=== PATIENT | male | born 1935 | race Caucasian/White ===

== ENCOUNTER 2016-06-01 11:52 | Inpatient (IN) | payer BC ==
--- NOTE | 2016-06-01 13:13 | PDOC ---
History of Present Illness - General Chief Complaint: Weakness Stated Complaint: RT LEG PAIN Time Seen by Provider: 06/01/16 12:10 History Source: Patient, Old Records Exam Limitations: No Limitations - History of Present Illness Initial Comments: 06/01/16 13:07 HPI: This 80-year-old male with c/o right lower leg weakness with increase neuropathy and was sent in to ER for admission per Dr. Dunham/Dr. Bhandari for work up Chief Compliant: right LE weakness. PMH: PVD, HTN, DM, BPH, FH: Pt has not recently traveled outside the country in the last 30 days. Pt has not been in contact with people who have traveled out of the country, in contact with people who have been ill with fever, n, v, d. SH: smoking use: NONE illicit drug use: NONE alcohol use: NONE employment/educational status: sexual history: PSH: Home med use noted on JUL Allergies:nka Immunizations: PCP: Dr. 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: G P : 06/01/16 15:02 Past History - Past Medical History Allergies/Adverse Reactions: Allergies Allergy/AdvReac Type Severity Reaction Status Date / Time No Known Allergies Allergy Verified 06/01/16 11:57 Home Medications: Ambulatory Orders Finasteride [Proscar -] 5 mg PO DAILY 09/14/15 Paroxetine HCl [Paxil -] 40 mg PO DAILY 09/14/15 Sulfasalazine 500 mg PO BID #60 tablet 09/29/15 Tamsulosin HCl [Flomax -] 0.8 mg PO DAILY #0 09/29/15 Acetaminophen [Tylenol .Extra-Strength -] 500 mg PO Q6H 04/23/16 Cholecalciferol (Vitamin D3) [Vitamin D3] 1,000 unit PO DAILY 04/23/16 Melatonin 5 mg PO HS 04/23/16 Metformin HCl 500 mg PO BID 04/23/16 Methimazole 5 mg PO BID 04/23/16 Metoprolol Succinate [Toprol XL -] 25 mg PO DAILY 04/23/16 Tamsulosin HCl [Flomax] 0.4 mg PO HS 04/23/16 Cefuroxime Axetil [Ceftin -] 500 mg PO Q12H #14 tablet 04/25/16 Meclizine HCl [Antivert -] 25 mg PO Q6H PRN #30 tablet 04/25/16 Anemia: No Asthma: No Cancer: No Cardiac Disorders: No CVA: No COPD: No CHF: No Dementia: No Diabetes: Yes GI Disorders: Yes (ACID REFLUX) Disorders: Yes (BPH) HTN: No Hypercholesterolemia: No Kidney Stones: Yes Liver Disease: No Seizures: No Thyroid Disease: No - Surgical History Abdominal Surgery: Yes (HERNIA) Appendectomy: No Cardiac Surgery: No Cholecystectomy: No Lung Surgery: No Neurologic Surgery: No Orthopedic Surgery: No (LEFT TOTAL HIP REPLACEMENT) - Immunization History Immunization Up to Date: Yes - Psycho/Social/Smoking Cessation Hx Anxiety: No Suicidal Ideation: No Smoking History: Former smoker Have you smoked in the past 12 months: No Number of Cigarettes Smoked Daily: 20 If you are a former smoker, when did you quit?: 25 YRS Information on smoking cessation initiated: No Hx Alcohol Use: No Drug/Substance Use Hx: No Substance Use Type: None Hx Substance Use Treatment: No Review of Systems - Review of Systems Able to Perform ROS?: Yes Comments:: 06/01/16 15:05 General statement: I have right leg weakness that is worsening Hematology: neg history of bleeding/blood thinners Skin: Neg for lesions, rash, bruising. HEENT: Neg symptoms Respiratory: Neg SOB or difficulty in breathing Cardiac: Neg chest pain GI: Neg pain, n/v : Neg problems on voiding MS: Neg for joint pain/stiffness, no edema Neuro: Neg for LOC, weakness, Endocrine: Neg for excess thirst/hunger, cold/heat intolerance, excess sweating Allergies: Neg for allergies *Physical Exam - Vital Signs Last Vital Signs Temp Pulse Resp BP Pulse Ox 99.1 F 87 20 122/67 93 L 06/01/16 11:53 06/01/16 11:53 06/01/16 11:53 06/01/16 11:53 06/01/16 11:53 - Physical Exam Comments: General Appearance: This elderly 80-year-old male V/S: hemodynamically stable, afebrile Skin: WNL of pt's skin color, no signs of pallor, mottling, cyanosis Head:symmetrical Eyes: EOM's intact, PERRLA Ears: denies pain Nose: patent Throat: lips, teeth, gums, tongue, buccal mucos pink and moist Lungs: Chest symmetry equal. Cap refill <3 seconds. Lung sounds clear Cardiac: PMI at R 4MCL space, pos S1 and S2, regular rate. Abdomen: Soft, round, nontender : Not observed Muscularskeletal: Positive right leg weakness unable to bear weight. No edema + PMS Neuro: AAOx3, cognitively intact, speech clear and appropriate. ED Treatment Course - LABORATORY CBC & Chemistry Diagram: 06/01/16 14:00 06/01/16 14:00 Medical Decision Making - Medical Decision Making 06/01/16 15:07 Patient initially seen and examined. Patient is found to have right leg weakness. He has some difficulty in ambulating and bearing weight. Patient is being brought in for admission. Chest x-ray negative Labs are noted to be normal for patient Pt is admitted to hospitalist for further workup. *DC/Admit/Observation/Transfer Diagnosis at time of Disposition: Weakness of both lower extremities - Discharge Dispostion Condition at time of disposition: Stable Admit: Yes
[2016-06-01 14:24] LABS: BASOPHIL 0.5 % (0-2.0); EOSINOPHIL 2.3 % (0-4.5); MCH 30.2 pg (25.7-33.7); MCHC 33.4 g/dl (32.0-35.9); MEAN CELL VOLUME 90.3 fl (80-96); MEAN PLT VOLUME 7.9 fl (7.5-11.1); NEUTROPHILS 75.7 % (42.8-82.8); PLATELET COUNT 161 K/MM3 (134-434); RDW 15.3 % (11.9-15.9); WHITE BLOOD COUNT 7.7 K/mm3 (4.0-10.0)
[2016-06-01 14:41] LABS: INR 1.13 (0.82-1.09); PROTHROMBIN TIME (PATIENT) 12.5 SEC (9.98-11.88)
[2016-06-01 14:53] LABS: ALBUMIN 3.3 g/dl (3.4-5.0); BILIRUBIN,TOTAL 0.2 mg/dL (0.2-1.0); CALCIUM 8.7 mg/dL (8.5-10.1); CREATININE 1.5 mg/dL (0.7-1.3); TOT PROT 6.7 g/dl (6.4-8.2)
--- NOTE | 2016-06-01 17:22 | HP ---
CHIEF COMPLAINT: Right leg progressive weakness PCP: Dr. Dunham HISTORY OF PRESENT ILLNESS: This is an 80 year old male with PMHx of HTN, rheumatoid arthritis 2007, COPD, CKD, interstitial lung disease, hyperthyroidism , NIDDM, chronic inflammatory demyelinating neuropathy, who presented to the ED with increased right leg weakness. The patient has been followed by Dr. Bhandari as an outpatient and was sent in today for further workup and IVIG (according to the patient). The patient reports his right leg weakness has progressed over the past "couple of weeks". He reports at home he uses a walker, but more recently has been using a wheelchair. He denies any bowel or bladder incontinence, headache, nausea, vomiting, diarrhea, abdominal pain, dysuria, dizziness, syncope, falls, trauma. ER course was notable for: (1) Cr 1.5 (2) UA/urine culture pending (3) Temp 99.1, pulse 87, BP 122/67, resp 20, O2 93% on RA Recent Travel: None Social History: Smoking: None Alcohol: None Drugs: None Family History: Allergies No Known Allergies Allergy (Verified 06/01/16 11:57) HOME MEDICATIONS: Medication Instructions Recorded Finasteride [Proscar -] 5 mg PO DAILY 09/14/15 Paroxetine HCl [Paxil -] 40 mg PO DAILY 09/14/15 Sulfasalazine 500 mg PO BID #60 tablet 09/29/15 Tamsulosin HCl [Flomax -] 0.8 mg PO DAILY #0 09/29/15 Acetaminophen [Tylenol 500 mg PO Q6H 04/23/16 .Extra-Strength -] Cholecalciferol (Vitamin D3) 1,000 unit PO DAILY 04/23/16 [Vitamin D3] Melatonin 5 mg PO HS 04/23/16 Metformin HCl 500 mg PO BID 04/23/16 Methimazole 5 mg PO BID 04/23/16 Metoprolol Succinate [Toprol XL -] 25 mg PO DAILY 04/23/16 Tamsulosin HCl [Flomax] 0.4 mg PO HS 04/23/16 Cefuroxime Axetil [Ceftin -] 500 mg PO Q12H #14 tablet 04/25/16 Meclizine HCl [Antivert -] 25 mg PO Q6H PRN #30 tablet 04/25/16 REVIEW OF SYSTEMS CONSTITUTIONAL: Absent: fever, chills, diaphoresis, malaise, loss of appetite, weight change HEENT: Absent: rhinorrhea, nasal congestion, visual changes CARDIOVASCULAR: Absent: chest pain, syncope, palpitations, irregular heart rate , lightheadedness, peripheral edema RESPIRATORY: Absent: cough, shortness of breath, dyspnea with exertion, wheezing , stridor, hemoptysis GASTROINTESTINAL:Absent: abdominal pain, abdominal distension, nausea, vomiting , diarrhea, constipation, melena, hematochezia GENITOURINARY: Absent: dysuria, frequency, urgency, hesitancy, hematuria, flank pain, genital pain MUSCULOSKELETAL: Absent: arthralgia, joint swelling, back pain, neck pain SKIN: Absent: rash, itching, pallor HEMATOLOGIC/IMMUNOLOGIC: Absent: easy bleeding, easy bruising, lymphadenopathy, frequent infections ENDOCRINE:Absent: unexplained weight gain, unexplained weight loss, heat intolerance, cold intolerance NEUROLOGIC: Increased right leg weakness requiring wheelchair. Absent: headache , dizziness, seizure, mental status changes, bladder or bowel incontinence PSYCHIATRIC: Absent: anxiety, depression, suicidal or homicidal ideation, hallucinations. PHYSICAL EXAMINATION GENERAL: Awake, alert, and fully oriented, in no acute distress. HEAD: Normal with no signs of trauma. EYES: Pupils equal, round and reactive to light, extraocular movements intact, sclera anicteric, conjunctiva clear. No lid lag. EARS, NOSE, THROAT: Ears normal, nares patent, oropharynx clear without exudates. Moist mucous membranes. NECK: Normal range of motion, supple without lymphadenopathy, JVD, or masses. LUNGS: Breath sounds equal, clear to auscultation bilaterally. No wheezes, and no crackles. No accessory muscle use. HEART: Regular rate and rhythm, normal S1 and S2 without murmur, rub or gallop. ABDOMEN: Soft, nontender, not distended, normoactive bowel sounds, no guarding, no rebound, no masses. No hepatomegaly or splenomegaly. MUSCULOSKELETAL: Normal range of motion at all joints. No bony deformities or tenderness. No CVA tenderness. UPPER EXTREMITIES: 2+ pulses, warm, well-perfused. No cyanosis. No clubbing. Cap refill <2 seconds. No peripheral edema. LOWER EXTREMITIES: 2+ pulses, warm, well-perfused. No calf tenderness. NEUROLOGICAL: Cranial nerves II-XII intact. Normal speech. Reflexes absent in lower extremities. Motor strength decreased in b/l upper and lower extremities PSYCHIATRIC: Cooperative. Good eye contact. Appropriate mood and affect. SKIN: Warm, dry, normal turgor, no rashes or lesions noted. CBCD WBC 7.7 K/mm3 (4.0-10.0) 06/01/16 14:00 RBC 4.31 M/mm3 (4.00-5.60) D 06/01/16 14:00 Hgb 13.0 GM/dL (11.7-16.9) D 06/01/16 14:00 Hct 38.9 % (35.4-49) D 06/01/16 14:00 MCV 90.3 fl (80-96) 06/01/16 14:00 MCHC 33.4 g/dl (32.0-35.9) 06/01/16 14:00 RDW 15.3 % (11.9-15.9) 06/01/16 14:00 Plt Count 161 K/MM3 (134-434) 06/01/16 14:00 MPV 7.9 fl (7.5-11.1) 06/01/16 14:00 CMP Sodium 141 mmol/L (136-145) 06/01/16 14:00 Potassium 4.1 mmol/L (3.5-5.1) 06/01/16 14:00 Chloride 104 mmol/L (98-107) 06/01/16 14:00 Carbon Dioxide 28 mmol/L (21-32) 06/01/16 14:00 Anion Gap 9 (8-16) 06/01/16 14:00 BUN 21 mg/dL (7-18) H D 06/01/16 14:00 Creatinine 1.5 mg/dL (0.7-1.3) H 06/01/16 14:00 Creat Clearance w eGFR 44.92 (>60) 06/01/16 14:00 Random Glucose 117 mg/dL (74-106) H D 06/01/16 14:00 Calcium 8.7 mg/dL (8.5-10.1) 06/01/16 14:00 Total Bilirubin 0.2 mg/dL (0.2-1.0) D 06/01/16 14:00 AST 13 U/L (15-37) L D 06/01/16 14:00 ALT 13 U/L (12-78) D 06/01/16 14:00 Alkaline Phosphatase 67 U/L (45-117) D 06/01/16 14:00 Total Protein 6.7 g/dl (6.4-8.2) 06/01/16 14:00 Albumin 3.3 g/dl (3.4-5.0) L D 06/01/16 14:00 Assessment: This is an 80 year old male with PMHx of HTN, rheumatoid arthritis 2007, COPD, CKD, interstitial lung disease, hyperthyroidism, NIDDM, chronic inflammatory demyelinating neuropathy, who presented to the ED with increased right leg weakness. Plan: 1) Neuro: Acute on chronic inflammatory demyelinating neuropathy - Worsening right leg weakness over the past few weeks - Sent in by neurologist for IVIG - Received IVIG (09/21-09/25) - Discussed with Dr. Bhandari, will order IVIG 2g/kg divided into 5 days total. Will pre-medicate with Benadryl and Acetaminophen - Will prehydrate with NS at 75ml/hr given pre-existing renal insufficiency, diabetes mellitus, age greater than 65 years (discussed with Dr. Tyson) - F/u neuro consult 2) : CKD stage 3 - Cr better than baseline - Continue to monitor 3) Rheumatology: Rheumatoid arthritis - PT - Continue Theraband 4) Cardiology: HTN - Continue Toprol XL 5) Endocrinology: DM - BGM ACHS Hyperthyroidism - Continue Methimazole 6) F/E/N: - Diabetic/sodium controlled diet - Monitor electrolytes 7) Prophylaxis: - Heparin 5,000u sq bid - PT 8) Dispo: - Requires continued inpatient care CODE STATUS: FULL CODE Visit type - Emergency Visit Emergency Visit: Yes ED Registration Date: 06/01/16 Care time: The patient presented to the Emergency Department on the above date and was hospitalized for further evaluation of their emergent condition. - New Patient This patient is new to me today: Yes Date on this admission: 06/01/16 - Critical Care Critical Care patient: No
[2016-06-01 17:53] LABS: URINE APPEARANCE CLEAR; URINE BILIRUBIN NEGATIVE (NEGATIVE); URINE COLOR YELLOW; URINE GLUCOSE (UA) NEGATIVE (NEGATIVE); URINE KETONE NEGATIVE (NEGATIVE); URINE LEUK ESTERASE NEGATIVE (NEGATIVE); URINE NITRITE NEGATIVE (NEGATIVE); URINE UROBILINOGEN NEGATIVE E.U./dl (0.2-1.0)
[2016-06-01 17:59] LABS: URINE BLOOD 2+ (NEGATIVE); URINE PROTEIN 2+ (NEGATIVE)
[2016-06-01 18:12] LABS: URINE RBC 32 /hpf (0-3); URINE WBC 1 /hpf (3-5)
[2016-06-01] MEDS ORDERED: SODIUM CHLORIDE 1,000 ML IV SCH (18:15)
[2016-06-01] MEDS: SODIUM CHLORIDE 1,000 ML IV SCH (18:40)
--- NOTE | 2016-06-01 19:50 | CONSULT ---
Consult Consult Specialty:: Nephrology Reason for Consultation:: CKD - History of Present Illness Chief Complaint: lower extremity weakness, sent in by neurology History of Present Illness: Pt is an 80 year old gentleman who is known to me from prior visits that presents with lower extremity weakness. He is followed by Dr Bhandari and was sent in for further treatment. He complains of weakness in his right leg. I was called to evaluate him for CKD and manage his volume status as he gets IVIG. He denies dysuria or hematuria. He has history of demyelinating disease for which he received IVIG on last admission. He does not feel that it helped much. He has history of HTN, rheumatoid arthritis, COPD, CKD, interstitial lung disease, hyperthyroidism, DM and demyelinating neuropathy. He is now off of prednisone. - History Source History Provided By: Patient, Medical Record - Past Medical History Cardio/Vascular: Yes: HTN, Hyperlipdemia Pulmonary: Yes: COPD Renal/: Yes: Renal Inusuff, BPH Rheumatology: Yes: Rheumatoid Arthritis Endocrine: Yes: Diabetes Mellitus - Alcohol/Substance Use Hx Alcohol Use: No History of Substance Use: reports: None - Smoking History Smoking history: Former smoker Have you smoked in the past 12 months: No Aproximately how many cigarettes per day: 20 If you are a former smoker, when did you quit?: 25 YRS - Social History ADL: Independent Occupation: Retired History of Recent Travel: No Home Medications - Allergies Allergies/Adverse Reactions: Allergies Allergy/AdvReac Type Severity Reaction Status Date / Time No Known Allergies Allergy Verified 06/01/16 11:57 - Home Medications Home Medications: Ambulatory Orders Finasteride [Proscar -] 5 mg PO DAILY 09/14/15 Paroxetine HCl [Paxil -] 40 mg PO DAILY 09/14/15 Cholecalciferol (Vitamin D3) [Vitamin D3] 1,000 unit PO DAILY 04/23/16 Metformin HCl 500 mg PO BID 04/23/16 Methimazole 5 mg PO BID 04/23/16 Metoprolol Succinate [Toprol XL -] 25 mg PO DAILY 04/23/16 Tamsulosin HCl [Flomax] 0.4 mg PO HS 04/23/16 Family Disease History - Family Disease History Family Disease History: CA: Father, Mother Review of Systems - Review of Systems Constitutional: reports: Weakness Eyes: reports: No Symptoms HENT: reports: No Symptoms Neck: reports: No Symptoms Cardiovascular: reports: No Symptoms Respiratory: reports: SOB on Exertion Gastrointestinal: reports: No Symptoms Genitourinary: reports: No Symptoms Musculoskeletal: reports: No Symptoms Integumentary: reports: No Symptoms Neurological: reports: Pre-Existing Deficit Endocrine: reports: No Symptoms Hematology/Lymphatic: reports: No Symptoms Psychiatric: reports: No Symptoms Physical Exam Vital Signs: Vital Signs Temperature 99.1 F 06/01/16 11:53 Pulse Rate 87 06/01/16 11:53 Respiratory Rate 20 06/01/16 11:53 Blood Pressure 122/67 06/01/16 11:53 O2 Sat by Pulse Oximetry (%) 93 L 06/01/16 11:53 Constitutional: Yes: Calm Eyes: Yes: Conjunctiva Clear HENT: Yes: Atraumatic Cardiovascular: Yes: S1, S2 Respiratory: Yes: CTA Bilaterally Gastrointestinal: Yes: Normal Bowel Sounds, Soft Renal/: Yes: WNL Musculoskeletal: Yes: Muscle Weakness Edema: Yes Edema: LLE: Trace, RLE: Trace Neurological: Yes: Oriented, Pre-Existing Deficit Psychiatric: Yes: Oriented Labs: Laboratory Tests 09/26/15 09/27/15 09/28/15 07:00 06:05 07:15 WBC Hgb Plt Count INR Sodium Potassium Chloride Carbon Dioxide Anion Gap BUN Creatinine 2.0 H 2.1 H 2.0 H Creat Clearance w eGFR Random Glucose AST ALT Albumin Urine Color Urine Appearance Urine pH Ur Specific [place] Urine Protein Urine Glucose (UA) Urine Ketones Urine Blood Urine Nitrite Urine Bilirubin Urine Urobilinogen Ur Leukocyte Esterase 09/29/15 04/23/16 04/24/16 06:30 18:20 06:00 WBC Hgb Plt Count INR Sodium Potassium Chloride Carbon Dioxide Anion Gap BUN Creatinine 1.8 H 1.4 H D 1.4 H Creat Clearance w eGFR Random Glucose AST ALT Albumin Urine Color Urine Appearance Urine pH Ur Specific [place] Urine Protein Urine Glucose (UA) Urine Ketones Urine Blood Urine Nitrite Urine Bilirubin Urine Urobilinogen Ur Leukocyte Esterase 04/25/16 06/01/16 06/01/16 07:45 14:00 14:00 WBC 7.7 Hgb 13.0 D Plt Count 161 INR Sodium 141 Potassium 4.1 Chloride 104 Carbon Dioxide 28 Anion Gap 9 BUN 21 H D Creatinine 1.4 H 1.5 H Creat Clearance w eGFR 44.92 Random Glucose 117 H D AST 13 L D ALT 13 D Albumin 3.3 L D Urine Color Urine Appearance Urine pH Ur Specific [place] Urine Protein Urine Glucose (UA) Urine Ketones Urine Blood Urine Nitrite Urine Bilirubin Urine Urobilinogen Ur Leukocyte Esterase 06/01/16 06/01/16 14:00 17:40 WBC Hgb Plt Count INR 1.13 Sodium Potassium Chloride Carbon Dioxide Anion Gap BUN Creatinine Creat Clearance w eGFR Random Glucose AST ALT Albumin Urine Color Yellow Urine Appearance Clear Urine pH 6.0 Ur Specific [place] 1.018 Urine Protein 2+ H Urine Glucose (UA) Negative Urine Ketones Negative Urine Blood 2+ H Urine Nitrite Negative Urine Bilirubin Negative Urine Urobilinogen Negative Ur Leukocyte Esterase Negative Imaging - Results Chest X-ray: Report Reviewed Problem List - Problems (1) UTI (urinary tract infection) Code(s): N39.0 - URINARY TRACT INFECTION, SITE NOT SPECIFIED (2) BPH (benign prostatic hypertrophy) Code(s): N40.0 - BENIGN PROSTATIC HYPERPLASIA WITHOUT LOWER URINRY TRACT SYMP (3) COPD (chronic obstructive pulmonary disease) Code(s): J44.9 - CHRONIC OBSTRUCTIVE PULMONARY DISEASE, UNSPECIFIED (4) Chronic kidney disease Code(s): N18.9 - CHRONIC KIDNEY DISEASE, UNSPECIFIED (5) Demyelinating disease Code(s): G37.9 - DEMYELINATING DISEASE OF CENTRAL NERVOUS SYSTEM, UNSPECIFIED (6) Diabetes Code(s): E11.9 - TYPE 2 DIABETES MELLITUS WITHOUT COMPLICATIONS (7) Diastolic CHF Code(s): I50.30 - UNSPECIFIED DIASTOLIC (CONGESTIVE) HEART FAILURE (8) HTN (hypertension) Code(s): I10 - ESSENTIAL (PRIMARY) HYPERTENSION (9) Rheumatoid arthritis Code(s): M06.9 - RHEUMATOID ARTHRITIS, UNSPECIFIED Assessment/Plan Current Medications Generic Name Dose Route Start Last Admin Trade Name Freq PRN Reason Stop Dose Admin Acetaminophen 650 mg 06/01/16 18:19 Tylenol - PO Q6H PRN FEVER OR PAIN Cholecalciferol 1,000 unit 06/02/16 10:00 Vitamin D3 - PO DAILY ON LICENSE OF [facility] Diphenhydramine HCl 25 mg 06/01/16 18:20 Benadryl - PO Q12H PRN FOR ITCHING Finasteride 5 mg 06/02/16 10:00 Proscar - PO DAILY RYAN Heparin Sodium (Porcine) 5,000 unit 06/01/16 22:00 Heparin - SQ BID RYAN Sodium Chloride 1,000 mls @ 75 mls/hr 06/01/16 18:22 06/01/16 18:40 Normal Saline - IV 75 mls/hr ASDIR RYAN Administration Immune Globulin 350 mls @ 60 mls/hr 06/02/16 10:00 Gamunex-C IVPB 06/06/16 15:49 DAILY RYAN Insulin Aspart 1 vial 06/01/16 22:00 Novolog Vial Sliding Scale - SQ ACHS ON LICENSE OF [facility] Protocol Methimazole 5 mg 06/01/16 22:00 Tapazole - PO BID RYAN Metoprolol Succinate 25 mg 06/02/16 10:00 Toprol Xl - PO DAILY RYAN Paroxetine HCl 40 mg 06/02/16 10:00 Paxil - PO DAILY RYAN Tamsulosin HCl 0.4 mg 06/01/16 22:00 Flomax - PO HS RYAN Impression 1. CKD 2. demyelinating disease 3. HTN 4. COPD 5. DM 6. interstitial lung disease 7. BPH Plan - cont current meds - discussed with hospitalist - IV hydration - monitor bp - will monitor volume status closely - repeat labs in am - will follow Dr Tyson
[2016-06-01] MEDS: HEPARIN NA (PORCINE) 5,000 UNITS/ML 1ML VIAL SQ SCH (22:49)
[2016-06-01] MEDS: METHIMAZOLE 5 MG TABLET (FP) PO SCH (22:49)
[2016-06-01] MEDS: TAMSULOSIN HCL 0.4 MG CAP.ER.24H (FP) PO SCH (22:49)
[2016-06-01] MEDS: INSULIN SLIDING SCALE (NOVOLOG) 1 VIAL SQ SCH (22:50)
[2016-06-01 23:01] VITALS: BMI 29.5
--- NOTE | 2016-06-01 23:24 | CONSULT ---
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 no numbness tingling, inc weakness R leg prox and distal; feel he did better after last course of IVIG in 11/27. Unable to tolerate steroids given DM/complications. comes in for IVIG retrial. lives alone. - History Source History Provided By: Patient Limitations to Obtaining History: No Limitations - Past Medical History Cardio/Vascular: Yes: HTN, Hyperlipdemia Pulmonary: Yes: COPD Renal/: Yes: Renal Inusuff, BPH Rheumatology: Yes: Rheumatoid Arthritis Endocrine: Yes: Diabetes Mellitus - Alcohol/Substance Use Hx Alcohol Use: No History of Substance Use: reports: None - Smoking History Smoking history: Former smoker Have you smoked in the past 12 months: No Aproximately how many cigarettes per day: 20 If you are a former smoker, when did you quit?: 25 YRS - Social History ADL: Independent Occupation: Retired History of Recent Travel: No Home Medications - Allergies Allergies/Adverse Reactions: Allergies Allergy/AdvReac Type Severity Reaction Status Date / Time No Known Allergies Allergy Verified 06/01/16 11:57 - Home Medications Home Medications: Ambulatory Orders Finasteride [Proscar -] 5 mg PO DAILY 09/14/15 Paroxetine HCl [Paxil -] 40 mg PO DAILY 09/14/15 Cholecalciferol (Vitamin D3) [Vitamin D3] 1,000 unit PO DAILY 04/23/16 Metformin HCl 500 mg PO BID 04/23/16 Methimazole 5 mg PO BID 04/23/16 Metoprolol Succinate [Toprol XL -] 25 mg PO DAILY 04/23/16 Tamsulosin HCl [Flomax] 0.4 mg PO HS 04/23/16 Family Disease History - Family Disease History Family Disease History: CA: Father, Mother Physical Exam-Neuro Vital Signs: Vital Signs Temperature 98.1 F 06/01/16 22:58 Pulse Rate 80 06/01/16 22:58 Respiratory Rate 16 06/01/16 22:58 Blood Pressure 116/69 06/01/16 22:58 O2 Sat by Pulse Oximetry (%) 99 06/01/16 23:01 Constitutional: Yes: Well Nourished Labs: INR, PTT INR 1.13 (0.82-1.09) 06/01/16 14:00 - Neuro Exam Level Of Consciousness: Yes: Alert, Oriented to Person, Oriented to Place Speech: WNL Cranial Nerves II-XII Intact: Yes DTR's: 0 Left Achilles, 0 Right Achilles, 2+ Left Tricep, 2+ Right Tricep Babinski: Absent Response to light touch: Normal Motor Strength: 1/5: Right Leg (weakness R IP 1/5, quads 4/5 and hams 4+/5, TA 4 /5 ( R >L foot drop) ), 4/5: Left Arm, Right Arm, Left Leg (weakness in shoulder area (prior RC) /distally 4/5 in hands ) Gait: Other (weakness prox and distal in UE and moreso in RLE (hip flexion) and BL foot drop R >L) Problem List - Problems (1) Weakness of both lower extremities Code(s): M62.81 - MUSCLE WEAKNESS (GENERALIZED) (2) COPD (chronic obstructive pulmonary disease) Code(s): J44.9 - CHRONIC OBSTRUCTIVE PULMONARY DISEASE, UNSPECIFIED (3) Chronic inflammatory demyelinating neuropathy Code(s): G61.81 - CHRONIC INFLAMMATORY DEMYELINATING POLYNEURITIS (4) Chronic kidney disease Code(s): N18.9 - CHRONIC KIDNEY DISEASE, UNSPECIFIED (5) Diabetes Code(s): E11.9 - TYPE 2 DIABETES MELLITUS WITHOUT COMPLICATIONS Assessment/Plan HX of DM, ? 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
[2016-06-02] MEDS: INSULIN SLIDING SCALE (NOVOLOG) 1 VIAL SQ SCH ×4 (06:16→21:04)
[2016-06-02 08:41] LABS: ALBUMIN 3.2 g/dl (3.4-5.0); BILIRUBIN,TOTAL 0.3 mg/dL (0.2-1.0); CALCIUM 8.4 mg/dL (8.5-10.1); CREATININE 1.4 mg/dL (0.7-1.3); MAGNESIUM 2.2 mg/dL (1.8-2.4); PHOSPHOROUS 3.1 mg/dL (2.5-4.9); TOT PROT 6.6 g/dl (6.4-8.2)
[2016-06-02 08:47] LABS: MCH 30.4 pg (25.7-33.7); MCHC 33.7 g/dl (32.0-35.9); MEAN CELL VOLUME 90.2 fl (80-96); MEAN PLT VOLUME 8.3 fl (7.5-11.1); PLATELET COUNT 168 K/MM3 (134-434); RDW 15.3 % (11.9-15.9)
[2016-06-02] MEDS: ACETAMINOPHEN 325 MG TABLET (FP) PO PRN (09:47)
[2016-06-02] MEDS: diphenhydrAMINE HCL 25 MG CAPSULE (FP) PO PRN (09:49)
[2016-06-02 09:55] LABS: THYROID STIMULATING HORMONE 9.16 uIU/ml (0.358-3.74)
[2016-06-02] MEDS ORDERED: IMMUNE GLOBULIN IVPB SCH (10:00)
[2016-06-02] MEDS ORDERED: IMMUNE GLOB,GAM CAPRYLATE(IGG) 20 GM IVPB ONE (10:00)
[2016-06-02] MEDS ORDERED: IMMUNE GLOBULIN (IgG) 10 GM VIAL IVPB SCH (10:00)
[2016-06-02] MEDS: CHOLECALCIFEROL (VITAMIN D3) 1,000 UNIT TABLET (FP) PO SCH (10:33)
[2016-06-02] MEDS: FINASTERIDE 5 MG TABLET (FP) PO SCH (10:33)
[2016-06-02] MEDS: METOPROLOL SUCCINATE 25 MG TAB.SR.24H (FP) PO SCH (10:33)
[2016-06-02] MEDS: HEPARIN NA (PORCINE) 5,000 UNITS/ML 1ML VIAL SQ SCH ×2 (10:33→21:10)
[2016-06-02] MEDS: PARoxetine HCL 20 MG TABLET (FP) PO SCH (10:33)
[2016-06-02] MEDS ORDERED: INSULIN (NOVOLOG) ASPART 100 UNITS/ML 10ML VIAL ONE ×2 (10:59→15:53)
--- NOTE | 2016-06-02 11:00 | PN ---
Progress Note (short form) - Note Progress Note: Subjective: The patient was seen and examined sitting in the chair, he reports still having weakness. To start IVIG today. TSH elevated, will decrease Methimazole Current Medications Generic Name Dose Route Start Last Admin Trade Name Freq PRN Reason Stop Dose Admin Acetaminophen 650 mg 06/01/16 18:19 06/02/16 09:47 Tylenol - PO 650 mg Q6H PRN Administration FEVER OR PAIN Cholecalciferol 1,000 unit 06/02/16 10:00 06/02/16 10:33 Vitamin D3 - PO 1,000 unit DAILY RYAN Administration Diphenhydramine HCl 25 mg 06/01/16 18:20 06/02/16 09:49 Benadryl - PO 25 mg Q12H PRN Administration FOR ITCHING Finasteride 5 mg 06/02/16 10:00 06/02/16 10:33 Proscar - PO 5 mg DAILY RYAN Administration Heparin Sodium (Porcine) 5,000 unit 06/01/16 22:00 06/02/16 10:33 Heparin - SQ 5,000 unit BID RYAN Administration Sodium Chloride 1,000 mls @ 75 mls/hr 06/01/16 18:22 06/01/16 18:40 Normal Saline - IV 75 mls/hr ASDIR RYAN Administration Immune Globulin 200 mls @ 56 mls/hr 06/02/16 10:00 06/02/16 10:33 Gamunex-C IVPB 06/02/16 13:34 56 mls/hr ONCE ONE Administration Protocol Immune Globulin 400 mls @ 100 mls/hr 06/03/16 10:00 Gamunex-C IVPB 06/05/16 13:59 DAILY RYAN Protocol Immune Globulin/ Immune 350 mls @ 100 mls/hr 06/06/16 10:00 Globulin/ Immune Globulin IVPB 06/06/16 13:29 ONCE ONE Protocol Insulin Aspart 1 vial 06/01/16 22:00 06/02/16 11:03 Novolog Vial Sliding Scale - SQ Not Given ACHS RYAN Protocol Methimazole 5 mg 06/03/16 10:00 Tapazole - PO DAILY RYAN Metoprolol Succinate 25 mg 06/02/16 10:00 06/02/16 10:33 Toprol Xl - PO 25 mg DAILY RYAN Administration Paroxetine HCl 40 mg 06/02/16 10:00 06/02/16 10:33 Paxil - PO 40 mg DAILY RYAN Administration Tamsulosin HCl 0.4 mg 06/01/16 22:00 06/01/16 22:49 Flomax - PO 0.4 mg HS RYAN Administration Objective: Vital Signs Period Temp Pulse Resp BP Sys/Mahajan Pulse Ox Last 24 Hr 97.9 F-98.4 F 71-88 16-20 116-158/64-74 93-99 Physical Exam: GENERAL: Awake, alert, and fully oriented, in no acute distress. HEAD: Normal with no signs of trauma. EYES: Pupils equal, round and reactive to light, extraocular movements intact, sclera anicteric, conjunctiva clear. No lid lag. EARS, NOSE, THROAT: Ears normal, nares patent, oropharynx clear without exudates. Moist mucous membranes. NECK: Normal range of motion, supple without lymphadenopathy, JVD, or masses. LUNGS: Breath sounds equal, clear to auscultation bilaterally. No wheezes, and no crackles. No accessory muscle use. HEART: Regular rate and rhythm, normal S1 and S2 without murmur, rub or gallop. ABDOMEN: Soft, nontender, not distended, normoactive bowel sounds, no guarding, no rebound, no masses. No hepatomegaly or splenomegaly. MUSCULOSKELETAL: Normal range of motion at all joints. No bony deformities or tenderness. No CVA tenderness. UPPER EXTREMITIES: 2+ pulses, warm, well-perfused. No cyanosis. No clubbing. Cap refill <2 seconds. No peripheral edema. LOWER EXTREMITIES: 2+ pulses, warm, well-perfused. No calf tenderness. NEUROLOGICAL: Cranial nerves II-XII intact. Normal speech. Reflexes absent in lower extremities. Motor strength decreased in b/l upper and lower extremities CBCD WBC 7.0 K/mm3 (4.0-10.0) 06/02/16 07:00 RBC 4.12 M/mm3 (4.00-5.60) 06/02/16 07:00 Hgb 12.5 GM/dL (11.7-16.9) 06/02/16 07:00 Hct 37.2 % (35.4-49) 06/02/16 07:00 MCV 90.2 fl (80-96) 06/02/16 07:00 MCHC 33.7 g/dl (32.0-35.9) 06/02/16 07:00 RDW 15.3 % (11.9-15.9) 06/02/16 07:00 Plt Count 168 K/MM3 (134-434) 06/02/16 07:00 MPV 8.3 fl (7.5-11.1) 06/02/16 07:00 CMP Sodium 143 mmol/L (136-145) 06/02/16 07:00 Potassium 4.1 mmol/L (3.5-5.1) 06/02/16 07:00 Chloride 107 mmol/L (98-107) 06/02/16 07:00 Carbon Dioxide 27 mmol/L (21-32) 06/02/16 07:00 Anion Gap 9 (8-16) 06/02/16 07:00 BUN 20 mg/dL (7-18) H 06/02/16 07:00 Creatinine 1.4 mg/dL (0.7-1.3) H 06/02/16 07:00 Creat Clearance w eGFR 48.64 (>60) 06/02/16 07:00 Random Glucose 115 mg/dL (74-106) H 06/02/16 07:00 Calcium 8.4 mg/dL (8.5-10.1) L 06/02/16 07:00 Total Bilirubin 0.3 mg/dL (0.2-1.0) D 06/02/16 07:00 AST 12 U/L (15-37) L 06/02/16 07:00 ALT 13 U/L (12-78) 06/02/16 07:00 Alkaline Phosphatase 64 U/L (45-117) 06/02/16 07:00 Total Protein 6.6 g/dl (6.4-8.2) 06/02/16 07:00 Albumin 3.2 g/dl (3.4-5.0) L 06/02/16 07:00 CARDIAC ENZYMES Creatine Kinase 80 IU/L (39-308) 06/02/16 07:00 Assessment: This is an 80 year old male with PMHx of HTN, rheumatoid arthritis 2007, COPD, CKD, interstitial lung disease, hyperthyroidism, NIDDM, chronic inflammatory demyelinating neuropathy, who presented to the ED with increased right leg weakness. Plan: 1) Neuro: Acute on chronic inflammatory demyelinating neuropathy - Worsening right leg weakness over the past few weeks - Sent in by neurologist for IVIG - Received IVIG (09/21-09/25) - Discussed with Dr. Bhandari, start IVIG today. Pre-medicate with Benadryl and Acetaminophen - Appreciate neuro consult 2) : CKD stage 3 - Cr better than baseline - Continue to monitor 3) Rheumatology: Rheumatoid arthritis - PT - Continue Theraband 4) Cardiology: HTN - Continue Toprol XL 5) Endocrinology: DM - BGM ACHS Hyperthyroidism - TSH elevated - Decrease Methimazole to 5mg daily 6) F/E/N: - Diabetic/sodium controlled diet - Monitor electrolytes 7) Prophylaxis: - Heparin 5,000u sq bid - PT 8) Dispo: - Requires continued inpatient care CODE STATUS: FULL CODE Visit type - Emergency Visit Emergency Visit: Yes ED Registration Date: 06/01/16 Care time: The patient presented to the Emergency Department on the above date and was hospitalized for further evaluation of their emergent condition. - New Patient This patient is new to me today: No - Critical Care Critical Care patient: No
--- NOTE | 2016-06-02 11:33 | PN ---
Progress Note, Physician History of Present Illness: Pt seen and examined at bedside. He is awake and alert. He denies shortness of breath. He is getting the IVIG. - Current Medication List Current Medications: Active Medications Acetaminophen (Tylenol -) 650 mg PO Q6H PRN PRN Reason: FEVER OR PAIN Last Admin: 06/02/16 09:47 Dose: 650 mg Cholecalciferol (Vitamin D3 -) 1,000 unit PO DAILY [facility] Last Admin: 06/02/16 10:33 Dose: 1,000 unit Diphenhydramine HCl (Benadryl -) 25 mg PO Q12H PRN PRN Reason: FOR ITCHING Last Admin: 06/02/16 09:49 Dose: 25 mg Finasteride (Proscar -) 5 mg PO DAILY [facility] Last Admin: 06/02/16 10:33 Dose: 5 mg Heparin Sodium (Porcine) (Heparin -) 5,000 unit SQ BID [facility] Last Admin: 06/02/16 10:33 Dose: 5,000 unit Sodium Chloride (Normal Saline -) 1,000 mls @ 75 mls/hr IV ASDIR [facility] Last Admin: 06/01/16 18:40 Dose: 75 mls/hr Immune Globulin (Gamunex-C) 200 mls @ 56 mls/hr IVPB ONCE ONE PRN Reason: Protocol Stop: 06/02/16 13:34 Last Admin: 06/02/16 10:33 Dose: 56 mls/hr Immune Globulin (Gamunex-C) 400 mls @ 100 mls/hr IVPB DAILY RYAN PRN Reason: Protocol Stop: 06/05/16 13:59 Immune Globulin/ Immune (Globulin/ Immune Globulin) 350 mls @ 100 mls/hr IVPB ONCE ONE PRN Reason: Protocol Stop: 06/06/16 13:29 Insulin Aspart (Novolog Vial Sliding Scale -) 1 vial SQ ACHS RYAN PRN Reason: Protocol Last Admin: 06/02/16 11:03 Dose: Not Given Methimazole (Tapazole -) 5 mg PO DAILY [facility] Metoprolol Succinate (Toprol Xl -) 25 mg PO DAILY [facility] Last Admin: 06/02/16 10:33 Dose: 25 mg Paroxetine HCl (Paxil -) 40 mg PO DAILY [facility] Last Admin: 06/02/16 10:33 Dose: 40 mg Tamsulosin HCl (Flomax -) 0.4 mg PO HS RYAN Last Admin: 06/01/16 22:49 Dose: 0.4 mg - Objective Vital Signs: Vital Signs Temperature 98.4 F 06/02/16 06:00 Pulse Rate 81 06/02/16 06:00 Respiratory Rate 18 06/02/16 06:00 Blood Pressure 131/64 06/02/16 06:00 O2 Sat by Pulse Oximetry (%) 99 06/01/16 23:01 Constitutional: Yes: Calm Eyes: Yes: Conjunctiva Clear HENT: Yes: Atraumatic Neck: Yes: Supple Cardiovascular: Yes: S1, S2 Respiratory: Yes: CTA Bilaterally Gastrointestinal: Yes: Normal Bowel Sounds, Soft Genitourinary: Yes: WNL Musculoskeletal: Yes: Muscle Weakness Edema: No Neurological: Yes: Oriented Psychiatric: Yes: Oriented Labs: CBC, BMP 06/02/16 07:00 06/02/16 07:00 INR, PTT INR 1.13 (0.82-1.09) 06/01/16 14:00 Problem List - Problems (1) UTI (urinary tract infection) Code(s): N39.0 - URINARY TRACT INFECTION, SITE NOT SPECIFIED (2) BPH (benign prostatic hypertrophy) Code(s): N40.0 - BENIGN PROSTATIC HYPERPLASIA WITHOUT LOWER URINRY TRACT SYMP (3) COPD (chronic obstructive pulmonary disease) Code(s): J44.9 - CHRONIC OBSTRUCTIVE PULMONARY DISEASE, UNSPECIFIED (4) Chronic kidney disease Code(s): N18.9 - CHRONIC KIDNEY DISEASE, UNSPECIFIED (5) Demyelinating disease Code(s): G37.9 - DEMYELINATING DISEASE OF CENTRAL NERVOUS SYSTEM, UNSPECIFIED (6) Diabetes Code(s): E11.9 - TYPE 2 DIABETES MELLITUS WITHOUT COMPLICATIONS (7) Diastolic CHF Code(s): I50.30 - UNSPECIFIED DIASTOLIC (CONGESTIVE) HEART FAILURE (8) HTN (hypertension) Code(s): I10 - ESSENTIAL (PRIMARY) HYPERTENSION (9) Rheumatoid arthritis Code(s): M06.9 - RHEUMATOID ARTHRITIS, UNSPECIFIED Assessment/Plan Current Medications Generic Name Dose Route Start Last Admin Trade Name Freq PRN Reason Stop Dose Admin Acetaminophen 650 mg 06/01/16 18:19 06/02/16 09:47 Tylenol - PO 650 mg Q6H PRN Administration FEVER OR PAIN Cholecalciferol 1,000 unit 06/02/16 10:00 06/02/16 10:33 Vitamin D3 - PO 1,000 unit DAILY RYAN Administration Diphenhydramine HCl 25 mg 06/01/16 18:20 06/02/16 09:49 Benadryl - PO 25 mg Q12H PRN Administration FOR ITCHING Finasteride 5 mg 06/02/16 10:00 06/02/16 10:33 Proscar - PO 5 mg DAILY RYAN Administration Heparin Sodium (Porcine) 5,000 unit 06/01/16 22:00 06/02/16 10:33 Heparin - SQ 5,000 unit BID RYAN Administration Sodium Chloride 1,000 mls @ 75 mls/hr 06/01/16 18:22 06/01/16 18:40 Normal Saline - IV 75 mls/hr ASDIR RYAN Administration Immune Globulin 200 mls @ 56 mls/hr 06/02/16 10:00 06/02/16 10:33 Gamunex-C IVPB 06/02/16 13:34 56 mls/hr ONCE ONE Administration Protocol Immune Globulin 400 mls @ 100 mls/hr 06/03/16 10:00 Gamunex-C IVPB 06/05/16 13:59 DAILY RYAN Protocol Immune Globulin/ Immune 350 mls @ 100 mls/hr 06/06/16 10:00 Globulin/ Immune Globulin IVPB 06/06/16 13:29 ONCE ONE Protocol Insulin Aspart 1 vial 06/01/16 22:00 06/02/16 11:03 Novolog Vial Sliding Scale - SQ Not Given ACHS RYAN Protocol Methimazole 5 mg 06/03/16 10:00 Tapazole - PO DAILY RYAN Metoprolol Succinate 25 mg 06/02/16 10:00 06/02/16 10:33 Toprol Xl - PO 25 mg DAILY RYAN Administration Paroxetine HCl 40 mg 06/02/16 10:00 06/02/16 10:33 Paxil - PO 40 mg DAILY RYAN Administration Tamsulosin HCl 0.4 mg 06/01/16 22:00 06/01/16 22:49 Flomax - PO 0.4 mg HS RYAN Administration Impression 1. CKD 2. demyelinating disease 3. HTN 4. COPD 5. DM 6. interstitial lung disease 7. BPH Plan - daily bmp - monitor volume status closely - pt tolerated fluids overnight - continue current meds - renal function is stable - will follow Dr Tyson
--- NOTE | 2016-06-02 14:59 | PN ---
Progress Note (short form) - Note Progress Note: NEUROSURGERY CONSULT DICTATED Chart reviewed History obtained Pt examined 80 yo RH male with HTN, COPD, RA, interstitial lung disease, hyperthyroidism, NIDDM, chronic inflammatory demyelinating neuropathy, who presented to the ED with increased right leg weakness. Pt had the problem for at least 1+ year but despite tx including IVIG, remains weak. Patient has been followed by Dr. Bhandari and had undergone EMG/NCS. The patient reports his right leg weakness has progressed over the past few weeks. There is no back pain or sciatica. He denies leg numbness or tingling. He denies any bowel or bladder incontinence. PE: General- mildly obese; trace ankle edema; no other sign of DVT CN- intact; Motor- 5/5 except L DF 2/5; R IP3, R Quad 3, and R DF 0; sensation- decreased distal vibration, LT and proprioception intact; DTR- hyporeflexia B Back- no tenderness; negative SLR B to 70 degrees C spine MRI - multilevel DDD, spondylosis worst at C4-5, C5-6, C6-7; mild C4-5 anterolisthesis; mild stenosis centrally but no cord compression LS spine MRI - Multilevel DDD, lateral recess stenosis, R L2-3 downwardly extruded disc fragment (chronic), facet hypertrophy head CT- mild atrophy and R cauda head calcification; periventricular small vessel dz History of B footdrop and R > L LE weakness without any LBP/sciatica or significant sensory deficit except to vibration make lumbar pathology much less likely the cause of the weakness Repeat LS spine MRI ordered by medical team already Obtain EMG/NCS report from Dr. Bhandari done previously Above d/w patient
--- NOTE | 2016-06-02 16:58 | EKG ---
Test Reason : Blood Pressure : / mmHG Vent. Rate : 076 BPM Atrial Rate : 076 BPM P-R Int : 180 ms QRS Dur : 096 ms QT Int : 404 ms P-R-T Axes : 053 -51 039 degrees QTc Int : 454 ms NORMAL SINUS RHYTHM LEFT ANTERIOR FASCICULAR BLOCK MINIMAL VOLTAGE CRITERIA FOR LVH, MAY BE NORMAL VARIANT ABNORMAL ECG WHEN COMPARED WITH ECG OF 16-SEP-2015 17:25, PREMATURE ATRIAL COMPLEXES ARE NO LONGER PRESENT Confirmed by MARLI CARIAS MD ([id number]) on 06/02/2016 4:57:47 PM Referred By: Confirmed By:MARLI CARIAS MD
[2016-06-02] MEDS: SODIUM CHLORIDE 1,000 ML IV SCH ×2 (18:00→21:11)
--- NOTE | 2016-06-02 18:01 | PN ---
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 no numbness tingling, inc weakness R leg prox and distal; feel he did better after last course of IVIG in 11/27. Unable to tolerate steroids given DM/complications. comes in for IVIG retrial. lives alone. FU : DAy #1 IVIG, no new c/o - Past Medical History Cardio/Vascular: Yes: HTN, Hyperlipdemia Pulmonary: Yes: COPD Renal/: Yes: Renal Inusuff, BPH Rheumatology: Yes: Rheumatoid Arthritis Endocrine: Yes: Diabetes Mellitus Home Medications - Allergies Allergies/Adverse Reactions: Allergies Allergy/AdvReac Type Severity Reaction Status Date / Time No Known Allergies Allergy Verified 06/01/16 11:57 - Home Medications Home Medications: Ambulatory Orders Finasteride [Proscar -] 5 mg PO DAILY 09/14/15 Paroxetine HCl [Paxil -] 40 mg PO DAILY 09/14/15 Cholecalciferol (Vitamin D3) [Vitamin D3] 1,000 unit PO DAILY 04/23/16 Metformin HCl 500 mg PO BID 04/23/16 Methimazole 5 mg PO BID 04/23/16 Metoprolol Succinate [Toprol XL -] 25 mg PO DAILY 04/23/16 Tamsulosin HCl [Flomax] 0.4 mg PO HS 04/23/16 Family Disease History - Family Disease History Family Disease History: CA: Father, Mother Physical Exam-Neuro Vital Signs: Vital Signs Temperature 98.1 F 06/01/16 22:58 Pulse Rate 80 06/01/16 22:58 Respiratory Rate 16 06/01/16 22:58 Blood Pressure 116/69 06/01/16 22:58 O2 Sat by Pulse Oximetry (%) 99 06/01/16 23:01 Constitutional: Yes: Well Nourished Labs: INR, PTT INR 1.13 (0.82-1.09) 06/01/16 14:00 - Neuro Exam Level Of Consciousness: Yes: Alert, Oriented to Person, Oriented to Place Speech: WNL Cranial Nerves II-XII Intact: Yes DTR's: 0 Left Achilles, 0 Right Achilles, 2+ Left Tricep, 2+ Right Tricep Babinski: Absent Response to light touch: Normal Motor Strength: 1/5: Right Leg (weakness R IP 1/5, quads 4/5 and hams 4+/5, TA 4 /5 ( R >L foot drop) ), 4/5: Left Arm, Right Arm, Left Leg (weakness in shoulder area (prior RC) /distally 4/5 in hands ) Gait: Other (weakness prox and distal in UE and moreso in RLE (hip flexion) and BL foot drop R >L) Problem List - Problems (1) Weakness of both lower extremities Code(s): M62.81 - MUSCLE WEAKNESS (GENERALIZED) (2) COPD (chronic obstructive pulmonary disease) Code(s): J44.9 - CHRONIC OBSTRUCTIVE PULMONARY DISEASE, UNSPECIFIED (3) Chronic inflammatory demyelinating neuropathy Code(s): G6.81 - CHRONIC INFLAMMATORY DEMYELINATING POLYNEURITIS (4) Chronic kidney disease Code(s): N18.9 - CHRONIC KIDNEY DISEASE, UNSPECIFIED (5) Diabetes Code(s): E11.9 - TYPE 2 DIABETES MELLITUS WITHOUT COMPLICATIONS Assessment/Plan HX of DM, ? RA ( if active) with presumptive CIDP, last IVIG 11/27, with progressive weakness/gait issues (+ assymetry worse in RLE, which appears out of proportion to rest of his distal weakness , ? disc issue vs assymetric neuropathy r/o superimposed LS radiculopathy-prior MRI LS SPINE scan in 09/27 did document stenosis at L3 R with extruded disc seen by ORTHO- R hip surgery stable , not likley causitive factor poorly tolerated steroids, admitted for 5 days IVIG , day 15 check MRI LS spine /D r Senthil note reveiwed REhab DVT prophalaxis check A1c, TSH , RF, + SPEP with immunofixation ( CIDP may be associated with paraproteinemia/HEM /ONC pathology, ie MM) Dr Bhandari [id number] Problem List - Problems (1) Weakness of both lower extremities Code(s): M62.81 - MUSCLE WEAKNESS (GENERALIZED) (2) COPD (chronic obstructive pulmonary disease) Code(s): J44.9 - CHRONIC OBSTRUCTIVE PULMONARY DISEASE, UNSPECIFIED (3) Chronic inflammatory demyelinating neuropathy Code(s): G61.81 - CHRONIC INFLAMMATORY DEMYELINATING POLYNEURITIS (4) Chronic kidney disease Code(s): N18.9 - CHRONIC KIDNEY DISEASE, UNSPECIFIED (5) Diabetes Code(s): E11.9 - TYPE 2 DIABETES MELLITUS WITHOUT COMPLICATIONS
--- NOTE | 2016-06-02 19:57 | CONS ---
DATE OF CONSULTATION: 06/02/2016 CHIEF COMPLAINT: Progressive bilateral lower extremity weakness, distal greater than proximal and right greater than left. REQUESTING PHYSICIAN: Monserrat Robison N.P. 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 The patient has had progressive weakness of his legs, and has developed a foot drop bilaterally, right greater than left. This has been going on for at least 1 year. He states that his weakness worsened in the last few weeks. There is no associated numbness, nor does he have any bowel or bladder dysfunction. He also denies any lower back pain or sciatica or neck pain. He has undergone extensive studies in the past including MRIs as well as EMG and nerve conduction study; report EMG is not available to me at this time. Presently he is sitting up in the chair and appears comfortable. He does not complain of any pain. PAST MEDICAL HISTORY: Significant for hypertension, COPD, hypercholesterolemia , BPH, rheumatoid arthritis, diabetes, renal insufficiency. CURRENT MEDICATIONS: Include Flomax, subcutaneous heparin, Paxil, Tapazole, Toprol XL, Novolog, immunoglobulin infusion, Proscar, vitamin D3. ALLERGIES: No known drug allergies. FAMILY HISTORY: Noncontributory. SOCIAL HISTORY: He quit smoking over 25 years ago. He only drinks alcohol socially. He lives at home. He is retired. REVIEW OF SYSTEMS: Otherwise negative for other cardiovascular, pulmonary, gastrointestinal, genitourinary, endocrinologic, neurologic, or psychological problems except for the above. PHYSICAL EXAMINATION: Vital signs: Temperature 99.3, blood pressure 143/74, pulse rate 84, O2 saturation 99% on room air. HEENT: Normocephalic, atraumatic, anicteric. Neck: Supple with no tenderness to palpation. Range of motion is somewhat diminished likely secondary to arthritis. Coronary: Regular rhythm. Lungs: Clear bilaterally. Abdomen: Soft. Extremities: No signs of DVT, even though there is trace edema at ankles bilaterally. Distal pulses are 1+ and diminished, but they are symmetric. Neurologic: He is awake, alert, oriented x4. Cranial nerves examination intact 2-12. Motor examination shows 5/5 strength except right iliopsoas and right quadriceps which are 3/5, and right foot dorsiflexion which is 0/5. This including the dorsiflexion weakness including extensor hallucis longus, tibialis anterior , foot inversion and foot eversion. Right foot plantar flexion is 4+/5. Left foot dorsiflexion is 2/5 and plantar flexion is 5/5. Sensory examination demonstrated diminished vibratory sensation to distal bilateral extremity, even though light touch sensation and proprioception were intact. Deep tendon reflexes show hypo- reflexion throughout, there is no pathological long tract sine. Gait is not tested for safety reasons. Back: Examination of the back shows no tenderness to palpation to the lumbosacral junction. He has negative straight leg raise to 70 degrees bilaterally. LABORATORY EXAMINATION: White blood cell count to be 7000, hemoglobin 12.5 and ESR is 72. INR is 1.13. Serum sodium is 143 and potassium is 4.1. BUN and creatinine are 20 and 1.4, respectively. Urinalysis shows 2+ protein and 2+ blood. There are 32 RBCs and 1 WBC. A lumbar puncture result from September of 2014 demonstrated xanthochromia, there were 10 RBCs and 647 WBCs. There is 73% neutrophil and 23% lymphocytes. Glucose 103 and protein was 85. Myelin basic protein is 2.3. Lyme titers were negative. MRI examination of lumbar spine from September 2015 demonstrated multilevel degenerative disk disease. There is chronic spondylosis and hypertrophy at multiple levels. There is broad based disk bulge at L2-3, L3-4, and L4-5 greater than L5-S1. There is a right sided L2-3 downward extruded disk fragment. There is mild impingement in the thecal sac. There is mild central stenosis at L2-3 as well as L3-4 and L4-5. All of these changes appear to be chronic in general. There is foraminal narrowing at multiple levels bilaterally. MRI examination of the cervical spine also from September of 2015 demonstrated multilevel degenerative disk disease worse at C4-5, C5-6, and C6-7. There is a minimal spondylolisthesis at C4-5. There is mild central stenosis, appeared bridging osteophytes at multiple levels. There is no severe stenosis or spinal cord change at any level. There is some motion artifact. IMPRESSION: 1. Multilevel cervical degenerative disk disease and spondylosis with mild stenosis, but no sign of spinal cord compression. 2. Multilevel lumbar degenerative disk disease with right L2-3 downwardly extruded disk fragment but with only mild stenosis and mild thecal sac impingement. 3. 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 4. Hypertension. 5. Chronic obstructive pulmonary disease. RECOMMENDATION: The patient presented with chronic bilateral lower extremity weakness right greater than left. He has bilateral foot drop for at least 6 months if not a year. He has more weakness on the right greater than left lower extremity. A repeat MRI of the lumbar spine has already been ordered to rule out increasing pathology to lumbar spine. Regardless, this is an elderly gentleman with multiple medical conditions. His weakness is out of proportion to what the prior MRI had revealed. It would also be curious for one to have only weakness but no significant associated dermatomal sensory or pain symptoms related to the lumbar disease. Perhaps a course of neurotropic agents such as Lyrica or Neurontin could be considered. I will leave the patient's medical management to the professional expertise of his treating neurologist, Dr. Bhandari. A copy of the EMG nerve conduction study report will be appreciated for completeness of the chart. The above was discussed with patient at bedside. NORTH FUNEZ M.D. 1 [id number] MTDD
[2016-06-02] MEDS: TAMSULOSIN HCL 0.4 MG CAP.ER.24H (FP) PO SCH (21:10)
[2016-06-03] MEDS: ACETAMINOPHEN 325 MG TABLET (FP) PO PRN ×3 (01:37→22:13)
[2016-06-03] MEDS: INSULIN SLIDING SCALE (NOVOLOG) 1 VIAL SQ SCH ×4 (06:23→22:10)
[2016-06-03 08:31] LABS: MCH 30.1 pg (25.7-33.7); MCHC 33.5 g/dl (32.0-35.9); MEAN CELL VOLUME 89.8 fl (80-96); MEAN PLT VOLUME 8.1 fl (7.5-11.1); PLATELET COUNT 131 K/MM3 (134-434); RDW 15.6 % (11.9-15.9)
--- NOTE | 2016-06-03 08:41 | PN ---
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 He denies leg numbness or tingling. He denies any bowel or bladder incontinence. Sitting up at bedside having breakfast PE: General- mildly obese; trace ankle edema; no other sign of DVT CN- intact; Motor- 5/5 except L DF 2/5; R IP3, R Quad 3, and R DF 0; sensation- decreased distal vibration, LT and proprioception intact; DTR- hyporeflexia B Back- no tenderness; negative SLR B to 70 degrees C spine MRI - multilevel DDD, spondylosis worst at C4-5, C5-6, C6-7; mild C4-5 anterolisthesis; mild stenosis centrally but no cord compression or edema; mild motion artifact LS spine MRI - Multilevel DDD, lateral recess stenosis, R L2-3 downwardly extruded disc fragment (chronic), facet hypertrophy Head CT- mild atrophy and R cauda head calcification; periventricular small vessel dz History of B footdrop and R > L LE weakness > 6-12 months without any LBP/ sciatica or significant sensory deficit except to vibration which make lumbar pathology alone much less likely the cause of the weakness Trial of neurotrophic agents per treating medical/neurology team
[2016-06-03 09:25] LABS: ALBUMIN 2.9 g/dl (3.4-5.0); BILIRUBIN,TOTAL 0.3 mg/dL (0.2-1.0); CALCIUM 8.1 mg/dL (8.5-10.1); CREATININE 1.4 mg/dL (0.7-1.3); TOT PROT 6.4 g/dl (6.4-8.2)
[2016-06-03] MEDS ORDERED: INSULIN (NOVOLOG) ASPART 100 UNITS/ML 10ML VIAL ONE ×2 (10:18→16:17)
[2016-06-03] MEDS: CHOLECALCIFEROL (VITAMIN D3) 1,000 UNIT TABLET (FP) PO SCH (10:29)
[2016-06-03] MEDS: PARoxetine HCL 20 MG TABLET (FP) PO SCH (10:30)
[2016-06-03] MEDS: HEPARIN NA (PORCINE) 5,000 UNITS/ML 1ML VIAL SQ SCH ×2 (10:30→22:10)
[2016-06-03] MEDS: METHIMAZOLE 5 MG TABLET (FP) PO SCH (10:30)
[2016-06-03] MEDS: FINASTERIDE 5 MG TABLET (FP) PO SCH (10:30)
[2016-06-03] MEDS: METOPROLOL SUCCINATE 25 MG TAB.SR.24H (FP) PO SCH (10:30)
[2016-06-03] MEDS: SODIUM CHLORIDE 1,000 ML IV SCH ×2 (10:37→17:57)
--- NOTE | 2016-06-03 11:04 | PN ---
Progress Note (short form) - Note Progress Note: Subjective: The patient was seen and examined sitting in the chair, he reports still having weakness. IVIG #2 today, total of 5 Current Medications Generic Name Dose Route Start Last Admin Trade Name Freamrk PRN Reason Stop Dose Admin Acetaminophen 650 mg 06/01/16 18:19 06/03/16 01:37 Tylenol - PO 650 mg Q6H PRN Administration FEVER OR PAIN Cholecalciferol 1,000 unit 06/02/16 10:00 06/03/16 10:29 Vitamin D3 - PO 1,000 unit DAILY RYAN Administration Diphenhydramine HCl 25 mg 06/01/16 18:20 06/02/16 09:49 Benadryl - PO 25 mg Q12H PRN Administration FOR ITCHING Finasteride 5 mg 06/02/16 10:00 06/03/16 10:30 Proscar - PO 5 mg DAILY RYAN Administration Heparin Sodium (Porcine) 5,000 unit 06/01/16 22:00 06/03/16 10:30 Heparin - SQ 5,000 unit BID RYAN Administration Sodium Chloride 1,000 mls @ 75 mls/hr 06/01/16 18:22 06/03/16 10:37 Normal Saline - IV 75 mls/hr ASDIR RYAN Administration Immune Globulin 400 mls @ 100 mls/hr 06/03/16 10:00 Gamunex-C IVPB 06/05/16 13:59 DAILY RYAN Protocol Immune Globulin/ Immune 350 mls @ 100 mls/hr 06/06/16 10:00 Globulin/ Immune Globulin IVPB 06/06/16 13:29 ONCE ONE Protocol Insulin Aspart 1 vial 06/01/16 22:00 06/03/16 10:34 Novolog Vial Sliding Scale - SQ Not Given ACHS RYAN Protocol Methimazole 5 mg 06/03/16 10:00 06/03/16 10:30 Tapazole - PO 5 mg DAILY RYAN Administration Metoprolol Succinate 25 mg 06/02/16 10:00 06/03/16 10:30 Toprol Xl - PO 25 mg DAILY RYAN Administration Paroxetine HCl 40 mg 06/02/16 10:00 06/03/16 10:30 Paxil - PO 40 mg DAILY RYAN Administration Tamsulosin HCl 0.4 mg 06/01/16 22:00 06/02/16 21:10 Flomax - PO 0.4 mg HS RYAN Administration Objective: Vital Signs Period Temp Pulse Resp BP Sys/Mahajan Pulse Ox Last 24 Hr 98 F-99.3 F 76-90 18-20 120-140/46-74 Physical Exam: GENERAL: Awake, alert, and fully oriented, in no acute distress. HEAD: Normal with no signs of trauma. EYES: Pupils equal, round and reactive to light, extraocular movements intact, sclera anicteric, conjunctiva clear. No lid lag. EARS, NOSE, THROAT: Ears normal, nares patent, oropharynx clear without exudates. Moist mucous membranes. NECK: Normal range of motion, supple without lymphadenopathy, JVD, or masses. LUNGS: Breath sounds equal, clear to auscultation bilaterally. No wheezes, and no crackles. No accessory muscle use. HEART: Regular rate and rhythm, normal S1 and S2 without murmur, rub or gallop. ABDOMEN: Soft, nontender, not distended, normoactive bowel sounds, no guarding, no rebound, no masses. No hepatomegaly or splenomegaly. MUSCULOSKELETAL: Normal range of motion at all joints. No bony deformities or tenderness. No CVA tenderness. UPPER EXTREMITIES: 2+ pulses, warm, well-perfused. No cyanosis. No clubbing. Cap refill <2 seconds. No peripheral edema. LOWER EXTREMITIES: 2+ pulses, warm, well-perfused. No calf tenderness. NEUROLOGICAL: Cranial nerves II-XII intact. Normal speech. Reflexes absent in lower extremities. Motor strength decreased in b/l upper and lower extremities CBCD WBC 5.0 K/mm3 (4.0-10.0) 06/03/16 07:15 RBC 3.94 M/mm3 (4.00-5.60) L 06/03/16 07:15 Hgb 11.9 GM/dL (11.7-16.9) 06/03/16 07:15 Hct 35.4 % (35.4-49) 06/03/16 07:15 MCV 89.8 fl (80-96) 06/03/16 07:15 MCHC 33.5 g/dl (32.0-35.9) 06/03/16 07:15 RDW 15.6 % (11.9-15.9) 06/03/16 07:15 Plt Count 131 K/MM3 (134-434) L D 06/03/16 07:15 MPV 8.1 fl (7.5-11.1) 06/03/16 07:15 CMP Sodium 139 mmol/L (136-145) 06/03/16 07:15 Potassium 3.7 mmol/L (3.5-5.1) 06/03/16 07:15 Chloride 107 mmol/L (98-107) 06/03/16 07:15 Carbon Dioxide 27 mmol/L (21-32) 06/03/16 07:15 Anion Gap 5 (8-16) L 06/03/16 07:15 BUN 21 mg/dL (7-18) H 06/03/16 07:15 Creatinine 1.4 mg/dL (0.7-1.3) H 06/03/16 07:15 Creat Clearance w eGFR 48.64 (>60) 06/03/16 07:15 Random Glucose 116 mg/dL (74-106) H 06/03/16 07:15 Calcium 8.1 mg/dL (8.5-10.1) L 06/03/16 07:15 Total Bilirubin 0.3 mg/dL (0.2-1.0) 06/03/16 07:15 AST 10 U/L (15-37) L 06/03/16 07:15 ALT 10 U/L (12-78) L D 06/03/16 07:15 Alkaline Phosphatase 55 U/L (45-117) 06/03/16 07:15 Total Protein 6.4 g/dl (6.4-8.2) 06/03/16 07:15 Albumin 2.9 g/dl (3.4-5.0) L 06/03/16 07:15 CARDIAC ENZYMES Creatine Kinase 80 IU/L (39-308) 06/02/16 07:00 Assessment: This is an 80 year old male with PMHx of HTN, rheumatoid arthritis 2007, COPD, CKD, interstitial lung disease, hyperthyroidism, NIDDM, chronic inflammatory demyelinating neuropathy, who presented to the ED with increased right leg weakness. Plan: 1) Neuro: Acute on chronic inflammatory demyelinating neuropathy - Worsening right leg weakness over the past few weeks - Received IVIG (09/21-09/25) - IVIG #2 today - Pre-medicate with Benadryl and Acetaminophen - Appreciate neuro consult 2) : CKD stage 3 - Cr better than baseline - Continue to monitor 3) Rheumatology: Rheumatoid arthritis - PT - Continue Theraband 4) Cardiology: HTN - Continue Toprol XL 5) Endocrinology: DM - BGM ACHS Hyperthyroidism - TSH elevated - Decrease Methimazole to 5mg daily 6) F/E/N: - Diabetic/sodium controlled diet - Monitor electrolytes 7) Prophylaxis: - Heparin 5,000u sq bid - PT 8) Dispo: - Requires continued inpatient care CODE STATUS: FULL CODE Visit type - Emergency Visit Emergency Visit: Yes ED Registration Date: 06/01/16 Care time: The patient presented to the Emergency Department on the above date and was hospitalized for further evaluation of their emergent condition. - New Patient This patient is new to me today: No - Critical Care Critical Care patient: No
[2016-06-03] MEDS: diphenhydrAMINE HCL 25 MG CAPSULE (FP) PO PRN (11:59)
[2016-06-03] MEDS: IMMUNE GLOB,GAM CAPRYLATE(IGG) 40 GM IVPB SCH (12:20)
--- NOTE | 2016-06-03 17:03 | PN ---
Progress Note, Physician History of Present Illness: Pt seen and examined at bedside. He is awake and alert. He is tolerating the IVIG. - Current Medication List Current Medications: Active Medications Acetaminophen (Tylenol -) 650 mg PO Q6H PRN PRN Reason: FEVER OR PAIN Last Admin: 06/03/16 11:59 Dose: 650 mg Cholecalciferol (Vitamin D3 -) 1,000 unit PO DAILY [facility] Last Admin: 06/03/16 10:29 Dose: 1,000 unit Diphenhydramine HCl (Benadryl -) 25 mg PO Q12H PRN PRN Reason: FOR ITCHING Last Admin: 06/03/16 11:59 Dose: 25 mg Finasteride (Proscar -) 5 mg PO DAILY [facility] Last Admin: 06/03/16 10:30 Dose: 5 mg Heparin Sodium (Porcine) (Heparin -) 5,000 unit SQ BID [facility] Last Admin: 06/03/16 10:30 Dose: 5,000 unit Sodium Chloride (Normal Saline -) 1,000 mls @ 75 mls/hr IV ASDIR [facility] Last Admin: 06/03/16 10:37 Dose: 75 mls/hr Immune Globulin (Gamunex-C) 400 mls @ 100 mls/hr IVPB DAILY RYAN PRN Reason: Protocol Stop: 06/05/16 13:59 Last Admin: 06/03/16 12:20 Dose: 100 mls/hr Immune Globulin/ Immune (Globulin/ Immune Globulin) 350 mls @ 100 mls/hr IVPB ONCE ONE PRN Reason: Protocol Stop: 06/06/16 13:29 Insulin Aspart (Novolog Vial Sliding Scale -) 1 vial SQ ACHS [facility] PRN Reason: Protocol Last Admin: 06/03/16 16:22 Dose: Not Given Methimazole (Tapazole -) 5 mg PO DAILY [facility] Last Admin: 06/03/16 10:30 Dose: 5 mg Metoprolol Succinate (Toprol Xl -) 25 mg PO DAILY [facility] Last Admin: 06/03/16 10:30 Dose: 25 mg Paroxetine HCl (Paxil -) 40 mg PO DAILY [facility] Last Admin: 06/03/16 10:30 Dose: 40 mg Tamsulosin HCl (Flomax -) 0.4 mg PO HS [facility] Last Admin: 06/02/16 21:10 Dose: 0.4 mg - Objective Vital Signs: Vital Signs Temperature 98.0 F 06/03/16 14:00 Pulse Rate 71 06/03/16 14:00 Respiratory Rate 17 06/03/16 14:00 Blood Pressure 145/73 06/03/16 08:00 O2 Sat by Pulse Oximetry (%) 96 06/03/16 08:00 Constitutional: Yes: Calm Eyes: Yes: Conjunctiva Clear HENT: Yes: Atraumatic Neck: Yes: Supple Cardiovascular: Yes: S1, S2 Respiratory: Yes: CTA Bilaterally, On Nasal O2 Gastrointestinal: Yes: Soft Genitourinary: Yes: WNL Musculoskeletal: Yes: Muscle Weakness Edema: LLE: Trace, RLE: Trace Neurological: Yes: Oriented, Pre-Existing Deficit Psychiatric: Yes: Oriented Labs: CBC, BMP 06/03/16 07:15 06/03/16 07:15 INR, PTT INR 1.13 (0.82-1.09) 06/01/16 14:00 Problem List - Problems (1) UTI (urinary tract infection) Code(s): N39.0 - URINARY TRACT INFECTION, SITE NOT SPECIFIED (2) BPH (benign prostatic hypertrophy) Code(s): N40.0 - BENIGN PROSTATIC HYPERPLASIA WITHOUT LOWER URINRY TRACT SYMP (3) COPD (chronic obstructive pulmonary disease) Code(s): J44.9 - CHRONIC OBSTRUCTIVE PULMONARY DISEASE, UNSPECIFIED (4) Chronic kidney disease Code(s): N18.9 - CHRONIC KIDNEY DISEASE, UNSPECIFIED (5) Demyelinating disease Code(s): G37.9 - DEMYELINATING DISEASE OF CENTRAL NERVOUS SYSTEM, UNSPECIFIED (6) Diabetes Code(s): E11.9 - TYPE 2 DIABETES MELLITUS WITHOUT COMPLICATIONS (7) Diastolic CHF Code(s): I50.30 - UNSPECIFIED DIASTOLIC (CONGESTIVE) HEART FAILURE (8) HTN (hypertension) Code(s): I10 - ESSENTIAL (PRIMARY) HYPERTENSION (9) Rheumatoid arthritis Code(s): M06.9 - RHEUMATOID ARTHRITIS, UNSPECIFIED Assessment/Plan Current Medications Generic Name Dose Route Start Last Admin Trade Name Freq PRN Reason Stop Dose Admin Acetaminophen 650 mg 06/01/16 18:19 06/03/16 11:59 Tylenol - PO 650 mg Q6H PRN Administration FEVER OR PAIN Cholecalciferol 1,000 unit 06/02/16 10:00 06/03/16 10:29 Vitamin D3 - PO 1,000 unit DAILY RYAN Administration Diphenhydramine HCl 25 mg 06/01/16 18:20 06/03/16 11:59 Benadryl - PO 25 mg Q12H PRN Administration FOR ITCHING Finasteride 5 mg 06/02/16 10:00 06/03/16 10:30 Proscar - PO 5 mg DAILY RYAN Administration Heparin Sodium (Porcine) 5,000 unit 06/01/16 22:00 06/03/16 10:30 Heparin - SQ 5,000 unit BID RYAN Administration Sodium Chloride 1,000 mls @ 75 mls/hr 06/01/16 18:22 06/03/16 10:37 Normal Saline - IV 75 mls/hr ASDIR RYAN Administration Immune Globulin 400 mls @ 100 mls/hr 06/03/16 10:00 06/03/16 12:20 Gamunex-C IVPB 06/05/16 13:59 100 mls/hr DAILY RYAN Administration Protocol Immune Globulin/ Immune 350 mls @ 100 mls/hr 06/06/16 10:00 Globulin/ Immune Globulin IVPB 06/06/16 13:29 ONCE ONE Protocol Insulin Aspart 1 vial 06/01/16 22:00 06/03/16 16:22 Novolog Vial Sliding Scale - SQ Not Given ACHS RYAN Protocol Methimazole 5 mg 06/03/16 10:00 06/03/16 10:30 Tapazole - PO 5 mg DAILY RYAN Administration Metoprolol Succinate 25 mg 06/02/16 10:00 06/03/16 10:30 Toprol Xl - PO 25 mg DAILY RYAN Administration Paroxetine HCl 40 mg 06/02/16 10:00 06/03/16 10:30 Paxil - PO 40 mg DAILY RYAN Administration Tamsulosin HCl 0.4 mg 06/01/16 22:00 06/02/16 21:10 Flomax - PO 0.4 mg HS RYAN Administration Impression 1. CKD 2. demyelinating disease 3. HTN 4. COPD 5. DM 6. interstitial lung disease 7. BPH Plan - renal function is stable - cont current management - monitor volume status closely - continue current meds - can hold fluids if he starts to develop overload - will follow Dr Tyson
--- NOTE | 2016-06-03 21:06 | PN ---
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 no numbness tingling, inc weakness R leg prox and distal; feel he did better after last course of IVIG in 11/27. Unable to tolerate steroids given DM/complications. comes in for IVIG retrial. lives alone. FU : DAy #2 IVIG, no new c/o MRI LS spine today -- will FU read elevated ESR, CRP WNL , ++RF, A!C 6 range (DM controlled) --afebrile - Past Medical History Cardio/Vascular: Yes: HTN, Hyperlipdemia Pulmonary: Yes: COPD Renal/: Yes: Renal Inusuff, BPH Rheumatology: Yes: Rheumatoid Arthritis Endocrine: Yes: Diabetes Mellitus Home Medications - Allergies Allergies/Adverse Reactions: Allergies Allergy/AdvReac Type Severity Reaction Status Date / Time No Known Allergies Allergy Verified 06/01/16 11:57 - Home Medications Home Medications: Ambulatory Orders Finasteride [Proscar -] 5 mg PO DAILY 09/14/15 Paroxetine HCl [Paxil -] 40 mg PO DAILY 09/14/15 Cholecalciferol (Vitamin D3) [Vitamin D3] 1,000 unit PO DAILY 04/23/16 Metformin HCl 500 mg PO BID 04/23/16 Methimazole 5 mg PO BID 04/23/16 Metoprolol Succinate [Toprol XL -] 25 mg PO DAILY 04/23/16 Tamsulosin HCl [Flomax] 0.4 mg PO HS 04/23/16 Constitutional: Yes: Well Nourished Labs: INR, PTT INR 1.13 (0.82-1.09) 06/01/16 14:00 - Neuro Exam Level Of Consciousness: Yes: Alert, Oriented to Person, Oriented to Place Speech: WNL Cranial Nerves II-XII Intact: Yes DTR's: 0 Left Achilles, 0 Right Achilles, 2+ Left Tricep, 2+ Right Tricep Babinski: Absent Response to light touch: Normal Motor Strength: 1/5: Right Leg (weakness R IP 1/5, quads 4/5 and hams 4+/5, TA 4 /5 ( R >L foot drop) ), 4/: Left Arm, Right Arm, Left Leg (weakness in shoulder area (prior RC) /distally 4/5 in hands ) Gait: Other (weakness prox and distal in UE and moreso in RLE (hip flexion) and BL foot drop R >L) Problem List - Problems (1) Weakness of both lower extremities Code(s): M62.81 - MUSCLE WEAKNESS (GENERALIZED) (2) COPD (chronic obstructive pulmonary disease) Code(s): J44.9 - CHRONIC OBSTRUCTIVE PULMONARY DISEASE, UNSPECIFIED (3) Chronic inflammatory demyelinating neuropathy Code(s): G6.81 - CHRONIC INFLAMMATORY DEMYELINATING POLYNEURITIS (4) Chronic kidney disease Code(s): N18.9 - CHRONIC KIDNEY DISEASE, UNSPECIFIED (5) Diabetes Code(s): E11.9 - TYPE 2 DIABETES MELLITUS WITHOUT COMPLICATIONS Assessment/Plan HX of DM, ? RA ( if active) with presumptive CIDP, last IVIG 11/27, with progressive weakness/gait issues (+ assymetry worse in RLE, which appears out of proportion to rest of his distal weakness , ? disc issue vs assymetric neuropathy, seen by ORTHO- R hip surgery stable , not likely causative factor poorly tolerated oral steroids (DM), r/o superimposed LS radiculopathy vs diskitis -prior MRI LS SPINE scan in 09/27 did document stenosis at L3 R with extruded disc FU MRI LS spine (ESR elevated- no fever though HX of RA) / CRP WNL admitted for 5 days IVIG , day 2/5 REhab TSH --elevated Prmiary team to address SPEP with immunofixation ( CIDP may be associated with paraproteinemia/HEM /ONC pathology, ie MM) Dr Bhandari [phone] Problem List - Problems (1) Weakness of both lower extremities Code(s): M62.81 - MUSCLE WEAKNESS (GENERALIZED) (2) COPD (chronic obstructive pulmonary disease) Code(s): J44.9 - CHRONIC OBSTRUCTIVE PULMONARY DISEASE, UNSPECIFIED (3) Chronic inflammatory demyelinating neuropathy Code(s): G61.81 - CHRONIC INFLAMMATORY DEMYELINATING POLYNEURITIS (4) Chronic kidney disease Code(s): N18.9 - CHRONIC KIDNEY DISEASE, UNSPECIFIED (5) Diabetes Code(s): E11.9 - TYPE 2 DIABETES MELLITUS WITHOUT COMPLICATIONS
[2016-06-03] MEDS: TAMSULOSIN HCL 0.4 MG CAP.ER.24H (FP) PO SCH (22:10)
[2016-06-04 00:06] LABS: A/G RATIO 0.8 (0.7-1.7); ALBUMIN 2.8 g/dL (2.9-4.4); GLOBULIN, TOTAL 3.4 g/dL (2.2-3.9); M-SPIKE Not Observed g/dL (Not Observed); TOTAL PROTEIN 6.2 g/dL (6.0-8.5)
[2016-06-04] MEDS: INSULIN SLIDING SCALE (NOVOLOG) 1 VIAL SQ SCH ×4 (06:05→21:34)
[2016-06-04] MEDS: METHIMAZOLE 5 MG TABLET (FP) PO SCH ×2 (08:39→09:36)
[2016-06-04] MEDS: HEPARIN NA (PORCINE) 5,000 UNITS/ML 1ML VIAL SQ SCH ×2 (09:35→21:37)
[2016-06-04] MEDS: FINASTERIDE 5 MG TABLET (FP) PO SCH (09:35)
[2016-06-04] MEDS: METOPROLOL SUCCINATE 25 MG TAB.SR.24H (FP) PO SCH (09:35)
[2016-06-04] MEDS: CHOLECALCIFEROL (VITAMIN D3) 1,000 UNIT TABLET (FP) PO SCH (09:36)
[2016-06-04] MEDS: PARoxetine HCL 20 MG TABLET (FP) PO SCH (09:36)
--- NOTE | 2016-06-04 09:47 | PN ---
Progress Note (short form) - Note Progress Note: Subjective: The patient was seen and examined sitting in the chair IVIG #3 today, total of 5. Patient reports increasing strength in his right leg Current Medications Generic Name Dose Route Start Last Admin Trade Name Freq PRN Reason Stop Dose Admin Acetaminophen 650 mg 06/01/16 18:19 06/03/16 22:13 Tylenol - PO 650 mg Q6H PRN Administration FEVER OR PAIN Cholecalciferol 1,000 unit 06/02/16 10:00 06/04/16 09:36 Vitamin D3 - PO 1,000 unit DAILY RYAN Administration Diphenhydramine HCl 25 mg 06/01/16 18:20 06/03/16 11:59 Benadryl - PO 25 mg Q12H PRN Administration FOR ITCHING Finasteride 5 mg 06/02/16 10:00 06/04/16 09:35 Proscar - PO 5 mg DAILY RYAN Administration Heparin Sodium (Porcine) 5,000 unit 06/01/16 22:00 06/04/16 09:35 Heparin - SQ 5,000 unit BID RYAN Administration Sodium Chloride 1,000 mls @ 75 mls/hr 06/01/16 18:22 06/03/16 17:57 Normal Saline - IV Not Given ASDIR RYAN Immune Globulin 400 mls @ 100 mls/hr 06/03/16 10:00 06/03/16 12:20 Gamunex-C IVPB 06/05/16 13:59 100 mls/hr DAILY RYAN Administration Protocol Immune Globulin/ Immune 350 mls @ 100 mls/hr 06/06/16 10:00 Globulin/ Immune Globulin IVPB 06/06/16 13:29 ONCE ONE Protocol Insulin Aspart 1 vial 06/01/16 22:00 06/04/16 06:05 Novolog Vial Sliding Scale - SQ Not Given ACHS RYAN Protocol Methimazole 5 mg 06/03/16 10:00 06/04/16 09:36 Tapazole - PO 5 mg DAILY RYAN Administration Metoprolol Succinate 25 mg 06/02/16 10:00 06/04/16 09:35 Toprol Xl - PO 25 mg DAILY RYAN Administration Paroxetine HCl 40 mg 06/02/16 10:00 06/04/16 09:36 Paxil - PO 40 mg DAILY RYAN Administration Tamsulosin HCl 0.4 mg 06/01/16 22:00 06/03/16 22:10 Flomax - PO 0.4 mg HS RYAN Administration Objective: Vital Signs Period Temp Pulse Resp BP Sys/Mahajan Pulse Ox Last 24 Hr 97.8 F-99.6 F 70-84 16-20 115-135/62-74 Physical Exam: GENERAL: Awake, alert, and fully oriented, in no acute distress. HEAD: Normal with no signs of trauma. EYES: Pupils equal, round and reactive to light, extraocular movements intact, sclera anicteric, conjunctiva clear. No lid lag. EARS, NOSE, THROAT: Ears normal, nares patent, oropharynx clear without exudates. Moist mucous membranes. NECK: Normal range of motion, supple without lymphadenopathy, JVD, or masses. LUNGS: Breath sounds equal, clear to auscultation bilaterally. No wheezes, and no crackles. No accessory muscle use. HEART: Regular rate and rhythm, normal S1 and S2 without murmur, rub or gallop. ABDOMEN: Soft, nontender, not distended, normoactive bowel sounds, no guarding, no rebound, no masses. No hepatomegaly or splenomegaly. MUSCULOSKELETAL: Normal range of motion at all joints. No bony deformities or tenderness. No CVA tenderness. UPPER EXTREMITIES: 2+ pulses, warm, well-perfused. No cyanosis. No clubbing. Cap refill <2 seconds. No peripheral edema. LOWER EXTREMITIES: 2+ pulses, warm, well-perfused. No calf tenderness. NEUROLOGICAL: Cranial nerves II-XII intact. Normal speech. Reflexes absent in lower extremities. Motor strength decreased in b/l upper and lower extremities CBCD WBC 5.0 K/mm3 (4.0-10.0) 06/03/16 07:15 RBC 3.94 M/mm3 (4.00-5.60) L 06/03/16 07:15 Hgb 11.9 GM/dL (11.7-16.9) 06/03/16 07:15 Hct 35.4 % (35.4-49) 06/03/16 07:15 MCV 89.8 fl (80-96) 06/03/16 07:15 MCHC 33.5 g/dl (32.0-35.9) 06/03/16 07:15 RDW 15.6 % (11.9-15.9) 06/03/16 07:15 Plt Count 131 K/MM3 (134-434) L D 06/03/16 07:15 MPV 8.1 fl (7.5-11.1) 06/03/16 07:15 CMP Sodium 139 mmol/L (136-145) 06/04/16 07:45 Potassium 4.0 mmol/L (3.5-5.1) 06/04/16 07:45 Chloride 107 mmol/L (98-107) 06/04/16 07:45 Carbon Dioxide 25 mmol/L (21-32) 06/04/16 07:45 Anion Gap 7 (8-16) L 06/04/16 07:45 BUN 17 mg/dL (7-18) 06/04/16 07:45 Creatinine 1.3 mg/dL (0.7-1.3) 06/04/16 07:45 Creat Clearance w eGFR 48.64 (>60) 06/03/16 07:15 Random Glucose 140 mg/dL (74-106) H D 06/04/16 07:45 Calcium 7.9 mg/dL (8.5-10.1) L 06/04/16 07:45 Total Bilirubin 0.3 mg/dL (0.2-1.0) 06/03/16 07:15 AST 10 U/L (15-37) L 06/03/16 07:15 ALT 10 U/L (12-78) L D 06/03/16 07:15 Alkaline Phosphatase 55 U/L (45-117) 06/03/16 07:15 Total Protein 6.4 g/dl (6.4-8.2) 06/03/16 07:15 Albumin 2.9 g/dl (3.4-5.0) L 06/03/16 07:15 CARDIAC ENZYMES Creatine Kinase 80 IU/L (39-308) 06/02/16 07:00 Assessment: This is an 80 year old male with PMHx of HTN, rheumatoid arthritis 2007, COPD, CKD, interstitial lung disease, hyperthyroidism, NIDDM, chronic inflammatory demyelinating neuropathy, who presented to the ED with increased right leg weakness. Plan: 1) Neuro: Acute on chronic inflammatory demyelinating neuropathy - Worsening right leg weakness over the past few weeks - Received IVIG (09/21-09/25) - IVIG #3 today - Pre-medicate with Benadryl and Acetaminophen - Appreciate neuro consult 2) : CKD stage 3 - Cr better than baseline - Continue to monitor 3) Rheumatology: Rheumatoid arthritis - PT - Continue Theraband 4) Cardiology: HTN - Continue Toprol XL 5) Endocrinology: DM - BGM ACHS Hyperthyroidism - TSH elevated - Decrease Methimazole to 5mg daily 6) F/E/N: - Diabetic/sodium controlled diet - Monitor electrolytes 7) Prophylaxis: - Heparin 5,000u sq bid - PT: standing only 8) Dispo: - Requires continued inpatient care CODE STATUS: FULL CODE Visit type - Emergency Visit Emergency Visit: Yes ED Registration Date: 06/01/16 Care time: The patient presented to the Emergency Department on the above date and was hospitalized for further evaluation of their emergent condition. - New Patient This patient is new to me today: No - Critical Care Critical Care patient: No
[2016-06-04 09:58] LABS: CALCIUM 7.9 mg/dL (8.5-10.1); CREATININE 1.3 mg/dL (0.7-1.3)
[2016-06-04] MEDS: ACETAMINOPHEN 325 MG TABLET (FP) PO PRN ×2 (10:28→21:37)
[2016-06-04] MEDS: diphenhydrAMINE HCL 25 MG CAPSULE (FP) PO PRN (10:28)
--- NOTE | 2016-06-04 10:28 | PN ---
Progress Note (short form) - Note Progress Note: NEUROSURGERY Family/friends at bedside Still with chronic B LE footdrop R > L; Denies back pain or sciatica. He denies leg numbness or tingling. He denies any bowel or bladder incontinence. Sitting up at bedside PE: General- mildly obese; trace ankle edema; no other sign of DVT CN- intact; Motor- 5/5 except L DF 2/5; R IP3, R Quad 3, and R DF 0; sensation- decreased distal vibration, LT and proprioception intact; DTR- hyporeflexia B Back- no tenderness; negative SLR B to 70 degrees C spine MRI - multilevel DDD, spondylosis worst at C4-5, C5-6, C6-7; mild C4-5 anterolisthesis; mild stenosis centrally but no cord compression or edema; mild motion artifact LS spine MRI - Multilevel DDD, lateral recess stenosis, R L2-3 downwardly extruded disc fragment (chronic), facet hypertrophy Head CT- mild atrophy and R cauda head calcification; periventricular small vessel dz MRI LS spine- L1 mild compression fracture, T10-11 and T11-12 degenerative disc bulges with mild-moderate canal stenosis; multilevel lumbar DDD with small- moderate R L3-4 > L2-3 chronic extruded discs, moderate to marked L4-5 stenosis secondary to facet hypertrophym ligamentum hypertrophy and disc bulge History of B footdrop and R > L LE weakness > 6-12 months without any LBP/ sciatica or significant sensory deficit except to vibration which make lumbar pathology alone much less likely the cause of the weakness Surgical intervention possible though elevated medical risks given underlying medical disease and suboptimal surgical outcome given chronicity and degree of his footdrop (buddy R side) as well confounding neuropathy Risks of surgery- bleeding, infection, nerve injury, CSF leak, DVT, pneumonia, [place]/stroke Pros and cons discussed with patient Trial of neurotrophic agents per treating medical/neurology team If patient opts for possible L4-5 decompression, should obtain baseline cardiology evaluation to stratify cardiovascular and cerebrovascular risks
[2016-06-04] MEDS: IMMUNE GLOB,GAM CAPRYLATE(IGG) 40 GM IVPB SCH (11:09)
--- NOTE | 2016-06-04 11:41 | PN ---
Progress Note (short form) - Note Progress Note: RENAL Pt is awake and alert sitting up in chair comfortably still with weakness in both legs cant raise his right leg dorsiflexion is decreased on both but worse on right has edema and some discolorationof distal part of lower extremities but has good pulses also has crackles at right base Last Vital Signs Temp Pulse Resp BP Pulse Ox 98.1 F 83 20 143/83 96 06/04/16 11:00 06/04/16 11:00 06/04/16 11:00 06/04/16 11:00 06/03/16 08:00 CBC, BMP 06/03/16 07:15 06/04/16 07:45 Current Medications Generic Name Dose Route Start Last Admin Trade Name Freq PRN Reason Stop Dose Admin Acetaminophen 650 mg 06/01/16 18:19 06/04/16 10:28 Tylenol - PO 650 mg Q6H PRN Administration FEVER OR PAIN Cholecalciferol 1,000 unit 06/02/16 10:00 06/04/16 09:36 Vitamin D3 - PO 1,000 unit DAILY RYAN Administration Diphenhydramine HCl 25 mg 06/01/16 18:20 06/04/16 10:28 Benadryl - PO 25 mg Q12H PRN Administration FOR ITCHING Finasteride 5 mg 06/02/16 10:00 06/04/16 09:35 Proscar - PO 5 mg DAILY RYAN Administration Heparin Sodium (Porcine) 5,000 unit 06/01/16 22:00 06/04/16 09:35 Heparin - SQ 5,000 unit BID RYAN Administration Sodium Chloride 1,000 mls @ 75 mls/hr 06/01/16 18:22 06/03/16 17:57 Normal Saline - IV Not Given ASDIR RYAN Immune Globulin 400 mls @ 100 mls/hr 06/03/16 10:00 06/04/16 11:09 Gamunex-C IVPB 06/05/16 13:59 100 mls/hr DAILY RYAN Administration Protocol Immune Globulin/ Immune 350 mls @ 100 mls/hr 06/06/16 10:00 Globulin/ Immune Globulin IVPB 06/06/16 13:29 ONCE ONE Protocol Insulin Aspart 1 vial 06/01/16 22:00 06/04/16 11:20 Novolog Vial Sliding Scale - SQ Not Given ACHS RYAN Protocol Methimazole 5 mg 06/03/16 10:00 06/04/16 09:36 Tapazole - PO 5 mg DAILY RYAN Administration Metoprolol Succinate 25 mg 06/02/16 10:00 06/04/16 09:35 Toprol Xl - PO 25 mg DAILY RYAN Administration Paroxetine HCl 40 mg 06/02/16 10:00 06/04/16 09:36 Paxil - PO 40 mg DAILY RYAN Administration Tamsulosin HCl 0.4 mg 06/01/16 22:00 06/03/16 22:10 Flomax - PO 0.4 mg HS RYAN Administration Impression 1. CKD 2. demyelinating disease 3. HTN 4. COPD 5. DM 6. interstitial lung disease 7. BPH Plan - renal function is stable - cont current management - monitor volume status closely - continue current meds -dc ivf -T4 MV
[2016-06-04] MEDS: SODIUM CHLORIDE 1,000 ML IV SCH (15:34)
--- NOTE | 2016-06-04 18:08 | PN ---
Progress Note (short form) - Note Progress Note: Patient seen and examined. History reviewed as was MRI LS spine. Dr. Ndiaye's note appreciated. patient has little change so far in his right leg on the IVIG. He feels well otherwise. MRI reveals chronic problems with new progression of compression fracture, which appears assymptomatic. 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 The overall picture is one that doesn't suggest that the MRI explains the entirety of findings and as per Dr. Ndiaye the patient has less chance of surgical good outcome due to his longstanding deficit and the other contributing factors to his deficit. The patient seems to understand this, but will have to further consider this. In the mean time, we'll continue IVIG.
[2016-06-04] MEDS: TAMSULOSIN HCL 0.4 MG CAP.ER.24H (FP) PO SCH (21:37)
[2016-06-05] MEDS: SODIUM CHLORIDE 1,000 ML IV SCH (01:41)
[2016-06-05] MEDS: INSULIN SLIDING SCALE (NOVOLOG) 1 VIAL SQ SCH ×4 (06:24→21:17)
[2016-06-05 08:47] LABS: MCHC 33.5 g/dl (32.0-35.9); MEAN CELL VOLUME 89.6 fl (80-96); MEAN PLT VOLUME 7.9 fl (7.5-11.1); PLATELET COUNT 128 K/MM3 (134-434); RDW 15.6 % (11.9-15.9); WHITE BLOOD COUNT 4.9 K/mm3 (4.0-10.0)
[2016-06-05 09:26] LABS: ALBUMIN 2.8 g/dl (3.4-5.0); CALCIUM 7.9 mg/dL (8.5-10.1); CREATININE 1.4 mg/dL (0.7-1.3)
[2016-06-05 09:28] LABS: BILIRUBIN,TOTAL 0.3 mg/dL (0.2-1.0); TOT PROT 7.3 g/dl (6.4-8.2)
[2016-06-05] MEDS: METOPROLOL SUCCINATE 25 MG TAB.SR.24H (FP) PO SCH (09:31)
[2016-06-05] MEDS: METHIMAZOLE 5 MG TABLET (FP) PO SCH (09:31)
[2016-06-05] MEDS: CHOLECALCIFEROL (VITAMIN D3) 1,000 UNIT TABLET (FP) PO SCH (09:32)
[2016-06-05] MEDS: HEPARIN NA (PORCINE) 5,000 UNITS/ML 1ML VIAL SQ SCH ×2 (09:32→21:16)
[2016-06-05] MEDS: PARoxetine HCL 20 MG TABLET (FP) PO SCH (09:32)
[2016-06-05] MEDS: FINASTERIDE 5 MG TABLET (FP) PO SCH (09:32)
[2016-06-05] MEDS: diphenhydrAMINE HCL 25 MG CAPSULE (FP) PO PRN (10:06)
[2016-06-05] MEDS: ACETAMINOPHEN 325 MG TABLET (FP) PO PRN (10:06)
[2016-06-05] MEDS: IMMUNE GLOB,GAM CAPRYLATE(IGG) 40 GM IVPB SCH (10:37)
--- NOTE | 2016-06-05 10:50 | PN ---
Progress Note (short form) - Note Progress Note: RENAL Pt is awake and alert sitting up in chair comfortably still with weakness in both legs cant raise his right leg dorsiflexion is decreased on both but worse on right has edema and some discolorationof distal part of lower extremities but has good pulses also has crackles at both bases Last Vital Signs Temp Pulse Resp BP Pulse Ox 98 F 70 20 140/68 96 06/05/16 05:17 06/05/16 05:17 06/05/16 05:17 06/05/16 05:17 06/04/16 21:00 CBC, BMP 06/05/16 07:45 06/05/16 07:45 Current Medications Generic Name Dose Route Start Last Admin Trade Name Freq PRN Reason Stop Dose Admin Acetaminophen 650 mg 06/01/16 18:19 06/05/16 10:06 Tylenol - PO 650 mg Q6H PRN Administration FEVER OR PAIN Cholecalciferol 1,000 unit 06/02/16 10:00 06/05/16 09:32 Vitamin D3 - PO 1,000 unit DAILY RYAN Administration Diphenhydramine HCl 25 mg 06/01/16 18:20 06/05/16 10:06 Benadryl - PO 25 mg Q12H PRN Administration FOR ITCHING Finasteride 5 mg 06/02/16 10:00 06/05/16 09:32 Proscar - PO 5 mg DAILY RYAN Administration Heparin Sodium (Porcine) 5,000 unit 06/01/16 22:00 06/05/16 09:32 Heparin - SQ 5,000 unit BID RYAN Administration Immune Globulin 400 mls @ 100 mls/hr 06/03/16 10:00 06/05/16 10:37 Gamunex-C IVPB 06/05/16 13:59 100 mls/hr DAILY RYAN Administration Protocol Immune Globulin/ Immune 350 mls @ 100 mls/hr 06/06/16 10:00 Globulin/ Immune Globulin IVPB 06/06/16 13:29 ONCE ONE Protocol Sodium Chloride 1,000 mls @ 75 mls/hr 06/04/16 13:15 06/05/16 01:41 Normal Saline - IV 75 mls/hr ASDIR RYAN Administration Insulin Aspart 1 vial 06/01/16 22:00 06/05/16 06:24 Novolog Vial Sliding Scale - SQ Not Given ACHS RYAN Protocol Methimazole 5 mg 06/03/16 10:00 06/05/16 09:31 Tapazole - PO 5 mg DAILY RYAN Administration Metoprolol Succinate 25 mg 06/02/16 10:00 06/05/16 09:31 Toprol Xl - PO 25 mg DAILY RYAN Administration Paroxetine HCl 40 mg 06/02/16 10:00 06/05/16 09:32 Paxil - PO 40 mg DAILY RYAN Administration Tamsulosin HCl 0.4 mg 06/01/16 22:00 06/04/16 21:37 Flomax - PO 0.4 mg HS RYAN Administration Impression 1. CKD 2. demyelinating disease 3. HTN 4. COPD 5. DM 6. interstitial lung disease 7. BPH Plan - renal function is stable - cont current management - monitor volume status closely - continue current meds -dc ivf -T4 MV
--- NOTE | 2016-06-05 11:17 | PN ---
Progress Note (short form) - Note Progress Note: NEUROSURGERY Neurology f/u noted Daughter and son-in-law at bedside Still with chronic B LE footdrop R > L; Denies back pain or sciatica. He denies leg numbness or tingling. He denies any bowel or bladder incontinence. PE: General- mildly obese; trace ankle edema; no other sign of DVT CN- intact; Motor- 5/5 except L DF 2/5; R IP3, R Quad 3, and R DF 0; sensation- decreased distal vibration, LT and proprioception intact; DTR- hyporeflexia B Back- no tenderness; negative SLR B to 70 degrees B footdrop and R > L LE weakness > 6-12 months without any LBP/sciatica or significant sensory deficit which make lumbar pathology alone less likely the sole cause of the weakness Surgical intervention possible though elevated medical risks given underlying medical disease and suboptimal surgical outcome given chronicity and degree of his footdrop (buddy R side) as well confounding neuropathy Risks of surgery- bleeding, infection, nerve injury, CSF leak, DVT, pneumonia, SD/stroke, coma, Pros and cons discussed with patient If patient opts for L4-5 decompression for stenosis, recommend baseline cardiology evaluation (given age, DM, HTN) to stratify cardiovascular and cerebrovascular risks All questions answered Daughter wishes to confer with Dr Bhandari
--- NOTE | 2016-06-05 12:38 | PN ---
Progress Note (short form) - Note Progress Note: Patient reports no changes today. Exam stable. He feels well. Situation reviewed again with patient and with son. Dr. Bhandari back tomorrow.
--- NOTE | 2016-06-05 13:12 | PN ---
Progress Note (short form) - Note Progress Note: Subjective: The patient was seen and examined sitting in the chair IVIG #4 today, total of 5. Patient reports increasing strength in his right leg Current Medications Generic Name Dose Route Start Last Admin Trade Name Freq PRN Reason Stop Dose Admin Acetaminophen 650 mg 06/01/16 18:19 06/03/16 22:13 Tylenol - PO 650 mg Q6H PRN Administration FEVER OR PAIN Cholecalciferol 1,000 unit 06/02/16 10:00 06/04/16 09:36 Vitamin D3 - PO 1,000 unit DAILY RYAN Administration Diphenhydramine HCl 25 mg 06/01/16 18:20 06/03/16 11:59 Benadryl - PO 25 mg Q12H PRN Administration FOR ITCHING Finasteride 5 mg 06/02/16 10:00 06/04/16 09:35 Proscar - PO 5 mg DAILY RYAN Administration Heparin Sodium (Porcine) 5,000 unit 06/01/16 22:00 06/04/16 09:35 Heparin - SQ 5,000 unit BID RYAN Administration Sodium Chloride 1,000 mls @ 75 mls/hr 06/01/16 18:22 06/03/16 17:57 Normal Saline - IV Not Given ASDIR RYAN Immune Globulin 400 mls @ 100 mls/hr 06/03/16 10:00 06/03/16 12:20 Gamunex-C IVPB 06/05/16 13:59 100 mls/hr DAILY RYAN Administration Protocol Immune Globulin/ Immune 350 mls @ 100 mls/hr 06/06/16 10:00 Globulin/ Immune Globulin IVPB 06/06/16 13:29 ONCE ONE Protocol Insulin Aspart 1 vial 06/01/16 22:00 06/04/16 06:05 Novolog Vial Sliding Scale - SQ Not Given ACHS RYAN Protocol Methimazole 5 mg 06/03/16 10:00 06/04/16 09:36 Tapazole - PO 5 mg DAILY RYAN Administration Metoprolol Succinate 25 mg 06/02/16 10:00 06/04/16 09:35 Toprol Xl - PO 25 mg DAILY RYAN Administration Paroxetine HCl 40 mg 06/02/16 10:00 06/04/16 09:36 Paxil - PO 40 mg DAILY RYAN Administration Tamsulosin HCl 0.4 mg 06/01/16 22:00 06/03/16 22:10 Flomax - PO 0.4 mg HS RYAN Administration Objective: Vital Signs Period Temp Pulse Resp BP Sys/Mahajan Pulse Ox Last 24 Hr 97.8 F-99.6 F 70-84 16-20 115-135/62-74 Physical Exam: GENERAL: Awake, alert, and fully oriented, in no acute distress. HEAD: Normal with no signs of trauma. NECK: Normal range of motion, supple without lymphadenopathy, JVD, or masses. LUNGS: B/l crackles at the bases HEART: Regular rate and rhythm, normal S1 and S2 without murmur, rub or gallop. ABDOMEN: Soft, nontender, not distended, normoactive bowel sounds, no guarding, no rebound, no masses. No hepatomegaly or splenomegaly. MUSCULOSKELETAL: Normal range of motion at all joints. No bony deformities or tenderness. No CVA tenderness. UPPER EXTREMITIES: 2+ pulses, warm, well-perfused. No cyanosis. No clubbing. Cap refill <2 seconds. No peripheral edema. LOWER EXTREMITIES: 2+ pulses, warm, well-perfused. No calf tenderness. NEUROLOGICAL: Cranial nerves II-XII intact. Normal speech. Reflexes absent in lower extremities. Motor strength decreased in b/l upper and lower extremities CBCD WBC 4.9 K/mm3 (4.0-10.0) 06/05/16 07:45 RBC 4.08 M/mm3 (4.00-5.60) 06/05/16 07:45 Hgb 12.2 GM/dL (11.7-16.9) 06/05/16 07:45 Hct 36.5 % (35.4-49) 06/05/16 07:45 MCV 89.6 fl (80-96) 06/05/16 07:45 MCHC 33.5 g/dl (32.0-35.9) 06/05/16 07:45 RDW 15.6 % (11.9-15.9) 06/05/16 07:45 Plt Count 128 K/MM3 (134-434) L 06/05/16 07:45 MPV 7.9 fl (7.5-11.1) 06/05/16 07:45 CMP Sodium 140 mmol/L (136-145) 06/05/16 07:45 Potassium 3.6 mmol/L (3.5-5.1) 06/05/16 07:45 Chloride 107 mmol/L (98-107) 06/05/16 07:45 Carbon Dioxide 24 mmol/L (21-32) 06/05/16 07:45 Anion Gap 9 (8-16) 06/05/16 07:45 BUN 19 mg/dL (7-18) H 06/05/16 07:45 Creatinine 1.4 mg/dL (0.7-1.3) H 06/05/16 07:45 Creat Clearance w eGFR 48.64 (>60) 06/05/16 07:45 Random Glucose 183 mg/dL (74-106) H D 06/05/16 07:45 Calcium 7.9 mg/dL (8.5-10.1) L 06/05/16 07:45 Total Bilirubin 0.3 mg/dL (0.2-1.0) 06/05/16 07:45 AST 19 U/L (15-37) D 06/05/16 07:45 ALT 15 U/L (12-78) D 06/05/16 07:45 Alkaline Phosphatase 65 U/L (45-117) 06/05/16 07:45 Total Protein 7.3 g/dl (6.4-8.2) 06/05/16 07:45 Albumin 2.8 g/dl (3.4-5.0) L 06/05/16 07:45 CARDIAC ENZYMES Creatine Kinase 80 IU/L (39-308) 06/02/16 07:00 Assessment: This is an 80 year old male with PMHx of HTN, rheumatoid arthritis 2007, COPD, CKD, interstitial lung disease, hyperthyroidism, NIDDM, chronic inflammatory demyelinating neuropathy, who presented to the ED with increased right leg weakness. Plan: 1) Neuro: chronic inflammatory demyelinating neuropathy - Worsening right leg weakness over the past few weeks, improving with IVIG - Received IVIG (09/21-09/25) - IVIG #4 today - Pre-medicate with Benadryl and Acetaminophen - D/c IV fluids, mild crackles at bases - Appreciate neuro consult 2) : CKD stage 3 - Cr better than baseline - Continue to monitor 3) Rheumatology: Rheumatoid arthritis - PT - Continue Theraband 4) Cardiology: HTN - Continue Toprol XL 5) Endocrinology: DM - BGM ACHS Hyperthyroidism - TSH elevated - Decrease Methimazole to 5mg daily 6) F/E/N: - Diabetic/sodium controlled diet - Monitor electrolytes 7) Prophylaxis: - Heparin 5,000u sq bid - PT: walked from the bathroom to the bed today with the walker 8) Dispo: - Requires continued inpatient care CODE STATUS: FULL CODE Visit type - Emergency Visit Emergency Visit: Yes ED Registration Date: 06/01/16 Care time: The patient presented to the Emergency Department on the above date and was hospitalized for further evaluation of their emergent condition. - New Patient This patient is new to me today: No - Critical Care Critical Care patient: No
[2016-06-05] MEDS: TAMSULOSIN HCL 0.4 MG CAP.ER.24H (FP) PO SCH (21:17)
[2016-06-06] MEDS: INSULIN SLIDING SCALE (NOVOLOG) 1 VIAL SQ SCH ×3 (06:03→16:57)
[2016-06-06 07:57] LABS: MCH 30.3 pg (25.7-33.7); MCHC 34.1 g/dl (32.0-35.9); MEAN CELL VOLUME 88.8 fl (80-96); MEAN PLT VOLUME 7.8 fl (7.5-11.1); PLATELET COUNT 130 K/MM3 (134-434); RDW 15.4 % (11.9-15.9); WHITE BLOOD COUNT 5.1 K/mm3 (4.0-10.0)
[2016-06-06 09:12] LABS: ALBUMIN 2.9 g/dl (3.4-5.0); BILIRUBIN,TOTAL 0.5 mg/dL (0.2-1.0); CALCIUM 8.6 mg/dL (8.5-10.1); CREATININE 1.2 mg/dL (0.7-1.3); TOT PROT 7.4 g/dl (6.4-8.2)
[2016-06-06] MEDS: CHOLECALCIFEROL (VITAMIN D3) 1,000 UNIT TABLET (FP) PO SCH (09:25)
[2016-06-06] MEDS: HEPARIN NA (PORCINE) 5,000 UNITS/ML 1ML VIAL SQ SCH (09:25)
[2016-06-06] MEDS: FINASTERIDE 5 MG TABLET (FP) PO SCH (09:25)
[2016-06-06] MEDS: METHIMAZOLE 5 MG TABLET (FP) PO SCH (09:25)
[2016-06-06] MEDS: PARoxetine HCL 20 MG TABLET (FP) PO SCH (09:25)
[2016-06-06] MEDS: METOPROLOL SUCCINATE 25 MG TAB.SR.24H (FP) PO SCH (09:25)
[2016-06-06] MEDS ORDERED: IMMUNE GLOBULIN IVPB ONE (10:00)
[2016-06-06] MEDS ORDERED: [UNRECOGNIZED DRUG - OTHER] IVPB ONE (10:00)
[2016-06-06] MEDS ORDERED: IMMUNE GLOB GAM CAPRYLATE IVPB ONE (10:00)
[2016-06-06] MEDS: diphenhydrAMINE HCL 25 MG CAPSULE (FP) PO PRN (11:02)
[2016-06-06] MEDS: ACETAMINOPHEN 325 MG TABLET (FP) PO PRN (11:02)
--- NOTE | 2016-06-06 14:01 | PN ---
Progress Note, Physician History of Present Illness: Pt seen and examined at bedside. He is awake and alert. He does not feel that his legs are improved. - Current Medication List Current Medications: Active Medications Acetaminophen (Tylenol -) 650 mg PO Q6H PRN PRN Reason: FEVER OR PAIN Last Admin: 06/06/16 11:02 Dose: 650 mg Cholecalciferol (Vitamin D3 -) 1,000 unit PO DAILY COUNT INCLUDES THE [facility] Last Admin: 06/06/16 09:25 Dose: 1,000 unit Diphenhydramine HCl (Benadryl -) 25 mg PO Q12H PRN PRN Reason: FOR ITCHING Last Admin: 06/06/16 11:02 Dose: 25 mg Finasteride (Proscar -) 5 mg PO DAILY COUNT INCLUDES THE [facility] Last Admin: 06/06/16 09:25 Dose: 5 mg Heparin Sodium (Porcine) (Heparin -) 5,000 unit SQ BID COUNT INCLUDES THE [facility] Last Admin: 06/06/16 09:25 Dose: 5,000 unit Insulin Aspart (Novolog Vial Sliding Scale -) 1 vial SQ ACHS COUNT INCLUDES THE [facility] PRN Reason: Protocol Last Admin: 06/06/16 11:34 Dose: Not Given Methimazole (Tapazole -) 5 mg PO DAILY COUNT INCLUDES THE [facility] Last Admin: 06/06/16 09:25 Dose: 5 mg Metoprolol Succinate (Toprol Xl -) 25 mg PO DAILY COUNT INCLUDES THE [facility] Last Admin: 06/06/16 09:25 Dose: 25 mg Paroxetine HCl (Paxil -) 40 mg PO DAILY COUNT INCLUDES THE [facility] Last Admin: 06/06/16 09:25 Dose: 40 mg Tamsulosin HCl (Flomax -) 0.4 mg PO HS COUNT INCLUDES THE [facility] Last Admin: 06/05/16 21:17 Dose: 0.4 mg - Objective Vital Signs: Vital Signs Temperature 99.0 F 06/06/16 13:24 Pulse Rate 77 06/06/16 13:24 Respiratory Rate 18 06/06/16 12:46 Blood Pressure 111/54 06/06/16 12:46 O2 Sat by Pulse Oximetry (%) 96 06/06/16 09:00 Constitutional: Yes: Calm Eyes: Yes: Conjunctiva Clear HENT: Yes: Atraumatic Neck: Yes: Supple Cardiovascular: Yes: S1, S2 Respiratory: Yes: CTA Bilaterally Gastrointestinal: Yes: Soft Genitourinary: Yes: WNL Musculoskeletal: Yes: Muscle Weakness Edema: Yes Edema: LLE: 1+, RLE: 1+ Neurological: Yes: Oriented Psychiatric: Yes: Oriented Labs: CBC, BMP 06/06/16 07:00 06/06/16 07:00 INR, PTT INR 1.13 (0.82-1.09) 06/01/16 14:00 Problem List - Problems (1) UTI (urinary tract infection) Code(s): N39.0 - URINARY TRACT INFECTION, SITE NOT SPECIFIED (2) BPH (benign prostatic hypertrophy) Code(s): N40.0 - BENIGN PROSTATIC HYPERPLASIA WITHOUT LOWER URINRY TRACT SYMP (3) COPD (chronic obstructive pulmonary disease) Code(s): J44.9 - CHRONIC OBSTRUCTIVE PULMONARY DISEASE, UNSPECIFIED (4) Chronic kidney disease Code(s): N18.9 - CHRONIC KIDNEY DISEASE, UNSPECIFIED (5) Demyelinating disease Code(s): G37.9 - DEMYELINATING DISEASE OF CENTRAL NERVOUS SYSTEM, UNSPECIFIED (6) Diabetes Code(s): E11.9 - TYPE 2 DIABETES MELLITUS WITHOUT COMPLICATIONS (7) Diastolic CHF Code(s): I50.30 - UNSPECIFIED DIASTOLIC (CONGESTIVE) HEART FAILURE (8) HTN (hypertension) Code(s): I10 - ESSENTIAL (PRIMARY) HYPERTENSION (9) Rheumatoid arthritis Code(s): M06.9 - RHEUMATOID ARTHRITIS, UNSPECIFIED Assessment/Plan Current Medications Generic Name Dose Route Start Last Admin Trade Name Freq PRN Reason Stop Dose Admin Acetaminophen 650 mg 06/01/16 18:19 06/06/16 11:02 Tylenol - PO 650 mg Q6H PRN Administration FEVER OR PAIN Cholecalciferol 1,000 unit 06/02/16 10:00 06/06/16 09:25 Vitamin D3 - PO 1,000 unit DAILY RYAN Administration Diphenhydramine HCl 25 mg 06/01/16 18:20 06/06/16 11:02 Benadryl - PO 25 mg Q12H PRN Administration FOR ITCHING Finasteride 5 mg 06/02/16 10:00 06/06/16 09:25 Proscar - PO 5 mg DAILY RYAN Administration Heparin Sodium (Porcine) 5,000 unit 06/01/16 22:00 06/06/16 09:25 Heparin - SQ 5,000 unit BID RYAN Administration Insulin Aspart 1 vial 06/01/16 22:00 01/23/17 11:34 Novolog Vial Sliding Scale - SQ Not Given ACHS RYAN Protocol Methimazole 5 mg 06/03/16 10:00 06/06/16 09:25 Tapazole - PO 5 mg DAILY RYAN Administration Metoprolol Succinate 25 mg 06/02/16 10:00 06/06/16 09:25 Toprol Xl - PO 25 mg DAILY RYAN Administration Paroxetine HCl 40 mg 06/02/16 10:00 06/06/16 09:25 Paxil - PO 40 mg DAILY RYAN Administration Tamsulosin HCl 0.4 mg 06/01/16 22:00 06/05/16 21:17 Flomax - PO 0.4 mg HS RYAN Administration Impression 1. CKD 2. demyelinating disease 3. HTN 4. COPD 5. DM 6. interstitial lung disease 7. BPH Plan - renal function is stable - will continue to monitor volume status - last day of IVIG today - cont current management - keep fluids on hold today - will follow Dr Tyson
--- NOTE | 2016-06-06 17:20 | DS ---
Physical Exam: SUBJECTIVE: Patient seen and examined oob to chair. OBJECTIVE: Vital Signs Period Temp Pulse Resp BP Sys/Mahajan Pulse Ox Last 24 Hr 97.9 F-99.0 F 73-82 18-20 111-156/54-79 96 PHYSICAL EXAM Physical Exam: GENERAL: Awake, alert, and fully oriented, in no acute distress. HEAD: Normal with no signs of trauma. NECK: Normal range of motion, supple without lymphadenopathy, JVD, or masses. LUNGS: B/l crackles at the bases HEART: Regular rate and rhythm, normal S1 and S2 without murmur, rub or gallop. ABDOMEN: Soft, nontender, not distended, normoactive bowel sounds, no guarding, no rebound, no masses. No hepatomegaly or splenomegaly. MUSCULOSKELETAL: Normal range of motion at all joints. No bony deformities or tenderness. No CVA tenderness. UPPER EXTREMITIES: 2+ pulses, warm, well-perfused. No cyanosis. No clubbing. Cap refill <2 seconds. No peripheral edema. LOWER EXTREMITIES: 2+ pulses, warm, well-perfused. No calf tenderness. NEUROLOGICAL: Cranial nerves II-XII intact. Normal speech. Reflexes absent in lower extremities. Motor strength decreased in b/l upper and lower extremities Laboratory Results - last 24 hr 06/05/16 06/06/16 06/06/16 21:09 05:43 07:00 WBC 5.1 RBC 3.81 L Hgb 11.6 L Hct 33.9 L MCV 88.8 MCHC 34.1 RDW 15.4 Plt Count 130 L MPV 7.8 Sodium Potassium Chloride Carbon Dioxide Anion Gap BUN Creatinine Creat Clearance w eGFR POC Glucometer 118 122 Random Glucose Calcium Total Bilirubin AST ALT Alkaline Phosphatase Total Protein Albumin 06/06/16 06/06/16 06/06/16 07:00 11:33 16:56 WBC RBC Hgb Hct MCV MCHC RDW Plt Count MPV Sodium 141 Potassium 3.6 Chloride 107 Carbon Dioxide 23 Anion Gap 11 BUN 19 H Creatinine 1.2 Creat Clearance w eGFR 58.11 POC Glucometer 138 101 Random Glucose 132 H D Calcium 8.6 Total Bilirubin 0.5 D AST 22 ALT 16 Alkaline Phosphatase 63 Total Protein 7.4 Albumin 2.9 L HOSPITAL COURSE: Date of Admission:06/01/16 Date of Discharge: 06/06/16 80 year old male with PMH of HTN, rheumatoid arthritis, COPD, CKD, interstitial lung disease, hyperthyroidism, NIDDM, and chronic inflammatory demyelinating neuropathy, who presented to the ED with increased right leg weakness. Plan: 1) Neuro: chronic inflammatory demyelinating neuropathy - Worsening right leg weakness over the past few weeks, improving with IVIG - Received IVIG (09/21-09/25) - IVIG #5 today, course complete 2) : CKD stage 3 - Cr better than baseline - Continued to monitor 3) Rheumatology: Rheumatoid arthritis - PT - Continued Theraband 4) Cardiology: HTN - Continued Toprol XL 5) Endocrinology: DM - BGM ACHS Hyperthyroidism - TSH elevated - Decrease Methimazole to 5mg daily Minutes to complete discharge: 35 Discharge Summary Reason For Visit: WEAKNESS OF BLE Current Active Problems UTI (urinary tract infection) (Acute) Vertigo (Acute) Weakness of both lower extremities (Acute) Condition: Stable - Instructions Diet, Activity, Other Instructions: Return to the emergency department for any new or worsening symptoms. Referrals: Jayesh Rider MD [Staff Physician] - Disposition: HOME - Home Medications Comprehensive Discharge Medication List: Ambulatory Orders Finasteride [Proscar -] 5 mg PO DAILY 09/14/15 Paroxetine HCl [Paxil -] 40 mg PO DAILY 09/14/15 Cholecalciferol (Vitamin D3) [Vitamin D3] 1,000 unit PO DAILY 04/23/16 Metformin HCl 500 mg PO BID 04/23/16 Methimazole 5 mg PO BID 04/23/16 Metoprolol Succinate [Toprol XL -] 25 mg PO DAILY 04/23/16 Tamsulosin HCl [Flomax] 0.4 mg PO HS 04/23/16 This patient is new to me today: Yes Date on this admission: 06/06/16 Emergency Visit: Yes ED Registration Date: 06/01/16 Care time: The patient presented to the Emergency Department on the above date and was hospitalized for further evaluation of their emergent condition. Critical Care patient: No - Discharge Referral Referred to [facility] Med [facility] Yes Physician Referral: Jayesh Rider MD (Int Med)
[2016-06-06 18:24] VITALS: TEMP 98.7
[2016-06-06 18:26] VITALS: BP 157/82; PULSE 83
--- NOTE | 2016-06-06 18:46 | PN ---
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 no numbness tingling, inc weakness R leg prox and distal; feel he did better after last course of IVIG in 11/27. Unable to tolerate steroids given DM/complications. comes in for IVIG retrial. lives alone. FU : DAy #5/5 IVIG, feels no sig change on IVIG as of yet , MRI LS spine reviewed- multiple sites of pathology, including compression fractures, spinal stenosis, and subchondral edema seen BY Dr Ndiaye- notes reviewed - Current Medication List Current Medications: Active Medications Acetaminophen (Tylenol -) 650 mg PO Q6H PRN PRN Reason: FEVER OR PAIN Last Admin: 06/06/16 11:02 Dose: 650 mg Cholecalciferol (Vitamin D3 -) 1,000 unit PO DAILY ON LICENSE OF [facility] Last Admin: 06/06/16 09:25 Dose: 1,000 unit Diphenhydramine HCl (Benadryl -) 25 mg PO Q12H PRN PRN Reason: FOR ITCHING Last Admin: 06/06/16 11:02 Dose: 25 mg Finasteride (Proscar -) 5 mg PO DAILY ON LICENSE OF [facility] Last Admin: 06/06/16 09:25 Dose: 5 mg Heparin Sodium (Porcine) (Heparin -) 5,000 unit SQ BID ON LICENSE OF [facility] Last Admin: 06/06/16 09:25 Dose: 5,000 unit Insulin Aspart (Novolog Vial Sliding Scale -) 1 vial SQ ACHS RYAN PRN Reason: Protocol Last Admin: 06/06/16 16:57 Dose: Not Given Methimazole (Tapazole -) 5 mg PO DAILY ON LICENSE OF [facility] Last Admin: 06/06/16 09:25 Dose: 5 mg Metoprolol Succinate (Toprol Xl -) 25 mg PO DAILY ON LICENSE OF [facility] Last Admin: 06/06/16 09:25 Dose: 25 mg Paroxetine HCl (Paxil -) 40 mg PO DAILY ON LICENSE OF [facility] Last Admin: 06/06/16 09:25 Dose: 40 mg Tamsulosin HCl (Flomax -) 0.4 mg PO HS ON LICENSE OF [facility] Last Admin: 06/05/16 21:17 Dose: 0.4 mg - Objective Vital Signs: Vital Signs Temperature 98.7 F 06/06/16 18:25 Pulse Rate 83 06/06/16 18:25 Respiratory Rate 18 06/06/16 18:25 Blood Pressure 157/82 06/06/16 18:25 O2 Sat by Pulse Oximetry (%) 96 06/06/16 09:00 Neurological: Yes: Other (weakness distally UE 4+/5 B/L, RLE remains weak proximally 2/5 (IP), hams better 4+/5 Bl, BL) Labs: CBC, BMP 06/06/16 07:00 06/06/16 07:00 INR, PTT INR 1.13 (0.82-1.09) 06/01/16 14:00 Problem List - Problems (1) Weakness of both lower extremities Code(s): M62.81 - MUSCLE WEAKNESS (GENERALIZED) (2) COPD (chronic obstructive pulmonary disease) Code(s): J44.9 - CHRONIC OBSTRUCTIVE PULMONARY DISEASE, UNSPECIFIED (3) Chronic inflammatory demyelinating neuropathy Code(s): G61.81 - CHRONIC INFLAMMATORY DEMYELINATING POLYNEURITIS (4) Chronic kidney disease Code(s): N18.9 - CHRONIC KIDNEY DISEASE, UNSPECIFIED (5) Diabetes Code(s): E11.9 - TYPE 2 DIABETES MELLITUS WITHOUT COMPLICATIONS Assessment/Plan HX of DM, ? RA ( if active) with presumptive CIDP, last IVIG 11/27, with progressive weakness/gait issues (+ assymetry worse in RLE, which appears out of proportion to rest of his distal weakness , ? disc issue vs assymetric neuropathy, seen by ORTHO- R hip surgery stable , not likely causative factor poorly tolerated oral steroids (DM), admitted for 5 days IVIG -completed sig spinal pathology but still not clear if this would be cause of his progressive R >L LE weakness distal foot drops have persistent, more concerned with prox RLE weakness-- atrophy on MRI LS spine of ilipsoas suggests a chronic process, so doubtfully there is a surgical intervention, no back pain, so role in kyphoplasty for vertebral FX ( these may be due to chronic steroids/RA) if no change with IVIG will re-adress cleared for Dc today and will FU outpt Dr Bhandari [phone]
== END 2016-06-06 18:46 | disposition home health service (06) | DRG 74 ==
LOC: JER 11:52 → JERBED 15:13 → J6S 22:34
PROVIDERS: ADMIT Internal Medicine; ATTEND Nurse Practitioner Acute Care
PROC: 30233S1 Transfusion of Nonautologous Globulin into Peripheral Vein, Percutaneous Approach (ICD-10-PCS; principal; 2016-06-02)
DX: G61.81 Chronic inflammatory demyelinating polyneuritis (principal); I13.0 Hypertensive heart and chronic kidney disease with heart failure and stage 1 through stage 4 chronic kidney disease, or unspecified chronic kidney disease; I50.30 Unspecified diastolic (congestive) heart failure; M48.54XA Collapsed vertebra, not elsewhere classified, thoracic region, initial encounter for fracture; M06.80 Other specified rheumatoid arthritis, unspecified site; E11.42 Type 2 diabetes mellitus with diabetic polyneuropathy; E05.80 Other thyrotoxicosis without thyrotoxic crisis or storm; J44.9 Chronic obstructive pulmonary disease, unspecified; J84.89 Other specified interstitial pulmonary diseases; E78.5 Hyperlipidemia, unspecified; N40.0 Benign prostatic hyperplasia without lower urinary tract symptoms; N18.3 Chronic kidney disease, stage 3 (moderate); M21.379 Foot drop, unspecified foot; E66.8 Other obesity; Z68.29 Body mass index [BMI] 29.0-29.9, adult; Z71.3 Dietary counseling and surveillance
CPT/HCPCS: 36415; 71010-TC; 72148-TC; 80048; 80053; 81003; 81015; 82550; 83036; 83735; 84100; 84155; 84165; 84436; 84443; 85025; 85027; 85610; 85651; 86140; 86431; 93005; 93010; 97116-GP; 97162-PG; 99284-25; J1459; J1561; J1568; J1644

== ENCOUNTER 2016-06-21 21:15 | Inpatient (IN) | payer BC ==
[2016-06-21 21:44] VITALS: BMI 28.1
--- NOTE | 2016-06-21 21:51 | PDOC ---
History of Present Illness <Digna Blas - Last Filed: 06/21/16 23:12> - General History Source: Patient Exam Limitations: No Limitations - History of Present Illness Initial Comments: 06/21/16 22:12 The patient is a 80 year old male living at home alone, with a significant past medical history of diabetes, rheumatoid arthritis, acid reflux, BPH, kidney stones, and progressive ongoing neuropathy with mixed demyelinating features , who presents to the emergency department complaining of weakness to the lower extremities for several weeks. The patient states he woke up this morning and performed his daily rehab on his bicycle for 15 minutes, and was able to tolerate the exercise. After his workout, he reports he wanted to go outside to help out his grandson, but was unable to stand from his bike. He reports he is unable to move his legs, but denies any pain to his extremities or paresthesias. The patient reports he returns today because of his inability to bare weight on his legs. The patient denies bladder or bowel incontinence, nausea, vomiting, diarrhea, constipation, or any other changes in urination patterns. The patient denies any chest pain, diaphoresis, palpitations, or shortness of breath. The patient denies fever, chills, cough, headache, or dizziness. Allergies: None reported. Past Surgical History: None reported. Social History: Non-smoker. Denies alcohol or drug use. PCP: Dr. Rider Neurologist: Dr. Bhandari <Kenna Allred - Last Filed: 06/22/16 01:21> - General Chief Complaint: Weakness Stated Complaint: PAIN Time Seen by Provider: 06/21/16 21:34 Past History - Past Medical History Anemia: No Asthma: No Cancer: No Cardiac Disorders: No CVA: No COPD: No CHF: No Dementia: No Diabetes: Yes GI Disorders: Yes (ACID REFLUX) Disorders: Yes (BPH) HTN: No Hypercholesterolemia: No Kidney Stones: Yes Liver Disease: No Seizures: No Thyroid Disease: No - Surgical History Abdominal Surgery: Yes (HERNIA) Appendectomy: No Cardiac Surgery: No Cholecystectomy: No Lung Surgery: No Neurologic Surgery: No Orthopedic Surgery: No (LEFT TOTAL HIP REPLACEMENT) - Immunization History Immunization Up to Date: Yes - Psycho/Social/Smoking Cessation Hx Anxiety: No Suicidal Ideation: No Smoking History: Former smoker Have you smoked in the past 12 months: No Number of Cigarettes Smoked Daily: 20 If you are a former smoker, when did you quit?: 25 YRS Information on smoking cessation initiated: No Hx Alcohol Use: No Drug/Substance Use Hx: No Substance Use Type: None Hx Substance Use Treatment: No <Digna Blas - Last Filed: 06/21/16 23:12> <Kenna Allred - Last Filed: 06/22/16 01:21> - Past Medical History Allergies/Adverse Reactions: Allergies Allergy/AdvReac Type Severity Reaction Status Date / Time No Known Allergies Allergy Verified 06/01/16 11:57 Home Medications: Ambulatory Orders Finasteride [Proscar -] 5 mg PO DAILY 09/14/15 Paroxetine HCl [Paxil -] 40 mg PO DAILY 09/14/15 Cholecalciferol (Vitamin D3) [Vitamin D3] 1,000 unit PO DAILY 04/23/16 Metformin HCl 500 mg PO BID 04/23/16 Methimazole 5 mg PO BID 04/23/16 Metoprolol Succinate [Toprol XL -] 25 mg PO DAILY 04/23/16 Tamsulosin HCl [Flomax] 0.4 mg PO HS 04/23/16 Review of Systems - Review of Systems Able to Perform ROS?: Yes Comments:: 06/21/16 22:13 CONSTITUTIONAL: Absent: fever, no chills, no fatigue EYES: Absent: visual changes ENT: Absent: ear pain, no sore throat CARDIOVASCULAR: Absent: chest pain, no palpitations RESPIRATORY: Absent: cough, no SOB GI: Absent: abdominal pain, no nausea, no vomiting, no constipation, no diarrhea GENITOURINARY: Absent: dysuria, no frequency, no hematuria MUSKULOSKELETAL: Present: +lower extremity weakness, +unable to bare weight on legs Absent: back pain, no arthralgia, no myalgia SKIN: Absent: rash NEURO: Absent: headache <Kenna Allred - Last Filed: 06/22/16 01:21> *Physical Exam - Vital Signs Last Vital Signs Temp Pulse Resp BP Pulse Ox 98.4 F 78 20 141/89 93 L 06/21/16 21:20 06/21/16 21:20 06/21/16 21:20 06/21/16 21:20 06/21/16 21:20 <Digna Blas - Last Filed: 06/21/16 23:12> - Vital Signs Last Vital Signs Temp Pulse Resp BP Pulse Ox 98.4 F 78 20 141/89 93 L 06/21/16 21:20 06/21/16 21:20 06/21/16 21:20 06/21/16 21:20 06/21/16 21:20 - Physical Exam Comments: 06/21/16 22:16 GENERAL: Well-appearing, well-nourished. No apparent distress. HEENT: Normocephalic, atraumatic. PERRL, EOM intact. CARDIOVASCULAR: Normal S1, S2. Regular rate and rhythm. PULMONARY: Clear to auscultation bilaterally. ABDOMEN: Soft, non-distended, non-tender. EXTREMITIES: Severe extremity weakness. No gross deformities. SKIN: Warm, dry. No rash NEUROLOGICAL: Unable to ambulate or lift legs. Alert, awake, appropriate. Cranial nerves 2-12 intact. No deficits to light touch and temperature in face, upper extremities and lower extremities. Normal speech. Toes are down-going bilaterally. PSYCHIATRIC: Cooperative. Good eye contact. Appropriate mood and affect. <Kenna Allred - Last Filed: 06/22/16 01:21> Heart Score/ECG Review - ECG Impressions Comment:: 06/22/16 01:20 Vent. Rate: 74 bpm IMPRESSION: Normal sinus rhythm. Left axis deviation. <Kenna Allred - Last Filed: 06/22/16 01:21> ED Treatment Course - LABORATORY CBC & Chemistry Diagram: 06/21/16 00:12 06/21/16 00:21 <Kenna Allred - Last Filed: 06/22/16 01:21> Medical Decision Making - Medical Decision Making 06/21/16 22:32 80 yo male p/w with increasing lower extremity weakness. He did his leg exercises earlier today and had been sitting down for a while . Later when he went to get up off the chair he could not bear weight -he denies any recent trauma -he denies any saddle anesthesia or fecal incontinence -he was just discharged in May after receiving IVIG infusion for his chronic inflammatory demylinating neuropathy -he diid not have any sudden confusion,slurred speech,facial droop or arm weakness.The pt states this is a worsening of previous symptoms spoke w neurologist Dr Bhandari and he suggested admission so NS Dr Ndiaye could be consulted again to see if there would be any neurosurgical avenues to help this pt -pt has good hand grasp, but no reflexes on his legs and he cannot lift his legs off the bed. He was able stand up by propping himself up against the gurney so he could urinate <Digna Blas - Last Filed: 06/21/16 23:12> - Medical Decision Making 06/21/16 21:55 First call placed to Dr. Bhandari at 21:55. Awaiting call back. Case discussed with Dr. Bhandari at 21:57. <Kenna Allred - Last Filed: 06/22/16 01:21> *DC/Admit/Observation/Transfer - Discharge Dispostion Admit: Yes <Digna Blas - Last Filed: 06/21/16 23:12> - Attestations Scribe Attestion: 06/21/16 22:14 Documentation prepared by Kenna Allred, acting as senior medical writer for Digna Blas MD. <Kenna Allred - Last Filed: 06/22/16 01:21> Diagnosis at time of Disposition: Demyelinating disease, Chronic inflammatory demyelinating neuropathy Diabetes Qualifiers: Diabetes mellitus type: type 2 Diabetes mellitus complication status: with neurologic complications Diabetes mellitus complication detail: with unspecified neuropathy Diabetes mellitus group home insulin use: without group home use Qualified Code(s): E11.40 - Type 2 diabetes mellitus with diabetic neuropathy, unspecified - Referrals
--- NOTE | 2016-06-21 22:28 | PN ---
<Vidya Landaverde - Last Filed: 06/21/16 22:28> Teaching Attending Note Name of Resident: [place] <Harris Lema - Last Filed: 06/22/16 04:18> Teaching Attending Note ATTENDING PHYSICIAN STATEMENT I saw and evaluated the patient. I reviewed the resident's note and discussed the case with the resident. I agree with the resident's findings and plan as documented. SUBJECTIVE: The patient is a 80 year old male who presented to the emergency department complaining of weakness to the lower extremities for several weeks. The patient stated that after his 15 minute stationary bicycle workout this morning his legs went numb and he was unable to get up. He denied any pain or paresthesias to his lower extremities. The patient noted that he presented to the ED two weeks ago for similar symptoms and was given a round of IVIG. Patient is followed by Dr. Bhandari. The patient denied any trauma or recent fall, bladder or bowel incontinence, nausea, vomiting, diarrhea, constipation, or any other changes in urination patterns. The patient denies any chest pain, diaphoresis, palpitations, or shortness of breath. The patient denies fever, chills, cough, headache, or dizziness PMH: diabetes, rheumatoid arthritis, acid reflux, BPH, kidney stones, and progressive ongoing neuropathy with mixed demyelinating features, SOCIAL: Living at home alone, home health aid comes 3x per week. OBJECTIVE: Vital Signs: Last Vital Signs Temp Pulse Resp BP Pulse Ox 98.4 F 78 20 141/89 93 L 06/21/16 21:20 06/21/16 21:20 06/21/16 21:20 06/21/16 21:20 06/21/16 21:20 GENERAL: Awake, alert, and fully oriented, in no acute distress HEENT: Atraumatic. PERRLA, EOMI. Moist mucosa. No JVD LUNGS: No distress, speaks full sentences, clear to auscultation bilaterally HEART: Regular rate and rhythm, normal S1 and S2, no murmurs, rubs or gallops, peripheral pulses normal and equal bilaterally. Soft systolic murmur. ABDOMEN: Soft, nontender, normoactive bowel sounds. No guarding, no rebound. No masses EXTREMITIES: Sensation intact, strength 2+ b/l limited ROM secondary to weakness NEUROLOGICAL: Cranial nerves II through XII grossly intact. Normal speech, normal gait, no focal sensorimotor deficits SKIN: Warm, Dry, normal turgor, no rashes or lesions noted. Labs: CBCD WBC 7.1 K/mm3 (4.0-10.0) D 06/21/16 00:12 RBC 3.87 M/mm3 (4.00-5.60) L 06/21/16 00:12 Hgb 11.8 GM/dL (11.7-16.9) 06/21/16 00:12 Hct 34.8 % (35.4-49) L 06/21/16 00:12 MCV 89.9 fl (80-96) 06/21/16 00:12 MCHC 33.9 g/dl (32.0-35.9) 06/21/16 00:12 RDW 16.9 % (11.9-15.9) H 06/21/16 00:12 Plt Count 171 K/MM3 (134-434) D 06/21/16 00:12 MPV 8.0 fl (7.5-11.1) 06/21/16 00:12 CMP Sodium 144 mmol/L (136-145) 06/21/16 00:21 Potassium 3.7 mmol/L (3.5-5.1) 06/21/16 00:21 Chloride 104 mmol/L (98-107) 06/21/16 00:21 Carbon Dioxide 28 mmol/L (21-32) D 06/21/16 00:21 Anion Gap 12 (8-16) 06/21/16 00:21 BUN 14 mg/dL (7-18) D 06/21/16 00:21 Creatinine 1.4 mg/dL (0.7-1.3) H 06/21/16 00:21 Creat Clearance w eGFR 48.64 (>60) 06/21/16 00:21 Calcium 8.7 mg/dL (8.5-10.1) 06/21/16 00:21 Total Bilirubin 0.3 mg/dL (0.2-1.0) D 06/21/16 00:21 AST 15 U/L (15-37) D 06/21/16 00:21 ALT 11 U/L (12-78) L D 06/21/16 00:21 Alkaline Phosphatase 81 U/L (45-117) D 06/21/16 00:21 Total Protein 6.7 g/dl (6.4-8.2) 06/21/16 00:21 Albumin 3.1 g/dl (3.4-5.0) L 06/21/16 00:21 ASSESSMENT AND PLAN: Progressive demyelinating neuropathy -Labs -Electrolytes -Consult social group worker -IVF -Prednisone 40mg stat dose given -Consult Dr. Bhandari in the AM for starting IVIG -Will premedicated with Benadryl and Acetaminophen -Fall risk precautions -Pt consult BPH -Continue home medications Documentation prepared by Harris Lema, acting as medical data entry clerk for Vidya Landaverde MD.
[2016-06-22 00:31] LABS: BASOPHIL 0.6 % (0-2.0); EOSINOPHIL 2.9 % (0-4.5); MCH 30.5 pg (25.7-33.7); MCHC 33.9 g/dl (32.0-35.9); MEAN CELL VOLUME 89.9 fl (80-96); NEUTROPHILS 67.2 % (42.8-82.8); PLATELET COUNT 171 K/MM3 (134-434); RDW 16.9 % (11.9-15.9); WHITE BLOOD COUNT 7.1 K/mm3 (4.0-10.0)
[2016-06-22] MEDS ORDERED: ACETAMINOPHEN 325 MG TABLET (FP) PO ONE (00:55)
[2016-06-22] MEDS ORDERED: ACETAMINOPHEN 325 MG TABLET (FP) ONE (00:55)
[2016-06-22 01:05] LABS: ALBUMIN 3.1 g/dl (3.4-5.0); BILIRUBIN,TOTAL 0.3 mg/dL (0.2-1.0); CALCIUM 8.7 mg/dL (8.5-10.1); CREATININE 1.4 mg/dL (0.7-1.3); TOT PROT 6.7 g/dl (6.4-8.2)
[2016-06-22] MEDS ORDERED: IMMUNE GLOBULIN (IgG) 10 GM VIAL IVPB ONE (02:17)
[2016-06-22] MEDS ORDERED: predniSONE 20 MG TABLET (UD) PO ONE (02:23)
--- NOTE | 2016-06-22 02:27 | HP ---
CHIEF COMPLAINT: Unable to bear weight since this morning PCP: Dr. Rider HISTORY OF PRESENT ILLNESS: 80 year old male presented to the ED via EMS with the complaints of unable to bear weight since morning. A/c to the patient, he was feeling fine until this morning. He was able to do his regular morning routine, his breathing exercise, weight lifting and stationary biking for 15mintues. After a while, he sat on a chair and while reaching out to his grandson, he couldn't stand or walk. Denies numbness, tingling, pricking sensation or pain over his lower extremities. Patient reports to have had similar episodes in the past since a year, on/off. Patient had his 1st infusion of IVIG in and second infusion 2 weeks ago. Patient says he felt better after the first but the second infusion didn't help him much. Has nocturnia, 4episdoes last night which is usual for him due to BPH. No burning urination or incontinence. Bowel habit normal. Sleep/Appetite normal. Denies headache, fever, chills, rigor, sweating, abdominal pain, nausea or vomiting. Checks sugar everyday at home, ranges between 97-150. Doesn't know his HbA1c. Had his eyes checked last year and there were no signs of diabetic retinopathy. Lives at home alone and is able to do his daily activities. Gets help 3times/ week from group home supervisor. Doesn't want to live in the assisted facility or longterm. ER course was notable for: (1) No leukocytosis, afebrile, hemodynamically stable (2) Creatinine 1.4, GFR 48.64 (3) Tylenol 650mg Recent Travel: None. PAST MEDICAL HISTORY: HTN, rheumatoid arthritis 2007, COPD, CKD, interstitial lung disease, hyperthyroidism, NIDDM, chronic inflammatory demyelinating neuropathy PAST SURGICAL HISTORY: Both hip replacement, Right knee replacement, Right inguinal hernia repair with a mesh. Social History: Smoking: Smoked for almost 35years 1/2 pack/day, stopped smoking 25 yrs ago. Alcohol: Stopped alcohol intake 25 yrs ago Drugs: No use of illicit drugs. Family History: Unknown Allergies No Known Allergies Allergy (Verified 06/01/16 11:57) HOME MEDICATIONS: Home Medications Medication Instructions Recorded Finasteride [Proscar -] 5 mg PO DAILY 09/14/15 Paroxetine HCl [Paxil -] 40 mg PO DAILY 09/14/15 Cholecalciferol (Vitamin D3) 1,000 unit PO DAILY 04/23/16 [Vitamin D3] Metformin HCl 500 mg PO BID 04/23/16 Methimazole 5 mg PO BID 04/23/16 Metoprolol Succinate [Toprol XL -] 25 mg PO DAILY 04/23/16 Tamsulosin HCl [Flomax] 0.4 mg PO HS 04/23/16 REVIEW OF SYSTEMS CONSTITUTIONAL: Absent: fever, chills, diaphoresis, generalized weakness, malaise, loss of appetite, weight change HEENT: Absent: rhinorrhea, nasal congestion, throat pain, throat swelling, difficulty swallowing, mouth swelling, ear pain, eye pain, visual changes CARDIOVASCULAR: Absent: chest pain, syncope, palpitations, irregular heart rate, lightheadedness , peripheral edema RESPIRATORY: Absent: cough, shortness of breath, dyspnea with exertion, orthopnea, wheezing, stridor, hemoptysis GASTROINTESTINAL: Absent: abdominal pain, abdominal distension, nausea, vomiting, diarrhea, constipation, melena, hematochezia GENITOURINARY: Absent: dysuria, frequency, urgency, hesitancy, hematuria, flank pain, genital pain MUSCULOSKELETAL: Absent: myalgia, arthralgia, joint swelling, back pain, neck pain SKIN: Absent: rash, itching, pallor HEMATOLOGIC/IMMUNOLOGIC: Absent: easy bleeding, easy bruising, lymphadenopathy, frequent infections ENDOCRINE: Absent: unexplained weight gain, unexplained weight loss, heat intolerance, cold intolerance NEUROLOGIC: Present: Unable to bear weight Absent: headache, focal weakness or paresthesias, dizziness, unsteady gait, seizure, mental status changes, bladder or bowel incontinence PSYCHIATRIC: Absent: anxiety, depression, suicidal or homicidal ideation, hallucinations. PHYSICAL EXAMINATION GENERAL: Elderly male lying comfortably in bed in left lateral position, Awake, alert, and fully oriented, in no acute distress. HEAD: Normal with no signs of trauma. EYES:EOM intact, no pallor or icterus. EARS, NOSE, THROAT: Ears normal. Moist mucous membranes. NECK: Supple. LUNGS: Breath sounds equal, clear to auscultation bilaterally. No wheezes, and no crackles. No accessory muscle use. HEART: Regular rate and rhythm, normal S1 and S2 soft systolic murmur. ABDOMEN: Soft, nontender, not distended, normoactive bowel sounds, no guarding, no rebound, no masses. No hepatomegaly or splenomegaly. MUSCULOSKELETAL: Normal range of motion at all joints. No bony deformities or tenderness. No CVA tenderness. NEUROLOGICAL: B/L lower limbs B/L sensation intact, Bulk Normal; tone Normal; Power left 4/5 right 2/5; B/L knee and ankle reflex absent. CN 2-12 grossly intact. Gait not observed.2+ pulses, warm, well-perfused. No calf tenderness. No peripheral edema. Upper extremities: Bulk, tone, power, reflex normal, 2+ pulses, warm, well- perfused. No cyanosis. No clubbing. Cap refill . No peripheral edema PSYCHIATRIC: Cooperative. Good eye contact. Appropriate mood and affect. SKIN: Warm, dry, normal turgor, no rashes or lesions noted. MRI LS spine - multiple sites of pathology, including compression fractures, spinal stenosis, and subchondral edema ASSESSMENT/PLAN: 80 year old male with significant PMHx of HTN, rheumatoid arthritis 2007, COPD , CKD, interstitial lung disease, hyperthyroidism, NIDDM, chronic inflammatory demyelinating neuropathy presented to the ED via EMS with the complaints of unable to bear weight since morning. 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 Bhandari consult placed Neuro checks every 4 hrly to monitor development of new symptoms and progression Last admission, MRI spine was done, report mentioned above. # Acute on CKD stage 3 Cr 1.4, baseline 1.2 IV hydration Avoid nephrotoxic drugs # Rheumatoid arthritis No acute symptoms this admission Physical Therapy request placed # Hypertension-controlled Continue Metoprolol 25mg once confirmed # Diabetes Mellitus Hold Metformin, continue Insulin sliding scale BGM ACHS Monitor hypoglycemic symptoms # Hyperthyroidism TSH ordered for tomorrow, adjust the medication accordingly. For now will continue Methimazole 5mg PO BID once confirmed # BPH Increased frequency of urination, no other urinary symptoms Continue Tamsulocin 0.4mg; Finasteride 5mg Daily # FEN IV NS @ 100mls/hr Electrolytes to be repeated this am Diabetic/sodium controlled diet # Prophylaxis For GI-Not indicated For DVT- On Heparin 5000IU BID # Code Status-Full Code # Dispo: Admitted in Med-surg. Duration of stay unknown. Illness, Investigation and Plan of care explained to the patient. He verbalized understanding. Case discussed with Dr. Landaverde. Visit type - Emergency Visit Emergency Visit: Yes ED Registration Date: 06/21/16 Care time: The patient presented to the Emergency Department on the above date and was hospitalized for further evaluation of their emergent condition. - New Patient This patient is new to me today: Yes Date on this admission: 06/22/16 - Critical Care Critical Care patient: No
[2016-06-22] MEDS ORDERED: SODIUM CHLORIDE 1,000 ML IV SCH (02:30)
[2016-06-22] MEDS ORDERED: predniSONE 20 MG TABLET (UD) ONE (03:02)
[2016-06-22 07:32] LABS: WHITE BLOOD COUNT 11.5 K/mm3 (4.0-10.0)
[2016-06-22 07:33] LABS: BASOPHIL 0.4 % (0-2.0); EOSINOPHIL 0.9 % (0-4.5); MCH 30.4 pg (25.7-33.7); MCHC 32.9 g/dl (32.0-35.9); MEAN CELL VOLUME 92.3 fl (80-96); NEUTROPHILS 85.5 % (42.8-82.8); PLATELET COUNT 177 K/MM3 (134-434); RDW 16.8 % (11.9-15.9)
[2016-06-22] MEDS: INSULIN SLIDING SCALE (NOVOLOG) 1 VIAL SQ SCH ×4 (07:33→22:05)
[2016-06-22 08:10] LABS: ALBUMIN 3.1 g/dl (3.4-5.0); BILIRUBIN,TOTAL 0.4 mg/dL (0.2-1.0); CALCIUM 8.3 mg/dL (8.5-10.1); CREATININE 1.3 mg/dL (0.7-1.3); MAGNESIUM 1.8 mg/dL (1.8-2.4); PHOSPHOROUS 2.7 mg/dL (2.5-4.9); TOT PROT 7.2 g/dl (6.4-8.2)
[2016-06-22 08:19] LABS: THYROID STIMULATING HORMONE 4.77 uIU/ml (0.358-3.74)
[2016-06-22] MEDS: HEPARIN NA (PORCINE) 5,000 UNITS/ML 1ML VIAL SQ SCH ×2 (10:43→22:08)
--- NOTE | 2016-06-22 13:24 | MSN ---
Admitting History and Physical - Primary Care Physician PCP: Jayesh Rider - Admission Chief Complaint: unable to bear weight since this morning History of Present Illness: 80 y/o male with pmhx HTN, rheumatoid arthritis, COPD, CKD, interstitial lung disease, hyperthyroidism, NIDDM, chronic inflammatory demyelinating neuropathy who presents with unable to bear weight since this morning. He states he has had this before and it first happened in September2015. He received IVIG for 5 days and was sent home because he was feeling better. Two weeks passed and he said he felt that throughout that time he began to deteriorate and got IVIG again. This time his symptoms did not improve. He see as neurologist. He denies chest pain, SOB, sweating, fever, chills, back pain, burning with urination, numbness or tingling. 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 Cardiovascular: Yes: HTN, Hyperlipdemia Pulmonary: Yes: COPD, Other (interstitial lung disease) Renal/: Yes: Renal Inusuff, BPH Rheumatology: Yes: Rheumatoid Arthritis Endocrine: Yes: Diabetes Mellitus, Hyperthyroidism - Past Surgical History Additional Past Surgical History: b/l hip replacement, right knee replacement, right inguinal hernia repair with mesh - Smoking History Smoking history: Former smoker Have you smoked in the past 12 months: No Aproximately how many cigarettes per day: 20 (smoked for 35 years) If you are a former smoker, when did you quit?: 25 YRS - Alcohol/Substance Use Hx Alcohol Use: No Number of Drinks Daily: 0 History of Substance Use: reports: None - Social History Usual Living Arrangement: Yes: Alone ADL: Independent Occupation: Retired History of Recent Travel: No Home Medications - Allergies Allergies/Adverse Reactions: Allergies Allergy/AdvReac Type Severity Reaction Status Date / Time No Known Allergies Allergy Verified 06/01/16 11:57 - Home Medications Home Medications: Ambulatory Orders Finasteride [Proscar -] 5 mg PO DAILY 09/14/15 Paroxetine HCl [Paxil -] 40 mg PO DAILY 09/14/15 Cholecalciferol (Vitamin D3) [Vitamin D3] 1,000 unit PO DAILY 04/23/16 Metformin HCl 500 mg PO BID 04/23/16 Methimazole 5 mg PO BID 04/23/16 Metoprolol Succinate [Toprol XL -] 25 mg PO DAILY 04/23/16 Tamsulosin HCl [Flomax] 0.4 mg PO HS 04/23/16 Family Disease History - Family Disease History Family Disease History: CA: Father, Mother Review of Systems - Review of Systems Constitutional: reports: No Symptoms, Weakness Eyes: reports: No Symptoms HENT: reports: No Symptoms Cardiovascular: reports: No Symptoms Respiratory: reports: No Symptoms Gastrointestinal: reports: No Symptoms Musculoskeletal: reports: Decreased ROM, Muscle Weakness Neurological: reports: Unsteady Gait, Weakness Physical Examination Vital Signs: Vital Signs Temperature 98.3 F 06/22/16 05:53 Pulse Rate 78 06/22/16 07:50 Respiratory Rate 18 06/22/16 07:50 Blood Pressure 136/78 06/22/16 07:50 O2 Sat by Pulse Oximetry (%) 93 L 06/22/16 07:50 Constitutional: Yes: Well Nourished, No Distress, Calm Eyes: Yes: WNL, Conjunctiva Clear, EOM Intact, PERRL HENT: Yes: WNL, Atraumatic, Normocephalic Cardiovascular: Yes: WNL, Regular Rate and Rhythm, S1, S2 Respiratory: Yes: WNL, Regular, CTA Bilaterally Musculoskeletal: Yes: Muscle Weakness Neurological: Yes: WNL, Alert, Oriented, Cran Nerves II-XII Intact, Pre- Existing Deficit ...Motor Strength: LUE (5/5), LLE (1/5), RUE (5/5), RLE (3/5) Psychiatric: Yes: WNL, Alert, Oriented Labs: CBC, BMP 06/22/16 07:16 06/22/16 07:16 Imaging - Results Chest X-ray: Report Reviewed, Image Reviewed (intersititial diseas with possible infiltrate) Assessment/Plan 80 year old male with significant PMHx of HTN, rheumatoid arthritis 2007, COPD , CKD, interstitial lung disease, hyperthyroidism, NIDDM, chronic inflammatory demyelinating neuropathy presented to the ED via EMS with the complaints of unable to bear weight since morning. 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 Bhandari consult placed Neuro checks every 4 hours to monitor development of new symptoms and progression # Acute on CKD stage 3 Cr 1.4, baseline 1.2 IV hydration Monitor Cr # Rheumatoid arthritis Well controlled with no symptoms Physical Therapy request placed # Hypertension-controlled Continue Metoprolol # Diabetes Mellitus Hold Metformin due to Cr increase continue Insulin sliding scale BGM ACHS # Hyperthyroidism TSH 4.77-continue Methimazole EKG- normal sinus with left axis deviation but no changes from previous EKG # BPH Nocturia but no new symptoms Continue Tamsulocin and Finasteride # FEN IV NS @ 100mls/hr Diabetic/sodium controlled diet # Prophylaxis For GI-Not indicated For DVT- On Heparin
--- NOTE | 2016-06-22 13:37 | EKG ---
Test Reason : Blood Pressure : / mmHG Vent. Rate : 074 BPM Atrial Rate : 074 BPM P-R Int : 192 ms QRS Dur : 086 ms QT Int : 416 ms P-R-T Axes : 081 -44 031 degrees QTc Int : 461 ms POOR DATA QUALITY, INTERPRETATION MAY BE ADVERSELY AFFECTED NORMAL SINUS RHYTHM LEFT AXIS DEVIATION MODERATE VOLTAGE CRITERIA FOR LVH, MAY BE NORMAL VARIANT ABNORMAL ECG WHEN COMPARED WITH ECG OF 01-JUN-2016 14:28, NO SIGNIFICANT CHANGE WAS FOUND Confirmed by HUDSON HAIRSTON MD ([id number]) on 06/22/2016 1:36:50 PM Referred By: Confirmed By:HUDSON HAIRSTON MD
--- NOTE | 2016-06-22 14:22 | PN ---
Physical Exam: SUBJECTIVE: Patient seen and examined. He is complaining of weakness in his legs. OBJECTIVE: Vital Signs Period Temp Pulse Resp BP Sys/Mahajan Pulse Ox Last 24 Hr 98.3 F 71-78 18-20 129-136/78-92 92-93 GENERAL: The patient is awake, alert, and fully oriented, in no acute distress. HEAD: Normal with no signs of trauma. EYES: extraocular movements intact, sclera anicteric, conjunctiva clear. No ptosis. ENT: moist mucous membranes. NECK: full range of motion, supple. LUNGS: Breath sounds equal, clear to auscultation bilaterally, no wheezes, no crackles, no accessory muscle use. HEART: Regular rate and rhythm, S1, S2 without murmur, rub or gallop. ABDOMEN: Soft, nontender, nondistended, normoactive bowel sounds, no guarding, no rebound, no hepatosplenomegaly, no masses. EXTREMITIES: 2+ pulses, warm, no edema. NEUROLOGICAL: Cranial nerves II through XII grossly intact. no facial asymmetry , uvula deviation, EOMI, no sensation changes. Normal speech, gait not observed. LEs; right proximal flexion 2/5, left 4/5, distally right 2/5, left 4/ 5. UEs: motor 5/5. DTRs in lower extremities absent, nl brachial. No sensation changes. PSYCH: Normal mood, normal affect. SKIN: Warm, dry, normal turgor, no rashes. Laboratory Results - last 24 hr 06/22/16 06/22/16 06/22/16 07:16 07:16 07:31 WBC 11.5 H D RBC 4.11 Hgb 12.5 Hct 37.9 MCV 92.3 MCHC 32.9 RDW 16.8 H Plt Count 177 MPV 8.0 Neutrophils % 85.5 H D Lymphocytes % 10.2 D Monocytes % 3.0 L Eosinophils % 0.9 Basophils % 0.4 Sodium 142 Potassium 3.8 Chloride 107 Carbon Dioxide 24 Anion Gap 11 BUN 13 Creatinine 1.3 Creat Clearance w eGFR 52.98 POC Glucometer [phone] Random Glucose 142 H D Calcium 8.3 L Phosphorus 2.7 Magnesium 1.8 Total Bilirubin 0.4 D AST 18 ALT 13 Alkaline Phosphatase 90 Total Protein 7.2 Albumin 3.1 L TSH 4.77 H D 06/22/16 12:20 WBC RBC Hgb Hct MCV MCHC RDW Plt Count MPV Neutrophils % Lymphocytes % Monocytes % Eosinophils % Basophils % Sodium Potassium Chloride Carbon Dioxide Anion Gap BUN Creatinine Creat Clearance w eGFR POC Glucometer 155 Random Glucose Calcium Phosphorus Magnesium Total Bilirubin AST ALT Alkaline Phosphatase Total Protein Albumin TSH Active Medications Generic Name Dose Route Start Last Admin Trade Name Freq PRN Reason Stop Dose Admin Acetaminophen 650 mg 06/22/16 02:18 Tylenol - PO Q6H PRN FEVER OR PAIN Heparin Sodium (Porcine) 5,000 unit 06/22/16 10:00 06/22/16 10:43 Heparin - SQ 5,000 unit BID RYAN Administration Sodium Chloride 1,000 mls @ 100 mls/hr 06/22/16 02:30 06/22/16 02:45 Normal Saline - IV 100 mls/hr ASDIR RYAN Administration Insulin Aspart 1 vial 06/22/16 07:00 06/22/16 12:57 Novolog Vial Sliding Scale - SQ 2 units ACHS RYAN Administration Protocol MRI LS spine - multiple sites of pathology, including compression fractures, spinal stenosis, and subchondral edema ASSESSMENT/PLAN: 80 year old male with significant PMHx of HTN, rheumatoid arthritis 2007, COPD , CKD, interstitial lung disease, hyperthyroidism, NIDDM, chronic inflammatory demyelinating neuropathy presented to the ED via EMS with the complaints of unable to bear weight. Lower extremity weakness: -possibly due Chronic inflammatory demyelinating neuropathy/Diabetic neuropathy/ Guillian [place]/Spinal stenosis -Completed IVIGx2, last one 5 on 06/06/2016 with improvement -Dr. Bhandari consult, will f/u -Neuro checks -Dr. Ndiaye consulted, no surgery recommended Acute on CKD stage 3 -Cr 1.4, baseline 1.2 -IV hydration -Avoid nephrotoxic drugs Rheumatoid arthritis -No acute symptoms this admission Hypertension -Continue Metoprolol 25mg once confirmed Diabetes Mellitus -Hold Metformin, continue Insulin sliding scale -BGM ACHS Hyperthyroidism -TSH ordered -For now will continue Methimazole 5mg PO BID once confirmed BPH -Increased frequency of urination, no other urinary symptoms -Continue Tamsulocin 0.4mg; -Finasteride 5mg Daily FEN -IV NS @ 100mls/hr -No changes -Diabetic/sodium controlled diet DVT Prophylaxis -Heparin 5000 u SQ Disposition: med surg Problem List - Problems (1) Chronic inflammatory demyelinating neuropathy Code(s): G61.81 - CHRONIC INFLAMMATORY DEMYELINATING POLYNEURITIS (2) Diabetes with neurologic complications Code(s): E11.49 - TYPE 2 DIABETES W OTH DIABETIC NEUROLOGICAL COMPLICATION (3) BPH (benign prostatic hypertrophy) Code(s): N40.0 - BENIGN PROSTATIC HYPERPLASIA WITHOUT LOWER URINRY TRACT SYMP (4) Chronic kidney disease Code(s): N18.9 - CHRONIC KIDNEY DISEASE, UNSPECIFIED (5) COPD (chronic obstructive pulmonary disease) Code(s): J44.9 - CHRONIC OBSTRUCTIVE PULMONARY DISEASE, UNSPECIFIED Visit type - Emergency Visit Emergency Visit: Yes ED Registration Date: 06/21/16 Care time: The patient presented to the Emergency Department on the above date and was hospitalized for further evaluation of their emergent condition. - New Patient This patient is new to me today: Yes Date on this admission: 06/22/16 - Critical Care Critical Care patient: No - Discharge Referral Referred to [facility] Med P.C.: No
--- NOTE | 2016-06-22 16:15 | PN ---
Teaching Attending Note Name of Resident: Daysi Moeller ATTENDING PHYSICIAN STATEMENT I saw and evaluated the patient. I reviewed the resident's note and discussed the case with the resident. I agree with the resident's findings and plan as documented. SUBJECTIVE: no fever or chills, complains of progressive weakness in LE , no urinary or fecal incontinence of retention . BM this am. has numbness in LE below knees . OBJECTIVE: NAD , AAOx3 CV : RRR, no MRG Lungs : CTAB Ext : no edema NEuro : no facial droop, EOMI, round equal pupils , reactive to light . tongue at mid line , uvula at mid line. nl facial sensation . Strength: LUE, RUE : 5/5 proximally and distally RLE: R hip flexion 2/5, 4/5 knee extension , 5/5 Knee flexion , 2/5 dorsiflexion at level of ankle , 5/5 plantar flexion LLE : L hip flexion 4/5, 5/5 knee extension , 5/5 Knee flexion , 1/5 dorsiflexion at level of ankle , 5/5 plantar flexion DTR: 0 knee jerk b/l. 2+ biceps Sensation to light touch: decreased below both knees Refused rectal exam to test rectal sphincter ASSESSMENT AND PLAN: 80 y/o man with h/o COPD, RA , HTN, recent Dx of CIDP and other medical problems who presented with worsening weakness in Lower extremities . 1- Lower extremities weakness. recent diagnosis of CIDP , as per previous neurology notes. per pt he had EMG and other tests as out pt . S/p IVIG x2 with no improvement. MRI on 06/03 with spinal stenosis , compression fractures. Seen by Dr. Ndiaye and no surgical intervention was needed . I am not sure is spinal stenosis might be also contributing to his sx. ALso , Guillan [place] is in picture although, usually sensory deficits are not prominent. It does not appear that sphincters are affected , although he declined rectal exam I don't believe repeat MRI is needed now will be evaluated by Neuro , appreciate Recs. received prednisone x1 in ER . will follow further recs 2- JAIMIE on CKD: Cr is at base line cont to monitor . dc IVF 3- HTN: resume toprol 4- depression : resume paxil dispo : HLOC
--- NOTE | 2016-06-22 19:28 | CON.NEURO ---
Consult Consult Specialty:: Neurology - History of Present Illness History of Present Illness: 80 year hx of DM neuropathy, CIDP, RA, ILD , s/p recent admission for worsening weakness ( ?CIDP exacerbation ) given 5 days of IVIG, with no sig change in weakness pattern (R >L LE weakness ) who presents yesterday with inability to move. denies sig low back pain , or worsening sensory Sx. unable to bear weight since morning. he couldn't stand or walk. Denies numbness, tingling, pricking sensation or pain over his lower extremities. seen BY Dr FUNEZ neurosurgery last admission , sig LS pine disease as well. rheumatoid factor + Denies headache, fever, chills, rigor, sweating, abdominal pain, nausea or vomiting. admitted for eval for acute exacerbation of weakness. 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: Peripheral Neuropathy Cardio/Vascular: Yes: HTN, Hyperlipdemia Pulmonary: Yes: COPD, Other (interstitial lung disease) Renal/: Yes: Renal Inusuff, BPH Rheumatology: Yes: Rheumatoid Arthritis Endocrine: Yes: Diabetes Mellitus, Hyperthyroidism - Alcohol/Substance Use Hx Alcohol Use: No Number of Drinks Daily: 0 History of Substance Use: reports: None - Smoking History Smoking history: Former smoker Have you smoked in the past 12 months: No Aproximately how many cigarettes per day: 20 If you are a former smoker, when did you quit?: 25 YRS - Social History ADL: Independent Occupation: Retired History of Recent Travel: No Home Medications - Allergies Allergies/Adverse Reactions: Allergies Allergy/AdvReac Type Severity Reaction Status Date / Time No Known Allergies Allergy Verified 06/01/16 11:57 - Home Medications Home Medications: Ambulatory Orders Finasteride [Proscar -] 5 mg PO DAILY 09/14/15 Paroxetine HCl [Paxil -] 40 mg PO DAILY 09/14/15 Cholecalciferol (Vitamin D3) [Vitamin D3] 1,000 unit PO DAILY 04/23/16 Metformin HCl 500 mg PO BID 04/23/16 Methimazole 5 mg PO BID 04/23/16 Metoprolol Succinate [Toprol XL -] 25 mg PO DAILY 04/23/16 Tamsulosin HCl [Flomax] 0.4 mg PO HS 04/23/16 Family Disease History - Family Disease History Family Disease History: CA: Father, Mother Physical Exam-Neuro Vital Signs: Vital Signs Temperature 97.6 F 06/22/16 17:50 Pulse Rate 90 06/22/16 17:50 Respiratory Rate 18 06/22/16 18:12 Blood Pressure 169/94 06/22/16 17:50 O2 Sat by Pulse Oximetry (%) 93 L 06/22/16 18:12 Labs: CBC, BMP 06/22/16 07:16 06/22/16 07:16 - Neuro Exam Level Of Consciousness: Yes: Alert, Oriented to Person Eyes: Yes: PERRLA Speech: WNL Cranial Nerves II-XII Intact: Yes (motor exam --similar to last admission today ; weakness Deltoids 4+/5, diatlly UE 4/5, RLE weakness IP 2/5, left IP 3/5, R quads weak 2/5, left quads 4/5, distally 3/5 (foot drops)-residual ; reflexes absnet in LE) Problem List - Problems (1) Rheumatoid arthritis involving multiple sites with positive rheumatoid factor Code(s): M05.79 - RHEU ARTHRITIS W RHEU FACTOR MULT SITE W/O ORG/SYS INVOLV (2) Weakness of both lower extremities Code(s): M62.81 - MUSCLE WEAKNESS (GENERALIZED) (3) Diabetes with neurologic complications Code(s): E11.49 - TYPE 2 DIABETES W [facility] DIABETIC NEUROLOGICAL COMPLICATION Assessment/Plan 80 year old male hx of DM neuropathy, CIDP (questionable, limited response to IVIG x2) , RA, ILD who presents for acute weakness, though on todays exam appaers to be at baseline ; ? if steroid effect, which may help rheumatism and /or Diabetic amyotrophy no evidence that this is worsening CIDP this is not likely related to LS spine disease, though that remains superimposed issue can continue short course of prednisone 20mg poBID x 5 days, then 20mg poqd x one week then off no sig joint pain , though joint deformities and swelling, ? rheumatoid arthritis exacerbation , last RF ++ >100. used methotrexate in past and developed ILD, perhaps speak to rheum (futran ) and use steroid sparing agent ie plaquenil or other FU TSH UA (-) check CPK social issues, given that he lives him alone and has trouble with upkeep according to family; refusing NH though willing to got to subacute rehab , which is reasonable option needs wheelchair as even walker may predispose risk for falls. will follow Dr Bhandari [phone]
[2016-06-22] MEDS: ACETAMINOPHEN 325 MG TABLET (FP) PO PRN (22:10)
[2016-06-23] MEDS: INSULIN SLIDING SCALE (NOVOLOG) 1 VIAL SQ SCH ×4 (06:05→21:17)
[2016-06-23] MEDS: ACETAMINOPHEN 325 MG TABLET (FP) PO PRN ×2 (06:26→21:18)
[2016-06-23 08:44] LABS: MCH 30.5 pg (25.7-33.7); MCHC 33.8 g/dl (32.0-35.9); MEAN CELL VOLUME 90.1 fl (80-96); MEAN PLT VOLUME 8.3 fl (7.5-11.1); PLATELET COUNT 172 K/MM3 (134-434); RDW 16.7 % (11.9-15.9); WHITE BLOOD COUNT 7.5 K/mm3 (4.0-10.0)
[2016-06-23] MEDS: predniSONE 20 MG TABLET (UD) PO SCH ×2 (09:59→21:17)
[2016-06-23] MEDS: PARoxetine HCL 20 MG TABLET (FP) PO SCH (09:59)
[2016-06-23] MEDS: HEPARIN NA (PORCINE) 5,000 UNITS/ML 1ML VIAL SQ SCH ×2 (09:59→21:17)
[2016-06-23] MEDS: METOPROLOL SUCCINATE 25 MG TAB.SR.24H (FP) PO SCH (09:59)
--- NOTE | 2016-06-23 14:37 | PN ---
Teaching Attending Note Name of Resident: Daysi Moeller ATTENDING PHYSICIAN STATEMENT I saw and evaluated the patient. I reviewed the resident's note and discussed the case with the resident. I agree with the resident's findings and plan as documented. SUBJECTIVE: no fever or chills, no abd pain , no new weakness, no new numbness or tingling OBJECTIVE: NAD , AAOx3 CV : RRR, no MRG Lungs : CTAB Ext : no edema NEuro: no facial droop, EOMI, round equal pupils , reactive to light . tongue at mid line , uvula at mid line. nl facial sensation . Strength: LUE, RUE : 5/5 proximally and distally RLE: R hip flexion 2/5, 4/5 knee extension , 5/5 Knee flexion , 2/5 dorsiflexion at level of ankle , 5/5 plantar flexion LLE : L hip flexion 4/5, 5/5 knee extension , 5/5 Knee flexion , 1/5 dorsiflexion at level of ankle , 5/5 plantar flexion DTR: 0 knee jerk b/l. 2+ biceps Sensation to light touch: decreased below both knees ASSESSMENT AND PLAN: 80 y/o man with h/o COPD, RA , HTN, recent Dx of CIDP and other medical problems who presented with worsening weakness in Lower extremities . 1- Lower extremities weakness. recent possible diagnosis of CIDP S/p IVIG x2 with no improvement. Stable neuro exam now . appreciate Dr. Bhandari help. - Check CPK , and aldolase . - Will invite Rheum, to assess - start steroids for a short course - no indication for IVIG this time - check ESR, CRP 2- JAIMIE on CKD: Cr is at base line 3- HTN: cont toprol 4- Depression : cont paxil Dispo : HLOC Need rehab , pt agreeable . ? tomorrow
--- NOTE | 2016-06-23 15:54 | PN ---
Physical Exam: SUBJECTIVE: Patient seen and examined. She is still complaining of LE weakness. hasn't noticed improvement. OBJECTIVE: Vital Signs Period Temp Pulse Resp BP Sys/Mahajan Pulse Ox Last 24 Hr 97.5 F-98.2 F 73-90 18-20 126-169/68-94 93-98 GENERAL: The patient is awake, alert, and fully oriented, in no acute distress. HEAD: Normal with no signs of trauma. EYES: PERRL, extraocular movements intact, sclera anicteric, conjunctiva clear. ENT: Ears normal, nares patent, oropharynx clear without exudates, moist mucous membranes. NECK: Trachea midline, full range of motion, supple. LUNGS: Breath sounds equal, clear to auscultation bilaterally, no wheezes, no crackles, no accessory muscle use. HEART: Regular rate and rhythm, S1, S2 without murmur, rub or gallop. ABDOMEN: Soft, nontender, nondistended, normoactive bowel sounds, no guarding, no rebound. EXTREMITIES: 2+ pulses, warm, well-perfused, no edema. NEUROLOGICAL: Cranial nerves II through XII grossly intact. Normal speech, gait not observed. LEs; Motor; right hip flexion 2/5, left 4/5, knee right 3/5, left 4/5, right foot drop. UEs: Motor: abduction 4/5 B/L, adduction 5/5, flexion and extension 5/5, hands 5/5. DTRs in lower extremities absent, UEs;nl. No sensation changes. PSYCH: Normal mood, normal affect. SKIN: Warm, dry, normal turgor, no rashes or lesions noted Laboratory Results - last 24 hr 06/22/16 06/22/16 06/23/16 17:22 21:03 06:04 WBC RBC Hgb Hct MCV MCHC RDW Plt Count MPV POC Glucometer 125 150 118 Creatine Kinase 06/23/16 06/23/16 08:00 08:00 WBC 7.5 D RBC 3.91 L Hgb 11.9 Hct 35.3 L MCV 90.1 MCHC 33.8 RDW 16.7 H Plt Count 172 MPV 8.3 POC Glucometer Creatine Kinase 101 Active Medications Generic Name Dose Route Start Last Admin Trade Name Freq PRN Reason Stop Dose Admin Acetaminophen 650 mg 06/22/16 02:18 06/23/16 06:26 Tylenol - PO 650 mg Q6H PRN Administration FEVER OR PAIN Finasteride 5 mg 06/24/16 10:00 Proscar - PO DAILY RYAN Heparin Sodium (Porcine) 5,000 unit 06/22/16 10:00 06/23/16 09:59 Heparin - SQ 5,000 unit BID RYAN Administration Insulin Aspart 1 vial 06/22/16 07:00 06/23/16 11:55 Novolog Vial Sliding Scale - SQ Not Given ACHS [facility] Protocol Methimazole 5 mg 06/23/16 22:00 Tapazole - PO BID RYAN Metoprolol Succinate 25 mg 06/23/16 10:00 06/23/16 09:59 Toprol Xl - PO 25 mg DAILY RYAN Administration Paroxetine HCl 40 mg 06/23/16 10:00 06/23/16 09:59 Paxil - PO 40 mg DAILY RYAN Administration Prednisone 20 mg 06/23/16 10:00 06/23/16 09:59 Deltasone - PO 20 mg BID RYAN Administration Tamsulosin HCl 0.4 mg 06/23/16 22:00 Flomax - PO HS RYAN MRI LS spine - multiple sites of pathology, including compression fractures, spinal stenosis, and subchondral edema ASSESSMENT/PLAN: 80 year old male with significant PMHx of HTN, rheumatoid arthritis 2007, COPD , CKD, interstitial lung disease, hyperthyroidism, NIDDM, chronic inflammatory demyelinating neuropathy presented to the ED via EMS with the complaints of unable to bear weight. Lower extremity weakness: -possibly due Chronic inflammatory demyelinating neuropathy/Diabetic neuropathy/ Guillian [place]/Spinal stenosis -Completed IVIGx2, last one 5 on 06/06/2016 with no improvement -Dr. Bhandari consult, will f/u, will start Prednoisone 20 mg BID for 2 weeks -Neuro checks -Dr. Ndiaye consulted, no surgery recommended -ordered consult for Dr. Christianson, called office, awaiting response Acute on CKD stage 3 -Cr 1.4, baseline 1.2 -IV hydration stopped -Avoid nephrotoxic drugs Rheumatoid arthritis -No acute symptoms this admission Hypertension -Continue Metoprolol 25mg once confirmed Diabetes Mellitus -Hold Metformin, continue Insulin sliding scale -BGM ACHS Hyperthyroidism -TSH 4.77 -For now will continue Methimazole 5mg PO BID BPH -Increased frequency of urination, no other urinary symptoms -Continue Tamsulosin 0.4mg; -Finasteride 5mg Daily FEN -No -No changes -Diabetic/sodium controlled diet DVT Prophylaxis -Heparin 5000 u SQ Disposition: med surg Problem List - Problems (1) Chronic inflammatory demyelinating neuropathy Code(s): G61.81 - CHRONIC INFLAMMATORY DEMYELINATING POLYNEURITIS (2) Diabetes with neurologic complications Code(s): E11.49 - TYPE 2 DIABETES W OTH DIABETIC NEUROLOGICAL COMPLICATION (3) BPH (benign prostatic hypertrophy) Code(s): N40.0 - BENIGN PROSTATIC HYPERPLASIA WITHOUT LOWER URINRY TRACT SYMP (4) Chronic kidney disease Code(s): N18.9 - CHRONIC KIDNEY DISEASE, UNSPECIFIED (5) COPD (chronic obstructive pulmonary disease) Code(s): J44.9 - CHRONIC OBSTRUCTIVE PULMONARY DISEASE, UNSPECIFIED Visit type - Emergency Visit Emergency Visit: Yes ED Registration Date: 06/21/16 Care time: The patient presented to the Emergency Department on the above date and was hospitalized for further evaluation of their emergent condition. - New Patient This patient is new to me today: No - Critical Care Critical Care patient: No - Discharge Referral Referred to [facility] Med [facility] No
[2016-06-23] MEDS ORDERED: INSULIN (NOVOLOG) ASPART 100 UNITS/ML 10ML VIAL ONE (16:55)
[2016-06-23 17:49] LABS: C-REACTIVE PROTEIN 0.7 MG/DL (0.00-0.3)
[2016-06-23] MEDS: TAMSULOSIN HCL 0.4 MG CAP.ER.24H (FP) PO SCH (21:17)
[2016-06-23] MEDS: METHIMAZOLE 5 MG TABLET (FP) PO SCH (21:17)
[2016-06-24] MEDS: ACETAMINOPHEN 325 MG TABLET (FP) PO PRN ×2 (06:08→22:08)
[2016-06-24] MEDS: INSULIN SLIDING SCALE (NOVOLOG) 1 VIAL SQ SCH ×4 (06:15→22:10)
--- NOTE | 2016-06-24 08:33 | CONSULT ---
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 I saw the patient in the previous admission on 07/24/15 and September 2015. HPI. The patient was diagnosed with sero-positive rheumatoid arthritis many years ago. Treated in the past with Methotrexate and discontinued due to probable interstitial lung disease. He has radiological evidence of damage of both wrists. Since I saw the patient on July 2015 he has not have active disease even though he is not on DMARDs. The patient has had recurrence episodes of weakness probably related to CIDP, in spite he was treated with IVIg. In the present visit he beach d sudden onset of weakness with difficulty in standing up. He was started on Steroids with good response. Recent laboratory work-up revealed a positive Rheumatoid factor (123.5) and I was informed by his previous shiftman that the CCP was>250. On 09/18/15 ANDERSON and anti-DNA ds were negative and CH50 low (27). ZURDO on 2 occasions was negative for M spike. ESR has increase progressively (09/18/15: 50, 06/02/16: 72 , and 06/23/16: 72). CRP was 0.7 and CK 89. 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: Peripheral Neuropathy Cardio/Vascular: Yes: HTN, Hyperlipdemia Pulmonary: Yes: COPD, Other (interstitial lung disease) Renal/: Yes: Renal Inusuff, BPH Rheumatology: Yes: Rheumatoid Arthritis Endocrine: Yes: Diabetes Mellitus, Hyperthyroidism - Alcohol/Substance Use Hx Alcohol Use: No Number of Drinks Daily: 0 History of Substance Use: reports: None - Smoking History Smoking history: Former smoker Have you smoked in the past 12 months: No Aproximately how many cigarettes per day: 20 If you are a former smoker, when did you quit?: 25 YRS - Social History ADL: Independent Occupation: Retired History of Recent Travel: No Home Medications - Allergies Allergies/Adverse Reactions: Allergies Allergy/AdvReac Type Severity Reaction Status Date / Time No Known Allergies Allergy Verified 06/01/16 11:57 - Home Medications Home Medications: Ambulatory Orders Finasteride [Proscar -] 5 mg PO DAILY 09/14/15 Paroxetine HCl [Paxil -] 40 mg PO DAILY 09/14/15 Cholecalciferol (Vitamin D3) [Vitamin D3] 1,000 unit PO DAILY 04/23/16 Metformin HCl 500 mg PO BID 04/23/16 Methimazole 5 mg PO BID 04/23/16 Metoprolol Succinate [Toprol XL -] 25 mg PO DAILY 04/23/16 Tamsulosin HCl [Flomax] 0.4 mg PO HS 04/23/16 Prednisone [Deltasone -] 20 mg PO BID #6 tablet 06/24/16 Prednisone [Deltasone -] 20 mg PO DAILY #7 tablet 06/24/16 Family Disease History - Family Disease History Family Disease History: CA: Father, Mother Review of Systems - Review of Systems Constitutional: reports: Malaise Eyes: reports: No Symptoms HENT: reports: No Symptoms Neck: reports: No Symptoms Cardiovascular: reports: No Symptoms Respiratory: reports: SOB Gastrointestinal: reports: No Symptoms Genitourinary: reports: No Symptoms Musculoskeletal: reports: No Symptoms Neurological: reports: Other (See HPI) Physical Exam Vital Signs: Vital Signs Temperature 98.3 F 06/24/16 06:45 Pulse Rate 79 06/24/16 06:45 Respiratory Rate 20 06/24/16 06:45 Blood Pressure 170/92 06/24/16 06:45 O2 Sat by Pulse Oximetry (%) 98 06/23/16 12:59 Constitutional: Yes: No Distress Eyes: Yes: WNL HENT: Yes: WNL Neck: Yes: WNL Cardiovascular: Yes: WNL Respiratory: Yes: WNL Gastrointestinal: Yes: WNL Musculoskeletal: Yes: Other (Proximal muscle weakness. The left wrist had a small effusion adn extensor tenosynovitis. No other active joints.) Labs: CBC, BMP 06/23/16 08:00 06/22/16 07:16 Laboratory Tests 06/21/16 06/22/16 06/23/16 00:21 07:16 16:45 ESR AST 15 D ALT 11 L D Alkaline Phosphatase 81 D Creatine Kinase 89 Albumin 3.1 L TSH 4.77 H D 06/23/16 16:45 ESR 115 H AST ALT Alkaline Phosphatase Creatine Kinase Albumin TSH Problem List - Problems (1) Rheumatoid arthritis Assessment/Plan: The patient has sero-positive rheumatoid arthritis with residual damage in both wrists, however at the present time he has minimal disease activity even though he is not on a Disease Modifying Medication. He has very high rheumatoid factor and CCP, very high ESR and on September 2015 he had low CH50. Finally he has urinary sediment with protein and blood, which is not expected to be seen with diabetes. The creatinine was normal and ZURDO was negative for M spike. In summary the patient might have a connective tissue disease independent of rheumatoid arthritis, such as vasculitis secondary to immune complex disease. As per discussion with Dr. Bhandari, the presentation of CIDP is not typical, he has had recurrences in spite of IVIg and he is improving with steroids. Rule out neurological problem secondary to immune complex disease. Plan: I requested cryoglobulins (sample handled by resident), continue with steroids and I will follow-him as outpatient. Renal consultation as outpatient. Thanks, Everton Chua MD Code(s): M06.9 - RHEUMATOID ARTHRITIS, UNSPECIFIED
[2016-06-24] MEDS: predniSONE 20 MG TABLET (UD) PO SCH ×2 (10:35→22:06)
[2016-06-24] MEDS: METHIMAZOLE 5 MG TABLET (FP) PO SCH ×2 (10:35→22:07)
[2016-06-24] MEDS: METOPROLOL SUCCINATE 25 MG TAB.SR.24H (FP) PO SCH (10:35)
[2016-06-24] MEDS: FINASTERIDE 5 MG TABLET (FP) PO SCH (10:35)
[2016-06-24] MEDS: PARoxetine HCL 20 MG TABLET (FP) PO SCH (10:35)
[2016-06-24] MEDS: HEPARIN NA (PORCINE) 5,000 UNITS/ML 1ML VIAL SQ SCH ×2 (10:35→22:10)
--- NOTE | 2016-06-24 12:59 | PN ---
Progress Note, Physician History of Present Illness: 06/22/16 :80 year hx of DM neuropathy, CIDP, RA, ILD , s/p recent admission for worsening weakness ( ?CIDP exacerbation ) given 5 days of IVIG, with no sig change in weakness pattern (R >L LE weakness ) who presents yesterday with inability to move. denies sig low back pain , or worsening sensory Sx. unable to bear weight since morning. he couldn't stand or walk. Denies numbness, tingling, pricking sensation or pain over his lower extremities. seen BY Dr FUNEZ neurosurgery last admission , sig LS pine disease as well. rheumatoid factor + Denies headache, fever, chills, rigor, sweating, abdominal pain, nausea or vomiting. admitted for eval for acute exacerbation of weakness. FU : leg weakness somewhat better , ( R quads, extension at knee imporved ) residual weakness of distal exe ( interossei and TA) he feels better and did ambulate with walker ESR >100, seen by [facility] (as per pt no evidence of active rheumatic disease ) - Current Medication List Current Medications: Active Medications Acetaminophen (Tylenol -) 650 mg PO Q6H PRN PRN Reason: FEVER OR PAIN Last Admin: 06/24/16 06:08 Dose: 650 mg Finasteride (Proscar -) 5 mg PO DAILY [facility] Last Admin: 06/24/16 10:35 Dose: 5 mg Heparin Sodium (Porcine) (Heparin -) 5,000 unit SQ BID [facility] Last Admin: 06/24/16 10:35 Dose: 5,000 unit Insulin Aspart (Novolog Vial Sliding Scale -) 1 vial SQ ACHS [facility] PRN Reason: Protocol Last Admin: 06/24/16 11:58 Dose: Not Given Methimazole (Tapazole -) 5 mg PO BID [facility] Last Admin: 06/24/16 10:35 Dose: 5 mg Metoprolol Succinate (Toprol Xl -) 25 mg PO DAILY [facility] Last Admin: 06/24/16 10:35 Dose: 25 mg Paroxetine HCl (Paxil -) 40 mg PO DAILY [facility] Last Admin: 06/24/16 10:35 Dose: 40 mg Prednisone (Deltasone -) 20 mg PO BID [facility] Last Admin: 06/24/16 10:35 Dose: 20 mg Tamsulosin HCl (Flomax -) 0.4 mg PO HS [facility] Last Admin: 06/23/16 21:17 Dose: 0.4 mg - Objective Vital Signs: Vital Signs Temperature 98.5 F 06/24/16 09:02 Pulse Rate 84 06/24/16 09:02 Respiratory Rate 20 06/24/16 09:02 Blood Pressure 144/69 06/24/16 09:02 O2 Sat by Pulse Oximetry (%) 98 06/23/16 12:59 Labs: CBC, BMP 06/23/16 08:00 06/22/16 07:16 Problem List - Problems (1) Rheumatoid arthritis involving multiple sites with positive rheumatoid factor Code(s): M05.79 - RHEU ARTHRITIS W RHEU FACTOR MULT SITE W/O ORG/SYS INVOLV (2) Weakness of both lower extremities Code(s): M62.81 - MUSCLE WEAKNESS (GENERALIZED) (3) Diabetes with neurologic complications Code(s): E11.49 - TYPE 2 DIABETES W OTH DIABETIC NEUROLOGICAL COMPLICATION Assessment/Plan 80 year old male hx of DM neuropathy, CIDP (questionable, limited response to IVIG x2) , RA, ILD who presents for acute weakness, though on todays exam appaers to be at baseline ; doing better with steroids ? if steroid effect, which may help rheumatic neuropathy and /or Diabetic amyotrophy and /or CIDP no evidence that this is worsening CIDP this is not likely related to LS spine disease, though that remains superimposed issue can continue short course of prednisone 20mg poBID x 5 days, then 20mg poqd x one week then off spoke to rheum will start him on plaquenil 100BID, unclear if active RA though elevated ESR he should follow with [facility] (Dr LIVINGSTON ) as outpt and NEURO stable for DC to rehab Dr Bhandari [phone]
[2016-06-24] MEDS: HYDROXYCHLOROQUINE SO4 200 MG TABLET (FP) PO SCH (14:56)
--- NOTE | 2016-06-24 15:08 | PN ---
Teaching Attending Note Name of Resident: Daysi Moeller ATTENDING PHYSICIAN STATEMENT I saw and evaluated the patient. I reviewed the resident's note and discussed the case with the resident. I agree with the resident's findings and plan as documented. SUBJECTIVE: no fever or chills, no abd pain , feels a little stronger today and could walk OBJECTIVE: NAD , AAOx3 CV : RRR, no MRG Lungs : CTAB Ext : no edema NEuro: no facial droop, EOMI, round equal pupils , reactive to light . tongue at mid line , uvula at mid line. nl facial sensation . Strength: LUE, RUE : 4/5 proximally and 5/5 distally RLE: R hip flexion 3/5, 4/5 knee extension , 5/5 Knee flexion , 2/5 dorsiflexion at level of ankle , 5/5 plantar flexion LLE : L hip flexion 4/5, 5/5 knee extension , 5/5 Knee flexion , 1/5 dorsiflexion at level of ankle , 5/5 plantar flexion DTR: 0 knee jerk b/l. 2+ biceps Sensation to light touch: decreased below both knees ASSESSMENT AND PLAN: 80 y/o man with h/o COPD, RA , HTN, recent Dx of CIDP and other medical problems who presented with worsening weakness in Lower extremities . 1- Lower extremities weakness. recent possible diagnosis of CIDP S/p IVIG x2 with no improvement. Slight improvement in LE exam on steroids . seen by Rheum today . appreciate Recs ( no indication for RA flare ) - started on plaqunel - cont steroids x 2 weeks - CPK NL ,ALdolase pending - w/u to cont as out pt , might need muscle or nerve bx 2- JAIMEI on CKD: Cr is at base line 3- HTN: cont toprol dispo : medically ready for dc , if a rehab bed available f/u with neuro and rheum. renal f/.u wto be obtained too
--- NOTE | 2016-06-24 16:07 | PN ---
Physical Exam: SUBJECTIVE: Patient seen and examined. He is feeling the same as yesterday. He denies numbness, vision problems, dizziness. OBJECTIVE: Vital Signs Period Temp Pulse Resp BP Sys/Mahajan Pulse Ox Last 24 Hr 98.1 F-98.6 F 76-111 20-20 141-170/69-99 93 GENERAL: The patient is awake, alert, and fully oriented, in no acute distress. HEAD: Normal with no signs of trauma. EYES: PERRL, extraocular movements intact, sclera anicteric, conjunctiva clear. ENT: Ears normal, nares patent, oropharynx clear without exudates, moist mucous membranes. NECK: Trachea midline, full range of motion, supple. LUNGS: Breath sounds equal, clear to auscultation bilaterally, no wheezes, no crackles, no accessory muscle use. HEART: Regular rate and rhythm, S1, S2 without murmur, rub or gallop. ABDOMEN: Soft, nontender, nondistended, normoactive bowel sounds, no guarding, no rebound. EXTREMITIES: 2+ pulses, no edema. NEUROLOGICAL: Cranial nerves II through XII grossly intact. Normal speech, gait not observed. LEs; Motor; right hip flexion 3/5, left 4/5, knee right 4/5, left 5/5, right foot drop. UEs: Motor: abduction 5/5 B/L, adduction 5/5, flexion and extension 5/5, hands 5/5. DTRs in lower extremities absent:knee reflex and Achilles. UEs;nl in biceps. No sensation changes. PSYCH: Normal mood, normal affect. SKIN: Warm, dry, normal turgor, no rashes or lesions noted Laboratory Results - last 24 hr 06/23/16 06/23/16 06/23/16 16:43 16:45 16:45 ESR 115 H POC Glucometer 134 Creatine Kinase 89 C-Reactive Protein 0.7 H D 06/23/16 06/23/16 06/24/16 16:49 21:10 06:07 ESR POC Glucometer 166 154 160 Creatine Kinase C-Reactive Protein 06/24/16 11:57 ESR POC Glucometer 148 Creatine Kinase C-Reactive Protein Active Medications Generic Name Dose Route Start Last Admin Trade Name Freq PRN Reason Stop Dose Admin Acetaminophen 650 mg 06/22/16 02:18 06/24/16 06:08 Tylenol - PO 650 mg Q6H PRN Administration FEVER OR PAIN Finasteride 5 mg 06/24/16 10:00 06/24/16 10:35 Proscar - PO 5 mg DAILY [facility] Administration Heparin Sodium (Porcine) 5,000 unit 06/22/16 10:00 06/24/16 10:35 Heparin - SQ 5,000 unit BID [facility] Administration Hydroxychloroquine Sulfate 200 mg 06/24/16 14:30 06/24/16 14:56 Plaquenil - PO 200 mg DAILY [facility] Administration Insulin Aspart 1 vial 06/22/16 07:00 06/24/16 11:58 Novolog Vial Sliding Scale - SQ Not Given ACHS [facility] Protocol Methimazole 5 mg 06/23/16 22:00 06/24/16 10:35 Tapazole - PO 5 mg BID [facility] Administration Metoprolol Succinate 25 mg 06/23/16 10:00 06/24/16 10:35 Toprol Xl - PO 25 mg DAILY [facility] Administration Paroxetine HCl 40 mg 06/23/16 10:00 06/24/16 10:35 Paxil - PO 40 mg DAILY [facility] Administration Prednisone 20 mg 06/23/16 10:00 06/24/16 10:35 Deltasone - PO 20 mg BID [facility] Administration Tamsulosin HCl 0.4 mg 06/23/16 22:00 06/23/16 21:17 Flomax - PO 0.4 mg HS [facility] Administration MRI LS spine - multiple sites of pathology, including compression fractures, spinal stenosis, and subchondral edema ASSESSMENT/PLAN: 80 year old male with significant PMHx of HTN, rheumatoid arthritis 2007, COPD , CKD, interstitial lung disease, hyperthyroidism, NIDDM, chronic inflammatory demyelinating neuropathy presented to the ED via EMS with the complaints of unable to bear weight. Lower extremity weakness: -possibly due Chronic inflammatory demyelinating neuropathy -Completed IVIGx2, last one 5 on 06/06/2016 with no improvement -Dr. Bhandari consult, will f/u, will start Prednoisone 20 mg BID for 2 weeks and Plaquenil -Neuro checks -Dr. 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 Christianson consulted.It is not RA flare up, Cryoglobulin ordered and specimen delivered to lab. Acute on CKD stage 3 -Cr 1.4, baseline 1.2 -IV hydration stopped -Avoid nephrotoxic drugs Rheumatoid arthritis -No acute symptoms this admission Hypertension -Continue Metoprolol 25mg once confirmed Diabetes Mellitus -Hold Metformin, continue Insulin sliding scale -BGM ACHS Hyperthyroidism -TSH 4.77 -For now will continue Methimazole 5mg PO BID BPH -Increased frequency of urination, no other urinary symptoms -Continue Tamsulosin 0.4mg; -Finasteride 5mg Daily FEN -No -No changes -Diabetic/sodium controlled diet DVT Prophylaxis -Heparin 5000 u SQ Disposition: med surg, discharge to [facility] [place] tomorrow Problem List - Problems (1) Chronic inflammatory demyelinating neuropathy Code(s): G61.81 - CHRONIC INFLAMMATORY DEMYELINATING POLYNEURITIS (2) Diabetes with neurologic complications Code(s): E11.49 - TYPE 2 DIABETES W OTH DIABETIC NEUROLOGICAL COMPLICATION (3) BPH (benign prostatic hypertrophy) Code(s): N40.0 - BENIGN PROSTATIC HYPERPLASIA WITHOUT LOWER URINRY TRACT SYMP (4) Chronic kidney disease Code(s): N18.9 - CHRONIC KIDNEY DISEASE, UNSPECIFIED (5) COPD (chronic obstructive pulmonary disease) Code(s): J44.9 - CHRONIC OBSTRUCTIVE PULMONARY DISEASE, UNSPECIFIED Visit type - Emergency Visit Emergency Visit: Yes ED Registration Date: 06/21/16 Care time: The patient presented to the Emergency Department on the above date and was hospitalized for further evaluation of their emergent condition. - New Patient This patient is new to me today: No - Critical Care Critical Care patient: No - Discharge Referral Referred to [facility] Med P.C.: No
[2016-06-24] MEDS ORDERED: INSULIN (NOVOLOG) ASPART 100 UNITS/ML 10ML VIAL ONE (16:36)
[2016-06-24] MEDS: TAMSULOSIN HCL 0.4 MG CAP.ER.24H (FP) PO SCH (22:06)
[2016-06-25] MEDS: ACETAMINOPHEN 325 MG TABLET (FP) PO PRN (04:54)
[2016-06-25] MEDS: INSULIN SLIDING SCALE (NOVOLOG) 1 VIAL SQ SCH ×4 (06:27→21:39)
[2016-06-25] MEDS: HEPARIN NA (PORCINE) 5,000 UNITS/ML 1ML VIAL SQ SCH ×2 (09:52→21:38)
[2016-06-25] MEDS: PARoxetine HCL 20 MG TABLET (FP) PO SCH (09:52)
[2016-06-25] MEDS: predniSONE 20 MG TABLET (UD) PO SCH ×2 (09:52→21:38)
[2016-06-25] MEDS: FINASTERIDE 5 MG TABLET (FP) PO SCH (09:53)
[2016-06-25] MEDS: HYDROXYCHLOROQUINE SO4 200 MG TABLET (FP) PO SCH (09:53)
[2016-06-25] MEDS: METOPROLOL SUCCINATE 25 MG TAB.SR.24H (FP) PO SCH (09:53)
[2016-06-25] MEDS: METHIMAZOLE 5 MG TABLET (FP) PO SCH ×2 (09:53→21:39)
--- NOTE | 2016-06-25 14:11 | PN ---
Physical Exam: SUBJECTIVE: Patient seen and examined. He is feeling good today. He went to the bathroom by himself but slipped and had to call the nurse for assistance. Denies numbness, headache, leg pain. OBJECTIVE: Vital Signs Period Temp Pulse Resp BP Sys/Mahajan Pulse Ox Last 24 Hr 97.8 F-98.3 F 68-82 18-20 133-146/67-77 93-95 GENERAL: The patient is awake, alert, and fully oriented, in no acute distress. HEAD: Normal with no signs of trauma. EYES: PERRL, extraocular movements intact, sclera anicteric, conjunctiva clear. ENT: Ears normal, nares patent, oropharynx clear without exudates, moist mucous membranes. NECK: Trachea midline, full range of motion, supple. LUNGS: Breath sounds equal, clear to auscultation bilaterally, no wheezes, no crackles, no accessory muscle use. HEART: Regular rate and rhythm, S1, S2 without murmur, rub or gallop. ABDOMEN: Soft, nontender, nondistended, normoactive bowel sounds, no guarding, no rebound. EXTREMITIES: 2+ pulses, no edema. NEUROLOGICAL: Cranial nerves II through XII grossly intact. Normal speech, gait not observed. LEs; Motor; right hip flexion 3/5, left 4/5, knee right 4/5, left 5/5, right foot drop. UEs: Motor: abduction 5/5 B/L, adduction 5/5, flexion and extension 5/5, hands 5/5. DTRs in lower extremities absent:knee reflex and Achilles. UEs;nl in biceps. No sensation changes. PSYCH: Normal mood, normal affect. SKIN: Warm, dry, normal turgor, no rashes or lesions noted Laboratory Results - last 24 hr 06/24/16 06/25/16 06/25/16 21:45 06:25 11:54 POC Glucometer 150 151 145 Active Medications Generic Name Dose Route Start Last Admin Trade Name Freq PRN Reason Stop Dose Admin Acetaminophen 650 mg 06/22/16 02:18 06/25/16 04:54 Tylenol - PO 650 mg Q6H PRN Administration FEVER OR PAIN Finasteride 5 mg 06/24/16 10:00 06/25/16 09:53 Proscar - PO 5 mg DAILY [facility] Administration Heparin Sodium (Porcine) 5,000 unit 06/22/16 10:00 06/25/16 09:52 Heparin - SQ 5,000 unit BID [facility] Administration Hydroxychloroquine Sulfate 200 mg 06/24/16 14:30 06/25/16 09:53 Plaquenil - PO 200 mg DAILY [facility] Administration Insulin Aspart 1 vial 06/22/16 07:00 06/25/16 11:56 Novolog Vial Sliding Scale - SQ Not Given ACHS [facility] Protocol Methimazole 5 mg 06/23/16 22:00 06/25/16 09:53 Tapazole - PO 5 mg BID [facility] Administration Metoprolol Succinate 25 mg 06/23/16 10:00 06/25/16 09:53 Toprol Xl - PO 25 mg DAILY [facility] Administration Paroxetine HCl 40 mg 06/23/16 10:00 06/25/16 09:52 Paxil - PO 40 mg DAILY [facility] Administration Prednisone 20 mg 06/23/16 10:00 06/25/16 09:52 Deltasone - PO 20 mg BID [facility] Administration Tamsulosin HCl 0.4 mg 06/23/16 22:00 06/24/16 22:06 Flomax - PO 0.4 mg HS [facility] Administration MRI LS spine - multiple sites of pathology, including compression fractures, spinal stenosis, and subchondral edema ASSESSMENT/PLAN: 80 year old male with significant PMHx of HTN, rheumatoid arthritis 2007, COPD , CKD, interstitial lung disease, hyperthyroidism, NIDDM, chronic inflammatory demyelinating neuropathy presented to the ED via EMS with the complaints of unable to bear weight. Lower extremity weakness: -possibly due Chronic inflammatory demyelinating neuropathy -Completed IVIGx2, last one 5 on 06/06/2016 with no improvement -Dr. Bhandari consult, will f/u, will start Prednisone 20 mg BID for 2 weeks and Plaquenil 200 mg Daily -Neuro checks -Dr. Ndiaye consulted, no surgery recommended -engine repair supervisor; Dr. Christianson consulted. It is not RA flare up, Cryoglobulin ordered and specimen delivered to lab. Acute on CKD stage 3 -Cr 1.4, baseline 1.2 -IV hydration stopped -Avoid nephrotoxic drugs Rheumatoid arthritis -No acute symptoms this admission Hypertension -Continue Metoprolol 25mg once confirmed Diabetes Mellitus -Hold Metformin, continue Insulin sliding scale -BGM ACHS Hyperthyroidism -TSH 4.77 -continue Methimazole 5mg PO BID BPH -Continue Tamsulosin 0.4mg; -Finasteride 5mg Daily FEN -No -No changes -Diabetic/sodium controlled diet DVT Prophylaxis -Heparin 5000 u SQ Disposition: med surg, discharge to [facility] [place] when bed is available Problem List - Problems (1) Chronic inflammatory demyelinating neuropathy Code(s): G61.81 - CHRONIC INFLAMMATORY DEMYELINATING POLYNEURITIS (2) Diabetes with neurologic complications Code(s): E11.49 - TYPE 2 DIABETES W OTH DIABETIC NEUROLOGICAL COMPLICATION (3) BPH (benign prostatic hypertrophy) Code(s): N40.0 - BENIGN PROSTATIC HYPERPLASIA WITHOUT LOWER URINRY TRACT SYMP (4) Chronic kidney disease Code(s): N18.9 - CHRONIC KIDNEY DISEASE, UNSPECIFIED (5) COPD (chronic obstructive pulmonary disease) Code(s): J44.9 - CHRONIC OBSTRUCTIVE PULMONARY DISEASE, UNSPECIFIED Visit type - Emergency Visit Emergency Visit: Yes ED Registration Date: 06/21/16 Care time: The patient presented to the Emergency Department on the above date and was hospitalized for further evaluation of their emergent condition. - New Patient This patient is new to me today: No - Critical Care Critical Care patient: No - Discharge Referral Referred to [facility] Med [facility] Yes Physician Referral: Jayesh Rider MD (Int Med)
--- NOTE | 2016-06-25 14:50 | PN ---
Teaching Attending Note Name of Resident: Daysi Moeller ATTENDING PHYSICIAN STATEMENT I saw and evaluated the patient. I reviewed the resident's note and discussed the case with the resident. I agree with the resident's findings and plan as documented. SUBJECTIVE: no fever or chills, no abd pain, no CP. feels better in terms of his strength in LE OBJECTIVE: NAD , AAOx3 CV : RRR, no MRG Lungs : CTAB Ext : no edema NEuro: no facial droop, EOMI, round equal pupils , reactive to light . tongue at mid line , uvula at mid line. nl facial sensation . Strength: LUE, RUE : 4/5 proximally and 5/5 distally RLE: R hip flexion 3/5, 4/5 knee extension , 5/5 Knee flexion , 2/5 dorsiflexion at level of ankle , 5/5 plantar flexion LLE : L hip flexion 4/5, 5/5 knee extension , 5/5 Knee flexion , 1/5 dorsiflexion at level of ankle , 5/5 plantar flexion DTR: 0 knee jerk b/l. 2+ biceps Sensation to light touch: decreased below both knees ASSESSMENT AND PLAN: 80 y/o man with h/o COPD, RA , HTN, recent Dx of CIDP and other medical problems who presented with worsening weakness in Lower extremities . 1- Lower extremities weakness. recent possible diagnosis of CIDP - cont steroids x 2 weeks total - CPK NL ,ALdolase pending - w/u to cont as out pt , might need muscle or nerve bx 2- RA: cont paqunel . f/u with rheum as out pt 3- JAIMIE on CKD: Cr is at base line repeat BMP in am 4- HTN: cont toprol dispo : medically ready for dc , if a rehab bed available f/u with neuro and rheum. renal f/.u will be obtained too
[2016-06-25] MEDS: TAMSULOSIN HCL 0.4 MG CAP.ER.24H (FP) PO SCH (21:38)
[2016-06-26] MEDS: ACETAMINOPHEN 325 MG TABLET (FP) PO PRN ×2 (03:53→21:56)
[2016-06-26] MEDS: INSULIN SLIDING SCALE (NOVOLOG) 1 VIAL SQ SCH ×4 (06:09→21:57)
[2016-06-26 08:30] LABS: CALCIUM 8.5 mg/dL (8.5-10.1); CREATININE 1.2 mg/dL (0.7-1.3)
[2016-06-26] MEDS: FINASTERIDE 5 MG TABLET (FP) PO SCH (10:48)
[2016-06-26] MEDS: HEPARIN NA (PORCINE) 5,000 UNITS/ML 1ML VIAL SQ SCH ×2 (10:48→21:57)
[2016-06-26] MEDS: METOPROLOL SUCCINATE 25 MG TAB.SR.24H (FP) PO SCH (10:48)
[2016-06-26] MEDS: predniSONE 20 MG TABLET (UD) PO SCH ×2 (10:48→21:55)
[2016-06-26] MEDS: METHIMAZOLE 5 MG TABLET (FP) PO SCH ×2 (10:48→21:55)
[2016-06-26] MEDS: PARoxetine HCL 20 MG TABLET (FP) PO SCH (10:48)
[2016-06-26] MEDS: HYDROXYCHLOROQUINE SO4 200 MG TABLET (FP) PO SCH (10:49)
[2016-06-26] MEDS ORDERED: METOPROLOL SUCCINATE 25 MG TAB.SR.24H (FP) PO SCH (15:13)
--- NOTE | 2016-06-26 15:18 | PN ---
Progress Note (short form) - Note Progress Note: Subjective: No change in condition , feels optimistic . no fever or chills . Objective: Vital Signs: Last Vital Signs Temp Pulse Resp BP Pulse Ox 97.8 F 76 18 165/77 93 L 06/26/16 10:00 06/26/16 10:00 06/26/16 10:00 06/26/16 10:06/26/16 09:00 Physical Exam: NAD , AAOx3 CV : RRR, no MRG Lungs : CTAB Ext : no edema NEuro: no facial droop, EOMI, round equal pupils , reactive to light. Strength: LUE, RUE : 4/5 proximally and 5/5 distally RLE: R hip flexion 3/5, 4/5 knee extension , 5/5 Knee flexion , 2/5 dorsiflexion at level of ankle , 5/5 plantar flexion LLE : L hip flexion 4/5, 5/5 knee extension , 5/5 Knee flexion , 1/5 dorsiflexion at level of ankle , 5/5 plantar flexion DTR: 0 knee jerk b/l. 2+ biceps Sensation to light touch: decreased below both knees Laboratory Results - last 24 hr 06/25/16 06/25/16 06/26/16 17:37 21:29 06:09 Sodium Potassium Chloride Carbon Dioxide Anion Gap BUN Creatinine POC Glucometer 186 193 136 Random Glucose Calcium 06/26/16 06/26/16 06:15 12:23 Sodium 141 Potassium 4.0 Chloride 105 Carbon Dioxide 28 Anion Gap 8 BUN 26 H D Creatinine 1.2 POC Glucometer 107 Random Glucose 147 H Calcium 8.5 ASSESSMENT AND PLAN: 80 y/o man with h/o COPD, RA , HTN, recent Dx of CIDP and other medical problems who presented with worsening weakness in Lower extremities . 1- Lower extremities weakness. possibly due to CIDP - cont steroids x 2 weeks total - CPK NL ,ALdolase pending - w/u to cont as out pt , might need muscle or nerve bx 2- RA: cont paqunel . f/u with rheum as out pt 3- JAIMIE on CKD: Cr is at base line 4- HTN: increase toprol. likely elevated due to steroids dispo : medically ready for dc , if a rehab bed available f/u with neuro and rheum. renal f/.u will be obtained too Visit type - Emergency Visit Emergency Visit: Yes ED Registration Date: 06/21/16 Care time: The patient presented to the Emergency Department on the above date and was hospitalized for further evaluation of their emergent condition. - New Patient This patient is new to me today: No - Critical Care Critical Care patient: No
[2016-06-26] MEDS: TAMSULOSIN HCL 0.4 MG CAP.ER.24H (FP) PO SCH (21:55)
[2016-06-27] MEDS: ACETAMINOPHEN 325 MG TABLET (FP) PO PRN (03:47)
[2016-06-27] MEDS: INSULIN SLIDING SCALE (NOVOLOG) 1 VIAL SQ SCH ×3 (06:49→12:32)
[2016-06-27] MEDS: HEPARIN NA (PORCINE) 5,000 UNITS/ML 1ML VIAL SQ SCH (10:01)
[2016-06-27] MEDS: FINASTERIDE 5 MG TABLET (FP) PO SCH (10:01)
[2016-06-27] MEDS: predniSONE 20 MG TABLET (UD) PO SCH (10:01)
[2016-06-27] MEDS: PARoxetine HCL 20 MG TABLET (FP) PO SCH (10:01)
[2016-06-27] MEDS: METHIMAZOLE 5 MG TABLET (FP) PO SCH (10:01)
[2016-06-27] MEDS: HYDROXYCHLOROQUINE SO4 200 MG TABLET (FP) PO SCH (10:01)
--- NOTE | 2016-06-27 14:01 | PN ---
Teaching Attending Note Name of Resident: Daysi Moeller ATTENDING PHYSICIAN STATEMENT I saw and evaluated the patient. I reviewed the resident's note and discussed the case with the resident. I agree with the resident's findings and plan as documented. SUBJECTIVE: no fever or chills, feels a little stronger today OBJECTIVE: NAD , AAOx3 CV : RRR, no MRG Lungs : CTAB Ext : no edema NEuro: no facial droop, EOMI, round equal pupils , reactive to light. Strength: LUE, RUE : 4/5 proximally and 5/5 distally RLE: R hip flexion 3/5, 4/5 knee extension , 5/5 Knee flexion , 2/5 dorsiflexion at level of ankle , 5/5 plantar flexion LLE : L hip flexion 4/5, 5/5 knee extension , 5/5 Knee flexion , 1/5 dorsiflexion at level of ankle , 5/5 plantar flexion DTR: 0 knee jerk b/l. 2+ biceps Sensation to light touch: decreased below both knees ASSESSMENT AND PLAN: 80 y/o man with h/o COPD, RA , HTN, recent Dx of CIDP and other medical problems who presented with worsening weakness in Lower extremities . 1- Lower extremities weakness. possibly due to CIDP - cont steroids x 2 weeks total ( 7 days remaining ) - CPK NL ,ALdolase pending - w/u to cont as out pt , might need muscle or nerve bx 2- RA: cont paqunel . f/u with rheum as out pt 3- JAIMIE on CKD: Cr is at base line . renal f/u as out pt 4- HTN: cont toprol dc to rehab today
[2016-06-27 14:51] VITALS: BP 148/79; PULSE 82; TEMP 98.8
--- NOTE | 2016-06-27 16:14 | DS ---
Physical Exam: SUBJECTIVE: Patient seen and examined. He is feeling good today. He denies numbness, dizziness, vision changes. He walks with PT everyday. OBJECTIVE: Vital Signs Period Temp Pulse Resp BP Sys/Mahajan Pulse Ox Last 24 Hr 97.4 F-98.8 F 60-82 16-20 117-154/62-99 92-94 PHYSICAL EXAM GENERAL: The patient is awake, alert, and fully oriented, in no acute distress. HEAD: Normal with no signs of trauma. EYES: extraocular movements intact, sclera anicteric, conjunctiva clear. ENT: oropharynx clear without exudates, moist mucous membranes. NECK: Trachea midline, full range of motion, supple. LUNGS: Breath sounds equal, clear to auscultation bilaterally, no wheezes, no crackles, no accessory muscle use. HEART: Regular rate and rhythm, S1, S2 without murmur, rub or gallop. ABDOMEN: obese, soft, nontender, nondistended, normoactive bowel sounds, no guarding, no rebound. EXTREMITIES: 2+ pulses, no edema. NEUROLOGICAL: Cranial nerves II through XII grossly intact. Normal speech, gait not observed. LEs; Motor; right hip flexion 3/5, left 4/5, knee right 4/5, left 5/5, right foot drop, left foot flexion 2/5. UEs: Motor: abduction 5/5 B/L, adduction 5/5, flexion and extension 5/5, hands 5 /5. DTRs in lower extremities absent:knee reflex and Achilles. UEs;nl in biceps. No sensation changes. PSYCH: Normal mood, normal affect. SKIN: Warm, dry, normal turgor, no rashes. LABS Laboratory Results - last 24 hr 06/26/16 06/26/16 06/27/16 17:29 21:46 06:14 POC Glucometer 154 151 209 06/27/16 12:02 POC Glucometer 112 HOSPITAL COURSE: Date of Admission:06/21/16 Date of Discharge: 06/27/16 Minutes to complete discharge: 50 Discharge Summary Reason For Visit: CHRONIC INFLAMMATORY DEMYELINATING POLY NEUROPAT Current Active Problems BPH (benign prostatic hypertrophy) (Chronic) Chronic inflammatory demyelinating neuropathy (Chronic) Chronic kidney disease (Chronic) Diabetes with neurologic complications (Chronic) HTN (hypertension) (Chronic) Hyperlipidemia (Chronic) Rheumatoid arthritis (Chronic) Hospital Course: 80 year old male presented to the ED via EMS with the complaints of unable to bear weight x 1 day. He was able to do his regular morning routine, breathing exercise, weight lifting and stationary biking for 15mintues. After a while, he sat on a chair and while reaching out to his grandson, he couldn't stand or walk. Denies numbness, tingling, pricking sensation or pain over his lower extremities. Patient reports to have had similar episodes in the past since a year, on/off. Patient had his 1st infusion of IVIG in and second infusion 2 weeks ago. Patient says he felt better after the first but the second infusion didn't help him much. He has nocturia, 4 episdoes last night which is usual for him due to BPH. No burning urination or incontinence. Bowel habit normal. Sleep/Appetite normal.Denies headache, fever, chills, rigor , sweating, abdominal pain, nausea or vomiting. Checks sugar everyday at home, ranges between 97-150. Doesn't know his HbA1c. Had his eyes checked last year and there were no signs of diabetic retinopathy. Lives at home alone and is able to do his daily activities. Gets help 3times/ week from supervisor home restoration service. Hospital course: We diagnosed him with Chronic inflammatory demyelinating neuropathy. His CPK was normal, CRP elevated Aldolase was still pending, no signs of infection, CXR no acute patholohgy. We consulted Neurology, started Prednisone for 2 weeks and Plaquenil daily. We also consulted Rheumatology who recommended cryoglobulin test and excluded RA as contributing factor to his complaints. CKD: we cont. IVF, avoided nephrotoxic substances, for his HTN continued home meds, DM ISS, BGMs, hyperthyroidism: continued Methimazole. We recommended outpatient f/u with PCP, Neurologist, possible nerve biopsy, f/u with Load Haul Dump Operator and [employer]. Condition: Improved - Instructions Diet, Activity, Other Instructions: Please see your primary care physician in a week. See Dr. Bhandari in [address] Mclaughlin in 1 week. Take Prednisone 20 mg daily for 7 days. If you have more weakness, numbness, or dizziness, vision problems, fever, chills, bleeding come to Emergency Room as soon as possible. you need work up for your kidney disease as out patient Referrals: Everton Christianson MD [Staff Physician] - 1 Week Abraham Bhandari DO [Staff Physician] - 1 Week Jayesh Rider MD [Staff Physician] - 1 Week Suzanna Tyson MD [Staff Physician] - Disposition: INTERMEDIATE FACILITY - Home Medications Comprehensive Discharge Medication List: Ambulatory Orders Finasteride [Proscar -] 5 mg PO DAILY 09/14/15 Paroxetine HCl [Paxil -] 40 mg PO DAILY 09/14/15 Cholecalciferol (Vitamin D3) [Vitamin D3] 1,000 unit PO DAILY 04/23/16 Metformin HCl 500 mg PO BID 04/23/16 Methimazole 5 mg PO BID 04/23/16 Tamsulosin HCl [Flomax] 0.4 mg PO HS 04/23/16 Hydroxychloroquine So4 [Plaquenil -] 200 mg PO DAILY #30 tablet 06/27/16 Metoprolol Succinate [Toprol XL -] 50 mg PO DAILY #30 06/27/16 Prednisone [Deltasone -] 20 mg PO DAILY #7 tablet 06/27/16 Problem List - Problems (1) Chronic inflammatory demyelinating neuropathy Code(s): G61.81 - CHRONIC INFLAMMATORY DEMYELINATING POLYNEURITIS (2) Diabetes with neurologic complications Code(s): E11.49 - 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 Critical Care patient: No - Discharge Referral Referred to [facility] Med [facility] No Physician Referral: Jayesh Rider MD (Int Med)
== END 2016-06-27 16:30 | DRG 74 ==
LOC: JER 21:15 → JERBED 23:13 → UNDOADMIN 23:29 → J8W 06-22 09:00
PROVIDERS: ADMIT Internal Medicine; ATTEND Internal Medicine
DX: G61.81 Chronic inflammatory demyelinating polyneuritis (principal); N17.8 Other acute kidney failure; E11.40 Type 2 diabetes mellitus with diabetic neuropathy, unspecified; K21.9 Gastro-esophageal reflux disease without esophagitis; N40.0 Benign prostatic hyperplasia without lower urinary tract symptoms; J44.9 Chronic obstructive pulmonary disease, unspecified; E78.5 Hyperlipidemia, unspecified; M05.79 Rheumatoid arthritis with rheumatoid factor of multiple sites without organ or systems involvement; E05.80 Other thyrotoxicosis without thyrotoxic crisis or storm; J84.89 Other specified interstitial pulmonary diseases; M62.81 Muscle weakness (generalized); G62.9 Polyneuropathy, unspecified; F32.9 Major depressive disorder, single episode, unspecified; I12.9 Hypertensive chronic kidney disease with stage 1 through stage 4 chronic kidney disease, or unspecified chronic kidney disease; N18.3 Chronic kidney disease, stage 3 (moderate); Z87.442 Personal history of urinary calculi; Z87.891 Personal history of nicotine dependence; Z96.643 Presence of artificial hip joint, bilateral; Z96.651 Presence of right artificial knee joint
CPT/HCPCS: 36415; 71010-TC; 80048; 80053; 82085; 82550; 82595; 83735; 84100; 84443; 85025; 85027; 85651; 86140; 93005; 93010; 97116-GP; 97161-GP; 99285-25; J1644

== ENCOUNTER 2017-12-04 11:49 | Inpatient (IN) | payer BC ==
--- NOTE | 2017-12-04 12:05 | PDOC ---
Attending Attestation - Medical Decision Making 12/04/17 16:14 Dr. Morgan discussed the patient's care with Dr. Youssef at 4:00 pm. Documentation prepared by Nikki Steel, acting as medical record retrieval specialist for Jose Morgan MD. <Nikki Steel - Last Filed: 12/04/17 16:14> - Resident Resident Name: Charley Armenta - ED Attending Attestation I have performed the following: I have examined & evaluated the patient, The case was reviewed & discussed with the resident, I agree w/resident's findings & plan, Exceptions are as noted - HPI HPI: 79 yo M with Pmhx of GERD, COPD, HTN, RA,Intersistial lung dz, DM, Sent to the emergency department by his fuel quality tech for hypoxia and bilateral lower extremity edema Here in the emergency department patient states he is in no acute distress except for mild shortness of breath - Physicial Exam PE: 12/04/17 16:58 Vitals: Triage Vital signs reviewed General Appearance: no acute distress, well nourished well developed, Head: Atraumatic, Neck: Supple;No Nucal rigidity Chest Wall: Nontender Cardiac: Regular rate and rhythym, no murmurs, no rubs, no gallops, Lungs: Bilateral end expiratory wheezing. Abdomen: Soft, non distended, normal bowel sounds, non tender to palpation Extremities: Full range of motion to all extremities, no cyanosis, clubbing, or edema Skin: Warm and dry, no rashes or lesions, no rash, no petechiae Neuro: AOX3; Cranial Nerves 2-12 grossly intact, right lower extremity weakness chronic, Sensation intact to all extremities,Psych: normal mood, normal affect - Medical Decision Making Patient sent to emergency Department for mild lower extremity edema and hypoxia noted at his fuel quality tech office Upon arrival to the emergency department patient's oxygenation in the mid 90s and patient with no significant complaints On examination patient with bilateral end expiratory wheezing A workup was completed in the emergency department which included bilateral lower extremity Dopplers, chest x-ray, labs troponin, BNP and a d-dimer. Patient's Dopplers are negative for DVT, his BNP is elevated, his kidney function is baseline his troponin is negative his EKG is unchanged and nonischemic. Reevaluation: the patient continues to wheeze At this point our suspicion is high or for CHF versus COPD exacerbation as opposed to PE. Pt. does have a slightly elevated D dimer after being age adjusted Given the patient's renal insufficiency I discussed with the patient possibility of the need for a CTA should his symptoms not improve. Patient is hesitant to have a CTA performed given his kidney function but understands that should his clinical presentation deteriorate, or not improve with nebs and lasix this may become necessary We'll observe overnight on telemetry for further management, will treat with DuoNeb's Lasix and telemetry observation. Should any clinical change occur or the suspicion for PE become greater than the likelyhood of COPD/CHF, a CTA can be preformed. <Jose Morgan - Last Filed: 12/04/17 17:43> Heart Score/ECG Review - ECG Impressions Comment:: 12/04/17 16:19 EKG performed at 1311. Demonstrates normal sinus rhythm left anterior fascicular block. No ST elevations. No T-wave inversions. Unchanged compared to previous EKGs. <Jose Morgan - Last Filed: 12/04/17 17:43>
--- NOTE | 2017-12-04 12:16 | PDOC ---
History of Present Illness - General Chief Complaint: Shortness of Breath Stated Complaint: SOB,SWOLLEN LEGS Time Seen by Provider: 12/04/17 12:04 History Source: Patient - History of Present Illness Initial Comments: 12/04/17 12:14 82 year old male wheelchair bound with PMH of HTN, diabetes, neuropathy presents to ED from PCP Dr. Ang Marie's office complaining of SOB and lower leg swelling x1 week. He denies chest pain, palpitations, fever, chills, cough, nausea, vomiting, diarrhea, abdominal pain. Pt states he does not take Lasix at home. Pt was seen by his PCP/asphalt spreader Dr. Youssef today, was hypoxic 83% in the office, sent to ED for eval. Past History - Past Medical History Allergies/Adverse Reactions: Allergies Allergy/AdvReac Type Severity Reaction Status Date / Time No Known Allergies Allergy Verified 12/04/17 15:31 Home Medications: Ambulatory Orders Tamsulosin HCl [Flomax] 0.4 mg PO HS 04/23/16 metFORMIN HCL [Metformin HCl] 500 mg PO BID 04/23/16 Hydroxychloroquine So4 [Plaquenil -] 200 mg PO DAILY #30 tablet 06/27/16 Metoprolol Succinate [Toprol XL -] 25 mg PO DAILY 12/04/17 Anemia: No Asthma: No Cancer: No Cardiac Disorders: No CVA: No COPD: No CHF: No Dementia: No Diabetes: Yes GI Disorders: Yes (ACID REFLUX) Disorders: Yes (BPH) HTN: No Hypercholesterolemia: No Kidney Stones: Yes Liver Disease: No Seizures: No Thyroid Disease: Yes (hyper) - Surgical History Abdominal Surgery: Yes (HERNIA) Appendectomy: No Cardiac Surgery: No Cholecystectomy: No Lung Surgery: No Neurologic Surgery: No Orthopedic Surgery: No (L THR, R TKR) - Immunization History Immunization Up to Date: Yes - Suicide/Smoking/Psychosocial Hx Smoking History: Former smoker Have you smoked in the past 12 months: No Number of Cigarettes Smoked Daily: 20 If you are a former smoker, when did you quit?: 25 YRS Information on smoking cessation initiated: No Hx Alcohol Use: No Drug/Substance Use Hx: No Substance Use Type: None Hx Substance Use Treatment: No Review of Systems - Review of Systems Able to Perform ROS?: Yes Comments:: 12/04/17 12:15 General: denies fever, chills, night sweats, generalized weakness. HEENT: denies sore throat, rhinorrhea, ear pain. Heart: admits to lower extremity swelling. denies chest pain, palpitations, syncope. Respiratory: admits to shortness of breath. denies cough, sputum production, hematemesis. Abdomen: denies abdominal pain, nausea, vomiting, diarrhea, constipation, blood in stool. : denies dysuria, urinary frequency, hematuria. Musculoskeletal: denies joint pain, muscle pain, joint swelling. Neurological: denies headache, dizziness, numbness, tingling. Skin: denies rash, laceration, abrasion. *Physical Exam - Vital Signs Last Vital Signs Temp Pulse Resp BP Pulse Ox 98.2 F 100 H 22 174/94 92 L 12/04/17 11:50 12/04/17 11:50 12/04/17 11:50 12/04/17 11:50 12/04/17 11:50 - Physical Exam Comments: 12/04/17 12:25 Appearance: comfortable. wheelchair bound. HEENT: head is normocephalic, atraumatic. EOMI. PERRLA. Neck: supple without lymphadenopathy Heart: tachycardic. regular rhythm. no murmurs, rubs or gallops. lower extremity pitting edema up to bilateral tibial tuberosities. Lungs: hypoxic 88-90% on room air. bibasilar crackles noted bilateral lower lung mott. no stridor. Abdomen: soft, nontender. normal bowel sounds. no rebound, guarding, masses. Extremities: Peripheral pulses intact. Neurological: Alert. Oriented x3. CN 2-12 grossly intact. Moves all four extremities. 12/04/17 15:34 Wheezing noted bilaterally. ED Treatment Course - LABORATORY CBC & Chemistry Diagram: 12/04/17 13:30 12/04/17 13:30 Medical Decision Making - Medical Decision Making 12/04/17 12:27 82 year old male wheel chair bound with PMH of HTN and diabetes presenting to ED for SOB and lower extremity swelling for a week. Patient is tachycardic and hypoxic on room air. Patient placed on 2L nasal cannula. Pending rectal temperature. EKG and Chest XR ordered. Initial Vital Signs Temp Pulse Resp BP Pulse Ox 98.2 F 99 H 22 174/94 92 L 12/04/17 11:50 12/04/17 11:50 12/04/17 11:50 12/04/17 11:50 12/04/17 11:50 I am concerned for CHF, PE, pneumonia, ACS. Pending rectal temperature. PE cannot be excluded based on PERC or WELL's criteria. 12/04/17 12:32 Patient reassessed, O2 saturation 95% on 2L nasal cannula. Patient states his shortness of breath has improved. 12/04/17 12:57 Rectal temp 99.5. Blood work ordered. 12/04/17 15:34 Pt reassessed, wheezing noted bilaterally. Duonebs and solumedrol ordered. Patient will be admitted for COPD exacerbation. Cannot rule out PE, d-dimer positive, bilateral lower extremity US negative, unable to perform CTA due to elevated Creatinine 1.6, at baseline. Lasix 20 IV ordered. Pt's asphalt spreader, Dr. Ang Jimenes, consulted, he states he would like the patient to be admitted under observation and if any clinical changes occur the patient can be given IV fluids and CTA will be performed. 12/04/17 16:54 Case was discussed by Dr. Morgan with admitting team, who will accept the patient. *DC/Admit/Observation/Transfer Diagnosis at time of Disposition: COPD exacerbation, Renal insufficiency - Discharge Dispostion Condition at time of disposition: Stable Decision to Admit order: Yes - Referrals - Patient Instructions - Post Discharge Activity
[2017-12-04 14:05] LABS: BASO % 0.3 % (0-2.0); HEMATOCRIT 41.2 % (35.4-49); HEMOGLOBIN 13.5 GM/dl (11.7-16.9); MCH 29.2 pg (25.7-33.7); MCHC 32.7 g/dl (32.0-35.9); MEAN CELL VOLUME 89.3 fl (80-96); MEAN PLT VOLUME 7.9 fl (7.5-11.1); MONO % 4.1 % (3.8-10.2); NEUT % 83.6 % (42.8-82.8); PLATELET COUNT 178 K/MM3 (134-434); RBC 4.61 M/mm3 (4.00-5.60); RDW 14.4 % (11.9-15.9); WHITE BLOOD COUNT 8.7 K/mm3 (4.0-10.8)
[2017-12-04 14:25] LABS: ALBUMIN 3.5 g/dl (3.5-5.0); ALK PHOS 55 U/L (32-92); ANION GAP 5 (8-16); BILIRUBIN,TOTAL 0.4 mg/dl (0.2-1.0); BLOOD UREA NITROGEN 25 mg/dl (7-18); CALCIUM 8.4 mg/dl (8.4-10.2); CHLORIDE 102 mmol/L (98-107); CO2 30 mmol/L (22-28); CREATININE 1.6 mg/dl (0.6-1.3); GLUCOSE,RANDOM 117 mg/dl (74-106); POTASSIUM 4.2 mmol/L (3.5-5.1); SGOT/AST 16 U/L (10-42); SGPT/ALT 8 U/L (10-40); SODIUM 137 mmol/L (136-145); TOT PROT 6.7 g/dl (6.4-8.3)
[2017-12-04 14:37] LABS: ACTIVATED PTT 30.1 SECONDS (25.2-36.5)
[2017-12-04 14:37] LABS: PH,URINE 5.5 (4.5-8); URINE APPEARANCE Clear; URINE BILIRUBIN Negative (NEGATIVE); URINE COLOR Yellow; URINE GLUCOSE (UA) Negative (NEGATIVE); URINE KETONE Negative (NEGATIVE); URINE LEUK ESTERASE Negative (NEGATIVE); URINE NITRITE Negative (NEGATIVE); URINE UROBILINOGEN 0.2 (0.2-1.0)
[2017-12-04 14:38] LABS: URINE PROTEIN 3+ (NEGATIVE)
[2017-12-04 14:41] LABS: INR 1.07 (0.82-1.09)
[2017-12-04 15:05] LABS: EPI CELLS 0-3 /HPF; RED BLOOD CELL CAST 0-1; URINE WBC 0-3 (0-2)
[2017-12-04] MEDS ORDERED: methylPREDNISolone NA SUCC 125 MG/2 ML VIAL IVPUSH ONE (15:36)
[2017-12-04] MEDS ORDERED: ALBUTEROL SO4 2.5/IPRATROPIUM 0.5 INH SOL 3 ML VIAL.NEB. NEB ONE ×2 (15:36→15:41)
[2017-12-04] MEDS ORDERED: methylPREDNISolone NA SUCC 125 MG/2 ML VIAL ONE (15:41)
[2017-12-04] MEDS ORDERED: FUROSEMIDE 40 MG/4 ML INJECTABLE VIAL IVPUSH ONE (16:01)
[2017-12-04] MEDS ORDERED: FUROSEMIDE 40 MG/4 ML INJECTABLE VIAL ONE (17:00)
[2017-12-04] MEDS ORDERED: ALBUTEROL SO4 2.5/IPRATROPIUM 0.5 INH SOL 3 ML VIAL.NEB. NEB PRN (18:14)
--- NOTE | 2017-12-04 20:05 | HP ---
CHIEF COMPLAINT: SOB PCP: Dr. Youssef HISTORY OF PRESENT ILLNESS: 82 y/o man with a PMHx of: HTN, RA (08), COPD, CKD, ILD, Hyperthyroidism, NIDDM , Chronic Inflammatory Demyelinating Neuropathy. Who presents to the ED from his PCP's office for SOB and lower extremity swelling. Patient reports noting increased swelling to his lower extremities with tightness x several days worse today. Patient reports TRAVIS as well. Patient denies CP, palpitations at present. Patient reports not eating as well balanced as he should with he attributes to his swollen legs and feet. ER course was notable for: (1) CKD- BUN 25, Cr 1.6 (2) (3) Recent Travel: None PAST MEDICAL HISTORY: See HPI PAST SURGICAL HISTORY: Bilateral Total Hip Replacement Right Ingunial Hernia with Mesh Social History: Smoking: Former 35 year 1/2 PPD, Quit 25 yrs ago Alcohol: Former 25 yrs ago Drugs: None Family History: Non-Contributory Allergies No Known Allergies Allergy (Verified 12/04/17 15:31) HOME MEDICATIONS: Home Medications Medication Instructions Recorded Tamsulosin HCl [Flomax] 0.4 mg PO HS 04/23/16 metFORMIN HCL [Metformin HCl] 500 mg PO BID 04/23/16 Hydroxychloroquine So4 [Plaquenil 200 mg PO DAILY #30 tablet 06/27/16 -] Metoprolol Succinate [Toprol XL -] 25 mg PO DAILY 12/04/17 REVIEW OF SYSTEMS CONSTITUTIONAL: Absent: fever, chills, diaphoresis, generalized weakness, malaise, loss of appetite, weight change HEENT: Absent: rhinorrhea, nasal congestion, throat pain, throat swelling, difficulty swallowing, mouth swelling, ear pain, eye pain, visual changes CARDIOVASCULAR: Absent: chest pain, syncope, palpitations, irregular heart rate, lightheadedness , peripheral edema RESPIRATORY: shortness of breath, Absent: cough, dyspnea with exertion, orthopnea, wheezing, stridor, hemoptysis GASTROINTESTINAL: Absent: abdominal pain, abdominal distension, nausea, vomiting, diarrhea, constipation, melena, hematochezia GENITOURINARY: Absent: dysuria, frequency, urgency, hesitancy, hematuria, flank pain, genital pain MUSCULOSKELETAL: Absent: myalgia, arthralgia, joint swelling, back pain, neck pain SKIN: Absent: rash, itching, pallor HEMATOLOGIC/IMMUNOLOGIC: Absent: easy bleeding, easy bruising, lymphadenopathy, frequent infections ENDOCRINE: Absent: unexplained weight gain, unexplained weight loss, heat intolerance, cold intolerance NEUROLOGIC: Absent: headache, focal weakness or paresthesias, dizziness, unsteady gait, seizure, mental status changes, bladder or bowel incontinence PSYCHIATRIC: Absent: anxiety, depression, suicidal or homicidal ideation, hallucinations. PHYSICAL EXAMINATION Vital Signs - 24 hr 12/04/17 12/04/17 12/04/17 11:50 12:42 13:42 Temperature 98.2 F 99.5 F Pulse Rate 100 H Pulse Rate [ 90 Left] Respiratory 22 20 Rate Blood Pressure 174/94 Blood Pressure 176/91 [Right Arm] O2 Sat by Pulse 92 L 97 Oximetry (%) 12/04/17 12/04/17 12/04/17 15:52 16:25 18:14 Temperature 99.5 F 97.8 F Pulse Rate 107 H Pulse Rate [ 78 Left] Respiratory 20 18 18 Rate Blood Pressure 141/63 Blood Pressure 179/89 [Right Arm] O2 Sat by Pulse 99 99 99 Oximetry (%) GENERAL: Awake, alert, and fully oriented, in no acute distress. HEAD: Normal with no signs of trauma. EYES: Pupils equal, round and reactive to light, extraocular movements intact, sclera anicteric, conjunctiva clear. No lid lag. EARS, NOSE, THROAT: Ears normal, nares patent, oropharynx clear without exudates. Moist mucous membranes. NECK: Normal range of motion, supple without lymphadenopathy, JVD, or masses. LUNGS: Coarse rhonchi to bases. No accessory muscle use. HEART: Regular rate and rhythm, normal S1 and S2 without murmur, rub or gallop. ABDOMEN: Obese, soft, nontender, not distended, normoactive bowel sounds, no guarding, no rebound, no masses. No hepatomegaly or splenomegaly. MUSCULOSKELETAL: Normal range of motion at all joints. No bony deformities or tenderness. No CVA tenderness. UPPER EXTREMITIES: 2+ pulses, warm, well-perfused. No cyanosis. No clubbing. No peripheral edema. LOWER EXTREMITIES: 2+ pulses, warm, well-perfused. No calf tenderness. +2 pitting peripheral edema from below knee to feet NEUROLOGICAL: Cranial nerves II-XII intact. Normal speech. Gait not observed. PSYCHIATRIC: Cooperative. Good eye contact. Appropriate mood and affect. SKIN: Warm, dry, normal turgor, no rashes or lesions noted, normal capillary refill. Laboratory Results - last 24 hr 12/04/17 12/04/17 12/04/17 13:30 13:30 13:30 WBC 8.7 RBC 4.61 Hgb 13.5 Hct 41.2 MCV 89.3 MCH 29.2 MCHC 32.7 RDW 14.4 Plt Count 178 MPV 7.9 D Absolute Neuts (auto) 7.2 Neutrophils % 83.6 H Lymphocytes % 10.0 D Monocytes % 4.1 Eosinophils % 2.0 Basophils % 0.3 PT with INR 12.0 INR 1.07 PTT (Actin FS) 30.1 D D-Dimer Sodium 137 Potassium 4.2 Chloride 102 Carbon Dioxide 30 H Anion Gap 5 L BUN 25 H Creatinine 1.6 H Creat Clearance w eGFR 41.49 Random Glucose 117 H Lactic Acid Calcium 8.4 Total Bilirubin 0.4 AST 16 ALT 8 L Alkaline Phosphatase 55 Troponin I B-Natriuretic Peptide Total Protein 6.7 Albumin 3.5 Urine Color Urine Appearance Urine pH Ur Specific Isabella Urine Protein Urine Glucose (UA) Urine Ketones Urine Blood Urine Nitrite Urine Bilirubin Urine Urobilinogen Ur Leukocyte Esterase Urine RBC Urine WBC Ur Epithelial Cells RBC Casts 12/04/17 12/04/17 12/04/17 13:30 13:30 13:30 WBC RBC Hgb Hct MCV MCH MCHC RDW Plt Count MPV Absolute Neuts (auto) Neutrophils % Lymphocytes % Monocytes % Eosinophils % Basophils % PT with INR INR PTT (Actin FS) D-Dimer 944 H Sodium Potassium Chloride Carbon Dioxide Anion Gap BUN Creatinine Creat Clearance w eGFR Random Glucose Lactic Acid 1.1 Calcium Total Bilirubin AST ALT Alkaline Phosphatase Troponin I B-Natriuretic Peptide 754.06 H Total Protein Albumin Urine Color Urine Appearance Urine pH Ur Specific Isabella Urine Protein Urine Glucose (UA) Urine Ketones Urine Blood Urine Nitrite Urine Bilirubin Urine Urobilinogen Ur Leukocyte Esterase Urine RBC Urine WBC Ur Epithelial Cells RBC Casts 12/04/17 12/04/17 13:30 14:30 WBC RBC Hgb Hct MCV MCH MCHC RDW Plt Count MPV Absolute Neuts (auto) Neutrophils % Lymphocytes % Monocytes % Eosinophils % Basophils % PT with INR INR PTT (Actin FS) D-Dimer Sodium Potassium Chloride Carbon Dioxide Anion Gap BUN Creatinine Creat Clearance w eGFR Random Glucose Lactic Acid Calcium Total Bilirubin AST ALT Alkaline Phosphatase Troponin I 0.03 B-Natriuretic Peptide Total Protein Albumin Urine Color Yellow Urine Appearance Clear Urine pH 5.5 D Ur Specific Isabella 1.025 Urine Protein 3+ H Urine Glucose (UA) Negative Urine Ketones Negative Urine Blood 3+ H Urine Nitrite Negative Urine Bilirubin Negative Urine Urobilinogen 0.2 Ur Leukocyte Esterase Negative Urine RBC 10-15 Urine WBC 0-3 Ur Epithelial Cells 0-3 RBC Casts 0-1 ASSESSMENT/PLAN: 82 y/o man with PMHx of: HTN, RA (08), COPD, CKD, ILD, Hyperthroidism, NIDDM, Chronic Inflammatory Demyelinating Neuropathy. Placed in Tele Observation CHF Exacerbation, COPD Exacerbation for further evaluation of their emergent condition. Plan: Acute COPD Exacerbation - Chest Xray- reviewed - Solumederol given in ED, will continue with taper - Appreciate Pulm consult - Duonebs - O2 - Peakflow - Continue home meds Acute CHF Exacerbation - Lasix given in ED, will continue renal dosing - Appreciate Cardiology consult - Continue tele monitoring - Chest Xray reviewed- no vascular congestion read, however patient has +2 pitting edema bilaterally to LE on exam, with an increase in SOB requiring O2 - Consider Echo, will defer to Cardiology Hypertension - Sub optimal - Continue Metoprolol with parameters - Monitor renal function Hyperthyroidism - Continue home med NIDDM - Stable - Continue home med CKD - Cr 1.4, slightly above baseline - Monitor renal function RA - Continue home med FEN - PO fluids as tolerated - Replete lytes prn - Low Na Diet DVT ppx - OOB - SCDs - Consider ACs if LOS Code Status: Full Code Dispo: Tele Observation Problem List - Problem (1) CHF exacerbation Code(s): I50.9 - HEART FAILURE, UNSPECIFIED (2) Diastolic CHF Code(s): I50.30 - UNSPECIFIED DIASTOLIC (CONGESTIVE) HEART FAILURE (3) COPD exacerbation Code(s): J44.1 - CHRONIC OBSTRUCTIVE PULMONARY DISEASE W (ACUTE) EXACERBATION (4) BPH (benign prostatic hypertrophy) Code(s): N40.0 - BENIGN PROSTATIC HYPERPLASIA WITHOUT LOWER URINRY TRACT SYMP (5) Chronic inflammatory demyelinating neuropathy Code(s): G61.81 - CHRONIC INFLAMMATORY DEMYELINATING POLYNEURITIS (6) Chronic kidney disease Code(s): N18.9 - CHRONIC KIDNEY DISEASE, UNSPECIFIED (7) HTN (hypertension) Code(s): I10 - ESSENTIAL (PRIMARY) HYPERTENSION (8) Hyperlipidemia Code(s): E78.5 - HYPERLIPIDEMIA, UNSPECIFIED (9) Interstitial lung disease Code(s): J84.9 - INTERSTITIAL PULMONARY DISEASE, UNSPECIFIED (10) Rheumatoid arthritis Code(s): M06.9 - RHEUMATOID ARTHRITIS, UNSPECIFIED Visit type - Emergency Visit Emergency Visit: Yes ED Registration Date: 12/04/17 Care time: The patient presented to the Emergency Department on the above date and was hospitalized for further evaluation of their emergent condition. - New Patient This patient is new to me today: Yes Date on this admission: 12/04/17 - Critical Care Critical Care patient: No Hospitalist Screening - Colonoscopy Questionnaire Colonoscopy Questionnaire: Colonoscopy Questionnaire - Patient: 50 - 75 years old and never had a screening colonoscopy: Unknown History of colon or rectal polyps, or CA: Unknown History of IBD, Crohn's disease or UC: Unknown History of abdominal radiation therapy as a child: Unknown - Relative: 1 with colon or rectal CA, or polyps at age 60 or younger: Unknown Colon or rectal CA diagnosed at age 45 or younger: Unknown Multiple relatives with colon or rectal CA: Unknown - Outcome: Screening Result: Negative Screen
[2017-12-04] MEDS: methylPREDNISolone NA SUCC 40 MG/1 ML VIAL IVPUSH SCH ×2 (20:12→21:10)
[2017-12-04] MEDS: TAMSULOSIN HCL 0.4 MG CAP.ER.24H (FP) PO SCH (21:10)
[2017-12-04] MEDS: FINASTERIDE 5 MG TABLET (FP) PO SCH (21:10)
[2017-12-05] MEDS: methylPREDNISolone NA SUCC 40 MG/1 ML VIAL IVPUSH SCH ×4 (03:08→21:40)
[2017-12-05] MEDS: FUROSEMIDE 40 MG/4 ML INJECTABLE VIAL IVPUSH SCH ×2 (06:33→14:00)
--- NOTE | 2017-12-05 08:03 | PN ---
Physical Exam: SUBJECTIVE: Patient seen and examined, sitting in bedside chair, reports less swelling to lower extremities, reports less dyspnea on exertion denies any chest pain OBJECTIVE: patient is a 82 y/o man with a PMHx of: HTN, RA (08), COPD, CKD, ILD , Hyperthyroidism, NIDDM, and Chronic Inflammatory Demyelinating Neuropathy. she was admitted from the emergency department for COPD exacerbation and congestive heart failure Vital Signs Period Temp Pulse Resp BP Sys/Mahajan Pulse Ox Last 24 Hr 97.8 F-99.5 F 72-108 18-22 141-179/61-94 92-99 GENERAL: The patient is awake, alert, and fully oriented, in no acute distress. HEAD: Normal with no signs of trauma. EYES: PERRL, extraocular movements intact, sclera anicteric, conjunctiva clear. No ptosis. ENT: Ears normal, nares patent, oropharynx clear without exudates, moist mucous membranes. NECK: Trachea midline, full range of motion, supple. LUNGS: Breath sounds equal, clear to auscultation bilaterally to apexes, diminished to bases, no wheezes, no accessory muscle use. HEART: Regular rate and rhythm, S1, S2 without murmur, rub or gallop. ABDOMEN: Soft, nontender, nondistended, normoactive bowel sounds, no guarding, no rebound, no hepatosplenomegaly, no masses. EXTREMITIES: 2+ pulses, warm, well-perfused, pretibial + 1 pitting edema (much improved) NEUROLOGICAL: Cranial nerves II through XII grossly intact. Normal speech, gait not observed. PSYCH: Normal mood, normal affect. SKIN: Warm, dry, normal turgor, no rashes or lesions noted Laboratory Results - last 24 hr CBC WBC 8.2 K/mm3 (4.0-10.8) 12/05/17 08:00 RBC 4.92 M/mm3 (4.00-5.60) 12/05/17 08:00 Hgb 14.9 GM/dl (11.7-16.9) 12/05/17 08:00 Hct 43.8 % (35.4-49) 12/05/17 08:00 MCV 89.1 fl (80-96) 12/05/17 08:00 MCH 30.2 pg (25.7-33.7) 12/05/17 08:00 MCHC 33.9 g/dl (32.0-35.9) 12/05/17 08:00 RDW 14.2 % (11.9-15.9) 12/05/17 08:00 Plt Count 194 K/MM3 (134-434) 12/05/17 08:00 MPV 8.3 fl (7.5-11.1) 12/05/17 08:00 Absolute Neuts (auto) 7.2 # 12/04/17 13:30 Neutrophils % 83.6 % (42.8-82.8) H 12/04/17 13:30 Lymphocytes % 10.0 % (8-40) D 12/04/17 13:30 Monocytes % 4.1 % (3.8-10.2) 12/04/17 13:30 Eosinophils % 2.0 % (0-4.5) 12/04/17 13:30 Basophils % 0.3 % (0-2.0) 12/04/17 13:30 CMP Sodium 138 mmol/L (136-145) 12/05/17 08:00 Potassium 4.2 mmol/L (3.5-5.1) 12/05/17 08:00 Chloride 103 mmol/L (98-107) 12/05/17 08:00 Carbon Dioxide 28 mmol/L (22-28) 12/05/17 08:00 Anion Gap 7 (8-16) L 12/05/17 08:00 BUN 29 mg/dl (7-18) H 12/05/17 08:00 Creatinine 1.7 mg/dl (0.6-1.3) H 12/05/17 08:00 Creat Clearance w eGFR 38.68 (>60) 12/05/17 08:00 Random Glucose 171 mg/dl (74-106) H D 12/05/17 08:00 Lactic Acid 1.1 mmol/L (0.0-2.0) 12/04/17 13:30 Calcium 8.6 mg/dl (8.4-10.2) 12/05/17 08:00 Total Bilirubin 0.8 mg/dl (0.2-1.0) 12/05/17 08:00 AST 23 U/L (10-42) D 12/05/17 08:00 ALT 10 U/L (10-40) D 12/05/17 08:00 Alkaline Phosphatase 60 U/L (32-92) 12/05/17 08:00 Troponin I 0.03 ng/ml (0.00-0.06) 12/04/17 13:30 B-Natriuretic Peptide 754.06 pg/ml (5-450) H 12/04/17 13:30 Total Protein 7.4 g/dl (6.4-8.3) 12/05/17 08:00 Albumin 3.7 g/dl (3.5-5.0) 12/05/17 08:00 Active Medications Generic Name Dose Route Start Last Admin Trade Name Freq PRN Reason Stop Dose Admin Albuterol/Ipratropium 1 amp 12/04/17 18:14 Duoneb - NEB Q4H PRN SHORTNESS OF BREATH Finasteride 5 mg 12/04/17 22:00 12/04/17 21:10 Proscar - PO 5 mg HS RYAN Administration Furosemide 20 mg 12/05/17 06:06 12/05/17 06:33 Lasix Injection - IVPUSH 20 mg BID@0600,1400 RYAN Administration Hydroxychloroquine Sulfate 200 mg 12/05/17 10:00 Plaquenil - PO DAILY RYAN Methimazole 5 mg 12/05/17 10:00 Tapazole - PO DAILY RYAN Methylprednisolone Sodium Succinate 40 mg 12/04/17 22:40 12/05/17 03:08 Solu-Medrol - IVPUSH 40 mg Q6H-IV RYAN Administration Metoprolol Succinate 25 mg 12/05/17 10:00 Toprol Xl - PO DAILY RYAN Paroxetine HCl 40 mg 12/05/17 10:00 Paxil - PO DAILY RYAN Tamsulosin HCl 0.4 mg 12/04/17 22:00 12/04/17 21:10 Flomax - PO 0.4 mg HS RYAN Administration IMAGING chest x-ray; no acute pathology Dopplers of lower extremity: No evidence of DVT bilaterally ASSESSMENT/PLAN: 1) pulm Acute COPD Exacerbation - continue Solu-Medrol 60 mg qid with taper as appropriate. - continue standing Combivent nebulizers and Symbicort - Peak flow continuous SpO2 monitoring keep SpO2 above 92% with supplemental O2 as needed - Appreciate pulmonary input 2) cardiovascular acute diastolic congestive heart failure - continue lasix 20 mg IV twice a day strict intake and output and daily weight - pending echo - Lower extremity edema improved as per patient - cardiology consulted and following Hypertension - blood pressure at goal continue toprol 3) endo Hyperthyroidism - Continue home med NIDDM - fingerstick before meals and at bedtime with regular insulin sliding scale coverage - hemoglobin A1c ordered 4) nephrology CKD - Cr 1.4, slightly above baseline - Monitor renal function 5) MS RA - Continue home med FEN - PO fluids as tolerated - Replete lytes prn - Low Na Diet DVT ppx - OOB - SCDs - heparin sq Code Status: Full Code Dispo: Tele Observation
[2017-12-05 08:30] LABS: ALBUMIN 3.7 g/dl (3.5-5.0); ALK PHOS 60 U/L (32-92); ANION GAP 7 (8-16); BILIRUBIN,TOTAL 0.8 mg/dl (0.2-1.0); BLOOD UREA NITROGEN 29 mg/dl (7-18); CALCIUM 8.6 mg/dl (8.4-10.2); CHLORIDE 103 mmol/L (98-107); CO2 28 mmol/L (22-28); CREATININE 1.7 mg/dl (0.6-1.3); GLUCOSE,RANDOM 171 mg/dl (74-106); HEMATOCRIT 43.8 % (35.4-49); HEMOGLOBIN 14.9 GM/dl (11.7-16.9); MCH 30.2 pg (25.7-33.7); MCHC 33.9 g/dl (32.0-35.9); MEAN CELL VOLUME 89.1 fl (80-96); MEAN PLT VOLUME 8.3 fl (7.5-11.1); PLATELET COUNT 194 K/MM3 (134-434); POTASSIUM 4.2 mmol/L (3.5-5.1); RBC 4.92 M/mm3 (4.00-5.60); RDW 14.2 % (11.9-15.9); SGOT/AST 23 U/L (10-42); SGPT/ALT 10 U/L (10-40); SODIUM 138 mmol/L (136-145); TOT PROT 7.4 g/dl (6.4-8.3); WHITE BLOOD COUNT 8.2 K/mm3 (4.0-10.8)
[2017-12-05] MEDS ORDERED: TAMSULOSIN HCL 0.4 MG CAP.ER.24H (FP) PO SCH (08:30)
--- NOTE | 2017-12-05 09:16 | CON.CARD ---
Consult Consult Specialty:: Cardiology Referred by:: Suzan Reason for Consultation:: shortness of breath, edema - History of Present Illness Chief Complaint: edema, short of breath History of Present Illness: 82M h/o HTN, RA, COPD, CKD, ILD, Hyperthyroidism, NIDDM, Chronic Inflammatory Demyelinating Neuropathy p/w dyspnea and edema. Has had edema for several years which is worse when sitting all day (does not walk) and gets better when lying down but last Monday had an increase in edema. Went to PCP, noted to also have dyspnea at the time and was referred to ER. Denies chest pain, palpitations, orthopnea, PND. 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 Cardio/Vascular: Yes: HTN, Hyperlipdemia Pulmonary: Yes: COPD, Other (interstitial lung disease) Renal/: Yes: Renal Inusuff, BPH Rheumatology: Yes: Rheumatoid Arthritis Endocrine: Yes: Diabetes Mellitus, Hyperthyroidism - Alcohol/Substance Use Hx Alcohol Use: No Number of Drinks Daily: 0 History of Substance Use: reports: None - Smoking History Smoking history: Former smoker Have you smoked in the past 12 months: No Aproximately how many cigarettes per day: 20 If you are a former smoker, when did you quit?: 25 YRS - Social History ADL: Independent Occupation: Retired History of Recent Travel: No Home Medications - Allergies Allergies/Adverse Reactions: Allergies Allergy/AdvReac Type Severity Reaction Status Date / Time No Known Allergies Allergy Verified 12/04/17 15:31 - Home Medications Home Medications: Ambulatory Orders Tamsulosin HCl [Flomax] 0.4 mg PO HS 04/23/16 metFORMIN HCL [Metformin HCl] 500 mg PO BID 04/23/16 Hydroxychloroquine So4 [Plaquenil -] 200 mg PO DAILY #30 tablet 06/27/16 Metoprolol Succinate [Toprol XL -] 25 mg PO DAILY 12/04/17 Family Disease History - Family Disease History Family Disease History: CA: Father, Mother Review of Systems - Review of Systems Constitutional: reports: No Symptoms Eyes: reports: No Symptoms HENT: reports: No Symptoms Neck: reports: No Symptoms Cardiovascular: reports: Edema Respiratory: reports: No Symptoms Gastrointestinal: reports: No Symptoms Musculoskeletal: reports: No Symptoms Neurological: reports: No Symptoms Endocrine: reports: No Symptoms Psychiatric: reports: No Symptoms Vital Signs: Vital Signs Temperature 97.9 F 12/05/17 06:00 Pulse Rate 108 H 12/05/17 06:00 Respiratory Rate 183 H 12/05/17 08:23 Blood Pressure 148/61 12/05/17 06:00 O2 Sat by Pulse Oximetry (%) 96 12/05/17 08:23 Constitutional: Yes: Well Nourished, No Distress Eyes: Yes: Conjunctiva Clear, EOM Intact HENT: Yes: Atraumatic, Normocephalic Neck: Yes: Supple Respiratory: Yes: CTA Bilaterally Gastrointestinal: Yes: Normal Bowel Sounds, Soft Cardiovascular: Yes: Regular Rate and Rhythm JVD: No Carotid Bruit: No Edema: Yes Edema: LUE: 1+, RUE: 1+ - Other Data Labs, Other Data: CBC, BMP 12/05/17 08:00 12/05/17 08:00 INR, PTT INR 1.07 (0.82-1.09) 12/04/17 13:30 Troponin, BNP 12/04/17 12/04/17 13:30 13:30 Troponin I 0.03 B-Natriuretic Peptide 754.06 H Troponin, BNP 12/04/17 12/04/17 13:30 13:30 Troponin I 0.03 B-Natriuretic Peptide 754.06 H Echo: Image Reviewed (sinus, 92 bpm, no ischemic changes) Assessment/Plan 82M h/o HTN, RA, COPD, CKD, NIDDM, Chronic Inflammatory Demyelinating Neuropathy p/w dyspnea and edema Edema, dyspnea - likely has baseline venous insufficiency with chronic edema, however with acute increase for 1 week as well as dyspnea concerning for CHF - echocardiogram ordered - continue lasix 20 mg IV BID HTN - continue home metoprolol CKD - Cr 1.6, monitor COPD - continue tx for possible COPD exac per primary team
[2017-12-05] MEDS: HYDROXYCHLOROQUINE SO4 200 MG TABLET (FP) PO SCH (10:23)
[2017-12-05] MEDS: PARoxetine HCL 20 MG TABLET (FP) PO SCH (10:23)
[2017-12-05] MEDS: METHIMAZOLE 5 MG TABLET (FP) PO SCH (10:23)
[2017-12-05] MEDS: metoPROLOL SUCCINATE 25 MG TAB.SR.24H (FP) PO SCH (10:23)
[2017-12-05] MEDS ORDERED: ALBUTEROL SO4 0.083% IH SOL 2.5 MG/3 ML VIAL.NEB. NEB PRN (12:26)
[2017-12-05] MEDS: HEPARIN NA (PORCINE) 5,000 UNITS/ML 1ML VIAL SQ SCH ×2 (13:00→21:40)
[2017-12-05] MEDS: BUDESONIDE/FORMETEROL FUMARATE 80/4.5 mcg INHALER IH SCH ×2 (13:00→21:40)
[2017-12-05] MEDS: ALBUTEROL SO4 2.5/IPRATROPIUM 0.5 INH SOL 3 ML VIAL.NEB. NEB SCH ×2 (13:00→19:58)
--- NOTE | 2017-12-05 13:21 | CON.PULM ---
Consult Consult Specialty:: PULMONARY Referred by:: GRANT Reason for Consultation:: SOB/HYPOXEMIA - History of Present Illness Chief Complaint: SOB History of Present Illness: 79 yo M with Pmhx of GERD, COPD, HTN, RA,Intersistial lung dz, DM, confined to wheelchair due to a chronic inflammatory demyelinating neuropathy. The patient was sent to ER due to dyspnea and found to be hypoxemic with worsening bilateral lower extremity edema. 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 History of Recent Travel: No Home Medications - Allergies Allergies/Adverse Reactions: Allergies Allergy/AdvReac Type Severity Reaction Status Date / Time No Known Allergies Allergy Verified 12/04/17 15:31 - Home Medications Home Medications: Ambulatory Orders Tamsulosin HCl [Flomax] 0.4 mg PO HS 04/23/16 metFORMIN HCL [Metformin HCl] 500 mg PO BID 04/23/16 Hydroxychloroquine So4 [Plaquenil -] 200 mg PO DAILY #30 tablet 06/27/16 Metoprolol Succinate [Toprol XL -] 25 mg PO DAILY 12/04/17 Family Disease History - Family Disease History Family Disease History: CA: Father, Mother Review of Systems - Review of Systems Constitutional: denies: Fever Eyes: denies: Blurred Vision HENT: denies: Difficult Swallowing Neck: denies: Decreased ROM Cardiovascular: reports: Shortness of Breath. denies: Chest Pain Respiratory: reports: Cough, Exercise Intolerance, SOB, SOB on Exertion, Wheezing. denies: Hemoptysis Gastrointestinal: reports: Abdominal Pain Genitourinary: reports: No Symptoms Breasts: reports: No Symptoms Reported Musculoskeletal: reports: No Symptoms Integumentary: reports: No Symptoms Neurological: reports: No Symptoms Endocrine: reports: No Symptoms Hematology/Lymphatic: reports: No Symptoms Psychiatric: reports: No Symptoms Physical Exam Vital Sings: Vital Signs Temperature 99.1 F 12/05/17 10:00 Pulse Rate 113 H 12/05/17 10:00 Respiratory Rate 19 12/05/17 10:00 Blood Pressure 122/72 12/05/17 10:00 O2 Sat by Pulse Oximetry (%) 91 L 12/05/17 10:00 Constitutional: Yes: Calm Eyes: Yes: EOM Intact HENT: Yes: Normocephalic Neck: Yes: Trachea Midline Cardiovascular: Yes: Regular Rate and Rhythm, S1, S2 Respiratory: Yes: Diminished Gastrointestinal: Yes: Soft, Abdomen, Obese Edema: LLE: 2+, RLE: 2+ Neurological: Yes: Alert Psychiatric: Yes: Alert Labs: CBC, BMP 12/05/17 08:00 12/05/17 08:00 rest reviewed Imaging - Results Chest X-ray: Report Reviewed, Image Reviewed Problem List - Problems (1) CHF exacerbation Code(s): I50.9 - HEART FAILURE, UNSPECIFIED (2) COPD exacerbation Code(s): J44.1 - CHRONIC OBSTRUCTIVE PULMONARY DISEASE W (ACUTE) EXACERBATION (3) Renal insufficiency Code(s): N28.9 - DISORDER OF KIDNEY AND URETER, UNSPECIFIED (4) BPH (benign prostatic hypertrophy) Code(s): N40.0 - BENIGN PROSTATIC HYPERPLASIA WITHOUT LOWER URINRY TRACT SYMP (5) Chronic kidney disease Code(s): N18.9 - CHRONIC KIDNEY DISEASE, UNSPECIFIED (6) Diabetes Code(s): E11.9 - TYPE 2 DIABETES MELLITUS WITHOUT COMPLICATIONS Qualifiers: Diabetes mellitus type: type 2 Diabetes mellitus fruit tester insulin use: without fruit tester use Diabetes mellitus complication status: with neurologic complications Diabetes mellitus complication detail: with unspecified neuropathy Qualified Code(s): E11.40 - Type 2 diabetes mellitus with diabetic neuropathy, unspecified (7) Diastolic CHF Code(s): I50.30 - UNSPECIFIED DIASTOLIC (CONGESTIVE) HEART FAILURE (8) HTN (hypertension) Code(s): I10 - ESSENTIAL (PRIMARY) HYPERTENSION (9) Hyperlipidemia Code(s): E78.5 - HYPERLIPIDEMIA, UNSPECIFIED (10) Interstitial lung disease Code(s): J84.9 - INTERSTITIAL PULMONARY DISEASE, UNSPECIFIED (11) Obesity Code(s): E66.9 - OBESITY, UNSPECIFIED Assessment/Plan O2 SUPPLEMENTATION DIURETIC TRIAL DAILY WEIGHTS BRONCHODILATORS BRIEF TRIAL OF STEROIDS GLYCEMIC CONTROL LIKELY DIASTOLIC DYSFUNCTION ON ECHO WILL ROBBIN DEL TORO MD
--- NOTE | 2017-12-05 13:57 | EKG ---
Test Reason : Blood Pressure : / mmHG Vent. Rate : 092 BPM Atrial Rate : 092 BPM P-R Int : 188 ms QRS Dur : 098 ms QT Int : 388 ms P-R-T Axes : 039 -46 048 degrees QTc Int : 479 ms NORMAL SINUS RHYTHM LEFT ANTERIOR FASCICULAR BLOCK MODERATE VOLTAGE CRITERIA FOR LVH, MAY BE NORMAL VARIANT ABNORMAL ECG WHEN COMPARED WITH ECG OF 21-JUN-2016 23:35, NO SIGNIFICANT CHANGE WAS FOUND Confirmed by Alexis Montenegro MD ([id number]) on 12/05/2017 1:56:38 PM Referred By: MARLI MULLER Confirmed By:Alexis Montenegro MD
--- NOTE | 2017-12-05 15:15 | ECHO ---
Name: NADIA ALVARADO Study Date: 12/05/2017 01:07 PM Age: 82 yrs Reason For Study: SOB/EDEMA Height: 70 in Weight: 229 lb BSA IVSd 2.0cm Ao root diam2.8cm LVIDd 4.5cm LA dimension 4.0cm LVIDs 3.8cm LVPWd 1.8cm EDV(Arnie) 92.2ml ESV(Arnie) 63.1ml MV E max sofía 111.6cm/sec MR max sofía 335.0 cm/sec MR max PG 44.9 mmHg
[2017-12-05] MEDS ORDERED: INSULIN (NOVOLOG) ASPART 100 UNITS/ML 10ML VIAL ONE (17:18)
[2017-12-05] MEDS: INSULIN SLIDING SCALE (NOVOLOG) 1 VIAL SQ SCH ×2 (19:57→22:31)
[2017-12-05] MEDS: TAMSULOSIN HCL 0.4 MG CAP.ER.24H (FP) PO SCH (21:40)
[2017-12-05] MEDS: FINASTERIDE 5 MG TABLET (FP) PO SCH (21:40)
[2017-12-05] MEDS ORDERED: PT OWN MED DRAWER 7, Y5N ONE (22:42)
[2017-12-06] MEDS: methylPREDNISolone NA SUCC 40 MG/1 ML VIAL IVPUSH SCH ×2 (02:28→21:25)
[2017-12-06] MEDS: FUROSEMIDE 40 MG/4 ML INJECTABLE VIAL IVPUSH SCH (06:06)
[2017-12-06] MEDS: ALBUTEROL SO4 2.5/IPRATROPIUM 0.5 INH SOL 3 ML VIAL.NEB. NEB SCH ×5 (06:06→23:56)
[2017-12-06] MEDS ORDERED: INSULIN (NOVOLOG) ASPART 100 UNITS/ML 10ML VIAL ONE ×2 (06:27→17:19)
[2017-12-06] MEDS: INSULIN SLIDING SCALE (NOVOLOG) 1 VIAL SQ SCH ×4 (06:43→21:32)
--- NOTE | 2017-12-06 08:15 | PN ---
Physical Exam: SUBJECTIVE: Patient seen and examined, patient sitting a wheelchair reports feeling much improved denies any chest pain reports an improvement of lower extremity edema fourth feeling less dyspneic and speaking in full sentences. Patient's Son (Maximus Walters, [facility]) at bedside OBJECTIVE:patient is a 82 y/o man with a PMHx of: HTN, RA (08), COPD, CKD, ILD, Hyperthyroidism, NIDDM, and Chronic Inflammatory Demyelinating Neuropathy. she was admitted from the emergency department for COPD exacerbation and congestive heart failure Vital Signs Period Temp Pulse Resp BP Sys/Mahajan Pulse Ox Last 24 Hr 97.9 F-99.1 F 72-113 18-183 122-177/69-88 91-96 GENERAL: The patient is awake, alert, and fully oriented, in no acute distress. HEAD: Normal with no signs of trauma. EYES: PERRL, extraocular movements intact, sclera anicteric, conjunctiva clear. No ptosis. ENT: Ears normal, nares patent, oropharynx clear without exudates, moist mucous membranes. NECK: Trachea midline, full range of motion, supple. LUNGS: Breath sounds equal, clear to auscultation bilaterally to apexes, diminished to bases, no wheezes, no accessory muscle use. HEART: Regular rate and rhythm, S1, S2 without murmur, rub or gallop. ABDOMEN: Soft, nontender, nondistended, normoactive bowel sounds, no guarding, no rebound, no hepatosplenomegaly, no masses. EXTREMITIES: 2+ pulses, warm, well-perfused, pretibial + 1 pitting edema (much improved) NEUROLOGICAL: Cranial nerves II through XII grossly intact. Normal speech, gait not observed. PSYCH: Normal mood, normal affect. SKIN: Warm, dry, normal turgor, no rashes or lesions noted Laboratory Results - last 24 hr 12/05/17 12/05/17 12/05/17 08:00 08:00 17:14 WBC 8.2 RBC 4.92 Hgb 14.9 Hct 43.8 MCV 89.1 MCH 30.2 MCHC 33.9 RDW 14.2 Plt Count 194 MPV 8.3 Sodium 138 Potassium 4.2 Chloride 103 Carbon Dioxide 28 Anion Gap 7 L BUN 29 H Creatinine 1.7 H Creat Clearance w eGFR 38.68 POC Glucometer 205 Random Glucose 171 H D Calcium 8.6 Total Bilirubin 0.8 AST 23 D ALT 10 D Alkaline Phosphatase 60 Total Protein 7.4 Albumin 3.7 12/05/17 12/06/17 22:28 06:18 WBC RBC Hgb Hct MCV MCH MCHC RDW Plt Count MPV Sodium Potassium Chloride Carbon Dioxide Anion Gap BUN Creatinine Creat Clearance w eGFR POC Glucometer 169 206 Random Glucose Calcium Total Bilirubin AST ALT Alkaline Phosphatase Total Protein Albumin Active Medications Generic Name Dose Route Start Last Admin Trade Name Freq PRN Reason Stop Dose Admin Albuterol Sulfate 1 amp 12/05/17 12:26 Ventolin 0.083% Nebulizer Soln - NEB Q4H PRN SHORT OF BREATH/WHEEZING Albuterol/Ipratropium 1 amp 12/05/17 12:30 12/06/17 06:06 Duoneb - NEB 1 amp QIDR RYAN Administration Budesonide/Formoterol Fumarate 2 puff 12/05/17 13:00 12/05/17 21:40 Symbicort 80/4.5mcg - IH 2 puff BID RYAN Administration Finasteride 5 mg 12/04/17 22:00 12/05/17 21:40 Proscar - PO 5 mg HS RYAN Administration Furosemide 20 mg 12/05/17 06:06 12/06/17 06:06 Lasix Injection - IVPUSH 20 mg BID@0600,1400 RYAN Administration Heparin Sodium (Porcine) 5,000 unit 12/05/17 12:45 12/05/17 21:40 Heparin - SQ 5,000 unit BID RYAN Administration Hydroxychloroquine Sulfate 200 mg 12/05/17 10:00 12/05/17 10:23 Plaquenil - PO 200 mg DAILY RYAN Administration Insulin Aspart 1 vial 12/05/17 16:30 12/06/17 06:43 Novolog Vial Sliding Scale - SQ 4 units ACHS RYNA Administration Protocol Methimazole 5 mg 12/05/17 10:00 12/05/17 10:23 Tapazole - PO 5 mg DAILY RYAN Administration Methylprednisolone Sodium Succinate 40 mg 12/04/17 22:40 12/06/17 02:28 Solu-Medrol - IVPUSH 40 mg Q6H-IV RYAN Administration Metoprolol Succinate 25 mg 12/05/17 10:00 12/05/17 10:23 Toprol Xl - PO 25 mg DAILY RYAN Administration Paroxetine HCl 40 mg 12/05/17 10:00 12/05/17 10:23 Paxil - PO 40 mg DAILY RYAN Administration Tamsulosin HCl 0.4 mg 12/04/17 22:00 12/05/17 21:40 Flomax - PO 0.4 mg HS RYAN Administration Microbiology 12/04/17 14:30 Urine - Urine Clean Catch Urine Culture - Final NO GROWTH OBTAINED 12/04/17 13:51 Blood - Peripheral Venous Blood Culture - Preliminary NO GROWTH OBTAINED AFTER 24 HOURS, INCUBATION TO CONTINUE FOR 4 DAYS. 12/04/17 13:30 Blood - Peripheral Venous Blood Culture - Preliminary NO GROWTH OBTAINED AFTER 24 HOURS, INCUBATION TO CONTINUE FOR 4 DAYS. IMAGING chest x-ray; no acute pathology Dopplers of lower extremity: No evidence of DVT bilaterally ASSESSMENT/PLAN: 1) pulm Acute COPD Exacerbation - improved, decrease Solu-Medrol 60 mg tid with taper as appropriate. - continue standing Combivent nebulizers and Symbicort - Peak flow continuous SpO2 monitoring keep SpO2 above 92% with supplemental O2 as needed - Appreciate pulmonary input 2) cardiovascular acute diastolic congestive heart failure - transition to lasix 40mg bid po, strict intake and output and daily weight - echo moderate LVH, EF 55% - cardiology consulted and following Hypertension - blood pressure at goal continue toprol 3) endo Hyperthyroidism - Continue home med NIDDM - fingerstick before meals and at bedtime with regular insulin sliding scale coverage - hemoglobin A1c ordered 4) nephrology CKD - Cr 1.6, slightly above baseline, secondary to steroid and diuretic - Monitor renal function 5) MS RA - Continue home med FEN - PO fluids as tolerated - Replete lytes prn - Low Na Diet DVT ppx - OOB - SCDs - heparin sq discussed plan with son, Maximus, healthcare proxy, copy of healthcare proxy in the chart, all questions answered son verbalized understanding Code Status: Full Code Dispo: Tele admission
[2017-12-06 09:07] LABS: ANION GAP 12 (8-16); BLOOD UREA NITROGEN 44 mg/dl (7-18); CALCIUM 8.4 mg/dl (8.4-10.2); CHLORIDE 101 mmol/L (98-107); CO2 25 mmol/L (22-28); CREATININE 1.8 mg/dl (0.6-1.3); GLUCOSE,RANDOM 222 mg/dl (74-106); PHOSPHOROUS 3.8 mg/dl (2.5-4.6); POTASSIUM 4.5 mmol/L (3.5-5.1); SODIUM 138 mmol/L (136-145)
--- NOTE | 2017-12-06 09:07 | PN ---
Progress Note (short form) - Note Progress Note: s: feels well today. no cp, dyspnea. edema is at baseline Vital Signs: Vital Signs Period Temp Pulse Resp BP Sys/Mahajan Pulse Ox Last 24 Hr 97.9 F-99.1 F 72-113 18-20 122-177/69-88 91-97 Constitutional: Yes: Well Nourished, No Distress Eyes: Yes: Conjunctiva Clear, EOM Intact HENT: Yes: Atraumatic, Normocephalic Neck: Yes: Supple Respiratory: Yes: CTA Bilaterally Gastrointestinal: Yes: Normal Bowel Sounds, Soft Cardiovascular: Yes: Regular Rate and Rhythm JVD: No Carotid Bruit: No Edema: Yes Edema: LUE: 1+, RUE: 1+ EKG Image Reviewed (sinus, 92 bpm, no ischemic changes) echocardiogram 11/2017 EF 55%, nl RV, mod conc LVH, trace MR, impaired relaxation Assessment/Plan 82M h/o HTN, RA, COPD, CKD, NIDDM, Chronic Inflammatory Demyelinating Neuropathy p/w dyspnea and edema Edema, dyspnea - likely has baseline venous insufficiency with chronic edema, however with acute increase for 1 week as well as dyspnea concerning for CHF - echo shows mod LVH, nl LV function, impaired relaxation suggesting mild diastolic dysfunction - now edema is at baseline, no dyspnea - discussed low salt diet - would transition to PO lasix 40 mg BID HTN - continue home metoprolol CKD - Cr 1.6, monitor, pending Cr today COPD - continue tx for possible COPD exac per primary team, on steroid taper
[2017-12-06 09:49] LABS: HEMATOCRIT 42.2 % (35.4-49); HEMOGLOBIN 13.8 GM/dl (11.7-16.9); MCH 28.9 pg (25.7-33.7); MCHC 32.8 g/dl (32.0-35.9); MEAN CELL VOLUME 88.2 fl (80-96); MEAN PLT VOLUME 8.8 fl (7.5-11.1); PLATELET COUNT 199 K/MM3 (134-434); RBC 4.79 M/mm3 (4.00-5.60); RDW 14.3 % (11.9-15.9); WHITE BLOOD COUNT 12.3 K/mm3 (4.0-10.8)
[2017-12-06 09:51] LABS: ADD RBC MORPHOLOGY NO
[2017-12-06] MEDS ORDERED: PT OWN MED DRAWER 7, Y5N ONE (09:53)
[2017-12-06] MEDS: PARoxetine HCL 20 MG TABLET (FP) PO SCH (10:05)
[2017-12-06] MEDS: HEPARIN NA (PORCINE) 5,000 UNITS/ML 1ML VIAL SQ SCH ×2 (10:05→21:25)
[2017-12-06] MEDS: HYDROXYCHLOROQUINE SO4 200 MG TABLET (FP) PO SCH (10:05)
[2017-12-06] MEDS: metoPROLOL SUCCINATE 25 MG TAB.SR.24H (FP) PO SCH (10:06)
[2017-12-06] MEDS: BUDESONIDE/FORMETEROL FUMARATE 80/4.5 mcg INHALER IH SCH ×2 (10:06→21:33)
[2017-12-06] MEDS: METHIMAZOLE 5 MG TABLET (FP) PO SCH (10:06)
[2017-12-06 11:15] LABS: PLATELET ESTIMATE ADEQUATE
[2017-12-06] MEDS ORDERED: methylPREDNISolone NA SUCC 40 MG/1 ML VIAL IVPUSH SCH (14:00)
[2017-12-06] MEDS: FUROSEMIDE 40 MG TABLET (FP) PO SCH (14:00)
--- NOTE | 2017-12-06 17:59 | PN ---
Progress Note (short form) - Note Progress Note: PULMONARY VSS/AFEBRILE ANICTERIC RIGHT BASE CRACKLES S1S2 BS+ SOFT OBESE NO EDEMA LABS/MEDS/NOTES/IMAGING/CONSULTS REVIEWED - Problems (1) CHF exacerbation Code(s): I50.9 - HEART FAILURE, UNSPECIFIED (2) COPD exacerbation Code(s): J44.1 - CHRONIC OBSTRUCTIVE PULMONARY DISEASE W (ACUTE) EXACERBATION (3) Renal insufficiency Code(s): N28.9 - DISORDER OF KIDNEY AND URETER, UNSPECIFIED (4) BPH (benign prostatic hypertrophy) Code(s): N40.0 - BENIGN PROSTATIC HYPERPLASIA WITHOUT LOWER URINRY TRACT SYMP (5) Chronic kidney disease Code(s): N18.9 - CHRONIC KIDNEY DISEASE, UNSPECIFIED (6) Diabetes Code(s): E11.9 - TYPE 2 DIABETES MELLITUS WITHOUT COMPLICATIONS Qualifiers: Diabetes mellitus type: type 2 Diabetes mellitus terminal operator insulin use: without terminal operator use Diabetes mellitus complication status: with neurologic complications Diabetes mellitus complication detail: with unspecified neuropathy Qualified Code(s): E11.40 - Type 2 diabetes mellitus with diabetic neuropathy, unspecified (7) Diastolic CHF Code(s): I50.30 - UNSPECIFIED DIASTOLIC (CONGESTIVE) HEART FAILURE (8) HTN (hypertension) Code(s): I10 - ESSENTIAL (PRIMARY) HYPERTENSION (9) Hyperlipidemia Code(s): E78.5 - HYPERLIPIDEMIA, UNSPECIFIED (10) Interstitial lung disease Code(s): J84.9 - INTERSTITIAL PULMONARY DISEASE, UNSPECIFIED (11) Obesity Code(s): E66.9 - OBESITY, UNSPECIFIED Assessment/Plan O2 SUPPLEMENTATION/CHECK SPO2 PRE/POST AMB TO DETERMINE NEED FOR HOME O2 DIURETICS DAILY WEIGHTS BRONCHODILATORS TAPER STEROIDS GLYCEMIC CONTROL LIKELY DIASTOLIC DYSFUNCTION ON ECHO DVT PROPH R ALVERTO LEAHY Problem List - Problems (1) CHF exacerbation Code(s): I50.9 - HEART FAILURE, UNSPECIFIED (2) COPD exacerbation Code(s): J44.1 - CHRONIC OBSTRUCTIVE PULMONARY DISEASE W (ACUTE) EXACERBATION (3) Renal insufficiency Code(s): N28.9 - DISORDER OF KIDNEY AND URETER, UNSPECIFIED (4) BPH (benign prostatic hypertrophy) Code(s): N40.0 - BENIGN PROSTATIC HYPERPLASIA WITHOUT LOWER URINRY TRACT SYMP (5) Chronic kidney disease Code(s): N18.9 - CHRONIC KIDNEY DISEASE, UNSPECIFIED (6) Diabetes Code(s): E11.9 - TYPE 2 DIABETES MELLITUS WITHOUT COMPLICATIONS Qualifiers: Diabetes mellitus type: type 2 Diabetes mellitus terminal operator insulin use: without terminal operator use Diabetes mellitus complication status: with neurologic complications Diabetes mellitus complication detail: with unspecified neuropathy Qualified Code(s): E11.40 - Type 2 diabetes mellitus with diabetic neuropathy, unspecified (7) Diastolic CHF Code(s): I50.30 - UNSPECIFIED DIASTOLIC (CONGESTIVE) HEART FAILURE (8) HTN (hypertension) Code(s): I10 - ESSENTIAL (PRIMARY) HYPERTENSION (9) Hyperlipidemia Code(s): E78.5 - HYPERLIPIDEMIA, UNSPECIFIED (10) Interstitial lung disease Code(s): J84.9 - INTERSTITIAL PULMONARY DISEASE, UNSPECIFIED (11) Obesity Code(s): E66.9 - OBESITY, UNSPECIFIED
[2017-12-06] MEDS: FINASTERIDE 5 MG TABLET (FP) PO SCH (21:24)
[2017-12-06] MEDS: TAMSULOSIN HCL 0.4 MG CAP.ER.24H (FP) PO SCH (21:24)
[2017-12-07] MEDS: ALBUTEROL SO4 2.5/IPRATROPIUM 0.5 INH SOL 3 ML VIAL.NEB. NEB SCH ×4 (05:27→23:42)
[2017-12-07] MEDS: methylPREDNISolone NA SUCC 40 MG/1 ML VIAL IVPUSH SCH ×3 (05:27→21:44)
[2017-12-07] MEDS: FUROSEMIDE 40 MG TABLET (FP) PO SCH ×2 (05:28→13:12)
[2017-12-07] MEDS: INSULIN SLIDING SCALE (NOVOLOG) 1 VIAL SQ SCH ×4 (06:21→21:43)
[2017-12-07 08:15] LABS: HEMATOCRIT 41.8 % (35.4-49); HEMOGLOBIN 13.8 GM/dl (11.7-16.9); LYMPH % 3.6 % (8-40); MCH 29.4 pg (25.7-33.7); MCHC 33.1 g/dl (32.0-35.9); MEAN PLT VOLUME 8.5 fl (7.5-11.1); MONO % 3.3 % (3.8-10.2); NEUT % 92.1 % (42.8-82.8); PLATELET COUNT 157 K/MM3 (134-434); RDW 14.1 % (11.9-15.9); WHITE BLOOD COUNT 11.4 K/mm3 (4.0-10.8)
[2017-12-07 08:28] LABS: ANION GAP 9 (8-16); BLOOD UREA NITROGEN 48 mg/dl (7-18); CALCIUM 8.1 mg/dl (8.4-10.2); CHLORIDE 102 mmol/L (98-107); CO2 27 mmol/L (22-28); CREATININE 1.8 mg/dl (0.6-1.3); GLUCOSE,RANDOM 220 mg/dl (74-106); MAGNESIUM 2.1 mg/dL (1.8-2.4); PHOSPHOROUS 3.8 mg/dl (2.5-4.6); POTASSIUM 4.1 mmol/L (3.5-5.1); SODIUM 138 mmol/L (136-145)
[2017-12-07] MEDS: HEPARIN NA (PORCINE) 5,000 UNITS/ML 1ML VIAL SQ SCH ×2 (10:34→21:44)
[2017-12-07] MEDS: PARoxetine HCL 20 MG TABLET (FP) PO SCH (10:34)
[2017-12-07] MEDS: metoPROLOL SUCCINATE 25 MG TAB.SR.24H (FP) PO SCH (10:34)
[2017-12-07] MEDS: HYDROXYCHLOROQUINE SO4 200 MG TABLET (FP) PO SCH (10:34)
[2017-12-07] MEDS: METHIMAZOLE 5 MG TABLET (FP) PO SCH (10:34)
[2017-12-07] MEDS: BUDESONIDE/FORMETEROL FUMARATE 80/4.5 mcg INHALER IH SCH ×2 (10:35→22:00)
[2017-12-07] MEDS ORDERED: PT OWN MED DRAWER 7, Y5N ONE (10:38)
[2017-12-07 12:20] VITALS: BMI 31.8
--- NOTE | 2017-12-07 13:33 | DS ---
Physical Exam: SUBJECTIVE: Patient seen and examined, patient and wheelchair at bedside reports less cough denies any chest pain ready for discharge home OBJECTIVE:82 y/o man with a PMHx of: HTN, RA (08), COPD, CKD, ILD, Hyperthyroidism, NIDDM, Chronic Inflammatory Demyelinating Neuropathy. Who presents to the ED from his PCP's office for SOB and lower extremity swelling. Patient reports noting increased swelling to his lower extremities with tightness x several days worse today. Patient reports TRAVIS as well. Patient denies CP, palpitations at present. Patient reports not eating as well balanced as he should with he attributes to his swollen legs and feet. ER course was notable for: (1) CKD- BUN 25, Cr 1.6 Vital Signs Period Temp Pulse Resp BP Sys/Mahajan Pulse Ox Last 24 Hr 97.6 F-97.9 F 78-80 18-20 125-128/50-68 94-95 PHYSICAL EXAM GENERAL: The patient is awake, alert, and fully oriented, in no acute distress. HEAD: Normal with no signs of trauma. EYES: PERRL, extraocular movements intact, sclera anicteric, conjunctiva clear. No ptosis. ENT: Ears normal, nares patent, oropharynx clear without exudates, moist mucous membranes. NECK: Trachea midline, full range of motion, supple. LUNGS: Breath sounds equal, clear to auscultation bilaterally to apexes, diminished to bases, no wheezes, no accessory muscle use. HEART: Regular rate and rhythm, S1, S2 without murmur, rub or gallop. ABDOMEN: Soft, nontender, nondistended, normoactive bowel sounds, no guarding, no rebound, no hepatosplenomegaly, no masses. EXTREMITIES: 2+ pulses, warm, well-perfused, pretibial trace edema (much improved) NEUROLOGICAL: Cranial nerves II through XII grossly intact. Normal speech, gait not observed. PSYCH: Normal mood, normal affect. SKIN: Warm, dry, normal turgor, no rashes or lesions noted LABS Laboratory Results - last 24 hr 12/06/17 12/06/17 12/07/17 17:16 21:31 06:07 WBC RBC Hgb Hct MCV MCH MCHC RDW Plt Count MPV Absolute Neuts (auto) Neutrophils % Lymphocytes % Monocytes % Eosinophils % Basophils % Sodium Potassium Chloride Carbon Dioxide Anion Gap BUN Creatinine Creat Clearance w eGFR POC Glucometer 224 143 203 Random Glucose Calcium Phosphorus Magnesium 12/07/17 12/07/17 07:30 07:30 WBC 11.4 H RBC 4.70 Hgb 13.8 Hct 41.8 MCV 89.0 MCH 29.4 MCHC 33.1 RDW 14.1 Plt Count 157 D MPV 8.5 Absolute Neuts (auto) 10.5 Neutrophils % 92.1 H Lymphocytes % 3.6 L D Monocytes % 3.3 L Eosinophils % 0.0 D Basophils % 1.0 D Sodium 138 Potassium 4.1 Chloride 102 Carbon Dioxide 27 Anion Gap 9 BUN 48 H Creatinine 1.8 H Creat Clearance w eGFR 36.21 POC Glucometer Random Glucose 220 H Calcium 8.1 L Phosphorus 3.8 Magnesium 2.1 Microbiology 12/04/17 13:51 Blood - Peripheral Venous Blood Culture - Preliminary NO GROWTH OBTAINED AFTER 72 HOURS, INCUBATION TO CONTINUE FOR 2 DAYS. 12/04/17 13:30 Blood - Peripheral Venous Blood Culture - Preliminary NO GROWTH OBTAINED AFTER 72 HOURS, INCUBATION TO CONTINUE FOR 2 DAYS. 12/04/17 14:30 Urine - Urine Clean Catch Urine Culture - Final NO GROWTH OBTAINED HOSPITAL COURSE: 1) Acute COPD Exacerbation - improved, started on solu-Medrol and transitioned to prednisone - started standing Combivent nebulizers and Symbicort - continuous SpO2 monitoring keep SpO2 above 92% with supplemental O2 as needed - pulmonary consulted and followed - routine post oxygen notable for 74% after flat surface walking improves to 90 % after 2 L nasal cannula 2) cardiovascular acute diastolic congestive heart failure - patient diuresed with IV lasix thent transitioned to lasix 40mg bid po - echo moderate LVH, EF 55% - cardiology consulted and following Hypertension - blood pressure at goal continued toprol 3) endo Hyperthyroidism - Continue home med NIDDM - fingerstick before meals and at bedtime with regular insulin sliding scale coverage - hemoglobin A1c ordered 4) nephrology CKD - Cr 1.6, slightly above baseline, secondary to steroid and diuretic 5) MS RA - Continue home med PLAN: - Discharge home with [facility]NS and home O2 te of Admission:12/05/17 Date of Discharge: 12/07/17 Minutes to complete discharge: 45 Discharge Summary Reason For Visit: COPD Current Active Problems CHF exacerbation (Acute) COPD exacerbation (Acute) Renal insufficiency (Chronic) Condition: Stable - Instructions Diet, Activity, Other Instructions: resume low sodium, diabetic diet continue prednisone as prescribed Please take prednisone with food Continue Symbicort daily with albuterol nebulizers as needed continue to take Pepcid while taking prednisone Continue Lasix daily Please weigh yourself daily and keep a record of all of your weights please follow up with the baseball umpire for little league within 2 weeks Please follow-up with the primary care physician/switch engineer within 2 weeks if any new or persistent symptoms develop please return to emergency department Referrals: Ang Youssef MD [Staff Physician] - 2 Weeks Glendy Neal MD [Staff Physician] - 2 Weeks Disposition: VNS/HOME HEALTH CARE - Home Medications Comprehensive Discharge Medication List: Ambulatory Orders Tamsulosin HCl [Flomax] 0.4 mg PO HS 04/23/16 metFORMIN HCL [Metformin HCl] 500 mg PO BID 04/23/16 Hydroxychloroquine So4 [Plaquenil -] 200 mg PO DAILY #30 tablet 06/27/16 Metoprolol Succinate [Toprol XL -] 25 mg PO DAILY 12/04/17
--- NOTE | 2017-12-07 16:32 | PN ---
Progress Note, Physician History of Present Illness: pulmonary alert,oob-chair,-resp distress,+ashley. pt requires home o2 significant desaturation with ambulation - Current Medication List Current Medications: Active Medications Albuterol Sulfate (Ventolin 0.083% Nebulizer Soln -) 1 amp NEB Q4H PRN PRN Reason: SHORT OF BREATH/WHEEZING Albuterol/Ipratropium (Duoneb -) 1 amp NEB QIDR [facility] Last Admin: 12/07/17 13:11 Dose: 1 amp Budesonide/Formoterol Fumarate (Symbicort 80/4.5mcg -) 2 puff IH BID [facility] Last Admin: 12/07/17 10:35 Dose: 2 puff Famotidine (Pepcid -) 20 mg PO BID RYAN Finasteride (Proscar -) 5 mg PO HS [facility] Last Admin: 12/06/17 21:24 Dose: 5 mg Furosemide (Lasix -) 40 mg PO BID@0600,1400 [facility] Last Admin: 12/07/17 13:12 Dose: 40 mg Heparin Sodium (Porcine) (Heparin -) 5,000 unit SQ BID [facility] Last Admin: 12/07/17 10:34 Dose: 5,000 unit Hydroxychloroquine Sulfate (Plaquenil -) 200 mg PO DAILY [facility] Last Admin: 12/07/17 10:34 Dose: 200 mg Insulin Aspart (Novolog Vial Sliding Scale -) 1 vial SQ ACHS [facility]; Protocol Last Admin: 12/07/17 06:21 Dose: 4 units Methimazole (Tapazole -) 5 mg PO DAILY [facility] Last Admin: 12/07/17 10:34 Dose: 5 mg Methylprednisolone Sodium Succinate (Solu-Medrol -) 20 mg IVPUSH TID [facility] Last Admin: 12/07/17 13:11 Dose: 20 mg Metoprolol Succinate (Toprol Xl -) 25 mg PO DAILY [facility] Last Admin: 12/07/17 10:34 Dose: 25 mg Paroxetine HCl (Paxil -) 40 mg PO DAILY [facility] Last Admin: 12/07/17 10:34 Dose: 40 mg Tamsulosin HCl (Flomax -) 0.4 mg PO HS [facility] Last Admin: 12/06/17 21:24 Dose: 0.4 mg - Objective Vital Signs: Vital Signs Temperature 97.8 F 12/07/17 14:00 Pulse Rate 95 H 12/07/17 15:26 Respiratory Rate 18 12/07/17 14:00 Blood Pressure 120/52 12/07/17 14:00 O2 Sat by Pulse Oximetry (%) 90 L 12/07/17 15:26 Constitutional: Yes: Well Nourished, Calm Eyes: Yes: WNL HENT: Yes: WNL Neck: Yes: WNL Cardiovascular: Yes: Regular Rate and Rhythm, S1, S2 Respiratory: Yes: Rales (few bibasilar rales) Gastrointestinal: Yes: Normal Bowel Sounds, Soft Extremities: Yes: WNL Edema: No Labs: CBC, BMP 12/07/17 07:30 12/07/17 07:30 INR, PTT INR 1.07 (0.82-1.09) 12/04/17 13:30 Assessment/Plan - Problems (1) CHF exacerbation Code(s): I50.9 - HEART FAILURE, UNSPECIFIED (2) COPD exacerbation Code(s): J44.1 - CHRONIC OBSTRUCTIVE PULMONARY DISEASE W (ACUTE) EXACERBATION (3) Renal insufficiency Code(s): N28.9 - DISORDER OF KIDNEY AND URETER, UNSPECIFIED (4) BPH (benign prostatic hypertrophy) Code(s): N40.0 - BENIGN PROSTATIC HYPERPLASIA WITHOUT LOWER URINRY TRACT SYMP (5) Chronic kidney disease Code(s): N18.9 - CHRONIC KIDNEY DISEASE, UNSPECIFIED (6) Diabetes Code(s): E11.9 - TYPE 2 DIABETES MELLITUS WITHOUT COMPLICATIONS Qualifiers: Diabetes mellitus type: type 2 Diabetes mellitus fdc insulin use: without fdc use Diabetes mellitus complication status: with neurologic complications Diabetes mellitus complication detail: with unspecified neuropathy Qualified Code(s): E11.40 - Type 2 diabetes mellitus with diabetic neuropathy, unspecified (7) Diastolic CHF Code(s): I50.30 - UNSPECIFIED DIASTOLIC (CONGESTIVE) HEART FAILURE (8) HTN (hypertension) Code(s): I10 - ESSENTIAL (PRIMARY) HYPERTENSION (9) Hyperlipidemia Code(s): E78.5 - HYPERLIPIDEMIA, UNSPECIFIED (10) Interstitial lung disease Code(s): J84.9 - INTERSTITIAL PULMONARY DISEASE, UNSPECIFIED (11) Obesity Code(s): E66.9 - OBESITY, UNSPECIFIED Assessment/Plan HOME O2 DIURETICS DAILY WEIGHTS BRONCHODILATORS PREDNISONE GLYCEMIC CONTROL DVT PROPH DR ROSA Problem List - Problems (1) CHF exacerbation Code(s): I50.9 - HEART FAILURE, UNSPECIFIED (2) COPD exacerbation Code(s): J44.1 - CHRONIC OBSTRUCTIVE PULMONARY DISEASE W (ACUTE) EXACERBATION (3) Renal insufficiency Code(s): N28.9 - DISORDER OF KIDNEY AND URETER, UNSPECIFIED (4) BPH (benign prostatic hypertrophy) Code(s): N40.0 - BENIGN PROSTATIC HYPERPLASIA WITHOUT LOWER URINRY TRACT SYMP (5) Chronic kidney disease Code(s): N18.9 - CHRONIC KIDNEY DISEASE, UNSPECIFIED (6) Diabetes Code(s): E11.9 - TYPE 2 DIABETES MELLITUS WITHOUT COMPLICATIONS Qualifiers: Diabetes mellitus type: type 2 Diabetes mellitus fdc insulin use: without fdc use Diabetes mellitus complication status: with neurologic complications Diabetes mellitus complication detail: with unspecified neuropathy Qualified Code(s): E11.40 - Type 2 diabetes mellitus with diabetic neuropathy, unspecified (7) Diastolic CHF Code(s): I50.30 - UNSPECIFIED DIASTOLIC (CONGESTIVE) HEART FAILURE (8) HTN (hypertension) Code(s): I10 - ESSENTIAL (PRIMARY) HYPERTENSION (9) Hyperlipidemia Code(s): E78.5 - HYPERLIPIDEMIA, UNSPECIFIED (10) Interstitial lung disease Code(s): J84.9 - INTERSTITIAL PULMONARY DISEASE, UNSPECIFIED (11) Obesity Code(s): E66.9 - OBESITY, UNSPECIFIED
[2017-12-07] MEDS: FAMOTIDINE 20 MG TABLET PO SCH (21:44)
[2017-12-07] MEDS: TAMSULOSIN HCL 0.4 MG CAP.ER.24H (FP) PO SCH (21:44)
[2017-12-07] MEDS: FINASTERIDE 5 MG TABLET (FP) PO SCH (21:44)
[2017-12-07 22:57] VITALS: PULSE 79
[2017-12-08] MEDS: FUROSEMIDE 40 MG TABLET (FP) PO SCH (06:10)
[2017-12-08] MEDS: ALBUTEROL SO4 2.5/IPRATROPIUM 0.5 INH SOL 3 ML VIAL.NEB. NEB SCH (06:11)
[2017-12-08] MEDS: methylPREDNISolone NA SUCC 40 MG/1 ML VIAL IVPUSH SCH (06:11)
[2017-12-08 06:44] VITALS: BP 113/46; TEMP 97.6
[2017-12-08] MEDS: INSULIN SLIDING SCALE (NOVOLOG) 1 VIAL SQ SCH (06:45)
[2017-12-08] MEDS ORDERED: INSULIN (NOVOLOG) ASPART 100 UNITS/ML 10ML VIAL ONE (06:47)
[2017-12-08] MEDS: HYDROXYCHLOROQUINE SO4 200 MG TABLET (FP) PO SCH (10:01)
[2017-12-08] MEDS: metoPROLOL SUCCINATE 25 MG TAB.SR.24H (FP) PO SCH (10:01)
[2017-12-08] MEDS: METHIMAZOLE 5 MG TABLET (FP) PO SCH (10:01)
[2017-12-08] MEDS: PARoxetine HCL 20 MG TABLET (FP) PO SCH (10:01)
[2017-12-08] MEDS: BUDESONIDE/FORMETEROL FUMARATE 80/4.5 mcg INHALER IH SCH (10:02)
[2017-12-08] MEDS: FAMOTIDINE 20 MG TABLET PO SCH (10:02)
[2017-12-08] MEDS: HEPARIN NA (PORCINE) 5,000 UNITS/ML 1ML VIAL SQ SCH (10:02)
== END 2017-12-08 16:13 | disposition home health service (06) | DRG 291 ==
LOC: FER 11:49 → FM/S 16:25 → OBSVTOIN 12-05 11:18
PROVIDERS: ADMIT Internal Medicine; ATTEND Nurse Practitioner Family
DX: I13.0 Hypertensive heart and chronic kidney disease with heart failure and stage 1 through stage 4 chronic kidney disease, or unspecified chronic kidney disease (principal); I50.31 Acute diastolic (congestive) heart failure; J44.1 Chronic obstructive pulmonary disease with (acute) exacerbation; J84.9 Interstitial pulmonary disease, unspecified; E11.40 Type 2 diabetes mellitus with diabetic neuropathy, unspecified; K21.9 Gastro-esophageal reflux disease without esophagitis; M06.9 Rheumatoid arthritis, unspecified; E05.90 Thyrotoxicosis, unspecified without thyrotoxic crisis or storm; N40.0 Benign prostatic hyperplasia without lower urinary tract symptoms; E66.8 Other obesity; Z68.32 Body mass index [BMI] 32.0-32.9, adult; E78.5 Hyperlipidemia, unspecified; E11.22 Type 2 diabetes mellitus with diabetic chronic kidney disease; N18.9 Chronic kidney disease, unspecified; Z99.3 Dependence on wheelchair; Z87.891 Personal history of nicotine dependence; Z96.651 Presence of right artificial knee joint; Z96.641 Presence of right artificial hip joint; Z96.642 Presence of left artificial hip joint
CPT/HCPCS: 36415; 71045-TC-FY; 71046-TC-FY; 80048; 80053; 81003; 81015; 82962; 83605; 83735; 83880; 84100; 84484; 85025; 85027; 85379; 85610; 85730; 87040; 87086; 93005; 93306-TC; 93970-TC; 94640; 94761; 97116-GP; 97162-GP; 99284-25; G0378; J1644; J7620

== ENCOUNTER 2018-09-03 10:09 | Emergency (ER) | payer BC, OTHER ==
--- NOTE | 2018-09-03 10:14 | PDOC ---
History of Present Illness - General Chief Complaint: Edema Stated Complaint: RT HAND SWELLING Time Seen by Provider: 09/03/18 10:11 History Source: Patient Exam Limitations: No Limitations - History of Present Illness Initial Comments: 82 y/o man who is wheelchair bound with a PMHx of HTN, RA (08), COPD, CKD, ILD, Hyperthyroidism, NIDDM, Chronic Inflammatory Demyelinating Neuropathy, acid reflux, BPH and kidney stones presents to the [facility] with 3 days of right sided hand pain, swelling, and erythema. He endorses joint pains all over his body which he states are chronic but his right hand pain has worsened over the past 3 days. He reports the pain is worst in the dorsal aspect of his hand primarily in the 2nd, 3rd, and 4th digits. There is no pain on extension of his hand but he is unable to completely flex his hand. He says this inability to flex is chronic in nature. The patient has taken tylenol for his pain which he reports has significantly helped control his pain. He denies any systemic symptoms like fevers, weight loss, chills. or night sweats. PCP: Dr. Ang Marie [facility]rick Boat Leverman: Dr. Christianson Neurologist: Dr. Bhandari PSH: B/L total hip replacement. Right inguinal hernia with mesh. Social Hx: Former smoker - 35 years ago 1/2 PPD. 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 Denies illicit substance abuse. Allergies: NKA, NKDA Past History - Past Medical History Allergies/Adverse Reactions: Allergies Allergy/AdvReac Type Severity Reaction Status Date / Time No Known Allergies Allergy Verified 12/04/17 15:31 Home Medications: Ambulatory Orders Tamsulosin HCl [Flomax] 0.4 mg PO HS 04/23/16 metFORMIN HCL [Metformin HCl] 500 mg PO BID 04/23/16 Hydroxychloroquine So4 [Plaquenil -] 200 mg PO DAILY #30 tablet 06/27/16 Metoprolol Succinate [Toprol XL -] 25 mg PO DAILY 12/04/17 Albuterol 0.083% Nebulizer Keyonna [Ventolin 0.083% Nebulizer Soln -] 1 amp NEB Q4H PRN #120 amp 12/07/17 Budesonide/Formeterol Fumarate [SYMBICORT 80/4.5mcg -] 2 puff IH BID #1 inhaler 12/07/17 Compressor, For Nebulizer [Devilbiss Compact] 1 each MC DAILY #1 each 12/07/17 Furosemide [Lasix -] 40 mg PO BID@0600,1400 #60 tablet 12/07/17 Nebulizer Accessories [A.i.r.s. Nebulizer] 1 each MC DAILY #1 kit 12/07/17 Cephalexin Monohydrate [Keflex -] 500 mg PO Q6H 5 Days #20 capsule 09/03/18 Anemia: No Asthma: No Cancer: No Cardiac Disorders: No CVA: No COPD: No CHF: No Dementia: No Diabetes: Yes GI Disorders: Yes (ACID REFLUX) Disorders: Yes (BPH) HTN: No Hypercholesterolemia: No Kidney Stones: Yes Liver Disease: No Seizures: No Thyroid Disease: Yes (hyper) - Surgical History Abdominal Surgery: Yes (HERNIA) Appendectomy: No Cardiac Surgery: No Cholecystectomy: No Lung Surgery: No Neurologic Surgery: No Orthopedic Surgery: No (L THR, R TKR) - Immunization History Immunization Up to Date: Yes - Suicide/Smoking/Psychosocial Hx Smoking History: Former smoker Have you smoked in the past 12 months: No Number of Cigarettes Smoked Daily: 20 If you are a former smoker, when did you quit?: 25 YRS Hx Alcohol Use: No Drug/Substance Use Hx: No Substance Use Type: None Hx Substance Use Treatment: No Review of Systems - Review of Systems Able to Perform ROS?: Yes Comments:: CONSTITUTIONAL: Absent: fever, no chills, no fatigue EYES: Absent: visual changes ENT: Absent: ear pain, no sore throat CARDIOVASCULAR: Absent: chest pain, no palpitations RESPIRATORY: Absent: cough, no SOB GI: Absent: abdominal pain, no nausea, no vomiting, no constipation, no diarrhea GENITOURINARY: Absent: dysuria, no frequency, no hematuria MUSKULOSKELETAL: Present: Arthralgia Absent: back pain, no myalgia SKIN: Present: rash NEURO: Absent: headache *Physical Exam - Physical Exam Comments: RIGHT HAND: The dorsal aspect of the hand appears erythematous and warm compared to the left. 2+ radial and tibial pulses. Multiple bony abnormalities. Ulner deviation of the hand. Multiple verrucous cauliflower like lesions over all fingers. The digits are not sausage like in appearance. There in no pain on active flexion or extension of any of the fingers. GENERAL: Elderly frail gentleman. Well-appearing, well-nourished. No apparent distress. HEENT: Normocephalic, atraumatic. PERRL, EOM intact. CARDIOVASCULAR: Normal S1, S2. Regular rate and rhythm. PULMONARY: No evidence of respiratory distress. ABDOMEN: Soft, non-distended, non-tender. EXTREMITIES: Limited ROM in all four extremities. Multiple bony deformities. SKIN: Warm, dry. NEUROLOGICAL: No focal neurological deficits. Medical Decision Making - Medical Decision Making 82 y/o man who is wheelchair bound with a PMHx of HTN, RA (08), COPD, CKD, ILD, Hyperthyroidism, NIDDM, Chronic Inflammatory Demyelinating Neuropathy, acid reflux, BPH and kidney stones presents to the [facility] with 3 days of right sided hand pain, swelling, and erythema. He endorses joint pains all over his body which he states are chronic but his right hand pain has worsened over the past 3 days. He reports the pain is worst in the dorsal aspect of his hand primarily in the 2nd, 3rd, and 4th digits. There is no pain on extension of his hand but he is unable to completely flex his hand. He says this inability to flex is chronic in nature. The patient has taken tylenol for his pain which he reports has significantly helped control his pain. He denies any systemic symptoms like fevers, weight loss, chills. or night sweats. VS: Hypoxic to 93, otherwise wnl. PE: The dorsal aspect of the hand appears erythematous and warm compared to the left. 2+ radial and tibial pulses. Multiple bony abnormalities. Ulner deviation of the hand. Multiple verrucous cauliflower like lesions over all fingers. The digits are not sausage like in appearance. There in no pain on active flexion or extension of any of the fingers. DDx IBNLT: cellulitis, erysipelass, septic joint, synovitis, bursisits, RA flare up, gout, neuropathy. Plan: Abx, analegsia, rheumatology FU. Patient given strict return precautions to return to ED if symptoms do not improve or worsen in any way. *DC/Admit/Observation/Transfer Diagnosis at time of Disposition: Cellulitis - Discharge Dispostion Disposition: HOME Condition at time of disposition: Stable Decision to Admit order: No - Prescriptions Prescriptions: Cephalexin Monohydrate [Keflex -] 500 mg PO Q6H 5 Days #20 capsule - Referrals Referrals: Everton Christianson MD [Staff Physician] - Ang Youssef MD [Staff Physician] - - Patient Instructions Printed Discharge Instructions: DI for Cellulitis -- Adult Additional Instructions: You came into the ER with right hand pain. We are sending keflex antibiotics to your pharmacy for you to take 4 times a day for the next 5 days. Please make sure to go and pick them up. Take tylenol as needed for pain control. Come back to the ER immediately if your pain worsens, your hand becomes more red , you get a fever, start vomiting, or have any other new or worstening concerns. Please make sure to schedule two follow up appointments - one with your PCP Dr. Youssef and another with your [employer] Leverman Dr. Christianson in the next 24 to 48 hours to make sure you are getting better and being taken care of. Thank you for coming to the [facility]. We hope you feel better soon! Print Language: WELSH - Post Discharge Activity
[2018-09-03 10:22] VITALS: BP 137/95; PULSE 98; TEMP 97.8; BMI 29.7
[2018-09-03] MEDS ORDERED: ACETAMINOPHEN 325 MG TABLET (FP) PO ONE (10:55)
[2018-09-03] MEDS ORDERED: CEPHALEXIN MONOHYDRATE 500 MG CAPSULE (UD) PO ONE (10:59)
--- NOTE | 2018-09-03 11:02 | PDOC ---
Attending Attestation - Resident Resident Name: Alcides Peres - ED Attending Attestation I have performed the following: I have examined & evaluated the patient, The case was reviewed & discussed with the resident, I agree w/resident's findings & plan, Exceptions are as noted - HPI HPI: 09/03/18 10:57 82 M with h/o HTN, RA (08), COPD, CKD, ILD, Hyperthyroidism, NIDDM, Chronic Inflammatory Demyelinating Neuropathy, acid reflux, BPH. kidney stones, presenting to ED with R hand pain and swelling. Pt states that he first noticed it 4 days ago. Denies any F/C. States that the pain is on the dorsum of his R hand. Pt's aide states that she noticed it was a little red on the dorsum of his hand today. Pt denies any joint swelling or pain with ROM of his wrist. States that there is some pain with flexion of his fingers. He reports that he has had arthritis in his lower extremities and been treated with steroids in the past for this, but he has never had this type of swelling in either hand or wrist. - Physicial Exam PE: 09/03/18 11:02 GENERAL: Awake, alert, and fully oriented, in no acute distress. HEAD: No signs of trauma EYES: PERRLA, EOMI, sclera anicteric, conjunctiva clear ENT: Auricles normal inspection, hearing grossly normal, nares patent, oropharynx clear without exudates. Moist mucosa NECK: Nontender, no stepoffs, Normal ROM, supple, no lymphadenopathy, JVD, or masses LUNGS: Breath sounds equal, clear to auscultation bilaterally. No wheezes, and no crackles HEART: Regular rate and rhythm, normal S1 and S2, no murmurs, rubs or gallops ABDOMEN: Soft, nontender, normoactive bowel sounds. No guarding, no rebound. No masses EXTREMITIES: Normal range of motion, no edema. No clubbing or cyanosis. No cords, erythema, or tenderness NEUROLOGICAL: Cranial nerves II through XII intact. 5/5 strength and sensation in all extremities, Normal speech, normal gait, normal cerebellar function SKIN: + mild erythema to dorsum of R hand with no fluctuance or induration, normal ROM of R wrist, normal ROM of all fingers, no evidence of flexor tenosynovitis, no sausage digits - Medical Decision Making 09/03/18 11:05 82 M with likely mild cellulitis of dorsum R hand. No evidence of tendon or joint infection. - Keflex Pt counseled to return to ED in 48 hours if symptoms not improved Pt is well appearing, with normal vitals. Clinically stable for DC at this time. I discussed the physical exam findings, ancillary test results and final diagnoses with the patient. I answered all of the patient's questions. The patient was satisfied with the care received and felt comfortable with the discharge plan and treatment plan. The patient agrees to follow up with the primary care physician within 24-72 hours.
[2018-09-03] MEDS ORDERED: CEPHALEXIN MONOHYDRATE 500 MG CAPSULE (UD) ONE (11:08)
[2018-09-03] MEDS ORDERED: ACETAMINOPHEN 325 MG TABLET (FP) ONE (11:08)
== END 2018-09-03 11:23 | disposition home or self-care (01) ==
LOC: FER 10:09
DX: L03.90 Cellulitis, unspecified (principal); J44.9 Chronic obstructive pulmonary disease, unspecified; I10 Essential (primary) hypertension; M06.9 Rheumatoid arthritis, unspecified; E11.9 Type 2 diabetes mellitus without complications; E05.90 Thyrotoxicosis, unspecified without thyrotoxic crisis or storm; N40.0 Benign prostatic hyperplasia without lower urinary tract symptoms; K21.9 Gastro-esophageal reflux disease without esophagitis
CPT/HCPCS: 99281-25

== ENCOUNTER 2018-09-06 10:43 | Emergency (ER) | payer BC, OTHER ==
[2018-09-06 10:50] VITALS: BP 145/87; PULSE 86; TEMP 98; BMI 29.7
--- NOTE | 2018-09-06 10:55 | PDOC ---
History of Present Illness - General Chief Complaint: Pain, Acute Stated Complaint: right hand pain Time Seen by Provider: 09/06/18 10:47 History Source: Patient Exam Limitations: No Limitations - History of Present Illness Initial Comments: 09/06/18 11:24 82y M hx of htn, ra, copd, ckd, ild, hyperthyroidism, niddm, CIDN, acid reflex, bph presents with R wrist swelling and pain. Pt states about 1 week ago, he developed swelling and mild discomfort over the top of his r wrist. he came to be seen on monday and was given some abx. he endorses persistent pain in his hand and dnow mild swelling of his left wrist. he denie any fever/chills, increased redness, recent trauma, falls. Pt take tylenol without significant relief. Pt notse ghas a mild chronic deformity on his L wrist but hasnt had swelling or pain in the past. pt denies any fever/chills, recent uri, no other associated joint pain. denies cp, sob, cough, abd pain, n/v. Constitutional - no reported Fever, Chills, HEENT: no reported vision changes, sore throat Respiratory: no reported cough, sob, hemoptysis Cardiac: no reported chest pain, palpitations, light headedness, leg swelling Abd/GI: no reported abd pain, nausea, vomiting, blood per rectum, melena, diarrhea : no reported dysuria, frequency, discharge Musculskelatal - +b./l wrist pain and swelling no reported back pain, skin - no reported bruising, erythema, rash neurological: no reported headache, numbness, focal weakness, tingling, ataxia, hematologic: no reported easy bruising, easy bleeding GENERAL: The patient is awake, alert, and fully oriented, NECK: Normal range of motion, supple LUNGS: clear to ascultation HEART: regular rate, normal S1 and S2 without murmur, rub or gallop. ABDOMEN: Soft, nontender, EXTREMITIES: mild edema in the dorsal aspect of domonique r wrist, mild diffuse ttp, no focal bony tenderness, mild hyperpigmentation, no signficaint erythema, warmth/induration. L wrist +deformity without focal bony tenderness, mild edema /effusion palpable. no warmth. Past History - Past Medical History Allergies/Adverse Reactions: Allergies Allergy/AdvReac Type Severity Reaction Status Date / Time No Known Allergies Allergy Verified 09/06/18 10:48 Home Medications: Ambulatory Orders Tamsulosin HCl [Flomax] 0.4 mg PO HS 04/23/16 metFORMIN HCL [Metformin HCl] 500 mg PO BID 04/23/16 Hydroxychloroquine So4 [Plaquenil -] 200 mg PO DAILY #30 tablet 06/27/16 Metoprolol Succinate [Toprol XL -] 25 mg PO DAILY 12/04/17 Albuterol 0.083% Nebulizer Keyonna [Ventolin 0.083% Nebulizer Soln -] 1 amp NEB Q4H PRN #120 amp 12/07/17 Budesonide/Formeterol Fumarate [SYMBICORT 80/4.5mcg -] 2 puff IH BID #1 inhaler 12/07/17 Compressor, For Nebulizer [Devilbiss Compact] 1 each MC DAILY #1 each 12/07/17 Furosemide [Lasix -] 40 mg PO BID@0600,1400 #60 tablet 12/07/17 Nebulizer Accessories [A.i.r.s. Nebulizer] 1 each MC DAILY #1 kit 12/07/17 Cephalexin Monohydrate [Keflex -] 500 mg PO Q6H 5 Days #20 capsule 09/03/18 Anemia: No Asthma: No Cancer: No Cardiac Disorders: No CVA: No COPD: No CHF: No Dementia: No Diabetes: Yes GI Disorders: Yes (ACID REFLUX) Disorders: Yes (BPH) HTN: No Hypercholesterolemia: No Kidney Stones: Yes Liver Disease: No Seizures: No Thyroid Disease: Yes (hyper) - Surgical History Abdominal Surgery: Yes (HERNIA) Appendectomy: No Cardiac Surgery: No Cholecystectomy: No Lung Surgery: No Neurologic Surgery: No Orthopedic Surgery: No (L THR, R TKR) - Immunization History Immunization Up to Date: Yes - Suicide/Smoking/Psychosocial Hx Smoking History: Former smoker Have you smoked in the past 12 months: No Number of Cigarettes Smoked Daily: 20 If you are a former smoker, when did you quit?: 25 YRS Information on smoking cessation initiated: No Hx Alcohol Use: No Drug/Substance Use Hx: No Substance Use Type: None Hx Substance Use Treatment: No *Physical Exam - Vital Signs Last Vital Signs Temp Pulse Resp BP Pulse Ox 98.0 F 86 18 145/87 95 09/06/18 10:44 09/06/18 10:44 09/06/18 10:44 09/06/18 10:44 09/06/18 10:44 Medical Decision Making - Medical Decision Making 09/06/18 11:33 does not appear to be infectious in nature possible inflammatory vs arhthrits will obtani xrays to r/o trauma tyelnol for pain 09/06/18 12:47 xray cw oa will dc with supportive care at home with pmd fu return precautions were dsicussed I discussed the physical exam findings, ancillary test results and final diagnoses with the patient. I answered all of the patient's questions. The patient was satisfied with the care received and felt comfortable with the discharge plan and treatment plan. The patient will call their primary care physician within 24 hours to arrange follow-up and will return to the Emergency Department with any new, persistent or worsening symptoms. *DC/Admit/Observation/Transfer Diagnosis at time of Disposition: Osteoarthritis Qualifiers: Osteoarthritis location: wrist Osteoarthritis type: primary Laterality: bilateral Qualified Code(s): M19.031 - Primary osteoarthritis, right wrist - Discharge Dispostion Disposition: HOME Condition at time of disposition: Stable Decision to Admit order: No - Referrals Referrals: Ang Youssef MD [Primary Care Provider] - - Patient Instructions Printed Discharge Instructions: DI for Osteoarthritis Additional Instructions: Return to the emergency department immediately with ANY new, persistent or worsening symptoms. Keep your arm elevated to minimize any swelling. Take Tylenol as needed for pain You MUST call and follow up with your doctor in 3-4 days for further evaluation of your symptoms. Results were discussed with you. Please make sure your doctor reviews the results of your emergency evaluation. Print Language: CITIZEN OF [place] - Post Discharge Activity
[2018-09-06] MEDS ORDERED: IBUPROFEN 400 MG TABLET (FP) PO ONE (11:17)
== END 2018-09-06 13:09 | disposition home or self-care (01) ==
LOC: FER 10:43
DX: M19.031 Primary osteoarthritis, right wrist (principal); E07.9 Disorder of thyroid, unspecified; Z87.891 Personal history of nicotine dependence; N20.0 Calculus of kidney; N40.0 Benign prostatic hyperplasia without lower urinary tract symptoms; K21.9 Gastro-esophageal reflux disease without esophagitis
CPT/HCPCS: 73110-TC-LT-FY; 73110-TC-RT-FY; 99282-25

== ENCOUNTER 2018-11-20 10:05 | Day surgery (SDC) | payer BC, OTHER ==
[2018-11-19 09:19] VITALS: BMI 29.7
[~2018-11-20 10:05] MED LIST: CIPROFLOXACIN HCL 0.3% OPHTH 2.5ML BOTTLE OP SCH; CYCLOPENTOLATE HCL 1% OPHTH SOLN 2 ML BOTTLE OP SCH; EPINEPHrine/PF 1 MG/1 ML (1:1,000) AMPULE SQ ONE; FLURBIPROFEN 0.03% OPHTH SOLN 2.5 ML BOTTLE OP SCH; PHENYLEPHRINE 2.5% OPHTH SOLN 15 ML BOTTLE OP SCH; TROPICAMIDE 1% OPHTH SOLN 15 ML BOTTLE OP SCH
[2018-11-20] MEDS ORDERED: TROPICAMIDE 1% OPHTH SOLN 15 ML BOTTLE ONE (10:45)
[2018-11-20] MEDS ORDERED: CIPROFLOXACIN HCL 0.3% OPHTH 2.5ML BOTTLE ONE (10:45)
[2018-11-20] MEDS ORDERED: CYCLOPENTOLATE HCL 1% OPHTH SOLN 2 ML BOTTLE ONE (10:45)
[2018-11-20] MEDS ORDERED: PHENYLEPHRINE 2.5% OPHTH SOLN 15 ML BOTTLE ONE (10:45)
[2018-11-20] MEDS ORDERED: FLURBIPROFEN 0.03% OPHTH SOLN 2.5 ML BOTTLE ONE (10:45)
[2018-11-20] MEDS ORDERED: CIPROFLOXACIN HCL 0.3% OPHTH 2.5ML BOTTLE OD ONE ×3 (11:00→11:20)
[2018-11-20] MEDS ORDERED: FLURBIPROFEN 0.03% OPHTH SOLN 2.5 ML BOTTLE OD ONE ×3 (11:00→11:20)
[2018-11-20] MEDS ORDERED: PHENYLEPHRINE 2.5% OPHTH SOLN 15 ML BOTTLE OD ONE ×3 (11:00→11:20)
[2018-11-20] MEDS ORDERED: TROPICAMIDE 1% OPHTH SOLN 15 ML BOTTLE OD ONE ×3 (11:00→11:20)
[2018-11-20] MEDS ORDERED: CYCLOPENTOLATE HCL 1% OPHTH SOLN 2 ML BOTTLE OD ONE ×3 (11:00→11:20)
[2018-11-20] MEDS ORDERED: LIDOCAINE HCL 4% TOPICAL SOLN (50 ML/BOTTLE) TP ONE (12:02)
[2018-11-20] MEDS ORDERED: POVIDONE-IODINE 5% OPHTHALMIC PREP 30 ML SOLUTION OD ONE (12:03)
[2018-11-20] MEDS ORDERED: LIDOCAINE HCL 1% PRESERVATIVE FREE - 30ML VIAL IO ONE (12:10)
[2018-11-20] MEDS ORDERED: BSS (NA/CA/MG/K) BALANCED SALT SOLUTION OPHTH SOLN 15 ML BOTTLE OD ONE (12:10)
[2018-11-20] MEDS ORDERED: CHONDROITIN SU A/HYALUR SOD 1 KIT IO ONE (12:10)
[2018-11-20] MEDS ORDERED: ONDANSETRON 4 MG/2 ML VIAL IVPUSH PRN (12:18)
[2018-11-20] MEDS ORDERED: ACETAMINOPHEN 325 MG TABLET (FP) PO PRN (12:18)
[2018-11-20] MEDS ORDERED: EPINEPHrine/PF 1 MG/1 ML (1:1,000) AMPULE SQ ONE (12:28)
[2018-11-20] MEDS ORDERED: LACTATED RINGERS SOLUTION 1,000 ML IV SCH (12:30)
[2018-11-20 13:46] VITALS: TEMP 98
[2018-11-20 14:00] VITALS: BP 142/84; PULSE 69
[2018-11-20] MEDS ORDERED: CHONDROITIN SU A/HYALUR SOD 1 KIT ONE (15:14)
--- NOTE | 2018-11-26 21:47 | SPEC ---
DATE OF OPERATION: 11/20/2018 PREOPERATIVE DIAGNOSIS: Cataract, right eye. POSTOPERATIVE DIAGNOSIS: Cataract, right eye. OPERATION: Planned phacoemulsification with posterior chamber lens implantation, right eye; pupillary hooks, right eye; miosis, right eye. SURGEON: Gustavo Boyd M.D. BODY RECALL INSTRUCTOR: None. ANESTHESIA: Topical. COMPLICATIONS: None. PROCEDURE: The patient was taken to the operating room and anesthesia began with intravenous fluids and sedation. The patient then received topical anesthesia on the right eye. The patient was prepped and draped in the usual manner for sterile ophthalmic surgery. A speculum was inserted into the right eye. A self-sealing stab incision was made at the 3:00 and 10:00 positions. Viscoat was inserted into the anterior chamber. Using a 2.65 mm keratome, a self-sealing incision was made in temporal location into the anterior chamber. A 360-degree continuous capsulorrhexis was then performed. The nucleus was dislocated with hydrodissection. The nucleus was then removed from the eye with phacoemulsification with posterior capsule remaining intact. Irrigation and aspiration removed the remaining cortex from the eye. The capsule was polished. A posterior chamber lens was inserted in the bag and well centered. The remaining Viscoat was removed from the eye. The wound was self-sealing. Stromal hydration was performed for increased insurance of wound closure. The patient tolerated the procedure well and went to the ambulatory unit in stable condition. ADDENDUM: Pupillary hooks were necessary due to significant miosis. These were placed in 4 locations and used during the surgery to dilate the pupil, and then, the hooks were removed. GUSTAVO BOYD M.D. JUSTUS/[id number]
== END 2018-11-20 14:00 | disposition home or self-care (01) ==
LOC: JASU-SURG 10:05
PROVIDERS: ATTEND Ophthalmology
PROC: 08RJ3JZ Replacement of Right Lens with Synthetic Substitute, Percutaneous Approach (ICD-10-PCS; principal; 2018-11-20 12:00)
DX: H26.9 Unspecified cataract (principal); H57.03 Miosis
CPT/HCPCS: 82962

== ENCOUNTER 2018-12-25 06:12 | Day surgery (SDC) | payer BC, OTHER | END 2018-12-25 10:09 | disposition home or self-care (01) | LOC: JASU-SURG 06:12 ==

== ENCOUNTER 2021-05-31 11:09 | Observation (INO) | payer BC, OTHER ==
[2021-05-31 12:48] LABS: ALBUMIN 3.1 g/dl (3.4-5.0); BILIRUBIN,TOTAL 0.6 mg/dl (0.2-1); CREATININE 1.8 mg/dl (0.55-1.3); TOT PROT 6.2 g/dl (6.4-8.2)
[2021-05-31 13:53] LABS: EPITHELIAL CELLS FEW /hpf
[2021-05-31 15:33] LABS: HEMATOCRIT 34.6 % (35.4-49); HEMOGLOBIN 11.4 GM/dL (11.7-16.9); MCH 29.9 pg (25.7-33.7); MCHC 32.9 g/dl (32.0-35.9); MEAN CELL VOLUME 90.8 fl (80-96); RBC 3.81 M/mm3 (4.00-5.60); RDW 14.6 % (11.9-15.9); WHITE BLOOD COUNT 8.7 K/mm3 (4.0-10.0)
[2021-05-31 15:34] LABS: BASO % 0.2 % (0-2.0); EOS % 1.2 % (0-4.5); LYMPH % 11.2 % (8-40); MEAN PLT VOLUME 7.8 fl (7.5-11.1); MONO % 5.1 % (3.8-10.2); NEUT % 82.3 % (42.8-82.8); PLATELET COUNT 222 10^3/uL (134-434)
[2021-05-31] MEDS ORDERED: cefTRIAXone SODIUM 1 GM VIAL ONE (17:30)
[2021-05-31] MEDS ORDERED: CEFTRIAXONE 1 GM in DEXTROSE 5%-WATER - 50 ML IVPB ONE (17:30)
[2021-05-31 18:49] VITALS: BMI 30.2
[2021-05-31] MEDS ORDERED: ALBUTEROL SO4 0.083% IH SOL 2.5 MG/3 ML VIAL.NEB. NEB PRN (22:02)
[2021-05-31] MEDS ORDERED: ACETAMINOPHEN 325 MG TABLET (FP) PO PRN (22:09)
[2021-05-31] MEDS: BUDESONIDE/FORMETEROL FUMARATE 80/4.5 mcg INHALER IH SCH (22:42)
[2021-06-01] MEDS: INSULIN SLIDING SCALE (NOVOLOG) 1 VIAL SQ SCH ×4 (07:21→21:24)
[2021-06-01 08:33] LABS: CREATININE 2.1 mg/dl (0.55-1.3); MAGNESIUM 1.9 mg/dL (1.8-2.4)
[2021-06-01] MEDS ORDERED: cefTRIAXone SODIUM 1 GM VIAL ONE (09:12)
[2021-06-01] MEDS ORDERED: DEXTROSE 5%-WATER - 50 ML IVPB ONE (09:12)
[2021-06-01] MEDS: CEFTRIAXONE 1 GM in DEXTROSE 5%-WATER - 50 ML IVPB SCH (09:35)
[2021-06-01] MEDS: PARoxetine HCL 20 MG TABLET PO SCH (09:36)
[2021-06-01] MEDS: metoPROLOL SUCCINATE 25 MG TAB.SR.24H (FP) PO SCH (09:36)
[2021-06-01] MEDS: BUDESONIDE/FORMETEROL FUMARATE 80/4.5 mcg INHALER IH SCH ×2 (09:46→22:00)
[2021-06-01 10:10] LABS: HEMOGLOBIN 10.9 GM/dL (11.7-16.9); MCH 29.5 pg (25.7-33.7); MCHC 32.1 g/dl (32.0-35.9); MEAN CELL VOLUME 91.7 fl (80-96); MEAN PLT VOLUME 8.8 fl (7.5-11.1); PLATELET COUNT 212 10^3/uL (134-434); RBC 3.71 M/mm3 (4.00-5.60); RDW 14.4 % (11.9-15.9); WHITE BLOOD COUNT 9.3 K/mm3 (4.0-10.0)
[2021-06-01 12:20] LABS: ANISOCYTOSIS 1+; MACROCYTOSIS 0; PLATELET ESTIMATE NORMAL
[2021-06-01] MEDS ORDERED: FUROSEMIDE 40 MG TABLET (FP) PO SCH (13:30)
[2021-06-01] MEDS: METHIMAZOLE 5 MG TABLET PO SCH (13:42)
[2021-06-01] MEDS: ENOXAPARIN NA (PORCINE) 40 MG/0.4 ML DISP.SYRIN SQ SCH (13:42)
[2021-06-01 15:06] LABS: ALBUMIN 3.1 g/dl (3.4-5.0); CREATININE 2.4 mg/dl (0.55-1.3); MAGNESIUM 1.9 mg/dL (1.8-2.4); TOT PROT 6.5 g/dl (6.4-8.2)
[2021-06-01 15:07] LABS: BILIRUBIN,TOTAL 0.6 mg/dl (0.2-1)
[2021-06-01 18:06] LABS: BASO % 0.3 % (0-2.0); EOS % 2.2 % (0-4.5); HEMATOCRIT 34.6 % (35.4-49); LYMPH % 16.3 % (8-40); MCH 29.3 pg (25.7-33.7); MCHC 31.8 g/dl (32.0-35.9); MEAN CELL VOLUME 92.1 fl (80-96); MEAN PLT VOLUME 8.1 fl (7.5-11.1); MONO % 7.7 % (3.8-10.2); NEUT % 73.5 % (42.8-82.8); PLATELET COUNT 234 10^3/uL (134-434); RBC 3.76 M/mm3 (4.00-5.60); RDW 14.4 % (11.9-15.9); WHITE BLOOD COUNT 7.9 K/mm3 (4.0-10.0)
[2021-06-01] MEDS ORDERED: FINASTERIDE 5 MG TABLET (FP) PO SCH (22:00)
[2021-06-01] MEDS ORDERED: TAMSULOSIN HCL 0.4 MG CAP PO SCH (22:00)
[2021-06-02 06:23] VITALS: TEMP 97.8
[2021-06-02] MEDS: INSULIN SLIDING SCALE (NOVOLOG) 1 VIAL SQ SCH ×2 (06:43→11:09)
[2021-06-02 08:27] LABS: ALBUMIN 2.9 g/dl (3.4-5.0); BILIRUBIN,TOTAL 0.5 mg/dl (0.2-1); CREATININE 2.2 mg/dl (0.55-1.3); MAGNESIUM 1.8 mg/dL (1.8-2.4); TOT PROT 6.1 g/dl (6.4-8.2)
[2021-06-02] MEDS ORDERED: cefTRIAXone SODIUM 1 GM VIAL ONE (09:13)
[2021-06-02] MEDS ORDERED: DEXTROSE 5%-WATER - 50 ML IVPB ONE (09:14)
[2021-06-02 09:24] LABS: BASO % 0.2 % (0-2.0); EOS % 2.2 % (0-4.5); HEMOGLOBIN 11.1 GM/dL (11.7-16.9); LYMPH % 15.1 % (8-40); MCH 29.9 pg (25.7-33.7); MCHC 32.8 g/dl (32.0-35.9); MEAN CELL VOLUME 91.4 fl (80-96); MEAN PLT VOLUME 7.9 fl (7.5-11.1); NEUT % 74.5 % (42.8-82.8); PLATELET COUNT 156 10^3/uL (134-434); RBC 3.72 M/mm3 (4.00-5.60); RDW 14.5 % (11.9-15.9); WHITE BLOOD COUNT 5.6 K/mm3 (4.0-10.0)
[2021-06-02] MEDS: CEFTRIAXONE 1 GM in DEXTROSE 5%-WATER - 50 ML IVPB SCH (09:44)
[2021-06-02] MEDS: METHIMAZOLE 5 MG TABLET PO SCH (09:45)
[2021-06-02] MEDS: metoPROLOL SUCCINATE 25 MG TAB.SR.24H (FP) PO SCH (09:45)
[2021-06-02] MEDS: BUDESONIDE/FORMETEROL FUMARATE 80/4.5 mcg INHALER IH SCH (09:45)
[2021-06-02] MEDS: PARoxetine HCL 20 MG TABLET PO SCH (09:45)
[2021-06-02] MEDS: ENOXAPARIN NA (PORCINE) 40 MG/0.4 ML DISP.SYRIN SQ SCH (09:46)
[2021-06-02 10:07] VITALS: BP 121/66; PULSE 77
== END 2021-06-02 13:28 ==
LOC: FER 11:09 → UNDOADMOB 15:33 → FM/S 15:33 → INTOOBSV 15:33 → FM/S 16:59
PROVIDERS: ADMIT Internal Medicine; ATTEND Nurse Practitioner Acute Care
PROC: 3E0F7GC Introduction of Other Therapeutic Substance into Respiratory Tract, Via Natural or Artificial Opening (ICD-10-PCS; principal; 2021-05-31)
PROC: 3E03329 Introduction of Other Anti-infective into Peripheral Vein, Percutaneous Approach (ICD-10-PCS; 2021-05-31)
PROC: 3E023GC Introduction of Other Therapeutic Substance into Muscle, Percutaneous Approach (ICD-10-PCS; 2021-05-31)
DX: I13.10 Hypertensive heart and chronic kidney disease without heart failure, with stage 1 through stage 4 chronic kidney disease, or unspecified chronic kidney disease (principal); E11.22 Type 2 diabetes mellitus with diabetic chronic kidney disease; E11.40 Type 2 diabetes mellitus with diabetic neuropathy, unspecified; R53.1 Weakness; E05.90 Thyrotoxicosis, unspecified without thyrotoxic crisis or storm; N40.0 Benign prostatic hyperplasia without lower urinary tract symptoms; K21.9 Gastro-esophageal reflux disease without esophagitis; J84.9 Interstitial pulmonary disease, unspecified; J44.9 Chronic obstructive pulmonary disease, unspecified; E78.5 Hyperlipidemia, unspecified; R29.6 Repeated falls; W18.39XA Other fall on same level, initial encounter; Y93.89 Activity, other specified; Y92.89 Other specified places as the place of occurrence of the external cause; E66.9 Obesity, unspecified; Z68.30 Body mass index [BMI] 30.0-30.9, adult; N17.9 Acute kidney failure, unspecified; N18.9 Chronic kidney disease, unspecified; Z29.9 Encounter for prophylactic measures, unspecified
CPT/HCPCS: 36415; 70450-TC; 71045-TC-FY; 80048; 80053; 81003; 81015; 82962; 83735; 84484; 85025; 87086; 87186; 93005; 94640; 96365; 96372; 96375; 97116-GP; 97163-GP; 99285-25; C9803; G0378; U0003; U0005

== ENCOUNTER 2021-09-25 08:04 | Inpatient (IN) | payer BC, OTHER ==
[2021-09-25 09:52] LABS: HEMATOCRIT 34.1 % (35.4-49); HEMOGLOBIN 11.5 G/dL (11.7-16.9); MCH 30.4 pg (25.7-33.7); MCHC 33.8 g/dl (32.0-35.9); MEAN CELL VOLUME 90.2 fl (80-96); PLATELET COUNT 182.1 10^3/uL (134-434); RBC 3.78 10^6/uL (4.00-5.60); RDW 15.6 % (11.9-15.9); WHITE BLOOD COUNT 7.9 10^3/uL (4.0-10.8)
[2021-09-25 10:00] LABS: BILIRUBIN,TOTAL 0.6 mg/dl (0.2-1); CALCIUM 8.4 mg/dl (8.5-10); CREATININE 1.7 mg/dl (0.55-1.3); TOT PROT 6.1 g/dl (6.4-8.2)
[2021-09-25] MEDS ORDERED: VANCOMYCIN 1,000 MG in DEXTROSE 5%-WATER - 250 ML IVPB ONE (11:00)
[2021-09-25] MEDS ORDERED: VANCOMYCIN 1,000 MG VIAL (RESTRICTED TO ID ONLY) ONE (11:09)
[2021-09-25 11:49] LABS: VENOUS BASE EXCESS -0.7 mmol/L (-2-2); VENOUS PCO2 51.6 mmHg (38-52); VENOUS PH 7.323 (7.310-7.410)
[2021-09-25 12:06] LABS: N-TERMINAL BNP 4052.4 pg/ml (5-450)
[2021-09-25 12:08] LABS: EPITHELIAL CELLS FEW /hpf
[2021-09-25 14:22] VITALS: BMI 30.6
[2021-09-25] MEDS ORDERED: FUROSEMIDE 40 MG/4 ML INJECTABLE VIAL IVPUSH ONE (16:00)
[2021-09-25] MEDS ORDERED: ENOXAPARIN NA (PORCINE) 40 MG/0.4 ML DISP.SYRIN SQ SCH (16:15)
[2021-09-25] MEDS: INSULIN SLIDING SCALE (NOVOLOG) 1 VIAL SQ SCH ×2 (18:31→21:45)
[2021-09-25] MEDS: BACITRACIN 15 GM TUBE TOPICAL OINTMENT TP SCH (18:32)
[2021-09-25] MEDS: metoPROLOL SUCCINATE 25 MG TAB.SR.24H (FP) PO SCH (21:34)
[2021-09-25] MEDS: FINASTERIDE 5 MG TABLET (FP) PO SCH (21:34)
[2021-09-25] MEDS: TAMSULOSIN HCL 0.4 MG CAP PO SCH (21:35)
[2021-09-25] MEDS: HEPARIN NA (PORCINE) 5,000 UNITS/ML 1ML VIAL SQ SCH (21:36)
[2021-09-25] MEDS: BUDESONIDE/FORMETEROL FUMARATE 80/4.5 mcg INHALER IH SCH (21:37)
[2021-09-25] MEDS ORDERED: metFORMIN HCL 500 MG TABLET (FP) PO SCH (22:00)
[2021-09-26] MEDS: BACITRACIN 15 GM TUBE TOPICAL OINTMENT TP SCH ×5 (06:59→23:19)
[2021-09-26] MEDS: HEPARIN NA (PORCINE) 5,000 UNITS/ML 1ML VIAL SQ SCH ×3 (06:59→21:14)
[2021-09-26] MEDS: INSULIN SLIDING SCALE (NOVOLOG) 1 VIAL SQ SCH ×4 (09:03→21:14)
[2021-09-26 09:13] LABS: HEMATOCRIT 33.8 % (35.4-49); HEMOGLOBIN 11.5 G/dL (11.7-16.9); MCH 30.5 pg (25.7-33.7); MCHC 33.9 g/dl (32.0-35.9); MEAN CELL VOLUME 90.2 fl (80-96); MEAN PLT VOLUME 8.1 fl (7.5-11.1); PLATELET COUNT 201.5 10^3/uL (134-434); RBC 3.75 10^6/uL (4.00-5.60); RDW 14.9 % (11.9-15.9); WHITE BLOOD COUNT 6.9 10^3/uL (4.0-10.8)
[2021-09-26 09:34] LABS: BILIRUBIN,TOTAL 0.6 mg/dl (0.2-1); CALCIUM 8.3 mg/dl (8.5-10); CREATININE 1.8 mg/dl (0.55-1.3); PHOSPHOROUS 3.2 mg/dl (2.5-4.9); TOT PROT 6.3 g/dl (6.4-8.2)
[2021-09-26] MEDS: METHIMAZOLE 5 MG TABLET PO SCH (09:46)
[2021-09-26] MEDS: FUROSEMIDE 40 MG/4 ML INJECTABLE VIAL IVPUSH SCH (09:46)
[2021-09-26] MEDS: metoPROLOL SUCCINATE 25 MG TAB.SR.24H (FP) PO SCH ×2 (09:47→21:14)
[2021-09-26] MEDS ORDERED: PAROXETINE HCL 40 MG PO SCH (10:00)
[2021-09-26] MEDS ORDERED: ALBUTEROL SO4 0.083% IH SOL 2.5 MG/3 ML VIAL.NEB. NEB PRN (10:45)
[2021-09-26] MEDS: TAMSULOSIN HCL 0.4 MG CAP PO SCH (21:14)
[2021-09-26] MEDS: FINASTERIDE 5 MG TABLET (FP) PO SCH (21:14)
[2021-09-26] MEDS: BUDESONIDE/FORMETEROL FUMARATE 80/4.5 mcg INHALER IH SCH (21:15)
[2021-09-27] MEDS: BACITRACIN 15 GM TUBE TOPICAL OINTMENT TP SCH ×3 (06:21→17:56)
[2021-09-27] MEDS: HEPARIN NA (PORCINE) 5,000 UNITS/ML 1ML VIAL SQ SCH ×3 (06:22→22:08)
[2021-09-27] MEDS: INSULIN SLIDING SCALE (NOVOLOG) 1 VIAL SQ SCH ×4 (06:22→22:12)
[2021-09-27 09:08] LABS: HEMATOCRIT 32.4 % (35.4-49); HEMOGLOBIN 11.2 G/dL (11.7-16.9); MCH 30.9 pg (25.7-33.7); MCHC 34.4 g/dl (32.0-35.9); MEAN CELL VOLUME 89.8 fl (80-96); MEAN PLT VOLUME 8.1 fl (7.5-11.1); PLATELET COUNT 156.2 10^3/uL (134-434); RBC 3.61 10^6/uL (4.00-5.60); RDW 14.6 % (11.9-15.9); WHITE BLOOD COUNT 5.9 10^3/uL (4.0-10.8)
[2021-09-27] MEDS: PARoxetine HCL 20 MG TABLET PO SCH (09:45)
[2021-09-27] MEDS: metoPROLOL SUCCINATE 25 MG TAB.SR.24H (FP) PO SCH ×2 (09:46→22:07)
[2021-09-27] MEDS: METHIMAZOLE 5 MG TABLET PO SCH (09:46)
[2021-09-27] MEDS: FUROSEMIDE 40 MG/4 ML INJECTABLE VIAL IVPUSH SCH (09:46)
[2021-09-27] MEDS: FINASTERIDE 5 MG TABLET (FP) PO SCH (22:07)
[2021-09-27] MEDS: BUDESONIDE/FORMETEROL FUMARATE 80/4.5 mcg INHALER IH SCH (22:14)
[2021-09-27] MEDS: TAMSULOSIN HCL 0.4 MG CAP PO SCH (22:29)
[2021-09-28] MEDS: BACITRACIN 15 GM TUBE TOPICAL OINTMENT TP SCH ×4 (00:12→18:16)
[2021-09-28] MEDS: HEPARIN NA (PORCINE) 5,000 UNITS/ML 1ML VIAL SQ SCH ×3 (06:28→21:29)
[2021-09-28] MEDS: INSULIN SLIDING SCALE (NOVOLOG) 1 VIAL SQ SCH ×4 (06:28→21:40)
[2021-09-28 08:20] LABS: ALBUMIN 3.1 g/dl (3.4-5.0); BILIRUBIN,TOTAL 0.6 mg/dl (0.2-1); CALCIUM 8.2 mg/dl (8.5-10); CREATININE 2.1 mg/dl (0.55-1.3); MAGNESIUM 1.7 mg/dL (1.8-2.4); TOT PROT 6.3 g/dl (6.4-8.2)
[2021-09-28 08:36] LABS: HEMATOCRIT 32.7 % (35.4-49); HEMOGLOBIN 11.3 G/dL (11.7-16.9); MCH 31.1 pg (25.7-33.7); MCHC 34.6 g/dl (32.0-35.9); MEAN CELL VOLUME 90.1 fl (80-96); MEAN PLT VOLUME 8.3 fl (7.5-11.1); PLATELET COUNT 170.6 10^3/uL (134-434); RBC 3.63 10^6/uL (4.00-5.60); RDW 15.2 % (11.9-15.9); WHITE BLOOD COUNT 6.2 10^3/uL (4.0-10.8)
[2021-09-28] MEDS ORDERED: MAGNESIUM OXIDE 400 MG TABLET (FP) PO ONE (08:45)
[2021-09-28] MEDS: PARoxetine HCL 20 MG TABLET PO SCH (09:14)
[2021-09-28] MEDS: FUROSEMIDE 40 MG TABLET (FP) PO SCH (09:15)
[2021-09-28] MEDS: METHIMAZOLE 5 MG TABLET PO SCH (09:15)
[2021-09-28] MEDS: metoPROLOL SUCCINATE 25 MG TAB.SR.24H (FP) PO SCH ×2 (09:16→21:31)
[2021-09-28] MEDS: TAMSULOSIN HCL 0.4 MG CAP PO SCH (21:29)
[2021-09-28] MEDS: FINASTERIDE 5 MG TABLET (FP) PO SCH (21:30)
[2021-09-28] MEDS: BUDESONIDE/FORMETEROL FUMARATE 80/4.5 mcg INHALER IH SCH (21:32)
[2021-09-29] MEDS: BACITRACIN 15 GM TUBE TOPICAL OINTMENT TP SCH ×4 (00:12→19:01)
[2021-09-29] MEDS: HEPARIN NA (PORCINE) 5,000 UNITS/ML 1ML VIAL SQ SCH ×2 (06:13→14:59)
[2021-09-29] MEDS: INSULIN SLIDING SCALE (NOVOLOG) 1 VIAL SQ SCH ×3 (06:17→16:48)
[2021-09-29] MEDS: PARoxetine HCL 20 MG TABLET PO SCH (09:31)
[2021-09-29] MEDS: FUROSEMIDE 40 MG TABLET (FP) PO SCH (09:32)
[2021-09-29] MEDS: METHIMAZOLE 5 MG TABLET PO SCH (09:33)
[2021-09-29] MEDS: metoPROLOL SUCCINATE 25 MG TAB.SR.24H (FP) PO SCH (09:34)
[2021-09-29 19:49] VITALS: BP 116/55; PULSE 79; TEMP 98.5
== END 2021-09-29 20:40 | disposition home or self-care (01) | DRG 291 ==
LOC: FER 08:04 → FM/S 12:28
PROVIDERS: ADMIT Internal Medicine; ATTEND Nurse Practitioner Acute Care
DX: I13.0 Hypertensive heart and chronic kidney disease with heart failure and stage 1 through stage 4 chronic kidney disease, or unspecified chronic kidney disease (principal); I50.33 Acute on chronic diastolic (congestive) heart failure; N17.9 Acute kidney failure, unspecified; N39.0 Urinary tract infection, site not specified; J84.9 Interstitial pulmonary disease, unspecified; G61.81 Chronic inflammatory demyelinating polyneuritis; R53.1 Weakness; E78.5 Hyperlipidemia, unspecified; E11.40 Type 2 diabetes mellitus with diabetic neuropathy, unspecified; K21.9 Gastro-esophageal reflux disease without esophagitis; N40.0 Benign prostatic hyperplasia without lower urinary tract symptoms; S80.811A Abrasion, right lower leg, initial encounter; M06.9 Rheumatoid arthritis, unspecified; E05.90 Thyrotoxicosis, unspecified without thyrotoxic crisis or storm; J44.9 Chronic obstructive pulmonary disease, unspecified; F42.9 Obsessive-compulsive disorder, unspecified; E11.22 Type 2 diabetes mellitus with diabetic chronic kidney disease; N18.9 Chronic kidney disease, unspecified; B96.4 Proteus (mirabilis) (morganii) as the cause of diseases classified elsewhere; Z96.651 Presence of right artificial knee joint
CPT/HCPCS: 0241U-QW; 36415; 70450-TC; 71045-TC-FY; 72125-TC; 80048; 80053; 81003; 81015; 82550; 82803; 82962; 83735; 83880; 84100; 84443; 84484; 85025; 85027; 87086; 87186; 93005; 93306-TC; 97116-GP; 97161-GP; 99285-25; J1644

== ENCOUNTER 2022-03-28 10:40 | Inpatient (IN) | payer BC, OTHER ==
[2022-03-28] MEDS ORDERED: ALBUTEROL SO4 2.5/IPRATROPIUM 0.5 INH SOL 3 ML VIAL.NEB. NEB ONE ×2 (10:49→10:59)
[2022-03-28] MEDS ORDERED: methylPREDNISolone NA SUCC 125 MG/2 ML VIAL IVPB ONE (11:00)
[2022-03-28] MEDS ORDERED: methylPREDNISolone NA SUCC 125 MG/2 ML VIAL ONE (11:23)
[2022-03-28 11:59] LABS: HEMATOCRIT 36.3 % (35.4-49); HEMOGLOBIN 11.7 G/dL (11.7-16.9); MCH 29.3 pg (25.7-33.7); MCHC 32.2 g/dl (32.0-35.9); MEAN CELL VOLUME 91.1 fl (80-96); MEAN PLT VOLUME 8.4 fl (7.5-11.1); PLATELET COUNT 314.6 10^3/uL (134-434); RBC 3.98 10^6/uL (4.00-5.60); RDW 15.1 % (11.9-15.9); WHITE BLOOD COUNT 13.2 10^3/uL (4.0-10.8)
[2022-03-28 12:07] LABS: ALBUMIN 2.7 g/dl (3.4-5.0); BILIRUBIN,TOTAL 0.4 mg/dl (0.2-1); CALCIUM 7.6 mg/dl (8.5-10); CREATININE 2.3 mg/dl (0.55-1.3); TOT PROT 6.8 g/dl (6.4-8.2)
[2022-03-28 12:09] LABS: INR 1.21 (0.83-1.09); PROTHROMBIN TIME (PATIENT) 13.9 SEC (9.7-13.0)
[2022-03-28 12:12] LABS: ACTIVATED PTT 27.7 SECONDS (25.2-36.5)
[2022-03-28] MEDS ORDERED: dilTIAZem HCL 50 MG/10 ML - 10 ML VIAL IVPUSH ONE ×3 (12:32→14:09)
[2022-03-28] MEDS ORDERED: dilTIAZem HCL 50 MG/10 ML - 10 ML VIAL ONE (12:33)
[2022-03-28 12:34] LABS: VENOUS BASE EXCESS -4.6 mmol/L (-2-2); VENOUS O2 SATURATION 54.3 % (70-80); VENOUS PCO2 52.2 mmHg (38-52); VENOUS PH 7.259 (7.310-7.410)
[2022-03-28 13:20] LABS: PLATELET ESTIMATE ADEQUATE
[2022-03-28] MEDS ORDERED: dilTIAZem HCL 125 MG/25 ML - 25 ML VIAL ONE (14:18)
[2022-03-28] MEDS ORDERED: METOPROLOL TARTRATE 25 MG TABLET (FP) PO SCH (14:22)
[2022-03-28] MEDS: BUDESONIDE 0.5 MG/2 ML INH SUSP VIAL NEB SCH ×2 (14:37→22:23)
[2022-03-28] MEDS: metoPROLOL SUCCINATE 25 MG TAB.SR.24H (FP) PO SCH ×2 (15:15→22:23)
[2022-03-28] MEDS: APIXABAN 2.5 MG TABLET PO SCH ×2 (15:30→23:00)
[2022-03-28] MEDS ORDERED: IPRATROPIUM BR 0.02% 0.5 MG/2.5 ML VIAL.NEB. NEB ONE ×2 (18:24→22:00)
[2022-03-28] MEDS: IPRATROPIUM BR 0.02% 0.5 MG/2.5 ML VIAL.NEB. NEB SCH ×2 (18:26→22:03)
[2022-03-28] MEDS ORDERED: dilTIAZem HCL 30 MG TABLET PO ONE (19:35)
[2022-03-28] MEDS ORDERED: dilTIAZem HCL 30 MG TABLET ONE (19:41)
[2022-03-28] MEDS ORDERED: INSULIN (NOVOLOG) ASPART 100 UNITS/ML 10ML VIAL ONE ×2 (19:42→22:15)
[2022-03-28] MEDS: INSULIN SLIDING SCALE (NOVOLOG) 1 VIAL SQ SCH ×2 (19:43→22:21)
[2022-03-28] MEDS ORDERED: TAMSULOSIN HCL 0.4 MG CAP ONE (22:00)
[2022-03-28] MEDS ORDERED: methylPREDNISolone NA SUCC 40 MG/1 ML VIAL ONE (22:00)
[2022-03-28] MEDS: TAMSULOSIN HCL 0.4 MG CAP PO SCH (22:03)
[2022-03-28] MEDS: methylPREDNISolone NA SUCC 40 MG/1 ML VIAL IVPUSH SCH (22:11)
[2022-03-29] MEDS ORDERED: dilTIAZem HCL 50 MG/10 ML - 10 ML VIAL ONE (00:52)
[2022-03-29] MEDS ORDERED: dilTIAZem HCL 50 MG/10 ML - 10 ML VIAL IVPUSH ONE (01:00)
[2022-03-29] MEDS ORDERED: dilTIAZem HCL 30 MG TABLET PO ONE (01:14)
[2022-03-29] MEDS: IPRATROPIUM BR 0.02% 0.5 MG/2.5 ML VIAL.NEB. NEB SCH ×6 (04:00→21:02)
[2022-03-29] MEDS ORDERED: dilTIAZem HCL 50 MG/10 ML - 10 ML VIAL IVPUSH PRN ×3 (04:13→20:58)
[2022-03-29] MEDS ORDERED: METOPROLOL TARTRATE 5 MG/5 ML VIAL IVPUSH ONE (05:11)
[2022-03-29] MEDS ORDERED: LEVALBUTEROL HCL 0.63 MG/3 ML VIAL.NEB. IH ONE (05:12)
[2022-03-29] MEDS ORDERED: LEVALBUTEROL HCL 0.31 MG/3 ML VIAL.NEB IH ONE (05:34)
[2022-03-29] MEDS: methylPREDNISolone NA SUCC 40 MG/1 ML VIAL IVPUSH SCH ×3 (05:35→21:32)
[2022-03-29 08:25] LABS: ALBUMIN 2.6 g/dl (3.4-5.0); BILIRUBIN,TOTAL 0.5 mg/dl (0.2-1); CALCIUM 7.9 mg/dl (8.5-10); CREATININE 2.8 mg/dl (0.55-1.3); MAGNESIUM 1.8 mg/dL (1.8-2.4); PHOSPHOROUS 4.7 mg/dl (2.5-4.9); TOT PROT 6.6 g/dl (6.4-8.2)
[2022-03-29 08:30] LABS: HEMATOCRIT 32.5 % (35.4-49); HEMOGLOBIN 10.3 G/dL (11.7-16.9); MCH 28.8 pg (25.7-33.7); MCHC 31.7 g/dl (32.0-35.9); MEAN CELL VOLUME 90.9 fl (80-96); MEAN PLT VOLUME 7.7 fl (7.5-11.1); PLATELET COUNT 262.5 10^3/uL (134-434); RBC 3.57 10^6/uL (4.00-5.60); WHITE BLOOD COUNT 12.2 10^3/uL (4.0-10.8)
[2022-03-29] MEDS ORDERED: METHIMAZOLE 5 MG TABLET PO SCH ×3 (08:45→22:00)
[2022-03-29] MEDS: INSULIN SLIDING SCALE (NOVOLOG) 1 VIAL SQ SCH ×4 (09:00→22:59)
[2022-03-29] MEDS: BUDESONIDE 0.5 MG/2 ML INH SUSP VIAL NEB SCH ×2 (09:29→20:40)
[2022-03-29] MEDS: CEFTRIAXONE 1 GM in DEXTROSE 5%-WATER - 50 ML IVPB SCH (09:30)
[2022-03-29] MEDS: APIXABAN 2.5 MG TABLET PO SCH ×2 (09:30→22:58)
[2022-03-29] MEDS: POLYETHYLENE GLYCOL (HEALTHYLAX) 3350 17 GM PACKET PO SCH ×2 (09:30→22:58)
[2022-03-29] MEDS ORDERED: FINASTERIDE 5 MG TABLET (FP) PO SCH (10:00)
[2022-03-29] MEDS ORDERED: PARoxetine HCL 20 MG TABLET PO SCH (10:00)
[2022-03-29] MEDS ORDERED: METHIMAZOLE 5 MG TABLET PO ONE (10:15)
[2022-03-29] MEDS ORDERED: FUROSEMIDE 40 MG/4 ML INJECTABLE VIAL IVPUSH ONE ×2 (14:30→21:51)
[2022-03-29] MEDS ORDERED: LEVALBUTEROL HCL 0.31 MG/3 ML VIAL.NEB IH PRN (16:22)
[2022-03-29] MEDS ORDERED: DIGOXIN 0.5 MG/2 ML AMPUL IVPUSH ONE (21:22)
[2022-03-29] MEDS ORDERED: ATORVASTATIN CA 40 MG TABLET (FP) PO SCH (22:00)
[2022-03-29 22:16] LABS: ARTERIAL BLD GAS O2 SATURATION 84.1 % (95-98); ARTERIAL BLOOD GAS BASE EXCESS -9.1 mmol/L (-2-2); ARTERIAL BLOOD GAS PO2 68.7 mmHg (80-100)
[2022-03-29 22:20] LABS: ALLENS TEST POSITIVE
[2022-03-29 22:22] LABS: ARTERIAL BLOOD GAS pH 7.056 (7.350-7.450)
[2022-03-29] MEDS: PHENYLEPHRINE HCL 50,000 MCG in SODIUM CHLORIDE 500 ML IV SCH (22:32)
[2022-03-29] MEDS ORDERED: ETOMIDATE 40 MG/20 ML VIAL IVPUSH ONE (22:36)
[2022-03-29] MEDS ORDERED: MIDAZOLAM HCL 5 MG/1 ML Single Dose Vial IVPUSH ONE (22:36)
[2022-03-29] MEDS ORDERED: ROCURONIUM BROMIDE 50 MG/5 ML VIAL IVPUSH ONE (22:37)
[2022-03-29] MEDS ORDERED: MIDAZOLAM HCL 5 MG/1 ML Single Dose Vial ONE (22:38)
[2022-03-29] MEDS: TAMSULOSIN HCL 0.4 MG CAP PO SCH (22:58)
[2022-03-29] MEDS ORDERED: PROPOFOL 1,000,000 MCG/100 ML VIAL IVPB SCH (23:15)
[2022-03-30 02:04] LABS: ARTERIAL BLD GAS O2 SATURATION 98.5 % (95-98); ARTERIAL BLOOD GAS BASE EXCESS -7.1 mmol/L (-2-2); ARTERIAL BLOOD GAS PO2 149.2 mmHg (80-100); ARTERIAL BLOOD GAS pH 7.231 (7.350-7.450)
[2022-03-30] MEDS ORDERED: FUROSEMIDE 100 MG/10 ML INJECTABLE VIAL IVPB ONE (02:24)
[2022-03-30] MEDS: FENTANYL NS IVPB 500 MCG/100 ML BAG IVPB SCH ×3 (02:38→18:00)
[2022-03-30] MEDS: SODIUM CHLORIDE IVPB SCH ×3 (02:38→23:12)
[2022-03-30] MEDS: DEXMEDETOMIDINE HCL IVPB SCH ×3 (02:38→23:12)
[2022-03-30 02:41] LABS: VENT MODE V-A/C; VENT RATE 24
[2022-03-30] MEDS: DIGOXIN 0.5 MG/2 ML AMPUL IVPUSH SCH ×2 (03:12→09:57)
[2022-03-30] MEDS: IPRATROPIUM BR 0.02% 0.5 MG/2.5 ML VIAL.NEB. NEB SCH ×7 (04:00→23:33)
[2022-03-30] MEDS: INSULIN SLIDING SCALE (NOVOLOG) 1 VIAL SQ SCH ×4 (06:02→21:57)
[2022-03-30] MEDS: methylPREDNISolone NA SUCC 40 MG/1 ML VIAL IVPUSH SCH ×3 (06:02→21:33)
[2022-03-30 07:47] LABS: HEMATOCRIT 30.9 % (35.4-49); HEMOGLOBIN 9.9 GM/dL (11.7-16.9); MCH 29.1 pg (25.7-33.7); MEAN CELL VOLUME 91.1 fl (80-96); MEAN PLT VOLUME 7.7 fl (7.5-11.1); PLATELET COUNT 267 10^3/uL (134-434); RBC 3.39 M/mm3 (4.00-5.60); WHITE BLOOD COUNT 11.8 K/mm3 (4.0-10.0)
[2022-03-30] MEDS ORDERED: PROPOFOL 1,000,000 MCG/100 ML VIAL ONE (07:50)
[2022-03-30] MEDS ORDERED: APIXABAN 2.5 MG TABLET GT SCH (08:01)
[2022-03-30 08:15] LABS: ACTIVATED PTT 28.8 SECONDS (25.2-36.5)
[2022-03-30 08:17] LABS: INR 1.36 (0.83-1.09); PROTHROMBIN TIME (PATIENT) 15.7 SEC (9.7-13.0)
[2022-03-30] MEDS: BUDESONIDE 0.5 MG/2 ML INH SUSP VIAL NEB SCH ×2 (08:40→20:36)
[2022-03-30 09:00] LABS: CHLORIDE 110 mmol/L (98-107); SODIUM 143 mmol/L (136-145)
[2022-03-30 09:01] LABS: CALCIUM 7.3 mg/dL (8.5-10.1)
[2022-03-30 09:02] LABS: ANION GAP 12 MMOL/L (8-16); BLOOD UREA NITROGEN 86.9 mg/dL (7-18); CO2 21 mmol/L (21-32); GLUCOSE,RANDOM 155 mg/dL (74-106); MAGNESIUM 2.2 mg/dL (1.8-2.4)
[2022-03-30 09:05] LABS: CREATININE 3.8 mg/dL (0.55-1.3); PHOSPHOROUS 5.4 mg/dL (2.5-4.9)
[2022-03-30 09:10] LABS: N-TERMINAL BNP 32434.5 pg/ml (5-450)
[2022-03-30] MEDS: CEFTRIAXONE 1 GM in DEXTROSE 5%-WATER - 50 ML IVPB SCH (09:55)
[2022-03-30] MEDS: POLYETHYLENE GLYCOL (HEALTHYLAX) 3350 17 GM PACKET GT SCH ×2 (09:57→21:32)
[2022-03-30] MEDS: FINASTERIDE 5 MG TABLET (FP) GT SCH (09:57)
[2022-03-30] MEDS: FAMOTIDINE 40 MG/5 ML ORAL SUSPENSION GT SCH ×2 (09:58→21:33)
[2022-03-30] MEDS ORDERED: PANTOPRAZOLE SOD 40 MG SUSPENSION PACKET PO SCH (10:00)
[2022-03-30] MEDS: METHIMAZOLE 5 MG TABLET GT SCH ×2 (10:12→11:37)
[2022-03-30] MEDS ORDERED: METOPROLOL TARTRATE 5 MG/5 ML VIAL ONE (11:06)
[2022-03-30] MEDS ORDERED: METOPROLOL TARTRATE 5 MG/5 ML VIAL IVPUSH ONE (14:42)
[2022-03-30] MEDS: METHIMAZOLE 10 MG TABLET GT SCH (21:32)
[2022-03-30] MEDS: ATORVASTATIN CA 40 MG TABLET (FP) GT SCH (21:33)
[2022-03-30] MEDS ORDERED: APIXABAN 5 MG TABLET GT SCH (22:00)
[2022-03-30] MEDS: PHENYLEPHRINE HCL 50,000 MCG in SODIUM CHLORIDE 500 ML IV SCH (22:48)
[2022-03-30] MEDS ORDERED: DEXMEDETOMIDINE PREMIX 400 MCG/100 ML BAG IVPB ONE (23:10)
[2022-03-31] MEDS: FENTANYL NS IVPB 500 MCG/100 ML BAG IVPB SCH ×6 (00:21→21:23)
[2022-03-31] MEDS: DEXMEDETOMIDINE HCL IVPB SCH ×3 (00:27→11:01)
[2022-03-31] MEDS: SODIUM CHLORIDE IVPB SCH ×3 (00:27→11:01)
[2022-03-31] MEDS: IPRATROPIUM BR 0.02% 0.5 MG/2.5 ML VIAL.NEB. NEB SCH ×5 (04:05→20:45)
[2022-03-31] MEDS ORDERED: DEXMEDETOMIDINE PREMIX 400 MCG/100 ML BAG IVPB ONE (05:38)
[2022-03-31] MEDS: methylPREDNISolone NA SUCC 40 MG/1 ML VIAL IVPUSH SCH ×3 (05:39→21:20)
[2022-03-31] MEDS: INSULIN SLIDING SCALE (NOVOLOG) 1 VIAL SQ SCH ×4 (06:45→21:21)
[2022-03-31 07:11] LABS: HEMATOCRIT 34.3 % (35.4-49); HEMOGLOBIN 10.6 GM/dL (11.7-16.9); MCHC 30.8 g/dl (32.0-35.9); MEAN PLT VOLUME 7.8 fl (7.5-11.1); PLATELET COUNT 313 10^3/uL (134-434); RBC 3.77 M/mm3 (4.00-5.60); RDW 14.7 % (11.9-15.9); WHITE BLOOD COUNT 12.2 K/mm3 (4.0-10.0)
[2022-03-31] MEDS: BUDESONIDE 0.5 MG/2 ML INH SUSP VIAL NEB SCH ×2 (07:30→20:46)
[2022-03-31 07:35] LABS: CHLORIDE 112 mmol/L (98-107); SODIUM 145 mmol/L (136-145)
[2022-03-31 07:37] LABS: ALBUMIN 2.2 g/dl (3.4-5.0); ANION GAP 10 MMOL/L (8-16); BLOOD UREA NITROGEN 97.8 mg/dL (7-18); CO2 23 mmol/L (21-32); GLUCOSE,RANDOM 182 mg/dL (74-106); MAGNESIUM 2.2 mg/dL (1.8-2.4)
[2022-03-31 07:40] LABS: CREATININE 3.8 mg/dL (0.55-1.3); PHOSPHOROUS 6.3 mg/dL (2.5-4.9); SGOT/AST 13 U/L (15-37)
[2022-03-31 07:41] LABS: SGPT/ALT 23 U/L (13-61)
[2022-03-31 07:42] LABS: BILIRUBIN,TOTAL 0.2 mg/dL (0.2-1)
[2022-03-31 07:43] LABS: ALK PHOS 82 U/L (45-117)
[2022-03-31 07:48] LABS: CALCIUM 6.9 mg/dL (8.5-10.1)
[2022-03-31] MEDS ORDERED: CALCIUM GLUC IN NACL, ISO-OSM 1 GM/50 ML BAG IVPB ONE (07:51)
[2022-03-31 08:51] LABS: ANISOCYTOSIS 0; HELMET CELLS 0; HOWELL-JOLLY BODIES 0; MACROCYTOSIS 0; OVALOCYTE 0; ROULEAU 0; SICKELED CELLS 0; TARGET CELLS 0; TEAR DROP CELLS 0; TOXIC GRANULATION 0
[2022-03-31] MEDS: SODIUM ZIRCONIUM CYCLOSILICATE (LOKELMA) 5 GM PACKET PO SCH (09:18)
[2022-03-31] MEDS: METHIMAZOLE 10 MG TABLET GT SCH ×2 (09:18→21:20)
[2022-03-31] MEDS: FAMOTIDINE 40 MG/5 ML ORAL SUSPENSION GT SCH ×2 (09:19→21:20)
[2022-03-31] MEDS: FINASTERIDE 5 MG TABLET (FP) GT SCH (09:19)
[2022-03-31] MEDS: POLYETHYLENE GLYCOL (HEALTHYLAX) 3350 17 GM PACKET GT SCH ×2 (09:19→21:20)
[2022-03-31] MEDS: APIXABAN 2.5 MG TABLET GT SCH ×2 (09:19→21:20)
[2022-03-31] MEDS: CEFTRIAXONE 1 GM in DEXTROSE 5%-WATER - 50 ML IVPB SCH (09:20)
[2022-03-31] MEDS: PHENYLEPHRINE HCL 50,000 MCG in SODIUM CHLORIDE 500 ML IV SCH (10:45)
[2022-03-31 12:55] LABS: ARTERIAL BLD GAS O2 SATURATION 91.6 % (95-98); ARTERIAL BLOOD GAS BASE EXCESS -6.4 mmol/L (-2-2); ARTERIAL BLOOD GAS pH 7.264 (7.350-7.450)
[2022-03-31 12:56] LABS: ALLENS TEST POSITIVE
[2022-03-31 12:57] LABS: VENT MODE A/C; VENT RATE 16
[2022-03-31] MEDS: DEXMEDETOMIDINE PREMIX 400 MCG/100 ML BAG IVPB SCH ×2 (14:04→23:01)
[2022-03-31] MEDS ORDERED: PROPOFOL 1,000,000 MCG/100 ML VIAL ONE (18:48)
[2022-03-31] MEDS: PROPOFOL 1,000,000 MCG/100 ML VIAL IVPB SCH (19:15)
[2022-03-31] MEDS: ATORVASTATIN CA 40 MG TABLET (FP) GT SCH (21:20)
[2022-04-01] MEDS: IPRATROPIUM BR 0.02% 0.5 MG/2.5 ML VIAL.NEB. NEB SCH ×6 (00:37→20:37)
[2022-04-01] MEDS: PROPOFOL 1,000,000 MCG/100 ML VIAL IVPB SCH ×3 (02:20→22:01)
[2022-04-01] MEDS: FENTANYL NS IVPB 500 MCG/100 ML BAG IVPB SCH ×4 (04:19→22:01)
[2022-04-01] MEDS: DEXMEDETOMIDINE PREMIX 400 MCG/100 ML BAG IVPB SCH ×4 (04:19→22:14)
[2022-04-01] MEDS: INSULIN SLIDING SCALE (NOVOLOG) 1 VIAL SQ SCH ×4 (06:00→22:14)
[2022-04-01] MEDS: methylPREDNISolone NA SUCC 40 MG/1 ML VIAL IVPUSH SCH ×3 (06:01→22:01)
[2022-04-01] MEDS: PHENYLEPHRINE HCL 50,000 MCG in SODIUM CHLORIDE 500 ML IV SCH ×3 (06:02→23:18)
[2022-04-01 07:32] LABS: HEMATOCRIT 34.7 % (35.4-49); MCH 29.1 pg (25.7-33.7); MCHC 31.8 g/dl (32.0-35.9); MEAN CELL VOLUME 91.6 fl (80-96); MEAN PLT VOLUME 7.3 fl (7.5-11.1); PLATELET COUNT 344 10^3/uL (134-434); RBC 3.78 M/mm3 (4.00-5.60); RDW 14.9 % (11.9-15.9); WHITE BLOOD COUNT 13.7 K/mm3 (4.0-10.0)
[2022-04-01] MEDS: BUDESONIDE 0.5 MG/2 ML INH SUSP VIAL NEB SCH ×2 (07:48→20:37)
[2022-04-01 08:13] LABS: CHLORIDE 114 mmol/L (98-107); SODIUM 147 mmol/L (136-145)
[2022-04-01 08:15] LABS: ALBUMIN 2.2 g/dl (3.4-5.0); ANION GAP 12 MMOL/L (8-16); CO2 21 mmol/L (21-32); GLUCOSE,RANDOM 222 mg/dL (74-106); MAGNESIUM 2.3 mg/dL (1.8-2.4)
[2022-04-01 08:18] LABS: CREATININE 3.4 mg/dL (0.55-1.3); PHOSPHOROUS 6.3 mg/dL (2.5-4.9); SGOT/AST 11 U/L (15-37); SGPT/ALT 20 U/L (13-61)
[2022-04-01 08:20] LABS: BILIRUBIN,TOTAL 0.3 mg/dL (0.2-1); TOT PROT 6.1 g/dl (6.4-8.2)
[2022-04-01 08:21] LABS: ALK PHOS 80 U/L (45-117)
[2022-04-01 08:28] LABS: BLOOD UREA NITROGEN 104.7 mg/dL (7-18); CALCIUM 6.9 mg/dL (8.5-10.1)
[2022-04-01] MEDS ORDERED: CALCIUM GLUC IN NACL, ISO-OSM 1 GM/50 ML BAG IVPB ONE (09:00)
[2022-04-01] MEDS: CEFTRIAXONE 1 GM in DEXTROSE 5%-WATER - 50 ML IVPB SCH (09:49)
[2022-04-01] MEDS: APIXABAN 2.5 MG TABLET GT SCH ×2 (09:50→22:00)
[2022-04-01] MEDS: SODIUM ZIRCONIUM CYCLOSILICATE (LOKELMA) 5 GM PACKET PO SCH (09:50)
[2022-04-01] MEDS: METHIMAZOLE 10 MG TABLET GT SCH ×2 (09:50→22:04)
[2022-04-01] MEDS: FINASTERIDE 5 MG TABLET (FP) GT SCH (09:50)
[2022-04-01] MEDS: POLYETHYLENE GLYCOL (HEALTHYLAX) 3350 17 GM PACKET GT SCH ×2 (09:50→22:00)
[2022-04-01] MEDS: FAMOTIDINE 40 MG/5 ML ORAL SUSPENSION GT SCH ×2 (09:54→22:03)
[2022-04-01 10:07] LABS: ANISOCYTOSIS 0; HELMET CELLS 0; HOWELL-JOLLY BODIES 0; MACROCYTOSIS 0; OVALOCYTE 0; ROULEAU 0; SICKELED CELLS 0; TARGET CELLS 0; TEAR DROP CELLS 0; TOXIC GRANULATION 0
[2022-04-01] MEDS: PIPERACILLIN/TAZOB 2.25 GM 2.25 GM in DEXTROSE 5%-WATER - 50 ML IVPB SCH ×2 (14:59→22:06)
[2022-04-01] MEDS: ATORVASTATIN CA 40 MG TABLET (FP) GT SCH (22:00)
[2022-04-02] MEDS: IPRATROPIUM BR 0.02% 0.5 MG/2.5 ML VIAL.NEB. NEB SCH ×6 (00:30→20:50)
[2022-04-02] MEDS: PIPERACILLIN/TAZOB 2.25 GM 2.25 GM in DEXTROSE 5%-WATER - 50 ML IVPB SCH ×3 (01:18→17:41)
[2022-04-02] MEDS: DEXMEDETOMIDINE PREMIX 400 MCG/100 ML BAG IVPB SCH ×3 (04:34→22:47)
[2022-04-02] MEDS: PROPOFOL 1,000,000 MCG/100 ML VIAL IVPB SCH ×3 (04:35→22:37)
[2022-04-02] MEDS: INSULIN SLIDING SCALE (NOVOLOG) 1 VIAL SQ SCH ×4 (06:06→22:41)
[2022-04-02] MEDS: FENTANYL NS IVPB 500 MCG/100 ML BAG IVPB SCH (06:07)
[2022-04-02] MEDS: methylPREDNISolone NA SUCC 40 MG/1 ML VIAL IVPUSH SCH ×2 (06:07→22:38)
[2022-04-02 07:38] LABS: HEMATOCRIT 32.8 % (35.4-49); HEMOGLOBIN 10.8 GM/dL (11.7-16.9); MCH 29.9 pg (25.7-33.7); MCHC 32.9 g/dl (32.0-35.9); MEAN CELL VOLUME 90.9 fl (80-96); MEAN PLT VOLUME 7.3 fl (7.5-11.1); PLATELET COUNT 177 10^3/uL (134-434); RBC 3.61 M/mm3 (4.00-5.60); RDW 14.1 % (11.9-15.9); WHITE BLOOD COUNT 8.2 K/mm3 (4.0-10.0)
[2022-04-02] MEDS: BUDESONIDE 0.5 MG/2 ML INH SUSP VIAL NEB SCH ×2 (07:50→20:50)
[2022-04-02 07:54] LABS: CHLORIDE 115 mmol/L (98-107); SODIUM 147 mmol/L (136-145)
[2022-04-02 07:59] LABS: ALBUMIN 2.1 g/dl (3.4-5.0); ANION GAP 9 MMOL/L (8-16); CO2 23 mmol/L (21-32); GLUCOSE,RANDOM 237 mg/dL (74-106); MAGNESIUM 2.4 mg/dL (1.8-2.4)
[2022-04-02 08:02] LABS: BILIRUBIN,TOTAL 0.3 mg/dL (0.2-1); CREATININE 3.1 mg/dL (0.55-1.3); PHOSPHOROUS 6.4 mg/dL (2.5-4.9); SGOT/AST 9 U/L (15-37); SGPT/ALT 17 U/L (13-61)
[2022-04-02 08:04] LABS: TOT PROT 5.6 g/dl (6.4-8.2)
[2022-04-02 08:05] LABS: ALK PHOS 65 U/L (45-117)
[2022-04-02 08:12] LABS: BLOOD UREA NITROGEN 118.8 mg/dL (7-18); CALCIUM 6.7 mg/dL (8.5-10.1)
[2022-04-02 09:23] LABS: ANISOCYTOSIS 1+; MACROCYTOSIS 0
[2022-04-02] MEDS: SODIUM ZIRCONIUM CYCLOSILICATE (LOKELMA) 5 GM PACKET PO SCH (09:48)
[2022-04-02] MEDS: APIXABAN 2.5 MG TABLET GT SCH ×2 (09:48→22:37)
[2022-04-02] MEDS: METHIMAZOLE 10 MG TABLET GT SCH ×2 (09:48→22:37)
[2022-04-02] MEDS: POLYETHYLENE GLYCOL (HEALTHYLAX) 3350 17 GM PACKET GT SCH ×2 (09:48→22:37)
[2022-04-02] MEDS: DEXTROSE 5%-WATER - 1,000 ML IV SCH (09:58)
[2022-04-02 10:52] VITALS: BMI 30.9
[2022-04-02] MEDS: FINASTERIDE 5 MG TABLET (FP) GT SCH (10:54)
[2022-04-02] MEDS: FAMOTIDINE 40 MG/5 ML ORAL SUSPENSION GT SCH ×2 (10:54→22:37)
[2022-04-02] MEDS ORDERED: FUROSEMIDE 40 MG/4 ML INJECTABLE VIAL IVPUSH ONE (12:15)
[2022-04-02] MEDS: ATORVASTATIN CA 40 MG TABLET (FP) GT SCH (22:37)
[2022-04-03] MEDS: PIPERACILLIN/TAZOB 2.25 GM 2.25 GM in DEXTROSE 5%-WATER - 50 ML IVPB SCH ×3 (01:00→19:19)
[2022-04-03] MEDS: IPRATROPIUM BR 0.02% 0.5 MG/2.5 ML VIAL.NEB. NEB SCH ×6 (01:45→20:28)
[2022-04-03] MEDS: INSULIN SLIDING SCALE (NOVOLOG) 1 VIAL SQ SCH ×4 (06:12→21:33)
[2022-04-03] MEDS: DEXMEDETOMIDINE PREMIX 400 MCG/100 ML BAG IVPB SCH ×4 (06:44→18:41)
[2022-04-03] MEDS: PROPOFOL 1,000,000 MCG/100 ML VIAL IVPB SCH ×2 (06:44→17:19)
[2022-04-03 06:59] LABS: HEMOGLOBIN 10.9 GM/dL (11.7-16.9); MCH 29.8 pg (25.7-33.7); MCHC 33.1 g/dl (32.0-35.9); MEAN CELL VOLUME 90.2 fl (80-96); MEAN PLT VOLUME 7.5 fl (7.5-11.1); PLATELET COUNT 158 10^3/uL (134-434); RBC 3.66 M/mm3 (4.00-5.60); RDW 14.4 % (11.9-15.9); WHITE BLOOD COUNT 10.7 K/mm3 (4.0-10.0)
[2022-04-03 07:18] LABS: CHLORIDE 113 mmol/L (98-107)
[2022-04-03 07:25] LABS: CO2 24 mmol/L (21-32); GLUCOSE,RANDOM 290 mg/dL (74-106); MAGNESIUM 2.3 mg/dL (1.8-2.4)
[2022-04-03 07:28] LABS: PHOSPHOROUS 5.6 mg/dL (2.5-4.9); SGPT/ALT 18 U/L (13-61)
[2022-04-03 07:29] LABS: BILIRUBIN,TOTAL 0.3 mg/dL (0.2-1); SGOT/AST 11 U/L (15-37); TOT PROT 5.4 g/dl (6.4-8.2)
[2022-04-03 07:30] LABS: ALK PHOS 57 U/L (45-117)
[2022-04-03 07:35] LABS: ANION GAP 9 MMOL/L (8-16); BLOOD UREA NITROGEN 116.2 mg/dL (7-18); CALCIUM 6.7 mg/dL (8.5-10.1); SODIUM 146 mmol/L (136-145)
[2022-04-03 08:22] LABS: ANISOCYTOSIS 1+; MACROCYTOSIS 0
[2022-04-03] MEDS: BUDESONIDE 0.5 MG/2 ML INH SUSP VIAL NEB SCH ×2 (08:35→20:28)
[2022-04-03] MEDS ORDERED: FUROSEMIDE 40 MG/4 ML INJECTABLE VIAL IVPUSH ONE ×2 (08:45→20:00)
[2022-04-03] MEDS: METHIMAZOLE 10 MG TABLET GT SCH ×2 (09:07→21:25)
[2022-04-03] MEDS: methylPREDNISolone NA SUCC 40 MG/1 ML VIAL IVPUSH SCH ×2 (09:08→21:26)
[2022-04-03] MEDS: APIXABAN 2.5 MG TABLET GT SCH ×2 (10:25→21:25)
[2022-04-03] MEDS: SODIUM ZIRCONIUM CYCLOSILICATE (LOKELMA) 5 GM PACKET PO SCH (10:25)
[2022-04-03] MEDS: POLYETHYLENE GLYCOL (HEALTHYLAX) 3350 17 GM PACKET GT SCH ×2 (10:25→21:25)
[2022-04-03] MEDS: FINASTERIDE 5 MG TABLET (FP) GT SCH (10:27)
[2022-04-03] MEDS: FAMOTIDINE 40 MG/5 ML ORAL SUSPENSION GT SCH ×2 (11:43→22:43)
[2022-04-03] MEDS: DEXTROSE 5%-WATER - 1,000 ML IV SCH (15:00)
[2022-04-03] MEDS: ATORVASTATIN CA 40 MG TABLET (FP) GT SCH (21:24)
[2022-04-04] MEDS: IPRATROPIUM BR 0.02% 0.5 MG/2.5 ML VIAL.NEB. NEB SCH ×3 (00:39→11:31)
[2022-04-04] MEDS: PIPERACILLIN/TAZOB 2.25 GM 2.25 GM in DEXTROSE 5%-WATER - 50 ML IVPB SCH ×3 (01:07→17:57)
[2022-04-04] MEDS: INSULIN SLIDING SCALE (NOVOLOG) 1 VIAL SQ SCH ×4 (06:04→21:43)
[2022-04-04] MEDS: BUDESONIDE 0.5 MG/2 ML INH SUSP VIAL NEB SCH ×2 (07:35→21:00)
[2022-04-04 07:57] LABS: HEMATOCRIT 33.8 % (35.4-49); HEMOGLOBIN 11.1 GM/dL (11.7-16.9); MCH 29.6 pg (25.7-33.7); MCHC 32.8 g/dl (32.0-35.9); MEAN CELL VOLUME 90.3 fl (80-96); PLATELET COUNT 154 10^3/uL (134-434); RBC 3.74 M/mm3 (4.00-5.60); RDW 14.3 % (11.9-15.9); WHITE BLOOD COUNT 16.2 K/mm3 (4.0-10.0)
[2022-04-04 08:24] LABS: CHLORIDE 106 mmol/L (98-107); SODIUM 144 mmol/L (136-145)
[2022-04-04 08:34] LABS: ANION GAP 12 MMOL/L (8-16); CO2 26 mmol/L (21-32); GLUCOSE,RANDOM 339 mg/dL (74-106); MAGNESIUM 2.4 mg/dL (1.8-2.4)
[2022-04-04 08:38] LABS: CREATININE 2.8 mg/dL (0.55-1.3); PHOSPHOROUS 5.9 mg/dL (2.5-4.9); SGOT/AST 12 U/L (15-37); SGPT/ALT 18 U/L (13-61); TOT PROT 5.6 g/dl (6.4-8.2)
[2022-04-04 08:39] LABS: BILIRUBIN,TOTAL 0.3 mg/dL (0.2-1)
[2022-04-04 08:41] LABS: ALK PHOS 55 U/L (45-117); CALCIUM 6.6 mg/dL (8.5-10.1)
[2022-04-04] MEDS: DEXTROSE 5%-WATER - 1,000 ML IV SCH ×2 (09:00→16:00)
[2022-04-04] MEDS ORDERED: CALCIUM GLUC IN NACL, ISO-OSM 1 GM/50 ML BAG IVPB ONE (09:13)
[2022-04-04] MEDS: METHIMAZOLE 10 MG TABLET GT SCH (09:18)
[2022-04-04] MEDS: APIXABAN 2.5 MG TABLET GT SCH (09:18)
[2022-04-04] MEDS: FINASTERIDE 5 MG TABLET (FP) GT SCH (09:18)
[2022-04-04] MEDS: SODIUM ZIRCONIUM CYCLOSILICATE (LOKELMA) 5 GM PACKET PO SCH (09:18)
[2022-04-04] MEDS: methylPREDNISolone NA SUCC 40 MG/1 ML VIAL IVPUSH SCH ×2 (09:18→21:43)
[2022-04-04] MEDS: POLYETHYLENE GLYCOL (HEALTHYLAX) 3350 17 GM PACKET GT SCH (09:18)
[2022-04-04] MEDS: FAMOTIDINE 40 MG/5 ML ORAL SUSPENSION GT SCH (09:19)
[2022-04-04] MEDS ORDERED: TRIMETHOBENZAMIDE HCL 200MG/2ML INJ IM ONE (12:54)
[2022-04-04] MEDS: PROPOFOL 1,000,000 MCG/100 ML VIAL IVPB SCH (15:18)
[2022-04-04] MEDS: DEXMEDETOMIDINE PREMIX 400 MCG/100 ML BAG IVPB SCH (15:18)
[2022-04-04] MEDS: ATORVASTATIN CA 40 MG TABLET (FP) PO SCH (21:42)
[2022-04-04] MEDS: METHIMAZOLE 10 MG TABLET PO SCH (21:42)
[2022-04-04] MEDS: POLYETHYLENE GLYCOL (HEALTHYLAX) 3350 17 GM PACKET PO SCH (21:42)
[2022-04-04] MEDS: APIXABAN 2.5 MG TABLET PO SCH (21:42)
[2022-04-04] MEDS: FAMOTIDINE 40 MG/5 ML ORAL SUSPENSION PO SCH (21:57)
[2022-04-05] MEDS: PIPERACILLIN/TAZOB 2.25 GM 2.25 GM in DEXTROSE 5%-WATER - 50 ML IVPB SCH ×3 (01:04→18:39)
[2022-04-05] MEDS: INSULIN SLIDING SCALE (NOVOLOG) 1 VIAL SQ SCH ×4 (06:40→21:05)
[2022-04-05 08:01] LABS: HEMATOCRIT 36.1 % (35.4-49); HEMOGLOBIN 11.4 GM/dL (11.7-16.9); MCH 28.2 pg (25.7-33.7); MCHC 31.7 g/dl (32.0-35.9); MEAN CELL VOLUME 88.9 fl (80-96); MEAN PLT VOLUME 8.3 fl (7.5-11.1); PLATELET COUNT 189 10^3/uL (134-434); RBC 4.07 M/mm3 (4.00-5.60); RDW 14.6 % (11.9-15.9); WHITE BLOOD COUNT 21.9 K/mm3 (4.0-10.0)
[2022-04-05] MEDS: BUDESONIDE 0.5 MG/2 ML INH SUSP VIAL NEB SCH ×2 (08:10→20:50)
[2022-04-05 08:17] LABS: CHLORIDE 109 mmol/L (98-107); SODIUM 148 mmol/L (136-145)
[2022-04-05 08:26] LABS: ANION GAP 10 MMOL/L (8-16); CO2 29 mmol/L (21-32); GLUCOSE,RANDOM 286 mg/dL (74-106); MAGNESIUM 2.2 mg/dL (1.8-2.4)
[2022-04-05 08:27] LABS: PHOSPHOROUS 5.6 mg/dL (2.5-4.9); SGPT/ALT 22 U/L (13-61)
[2022-04-05 08:28] LABS: BILIRUBIN,TOTAL 0.3 mg/dL (0.2-1); CREATININE 2.6 mg/dL (0.55-1.3); SGOT/AST 16 U/L (15-37); TOT PROT 5.6 g/dl (6.4-8.2)
[2022-04-05 08:29] LABS: ALK PHOS 51 U/L (45-117)
[2022-04-05 08:31] LABS: BLOOD UREA NITROGEN 113.8 mg/dL (7-18); CALCIUM 6.9 mg/dL (8.5-10.1)
[2022-04-05] MEDS: DEXTROSE 5%-WATER - 1,000 ML IV SCH (09:00)
[2022-04-05] MEDS: FINASTERIDE 5 MG TABLET (FP) PO SCH (09:51)
[2022-04-05] MEDS: APIXABAN 2.5 MG TABLET PO SCH ×2 (09:51→21:04)
[2022-04-05] MEDS: METHIMAZOLE 10 MG TABLET PO SCH ×2 (09:52→21:04)
[2022-04-05] MEDS: FAMOTIDINE 40 MG/5 ML ORAL SUSPENSION PO SCH ×2 (09:52→21:04)
[2022-04-05] MEDS: SODIUM ZIRCONIUM CYCLOSILICATE (LOKELMA) 5 GM PACKET PO SCH (09:54)
[2022-04-05] MEDS: methylPREDNISolone NA SUCC 40 MG/1 ML VIAL IVPUSH SCH ×2 (10:02→21:04)
[2022-04-05] MEDS: POLYETHYLENE GLYCOL (HEALTHYLAX) 3350 17 GM PACKET PO SCH ×2 (10:10→21:05)
[2022-04-05 11:10] LABS: ANISOCYTOSIS 0; MACROCYTOSIS 0
[2022-04-05 11:11] LABS: PLATELET ESTIMATE ADEQUATE
[2022-04-05] MEDS: ATORVASTATIN CA 40 MG TABLET (FP) PO SCH (21:04)
[2022-04-06] MEDS: PIPERACILLIN/TAZOB 2.25 GM 2.25 GM in DEXTROSE 5%-WATER - 50 ML IVPB SCH ×3 (01:10→17:50)
[2022-04-06] MEDS: INSULIN SLIDING SCALE (NOVOLOG) 1 VIAL SQ SCH ×4 (06:44→21:45)
[2022-04-06 07:40] LABS: HEMATOCRIT 38.4 % (35.4-49); HEMOGLOBIN 12.1 GM/dL (11.7-16.9); MCH 28.2 pg (25.7-33.7); MCHC 31.6 g/dl (32.0-35.9); MEAN CELL VOLUME 89.2 fl (80-96); MEAN PLT VOLUME 8.9 fl (7.5-11.1); PLATELET COUNT 189 10^3/uL (134-434); RDW 14.6 % (11.9-15.9)
[2022-04-06 07:54] LABS: CHLORIDE 109 mmol/L (98-107); SODIUM 149 mmol/L (136-145)
[2022-04-06 07:59] LABS: ALBUMIN 2.1 g/dl (3.4-5.0); ANION GAP 10 MMOL/L (8-16); CALCIUM 7.1 mg/dL (8.5-10.1); CO2 30 mmol/L (21-32); GLUCOSE,RANDOM 254 mg/dL (74-106); MAGNESIUM 2.3 mg/dL (1.8-2.4)
[2022-04-06 08:02] LABS: PHOSPHOROUS 5.1 mg/dL (2.5-4.9); SGPT/ALT 43 U/L (13-61)
[2022-04-06 08:03] LABS: CREATININE 2.4 mg/dL (0.55-1.3); SGOT/AST 28 U/L (15-37)
[2022-04-06 08:04] LABS: BILIRUBIN,TOTAL 0.8 mg/dL (0.2-1); TOT PROT 5.8 g/dl (6.4-8.2)
[2022-04-06 08:05] LABS: ALK PHOS 70 U/L (45-117)
[2022-04-06] MEDS: BUDESONIDE 0.5 MG/2 ML INH SUSP VIAL NEB SCH (08:10)
[2022-04-06 09:15] LABS: ANISOCYTOSIS 0; MACROCYTOSIS 0
[2022-04-06] MEDS: APIXABAN 2.5 MG TABLET PO SCH ×2 (09:30→21:47)
[2022-04-06] MEDS: METHIMAZOLE 10 MG TABLET PO SCH ×2 (09:30→21:48)
[2022-04-06] MEDS: FINASTERIDE 5 MG TABLET (FP) PO SCH (09:30)
[2022-04-06] MEDS: FAMOTIDINE 40 MG/5 ML ORAL SUSPENSION PO SCH (09:30)
[2022-04-06] MEDS: POLYETHYLENE GLYCOL (HEALTHYLAX) 3350 17 GM PACKET PO SCH ×2 (09:31→21:46)
[2022-04-06] MEDS: SODIUM ZIRCONIUM CYCLOSILICATE (LOKELMA) 5 GM PACKET PO SCH (09:31)
[2022-04-06] MEDS: DEXTROSE 5%-WATER - 1,000 ML IV SCH (09:31)
[2022-04-06] MEDS: methylPREDNISolone NA SUCC 40 MG/1 ML VIAL IVPUSH SCH (09:43)
[2022-04-06] MEDS ORDERED: METOPROLOL TARTRATE 5 MG/5 ML VIAL IVPUSH ONE (12:15)
[2022-04-06] MEDS ORDERED: DEXTROSE 5%-WATER - 1,000 ML IV SCH (13:54)
[2022-04-06] MEDS: METOPROLOL TARTRATE 5 MG/5 ML VIAL IVPUSH PRN (19:55)
[2022-04-06] MEDS: ATORVASTATIN CA 40 MG TABLET (FP) PO SCH (21:48)
[2022-04-06] MEDS ORDERED: FAMOTIDINE 40 MG/5 ML ORAL SUSPENSION PO SCH (22:00)
[2022-04-07] MEDS: PIPERACILLIN/TAZOB 2.25 GM 2.25 GM in DEXTROSE 5%-WATER - 50 ML IVPB SCH ×2 (02:06→10:30)
[2022-04-07] MEDS: INSULIN SLIDING SCALE (NOVOLOG) 1 VIAL SQ SCH ×4 (06:33→21:13)
[2022-04-07 07:44] LABS: HEMATOCRIT 39.2 % (35.4-49); HEMOGLOBIN 12.4 GM/dL (11.7-16.9); MCH 28.4 pg (25.7-33.7); MCHC 31.7 g/dl (32.0-35.9); MEAN CELL VOLUME 89.7 fl (80-96); MEAN PLT VOLUME 9.3 fl (7.5-11.1); PLATELET COUNT 221 10^3/uL (134-434); RBC 4.37 M/mm3 (4.00-5.60); RDW 14.5 % (11.9-15.9)
[2022-04-07 07:58] LABS: WHITE BLOOD COUNT 30.2 K/mm3 (4.0-10.0)
[2022-04-07 08:05] LABS: ALBUMIN 2.2 g/dl (3.4-5.0); BLOOD UREA NITROGEN 96.6 mg/dL (7-18); CALCIUM 7.3 mg/dL (8.5-10.1); MAGNESIUM 2.4 mg/dL (1.8-2.4)
[2022-04-07 08:07] LABS: CREATININE 2.2 mg/dL (0.55-1.3); PHOSPHOROUS 4.7 mg/dL (2.5-4.9)
[2022-04-07 08:09] LABS: BILIRUBIN,TOTAL 0.5 mg/dL (0.2-1); TOT PROT 5.9 g/dl (6.4-8.2)
[2022-04-07 09:50] LABS: ANISOCYTOSIS 1+; MACROCYTOSIS 0
[2022-04-07] MEDS ORDERED: DEXTROSE 5%-WATER - 1,000 ML IV SCH (10:01)
[2022-04-07] MEDS: APIXABAN 2.5 MG TABLET PO SCH ×2 (10:30→21:07)
[2022-04-07] MEDS: methylPREDNISolone NA SUCC 40 MG/1 ML VIAL IVPUSH SCH (10:31)
[2022-04-07] MEDS: POLYETHYLENE GLYCOL (HEALTHYLAX) 3350 17 GM PACKET PO SCH ×2 (10:31→21:06)
[2022-04-07] MEDS: FINASTERIDE 5 MG TABLET (FP) PO SCH (10:31)
[2022-04-07] MEDS: METHIMAZOLE 10 MG TABLET PO SCH ×2 (10:32→21:08)
[2022-04-07] MEDS: FUROSEMIDE 40 MG TABLET (FP) PO ONE ×2 (10:33→13:03)
[2022-04-07] MEDS ORDERED: FUROSEMIDE 40 MG TABLET (FP) PO ONE (12:30)
[2022-04-07] MEDS: METOPROLOL TARTRATE 5 MG/5 ML VIAL IVPUSH PRN ×2 (12:54→21:30)
[2022-04-07] MEDS: CEFTRIAXONE 1 GM in DEXTROSE 5%-WATER - 50 ML IVPB SCH (13:43)
[2022-04-07] MEDS: DEXTROSE 5%-WATER - 1,000 ML IV SCH (14:44)
[2022-04-07 16:53] LABS: EPI CELLS 11 /uL (0-25.1); HYALINE CASTS 1 /uL (0-3.1); PH,URINE 5.5 (5.0-8.0); URINE APPEARANCE CLOUDY; URINE BACTERIA 5 /uL (0-1359); URINE BILIRUBIN NEGATIVE (NEGATIVE); URINE COLOR YELLOW; URINE GLUCOSE (UA) TRACE (NEGATIVE); URINE KETONE NEGATIVE (NEGATIVE); URINE LEUK ESTERASE NEGATIVE (NEGATIVE); URINE NITRITE NEGATIVE (NEGATIVE); URINE PROTEIN 3+ (NEGATIVE); URINE UROBILINOGEN 0.2 mg/dL (0.2-1.0); URINE WBC 24 /uL (0-25.8)
[2022-04-07] MEDS: ATORVASTATIN CA 40 MG TABLET (FP) PO SCH (21:08)
[2022-04-07] MEDS: VANCOMYCIN 250 MG/5 ML ORAL SOLUTION PO SCH ×2 (21:08→23:33)
[2022-04-07] MEDS: IPRATROPIUM BR 0.02% 0.5 MG/2.5 ML VIAL.NEB. NEB SCH (21:14)
[2022-04-07] MEDS: LEVALBUTEROL HCL 0.31 MG/3 ML VIAL.NEB IH PRN (21:30)
[2022-04-07 22:21] LABS: URINE RBC 254.7 /uL (0-23.9); YEAST NONE SEEN (NEGATIVE)
[2022-04-07 22:22] LABS: URINE CRYSTALS FEW URIC ACID SEEN /hpf
[2022-04-08] MEDS: DEXTROSE 5%-WATER - 1,000 ML IV SCH ×2 (00:47→13:35)
[2022-04-08] MEDS: VANCOMYCIN 250 MG/5 ML ORAL SOLUTION PO SCH ×4 (06:03→23:34)
[2022-04-08] MEDS: INSULIN SLIDING SCALE (NOVOLOG) 1 VIAL SQ SCH ×4 (06:03→21:40)
[2022-04-08 09:39] LABS: HEMATOCRIT 40.8 % (35.4-49); HEMOGLOBIN 12.5 GM/dL (11.7-16.9); MCH 27.5 pg (25.7-33.7); MCHC 30.5 g/dl (32.0-35.9); MEAN CELL VOLUME 90.2 fl (80-96); MEAN PLT VOLUME 9.4 fl (7.5-11.1); PLATELET COUNT 199 10^3/uL (134-434); RBC 4.53 M/mm3 (4.00-5.60); RDW 14.7 % (11.9-15.9)
[2022-04-08] MEDS: CEFTRIAXONE 1 GM in DEXTROSE 5%-WATER - 50 ML IVPB SCH (09:50)
[2022-04-08] MEDS: methylPREDNISolone NA SUCC 40 MG/1 ML VIAL IVPUSH SCH (09:52)
[2022-04-08] MEDS: APIXABAN 2.5 MG TABLET PO SCH ×2 (09:52→21:40)
[2022-04-08] MEDS: FINASTERIDE 5 MG TABLET (FP) PO SCH (09:52)
[2022-04-08] MEDS: DIGOXIN 0.125 MG TABLET PO SCH (09:57)
[2022-04-08] MEDS ORDERED: INSULIN (LEVEMIR) 100 UNITS/ML UNITS SQ SCH (10:00)
[2022-04-08 10:07] LABS: CALCIUM 7.5 mg/dL (8.5-10.1)
[2022-04-08 10:08] LABS: BLOOD UREA NITROGEN 95.1 mg/dL (7-18); MAGNESIUM 2.5 mg/dL (1.8-2.4); WHITE BLOOD COUNT 35.6 K/mm3 (4.0-10.0)
[2022-04-08 10:10] LABS: ALBUMIN 2.2 g/dl (3.4-5.0); CREATININE 2.1 mg/dL (0.55-1.3)
[2022-04-08 10:11] LABS: PHOSPHOROUS 4.2 mg/dL (2.5-4.9)
[2022-04-08 10:12] LABS: BILIRUBIN,TOTAL 0.8 mg/dL (0.2-1); TOT PROT 5.9 g/dl (6.4-8.2)
[2022-04-08 10:57] LABS: ANISOCYTOSIS 1+; MACROCYTOSIS 1+; OVALOCYTE 1+
[2022-04-08] MEDS: POLYETHYLENE GLYCOL (HEALTHYLAX) 3350 17 GM PACKET PO SCH ×2 (11:48→21:05)
[2022-04-08] MEDS: METHIMAZOLE 10 MG TABLET PO SCH ×2 (13:34→21:40)
[2022-04-08] MEDS: LEVALBUTEROL HCL 0.31 MG/3 ML VIAL.NEB IH PRN (19:56)
[2022-04-08] MEDS: ATORVASTATIN CA 40 MG TABLET (FP) PO SCH (21:40)
[2022-04-08] MEDS: INSULIN (LEVEMIR) 100 UNITS/ML UNITS SQ SCH (21:45)
[2022-04-09] MEDS: VANCOMYCIN 250 MG/5 ML ORAL SOLUTION PO SCH ×3 (06:08→17:48)
[2022-04-09] MEDS: INSULIN (LEVEMIR) 100 UNITS/ML UNITS SQ SCH ×2 (06:11→21:40)
[2022-04-09] MEDS: INSULIN SLIDING SCALE (NOVOLOG) 1 VIAL SQ SCH ×4 (06:11→21:41)
[2022-04-09] MEDS: LEVALBUTEROL HCL 0.31 MG/3 ML VIAL.NEB IH PRN (08:07)
[2022-04-09 08:39] LABS: HEMATOCRIT 40.4 % (35.4-49); HEMOGLOBIN 12.5 GM/dL (11.7-16.9); MCH 27.9 pg (25.7-33.7); MCHC 30.9 g/dl (32.0-35.9); MEAN CELL VOLUME 90.3 fl (80-96); MEAN PLT VOLUME 9.3 fl (7.5-11.1); PLATELET COUNT 209 10^3/uL (134-434); RBC 4.47 M/mm3 (4.00-5.60); RDW 14.8 % (11.9-15.9)
[2022-04-09 08:47] LABS: WHITE BLOOD COUNT 35.2 K/mm3 (4.0-10.0)
[2022-04-09 08:57] LABS: ALBUMIN 2.1 g/dl (3.4-5.0); CALCIUM 7.3 mg/dL (8.5-10.1)
[2022-04-09 08:58] LABS: MAGNESIUM 2.4 mg/dL (1.8-2.4)
[2022-04-09 09:00] LABS: CREATININE 1.9 mg/dL (0.55-1.3); PHOSPHOROUS 4.4 mg/dL (2.5-4.9)
[2022-04-09 09:02] LABS: BILIRUBIN,TOTAL 0.6 mg/dL (0.2-1); TOT PROT 5.5 g/dl (6.4-8.2)
[2022-04-09] MEDS: APIXABAN 2.5 MG TABLET PO SCH ×2 (09:46→21:39)
[2022-04-09] MEDS: methylPREDNISolone NA SUCC 40 MG/1 ML VIAL IVPUSH SCH (09:46)
[2022-04-09] MEDS: POLYETHYLENE GLYCOL (HEALTHYLAX) 3350 17 GM PACKET PO SCH ×2 (09:47→21:37)
[2022-04-09] MEDS: FINASTERIDE 5 MG TABLET (FP) PO SCH (09:47)
[2022-04-09] MEDS: METHIMAZOLE 10 MG TABLET PO SCH ×2 (09:48→21:39)
[2022-04-09] MEDS ORDERED: CEFTRIAXONE 1 GM in DEXTROSE 5%-WATER - 50 ML IVPB SCH (10:00)
[2022-04-09 10:58] LABS: ANISOCYTOSIS 0; HELMET CELLS 0; HOWELL-JOLLY BODIES 0; MACROCYTOSIS 0; OVALOCYTE 0; ROULEAU 0; SICKELED CELLS 0; TARGET CELLS 0; TEAR DROP CELLS 0; TOXIC GRANULATION 0
[2022-04-09] MEDS: METOPROLOL TARTRATE 25 MG TABLET (FP) PO SCH ×3 (12:02→21:48)
[2022-04-09] MEDS: METOPROLOL TARTRATE 5 MG/5 ML VIAL IVPUSH PRN (13:05)
[2022-04-09] MEDS: DEXTROSE 5%-WATER - 1,000 ML IV SCH (13:14)
[2022-04-09] MEDS: FAMOTIDINE 40 MG/5 ML ORAL SUSPENSION PO SCH (15:40)
[2022-04-09] MEDS: ATORVASTATIN CA 40 MG TABLET (FP) PO SCH (21:39)
[2022-04-10] MEDS: METOPROLOL TARTRATE 5 MG/5 ML VIAL IVPUSH PRN ×4 (00:11→19:02)
[2022-04-10] MEDS: VANCOMYCIN 250 MG/5 ML ORAL SOLUTION PO SCH ×4 (01:00→17:50)
[2022-04-10] MEDS: DEXTROSE 5%-WATER - 1,000 ML IV SCH ×2 (05:29→14:00)
[2022-04-10] MEDS: METOPROLOL TARTRATE 25 MG TABLET (FP) PO SCH ×3 (05:30→22:44)
[2022-04-10] MEDS: INSULIN (LEVEMIR) 100 UNITS/ML UNITS SQ SCH ×2 (06:08→22:44)
[2022-04-10] MEDS: INSULIN SLIDING SCALE (NOVOLOG) 1 VIAL SQ SCH ×4 (06:09→22:44)
[2022-04-10 08:34] LABS: HEMATOCRIT 35.9 % (35.4-49); HEMOGLOBIN 11.2 GM/dL (11.7-16.9); MCHC 31.3 g/dl (32.0-35.9); MEAN CELL VOLUME 89.6 fl (80-96); MEAN PLT VOLUME 9.6 fl (7.5-11.1); PLATELET COUNT 214 10^3/uL (134-434); RDW 14.6 % (11.9-15.9)
[2022-04-10 09:13] LABS: ALBUMIN 2.1 g/dl (3.4-5.0); CALCIUM 7.2 mg/dL (8.5-10.1)
[2022-04-10 09:14] LABS: BLOOD UREA NITROGEN 85.1 mg/dL (7-18); MAGNESIUM 2.1 mg/dL (1.8-2.4)
[2022-04-10 09:16] LABS: CREATININE 1.8 mg/dL (0.55-1.3); PHOSPHOROUS 3.9 mg/dL (2.5-4.9)
[2022-04-10 09:18] LABS: BILIRUBIN,TOTAL 0.7 mg/dL (0.2-1); TOT PROT 5.3 g/dl (6.4-8.2)
[2022-04-10] MEDS ORDERED: METOPROLOL TARTRATE 25 MG TABLET (FP) PO SCH (09:18)
[2022-04-10] MEDS: methylPREDNISolone NA SUCC 40 MG/1 ML VIAL IVPUSH SCH (09:19)
[2022-04-10] MEDS ORDERED: FUROSEMIDE 40 MG/4 ML INJECTABLE VIAL IVPUSH ONE (09:21)
[2022-04-10] MEDS: DIGOXIN 0.125 MG TABLET PO SCH (09:43)
[2022-04-10] MEDS: FINASTERIDE 5 MG TABLET (FP) PO SCH (09:56)
[2022-04-10] MEDS: APIXABAN 2.5 MG TABLET PO SCH ×2 (09:56→22:44)
[2022-04-10] MEDS: POLYETHYLENE GLYCOL (HEALTHYLAX) 3350 17 GM PACKET PO SCH ×2 (09:57→22:44)
[2022-04-10] MEDS: METHIMAZOLE 10 MG TABLET PO SCH ×2 (10:05→22:45)
[2022-04-10] MEDS: FAMOTIDINE 40 MG/5 ML ORAL SUSPENSION PO SCH (10:05)
[2022-04-10] MEDS: LEVALBUTEROL HCL 0.31 MG/3 ML VIAL.NEB IH SCH ×3 (10:20→20:18)
[2022-04-10 10:49] LABS: ANISOCYTOSIS 0; HELMET CELLS 0; HOWELL-JOLLY BODIES 0; MACROCYTOSIS 0; OVALOCYTE 0; ROULEAU 0; SICKELED CELLS 0; TARGET CELLS 0; TEAR DROP CELLS 0; TOXIC GRANULATION 0
[2022-04-10] MEDS: ALPRAZolam 0.25 MG TABLET PO SCH ×2 (12:11→22:45)
[2022-04-10] MEDS: ATORVASTATIN CA 40 MG TABLET (FP) PO SCH (22:44)
[2022-04-11] MEDS: METOPROLOL TARTRATE 25 MG TABLET (FP) PO SCH ×3 (06:01→21:20)
[2022-04-11] MEDS: INSULIN (LEVEMIR) 100 UNITS/ML UNITS SQ SCH (06:01)
[2022-04-11] MEDS: VANCOMYCIN 250 MG/5 ML ORAL SOLUTION PO SCH ×4 (06:01→18:14)
[2022-04-11] MEDS: INSULIN SLIDING SCALE (NOVOLOG) 1 VIAL SQ SCH ×4 (06:02→21:20)
[2022-04-11] MEDS: LEVALBUTEROL HCL 0.31 MG/3 ML VIAL.NEB IH SCH ×3 (08:35→20:05)
[2022-04-11] MEDS: POLYETHYLENE GLYCOL (HEALTHYLAX) 3350 17 GM PACKET PO SCH ×2 (09:05→21:20)
[2022-04-11] MEDS: METHIMAZOLE 10 MG TABLET PO SCH ×2 (09:06→21:21)
[2022-04-11] MEDS: APIXABAN 2.5 MG TABLET PO SCH ×2 (09:06→21:20)
[2022-04-11] MEDS: FINASTERIDE 5 MG TABLET (FP) PO SCH (09:06)
[2022-04-11] MEDS: ALPRAZolam 0.25 MG TABLET PO SCH ×2 (09:06→21:18)
[2022-04-11] MEDS: FUROSEMIDE 40 MG TABLET (FP) PO SCH (09:10)
[2022-04-11] MEDS: FAMOTIDINE 40 MG/5 ML ORAL SUSPENSION PO SCH (09:59)
[2022-04-11] MEDS: methylPREDNISolone NA SUCC 40 MG/1 ML VIAL IVPUSH SCH (10:18)
[2022-04-11 11:21] LABS: ALBUMIN 2.2 g/dl (3.4-5.0); BLOOD UREA NITROGEN 80.9 mg/dL (7-18); CALCIUM 7.1 mg/dL (8.5-10.1)
[2022-04-11 11:25] LABS: BILIRUBIN,TOTAL 0.4 mg/dL (0.2-1); TOT PROT 5.5 g/dl (6.4-8.2)
[2022-04-11] MEDS ORDERED: INSULIN (LEVEMIR) 100 UNITS/ML UNITS SQ SCH (14:25)
[2022-04-11] MEDS: DEXTROSE 5%-WATER - 1,000 ML IV SCH (16:51)
[2022-04-11] MEDS: ATORVASTATIN CA 40 MG TABLET (FP) PO SCH (21:18)
[2022-04-12] MEDS: VANCOMYCIN 250 MG/5 ML ORAL SOLUTION PO SCH ×5 (01:11→23:24)
[2022-04-12] MEDS: DEXTROSE 5%-WATER - 1,000 ML IV SCH ×2 (05:53→13:35)
[2022-04-12] MEDS: METOPROLOL TARTRATE 25 MG TABLET (FP) PO SCH ×3 (05:54→21:18)
[2022-04-12] MEDS: INSULIN SLIDING SCALE (NOVOLOG) 1 VIAL SQ SCH ×4 (06:09→21:27)
[2022-04-12] MEDS: INSULIN (LEVEMIR) 100 UNITS/ML UNITS SQ SCH (06:09)
[2022-04-12 08:22] LABS: HEMATOCRIT 33.5 % (35.4-49); HEMOGLOBIN 10.6 GM/dL (11.7-16.9); MCH 28.6 pg (25.7-33.7); MCHC 31.7 g/dl (32.0-35.9); MEAN CELL VOLUME 90.2 fl (80-96); MEAN PLT VOLUME 9.3 fl (7.5-11.1); PLATELET COUNT 179 10^3/uL (134-434); RBC 3.72 M/mm3 (4.00-5.60); WHITE BLOOD COUNT 25.2 K/mm3 (4.0-10.0)
[2022-04-12] MEDS: LEVALBUTEROL HCL 0.31 MG/3 ML VIAL.NEB IH SCH ×3 (08:30→19:18)
[2022-04-12 08:47] LABS: ALBUMIN 2.1 g/dl (3.4-5.0); BLOOD UREA NITROGEN 66.9 mg/dL (7-18); CALCIUM 7.1 mg/dL (8.5-10.1)
[2022-04-12 08:50] LABS: CREATININE 1.9 mg/dL (0.55-1.3)
[2022-04-12 08:52] LABS: BILIRUBIN,TOTAL 0.5 mg/dL (0.2-1); TOT PROT 5.2 g/dl (6.4-8.2)
[2022-04-12 09:34] LABS: ANISOCYTOSIS 0; MACROCYTOSIS 0
[2022-04-12] MEDS: FINASTERIDE 5 MG TABLET (FP) PO SCH (09:41)
[2022-04-12] MEDS: DIGOXIN 0.125 MG TABLET PO SCH (09:41)
[2022-04-12] MEDS: MULTIVITAMINS (DAILY MVI) TABLET (FP) PO SCH (09:41)
[2022-04-12] MEDS: predniSONE 10 MG TABLET (UD) PO SCH (09:42)
[2022-04-12] MEDS: ALPRAZolam 0.25 MG TABLET PO SCH (09:42)
[2022-04-12] MEDS: FUROSEMIDE 40 MG TABLET (FP) PO SCH (09:42)
[2022-04-12] MEDS: METHIMAZOLE 10 MG TABLET PO SCH ×2 (09:43→21:19)
[2022-04-12] MEDS: APIXABAN 2.5 MG TABLET PO SCH ×2 (09:43→21:18)
[2022-04-12] MEDS: FAMOTIDINE 40 MG/5 ML ORAL SUSPENSION PO SCH (09:44)
[2022-04-12] MEDS: POLYETHYLENE GLYCOL (HEALTHYLAX) 3350 17 GM PACKET PO SCH (09:45)
[2022-04-12] MEDS: ATORVASTATIN CA 40 MG TABLET (FP) PO SCH (21:18)
[2022-04-13] MEDS: METOPROLOL TARTRATE 25 MG TABLET (FP) PO SCH ×3 (05:06→21:07)
[2022-04-13] MEDS: VANCOMYCIN 250 MG/5 ML ORAL SOLUTION PO SCH ×3 (05:06→17:13)
[2022-04-13] MEDS: INSULIN (LEVEMIR) 100 UNITS/ML UNITS SQ SCH ×2 (06:00→21:07)
[2022-04-13] MEDS: INSULIN SLIDING SCALE (NOVOLOG) 1 VIAL SQ SCH ×4 (06:01→21:07)
[2022-04-13 07:19] LABS: BASO % 0.4 % (0-2.0); EOS % 0.4 % (0-4.5); HEMATOCRIT 33.6 % (35.4-49); HEMOGLOBIN 10.5 GM/dL (11.7-16.9); MCH 28.2 pg (25.7-33.7); MCHC 31.4 g/dl (32.0-35.9); MEAN CELL VOLUME 89.8 fl (80-96); MEAN PLT VOLUME 9.1 fl (7.5-11.1); MONO % 6.3 % (3.8-10.2); NEUT % 87.9 % (42.8-82.8); PLATELET COUNT 156 10^3/uL (134-434); RBC 3.74 M/mm3 (4.00-5.60); RDW 14.7 % (11.9-15.9); WHITE BLOOD COUNT 19.5 K/mm3 (4.0-10.0)
[2022-04-13 07:40] LABS: CALCIUM 7.1 mg/dL (8.5-10.1)
[2022-04-13 07:41] LABS: ALBUMIN 2.1 g/dl (3.4-5.0)
[2022-04-13 07:44] LABS: CREATININE 1.7 mg/dL (0.55-1.3)
[2022-04-13 07:45] LABS: TOT PROT 5.2 g/dl (6.4-8.2)
[2022-04-13 07:46] LABS: BILIRUBIN,TOTAL 0.4 mg/dL (0.2-1)
[2022-04-13] MEDS: LEVALBUTEROL HCL 0.31 MG/3 ML VIAL.NEB IH SCH ×3 (07:50→20:05)
[2022-04-13] MEDS: APIXABAN 2.5 MG TABLET PO SCH ×2 (09:05→21:07)
[2022-04-13] MEDS: FUROSEMIDE 40 MG TABLET (FP) PO SCH (09:05)
[2022-04-13] MEDS: PARoxetine HCL 20 MG TABLET PO SCH (09:05)
[2022-04-13] MEDS: METHIMAZOLE 10 MG TABLET PO SCH ×2 (09:06→21:07)
[2022-04-13] MEDS: FAMOTIDINE 40 MG/5 ML ORAL SUSPENSION PO SCH (09:06)
[2022-04-13] MEDS: predniSONE 10 MG TABLET (UD) PO SCH (09:06)
[2022-04-13] MEDS: MULTIVITAMINS (DAILY MVI) TABLET (FP) PO SCH (09:06)
[2022-04-13] MEDS: FINASTERIDE 5 MG TABLET (FP) PO SCH (09:06)
[2022-04-13] MEDS ORDERED: FUROSEMIDE 40 MG/4 ML INJECTABLE VIAL IVPUSH ONE (09:43)
[2022-04-13] MEDS: DOXYCYCLINE HYCLATE 100 MG CAPSULE PO SCH ×2 (10:27→17:13)
[2022-04-13] MEDS: ATORVASTATIN CA 40 MG TABLET (FP) PO SCH (21:07)
[2022-04-14] MEDS: VANCOMYCIN 250 MG/5 ML ORAL SOLUTION PO SCH ×4 (02:01→17:36)
[2022-04-14] MEDS: METOPROLOL TARTRATE 25 MG TABLET (FP) PO SCH ×3 (05:38→21:18)
[2022-04-14] MEDS: INSULIN SLIDING SCALE (NOVOLOG) 1 VIAL SQ SCH ×4 (06:25→21:18)
[2022-04-14] MEDS: LEVALBUTEROL HCL 0.31 MG/3 ML VIAL.NEB IH SCH ×3 (07:52→20:05)
[2022-04-14] MEDS ORDERED: CEFTRIAXONE 1 GM in DEXTROSE 5%-WATER - 50 ML IVPB SCH (10:00)
[2022-04-14 10:15] LABS: BASO % 0.1 % (0-2.0); EOS % 0.2 % (0-4.5); HEMATOCRIT 32.1 % (35.4-49); HEMOGLOBIN 10.4 GM/dL (11.7-16.9); LYMPH % 4.7 % (8-40); MCHC 32.5 g/dl (32.0-35.9); MEAN CELL VOLUME 89.3 fl (80-96); MONO % 4.5 % (3.8-10.2); NEUT % 90.5 % (42.8-82.8); PLATELET COUNT 152 10^3/uL (134-434); RBC 3.59 M/mm3 (4.00-5.60); RDW 14.8 % (11.9-15.9); WHITE BLOOD COUNT 19.4 K/mm3 (4.0-10.0)
[2022-04-14 10:39] LABS: ALBUMIN 2.1 g/dl (3.4-5.0); CALCIUM 7.4 mg/dL (8.5-10.1)
[2022-04-14 10:41] LABS: CREATININE 1.7 mg/dL (0.55-1.3)
[2022-04-14 10:42] LABS: BILIRUBIN,TOTAL 0.5 mg/dL (0.2-1); TOT PROT 5.1 g/dl (6.4-8.2)
[2022-04-14] MEDS: FAMOTIDINE 40 MG/5 ML ORAL SUSPENSION PO SCH (12:01)
[2022-04-14] MEDS: DIGOXIN 0.125 MG TABLET PO SCH (12:01)
[2022-04-14] MEDS: MULTIVITAMINS (DAILY MVI) TABLET (FP) PO SCH (12:02)
[2022-04-14] MEDS: DOXYCYCLINE HYCLATE 100 MG CAPSULE PO SCH (12:02)
[2022-04-14] MEDS: APIXABAN 2.5 MG TABLET PO SCH ×2 (12:02→21:17)
[2022-04-14] MEDS: FINASTERIDE 5 MG TABLET (FP) PO SCH (12:02)
[2022-04-14] MEDS: predniSONE 10 MG TABLET (UD) PO SCH (12:02)
[2022-04-14] MEDS: METHIMAZOLE 10 MG TABLET PO SCH ×2 (12:03→21:18)
[2022-04-14] MEDS: PARoxetine HCL 20 MG TABLET PO SCH (12:03)
[2022-04-14] MEDS: INSULIN (LEVEMIR) 100 UNITS/ML UNITS SQ SCH ×2 (12:03→21:17)
[2022-04-14] MEDS: FUROSEMIDE 40 MG/4 ML INJECTABLE VIAL IVPUSH SCH (12:03)
[2022-04-14] MEDS: BANATROL PLUS POWDER PACKET PO SCH ×2 (14:03→21:17)
[2022-04-14] MEDS: ZINC SULFATE 220 MG CAPSULE (FP) PO SCH (14:47)
[2022-04-14] MEDS: ATORVASTATIN CA 40 MG TABLET (FP) PO SCH (21:18)
[2022-04-15] MEDS: VANCOMYCIN 250 MG/5 ML ORAL SOLUTION PO SCH ×5 (02:17→23:38)
[2022-04-15] MEDS: METOPROLOL TARTRATE 25 MG TABLET (FP) PO SCH ×3 (05:58→22:20)
[2022-04-15] MEDS: BANATROL PLUS POWDER PACKET PO SCH ×3 (05:58→22:05)
[2022-04-15] MEDS: INSULIN SLIDING SCALE (NOVOLOG) 1 VIAL SQ SCH ×4 (07:03→22:19)
[2022-04-15] MEDS: LEVALBUTEROL HCL 0.31 MG/3 ML VIAL.NEB IH SCH ×3 (08:07→20:11)
[2022-04-15 09:37] LABS: BASO % 0.2 % (0-2.0); EOS % 0.3 % (0-4.5); HEMATOCRIT 31.2 % (35.4-49); HEMOGLOBIN 10.3 GM/dL (11.7-16.9); LYMPH % 4.5 % (8-40); MCH 29.4 pg (25.7-33.7); MCHC 32.8 g/dl (32.0-35.9); MEAN CELL VOLUME 89.4 fl (80-96); MEAN PLT VOLUME 8.8 fl (7.5-11.1); MONO % 4.8 % (3.8-10.2); NEUT % 90.2 % (42.8-82.8); PLATELET COUNT 148 10^3/uL (134-434); RBC 3.49 M/mm3 (4.00-5.60); RDW 15.2 % (11.9-15.9); WHITE BLOOD COUNT 18.5 K/mm3 (4.0-10.0)
[2022-04-15] MEDS: APIXABAN 2.5 MG TABLET PO SCH ×2 (09:43→22:05)
[2022-04-15] MEDS: ZINC SULFATE 220 MG CAPSULE (FP) PO SCH (09:43)
[2022-04-15] MEDS: PARoxetine HCL 20 MG TABLET PO SCH (09:43)
[2022-04-15] MEDS: FAMOTIDINE 40 MG/5 ML ORAL SUSPENSION PO SCH (09:43)
[2022-04-15] MEDS: FINASTERIDE 5 MG TABLET (FP) PO SCH (09:43)
[2022-04-15] MEDS: MULTIVITAMINS THER W-MINERALS COMBO TABLET (FP) PO SCH (09:44)
[2022-04-15] MEDS: METHIMAZOLE 10 MG TABLET PO SCH ×2 (09:44→22:08)
[2022-04-15] MEDS: FUROSEMIDE 40 MG/4 ML INJECTABLE VIAL IVPUSH SCH (10:30)
[2022-04-15 10:36] LABS: BLOOD UREA NITROGEN 48.4 mg/dL (7-18); CALCIUM 7.4 mg/dL (8.5-10.1)
[2022-04-15 10:38] LABS: CREATININE 1.6 mg/dL (0.55-1.3)
[2022-04-15 10:40] LABS: BILIRUBIN,TOTAL 0.5 mg/dL (0.2-1); TOT PROT 5.1 g/dl (6.4-8.2)
[2022-04-15] MEDS: INSULIN (LEVEMIR) 100 UNITS/ML UNITS SQ SCH ×2 (11:20→22:19)
[2022-04-15] MEDS: AMINO ACIDS/PROTEIN HYDROLYS 30 ML LIQUID.PKT PO SCH (15:14)
[2022-04-15] MEDS: ACETAMINOPHEN 325 MG TABLET (FP) PO PRN (22:05)
[2022-04-15] MEDS: ATORVASTATIN CA 40 MG TABLET (FP) PO SCH (22:05)
[2022-04-16] MEDS: BANATROL PLUS POWDER PACKET PO SCH ×3 (06:42→21:15)
[2022-04-16] MEDS: VANCOMYCIN 250 MG/5 ML ORAL SOLUTION PO SCH ×4 (06:42→23:29)
[2022-04-16] MEDS: METOPROLOL TARTRATE 25 MG TABLET (FP) PO SCH ×3 (06:42→21:12)
[2022-04-16] MEDS: INSULIN SLIDING SCALE (NOVOLOG) 1 VIAL SQ SCH ×4 (06:49→21:21)
[2022-04-16] MEDS: LEVALBUTEROL HCL 0.31 MG/3 ML VIAL.NEB IH SCH ×3 (08:07→20:35)
[2022-04-16] MEDS: DIGOXIN 0.125 MG TABLET PO SCH (08:27)
[2022-04-16] MEDS: AMINO ACIDS/PROTEIN HYDROLYS 30 ML LIQUID.PKT PO SCH (08:27)
[2022-04-16] MEDS: MULTIVITAMINS THER W-MINERALS COMBO TABLET (FP) PO SCH (09:11)
[2022-04-16] MEDS: FAMOTIDINE 40 MG/5 ML ORAL SUSPENSION PO SCH (09:12)
[2022-04-16] MEDS: FINASTERIDE 5 MG TABLET (FP) PO SCH (09:12)
[2022-04-16] MEDS: PARoxetine HCL 20 MG TABLET PO SCH (09:13)
[2022-04-16] MEDS: ZINC SULFATE 220 MG CAPSULE (FP) PO SCH (09:14)
[2022-04-16] MEDS: METHIMAZOLE 10 MG TABLET PO SCH ×2 (09:15→21:24)
[2022-04-16] MEDS: APIXABAN 2.5 MG TABLET PO SCH ×2 (09:15→21:12)
[2022-04-16 09:55] LABS: HEMATOCRIT 33.1 % (35.4-49); HEMOGLOBIN 10.4 GM/dL (11.7-16.9); MCH 28.5 pg (25.7-33.7); MCHC 31.5 g/dl (32.0-35.9); MEAN CELL VOLUME 90.5 fl (80-96); MEAN PLT VOLUME 8.8 fl (7.5-11.1); PLATELET COUNT 140 10^3/uL (134-434); RBC 3.65 M/mm3 (4.00-5.60); RDW 15.6 % (11.9-15.9); WHITE BLOOD COUNT 17.9 K/mm3 (4.0-10.0)
[2022-04-16 10:10] LABS: ALBUMIN 2.1 g/dl (3.4-5.0); BLOOD UREA NITROGEN 51.5 mg/dL (7-18); CALCIUM 7.4 mg/dL (8.5-10.1)
[2022-04-16 10:13] LABS: CREATININE 1.7 mg/dL (0.55-1.3)
[2022-04-16 10:15] LABS: BILIRUBIN,TOTAL 0.4 mg/dL (0.2-1); TOT PROT 5.1 g/dl (6.4-8.2)
[2022-04-16 10:33] LABS: ANISOCYTOSIS 3+; MACROCYTOSIS 0
[2022-04-16] MEDS: INSULIN (LEVEMIR) 100 UNITS/ML UNITS SQ SCH ×2 (11:39→21:24)
[2022-04-16] MEDS: DEXTROSE 5%-WATER - 1,000 ML IV SCH (14:41)
[2022-04-16] MEDS: ATORVASTATIN CA 40 MG TABLET (FP) PO SCH (21:12)
[2022-04-16] MEDS: ACETAMINOPHEN 325 MG TABLET (FP) PO PRN (21:12)
[2022-04-17] MEDS: METOPROLOL TARTRATE 25 MG TABLET (FP) PO SCH ×3 (06:34→21:50)
[2022-04-17] MEDS: VANCOMYCIN 250 MG/5 ML ORAL SOLUTION PO SCH ×2 (06:34→17:40)
[2022-04-17] MEDS: INSULIN SLIDING SCALE (NOVOLOG) 1 VIAL SQ SCH ×4 (06:34→21:57)
[2022-04-17] MEDS: BANATROL PLUS POWDER PACKET PO SCH ×3 (06:34→21:50)
[2022-04-17] MEDS: LEVALBUTEROL HCL 0.31 MG/3 ML VIAL.NEB IH SCH ×3 (08:14→20:44)
[2022-04-17] MEDS: AMINO ACIDS/PROTEIN HYDROLYS 30 ML LIQUID.PKT PO SCH (08:20)
[2022-04-17 09:42] LABS: BASO % 0.5 % (0-2.0); EOS % 0.8 % (0-4.5); HEMOGLOBIN 9.1 GM/dL (11.7-16.9); LYMPH % 6.9 % (8-40); MCH 28.6 pg (25.7-33.7); MCHC 31.3 g/dl (32.0-35.9); MEAN CELL VOLUME 91.3 fl (80-96); MEAN PLT VOLUME 9.1 fl (7.5-11.1); MONO % 5.1 % (3.8-10.2); NEUT % 86.7 % (42.8-82.8); PLATELET COUNT 128 10^3/uL (134-434); RBC 3.17 M/mm3 (4.00-5.60); RDW 15.7 % (11.9-15.9); WHITE BLOOD COUNT 13.3 K/mm3 (4.0-10.0)
[2022-04-17] MEDS: FINASTERIDE 5 MG TABLET (FP) PO SCH (09:57)
[2022-04-17] MEDS: INSULIN (LEVEMIR) 100 UNITS/ML UNITS SQ SCH ×2 (09:57→21:58)
[2022-04-17] MEDS: APIXABAN 2.5 MG TABLET PO SCH ×2 (09:57→21:50)
[2022-04-17] MEDS: ZINC SULFATE 220 MG CAPSULE (FP) PO SCH (09:57)
[2022-04-17 10:00] LABS: CALCIUM 7.4 mg/dL (8.5-10.1)
[2022-04-17 10:01] LABS: BLOOD UREA NITROGEN 45.6 mg/dL (7-18); MAGNESIUM 1.7 mg/dL (1.8-2.4)
[2022-04-17 10:04] LABS: CREATININE 1.6 mg/dL (0.55-1.3)
[2022-04-17 10:06] LABS: BILIRUBIN,TOTAL 0.5 mg/dL (0.2-1)
[2022-04-17] MEDS: METHIMAZOLE 10 MG TABLET PO SCH ×2 (10:24→22:23)
[2022-04-17] MEDS: MULTIVITAMINS THER W-MINERALS COMBO TABLET (FP) PO SCH (10:25)
[2022-04-17] MEDS: PARoxetine HCL 20 MG TABLET PO SCH (10:25)
[2022-04-17] MEDS: FAMOTIDINE 40 MG/5 ML ORAL SUSPENSION PO SCH (12:53)
[2022-04-17] MEDS: DEXTROSE 5%-WATER - 1,000 ML IV SCH (17:40)
[2022-04-17] MEDS ORDERED: INSULIN (NOVOLOG) ASPART 100 UNITS/ML 10ML VIAL ONE (21:48)
[2022-04-17] MEDS: ATORVASTATIN CA 40 MG TABLET (FP) PO SCH (21:50)
[2022-04-18] MEDS: VANCOMYCIN 250 MG/5 ML ORAL SOLUTION PO SCH ×4 (00:07→17:27)
[2022-04-18] MEDS: BANATROL PLUS POWDER PACKET PO SCH ×3 (05:44→21:37)
[2022-04-18] MEDS: METOPROLOL TARTRATE 25 MG TABLET (FP) PO SCH ×3 (05:44→21:37)
[2022-04-18] MEDS: INSULIN SLIDING SCALE (NOVOLOG) 1 VIAL SQ SCH ×4 (06:21→21:38)
[2022-04-18] MEDS: LEVALBUTEROL HCL 0.31 MG/3 ML VIAL.NEB IH SCH ×3 (08:47→23:43)
[2022-04-18] MEDS ORDERED: PARoxetine HCL 20 MG TABLET PO SCH (10:00)
[2022-04-18] MEDS ORDERED: FAMOTIDINE 40 MG/5 ML ORAL SUSPENSION PO SCH (10:00)
[2022-04-18] MEDS: FINASTERIDE 5 MG TABLET (FP) PO SCH (10:13)
[2022-04-18] MEDS: APIXABAN 2.5 MG TABLET PO SCH ×2 (10:13→21:37)
[2022-04-18] MEDS: MULTIVITAMINS THER W-MINERALS COMBO TABLET (FP) PO SCH (10:13)
[2022-04-18] MEDS: ZINC SULFATE 220 MG CAPSULE (FP) PO SCH (10:13)
[2022-04-18] MEDS: INSULIN (LEVEMIR) 100 UNITS/ML UNITS SQ SCH ×2 (10:14→21:37)
[2022-04-18] MEDS: AMINO ACIDS/PROTEIN HYDROLYS 30 ML LIQUID.PKT PO SCH (10:14)
[2022-04-18] MEDS: DIGOXIN 0.125 MG TABLET PO SCH (10:15)
[2022-04-18] MEDS: METHIMAZOLE 10 MG TABLET PO SCH ×2 (10:18→21:36)
[2022-04-18 11:49] LABS: BASO % 0.3 % (0-2.0); EOS % 0.6 % (0-4.5); HEMATOCRIT 29.1 % (35.4-49); HEMOGLOBIN 9.1 GM/dL (11.7-16.9); LYMPH % 6.7 % (8-40); MCH 28.1 pg (25.7-33.7); MCHC 31.3 g/dl (32.0-35.9); MEAN CELL VOLUME 89.9 fl (80-96); MEAN PLT VOLUME 9.2 fl (7.5-11.1); MONO % 3.9 % (3.8-10.2); NEUT % 88.5 % (42.8-82.8); PLATELET COUNT 133 10^3/uL (134-434); RBC 3.24 M/mm3 (4.00-5.60); RDW 16.1 % (11.9-15.9); WHITE BLOOD COUNT 12.7 K/mm3 (4.0-10.0)
[2022-04-18 12:33] LABS: CALCIUM 7.3 mg/dL (8.5-10.1)
[2022-04-18 12:34] LABS: BLOOD UREA NITROGEN 40.2 mg/dL (7-18)
[2022-04-18 12:36] LABS: CREATININE 1.6 mg/dL (0.55-1.3)
[2022-04-18 12:38] LABS: BILIRUBIN,TOTAL 0.4 mg/dL (0.2-1); TOT PROT 4.9 g/dl (6.4-8.2)
[2022-04-18] MEDS: DEXTROSE 5%-WATER - 1,000 ML IV SCH ×2 (14:18→22:48)
[2022-04-18] MEDS ORDERED: INSULIN (LEVEMIR) 100 UNITS/ML UNITS SQ ONE (19:06)
[2022-04-18] MEDS: ATORVASTATIN CA 40 MG TABLET (FP) PO SCH (21:36)
[2022-04-19] MEDS: VANCOMYCIN 250 MG/5 ML ORAL SOLUTION PO SCH ×5 (00:15→23:18)
[2022-04-19] MEDS: METOPROLOL TARTRATE 25 MG TABLET (FP) PO SCH ×3 (06:02→21:05)
[2022-04-19] MEDS: BANATROL PLUS POWDER PACKET PO SCH ×3 (06:03→21:05)
[2022-04-19] MEDS: INSULIN SLIDING SCALE (NOVOLOG) 1 VIAL SQ SCH ×4 (06:03→21:05)
[2022-04-19] MEDS: LEVALBUTEROL HCL 0.31 MG/3 ML VIAL.NEB IH SCH ×3 (09:05→20:14)
[2022-04-19] MEDS ORDERED: PAROXETINE HCL ORAL SUSPENSION 10 MG/5 ML PO SCH (10:00)
[2022-04-19] MEDS ORDERED: FAMOTIDINE 20 MG TABLET PO SCH (10:00)
[2022-04-19] MEDS: ZINC SULFATE 220 MG CAPSULE (FP) PO SCH (10:04)
[2022-04-19] MEDS: APIXABAN 2.5 MG TABLET PO SCH ×2 (10:04→21:05)
[2022-04-19] MEDS: MULTIVITAMINS THER W-MINERALS COMBO TABLET (FP) PO SCH (10:04)
[2022-04-19] MEDS: INSULIN (LEVEMIR) 100 UNITS/ML UNITS SQ SCH ×2 (10:04→21:06)
[2022-04-19] MEDS: FINASTERIDE 5 MG TABLET (FP) PO SCH (10:04)
[2022-04-19] MEDS: AMINO ACIDS/PROTEIN HYDROLYS 30 ML LIQUID.PKT PO SCH (10:04)
[2022-04-19] MEDS: METHIMAZOLE 10 MG TABLET PO SCH ×2 (10:11→21:05)
[2022-04-19 11:03] LABS: BASO % 0.5 % (0-2.0); HEMATOCRIT 30.2 % (35.4-49); HEMOGLOBIN 9.4 GM/dL (11.7-16.9); LYMPH % 6.5 % (8-40); MCH 28.3 pg (25.7-33.7); MCHC 31.2 g/dl (32.0-35.9); MEAN CELL VOLUME 90.9 fl (80-96); MEAN PLT VOLUME 9.1 fl (7.5-11.1); PLATELET COUNT 158 10^3/uL (134-434); RBC 3.33 M/mm3 (4.00-5.60); RDW 16.2 % (11.9-15.9); WHITE BLOOD COUNT 12.8 K/mm3 (4.0-10.0)
[2022-04-19 11:36] LABS: CALCIUM 7.5 mg/dL (8.5-10.1)
[2022-04-19 11:40] LABS: CREATININE 1.5 mg/dL (0.55-1.3)
[2022-04-19 12:47] LABS: MAGNESIUM 1.8 mg/dL (1.8-2.4)
[2022-04-19 12:50] LABS: PHOSPHOROUS 2.7 mg/dL (2.5-4.9)
[2022-04-19] MEDS: DEXTROSE 5%-WATER - 1,000 ML IV SCH (13:28)
[2022-04-19] MEDS ORDERED: INSULIN (NOVOLOG) ASPART 100 UNITS/ML 10ML VIAL ONE (20:02)
[2022-04-19] MEDS: ACETAMINOPHEN 325 MG TABLET (FP) PO PRN (21:05)
[2022-04-19] MEDS: MELATONIN 5 MG TABLETS PO PRN (21:05)
[2022-04-19] MEDS: ATORVASTATIN CA 40 MG TABLET (FP) PO SCH (21:05)
[2022-04-19] MEDS: NYSTATIN 100,000 UNIT/GM TOPICAL CREAM 15 GM TUBE TP SCH (21:06)
[2022-04-20] MEDS: VANCOMYCIN 250 MG/5 ML ORAL SOLUTION PO SCH ×3 (06:20→17:01)
[2022-04-20] MEDS: BANATROL PLUS POWDER PACKET PO SCH ×3 (06:20→21:59)
[2022-04-20] MEDS: METOPROLOL TARTRATE 25 MG TABLET (FP) PO SCH ×3 (06:20→21:59)
[2022-04-20] MEDS: INSULIN SLIDING SCALE (NOVOLOG) 1 VIAL SQ SCH ×4 (06:29→22:08)
[2022-04-20] MEDS: DEXTROSE 5%-WATER - 1,000 ML IV SCH ×2 (06:46→17:01)
[2022-04-20] MEDS: LEVALBUTEROL HCL 0.31 MG/3 ML VIAL.NEB IH SCH ×3 (08:50→20:21)
[2022-04-20] MEDS: DIGOXIN 0.125 MG TABLET PO SCH (09:57)
[2022-04-20] MEDS: ZINC SULFATE 220 MG CAPSULE (FP) PO SCH (09:57)
[2022-04-20] MEDS: AMINO ACIDS/PROTEIN HYDROLYS 30 ML LIQUID.PKT PO SCH (09:57)
[2022-04-20] MEDS: APIXABAN 2.5 MG TABLET PO SCH ×2 (09:57→21:59)
[2022-04-20] MEDS: MULTIVITAMINS THER W-MINERALS COMBO TABLET (FP) PO SCH (09:57)
[2022-04-20] MEDS: METHIMAZOLE 10 MG TABLET PO SCH ×2 (09:57→21:59)
[2022-04-20] MEDS: INSULIN (LEVEMIR) 100 UNITS/ML UNITS SQ SCH ×2 (09:57→22:09)
[2022-04-20] MEDS: FINASTERIDE 5 MG TABLET (FP) PO SCH (09:57)
[2022-04-20] MEDS: FAMOTIDINE 20 MG TABLET PO SCH (09:57)
[2022-04-20] MEDS: PARoxetine HCL 20 MG TABLET PO SCH (09:57)
[2022-04-20] MEDS: NYSTATIN 100,000 UNIT/GM TOPICAL CREAM 15 GM TUBE TP SCH ×2 (09:58→22:00)
[2022-04-20] MEDS: ACETAMINOPHEN 325 MG TABLET (FP) PO PRN (09:58)
[2022-04-20 11:38] LABS: BASO % 0.8 % (0-2.0); EOS % 1.3 % (0-4.5); HEMATOCRIT 29.1 % (35.4-49); HEMOGLOBIN 9.2 GM/dL (11.7-16.9); LYMPH % 10.4 % (8-40); MCH 28.5 pg (25.7-33.7); MCHC 31.7 g/dl (32.0-35.9); MEAN CELL VOLUME 90.1 fl (80-96); MEAN PLT VOLUME 8.9 fl (7.5-11.1); MONO % 5.2 % (3.8-10.2); NEUT % 82.3 % (42.8-82.8); PLATELET COUNT 149 10^3/uL (134-434); RBC 3.23 M/mm3 (4.00-5.60); RDW 15.9 % (11.9-15.9); WHITE BLOOD COUNT 9.1 K/mm3 (4.0-10.0)
[2022-04-20 12:00] LABS: CALCIUM 7.7 mg/dL (8.5-10.1)
[2022-04-20 12:05] LABS: CREATININE 1.5 mg/dL (0.55-1.3)
[2022-04-20] MEDS: ATORVASTATIN CA 40 MG TABLET (FP) PO SCH (21:59)
[2022-04-20] MEDS: MELATONIN 5 MG TABLETS PO PRN (22:04)
[2022-04-21] MEDS: VANCOMYCIN 250 MG/5 ML ORAL SOLUTION PO SCH ×4 (00:20→17:21)
[2022-04-21] MEDS: METOPROLOL TARTRATE 25 MG TABLET (FP) PO SCH ×3 (06:01→21:29)
[2022-04-21] MEDS: BANATROL PLUS POWDER PACKET PO SCH ×3 (06:01→21:29)
[2022-04-21] MEDS: INSULIN SLIDING SCALE (NOVOLOG) 1 VIAL SQ SCH ×4 (06:08→21:39)
[2022-04-21] MEDS: LEVALBUTEROL HCL 0.31 MG/3 ML VIAL.NEB IH SCH ×4 (08:50→20:14)
[2022-04-21] MEDS: FAMOTIDINE 20 MG TABLET PO SCH (09:36)
[2022-04-21] MEDS: FINASTERIDE 5 MG TABLET (FP) PO SCH (09:36)
[2022-04-21] MEDS: PARoxetine HCL 20 MG TABLET PO SCH (09:36)
[2022-04-21] MEDS: ZINC SULFATE 220 MG CAPSULE (FP) PO SCH (09:36)
[2022-04-21] MEDS: APIXABAN 2.5 MG TABLET PO SCH ×2 (09:36→21:29)
[2022-04-21] MEDS: INSULIN (LEVEMIR) 100 UNITS/ML UNITS SQ SCH ×2 (09:36→21:39)
[2022-04-21] MEDS: MULTIVITAMINS THER W-MINERALS COMBO TABLET (FP) PO SCH (09:36)
[2022-04-21] MEDS: METHIMAZOLE 10 MG TABLET PO SCH ×2 (09:36→21:30)
[2022-04-21] MEDS: AMINO ACIDS/PROTEIN HYDROLYS 30 ML LIQUID.PKT PO SCH ×3 (09:36→17:22)
[2022-04-21] MEDS: NYSTATIN 100,000 UNIT/GM TOPICAL CREAM 15 GM TUBE TP SCH ×2 (09:37→22:30)
[2022-04-21 11:24] LABS: HEMATOCRIT 27.2 % (35.4-49); HEMOGLOBIN 8.7 GM/dL (11.7-16.9); MCH 28.9 pg (25.7-33.7); MEAN CELL VOLUME 90.1 fl (80-96); PLATELET COUNT 140 10^3/uL (134-434); RBC 3.01 M/mm3 (4.00-5.60); RDW 15.8 % (11.9-15.9); WHITE BLOOD COUNT 6.3 K/mm3 (4.0-10.0)
[2022-04-21 12:05] LABS: CALCIUM 7.5 mg/dL (8.5-10.1)
[2022-04-21 12:06] LABS: BLOOD UREA NITROGEN 36.9 mg/dL (7-18)
[2022-04-21 12:10] LABS: CREATININE 1.5 mg/dL (0.55-1.3)
[2022-04-21 12:46] LABS: ANISOCYTOSIS 0; HELMET CELLS 0; HOWELL-JOLLY BODIES 0; MACROCYTOSIS 0; OVALOCYTE 0; ROULEAU 0; SICKELED CELLS 0; TARGET CELLS 0; TEAR DROP CELLS 0; TOXIC GRANULATION 0
[2022-04-21] MEDS: ATORVASTATIN CA 40 MG TABLET (FP) PO SCH (21:29)
[2022-04-21] MEDS: MELATONIN 5 MG TABLETS PO PRN (21:29)
[2022-04-21] MEDS: ACETAMINOPHEN 325 MG TABLET (FP) PO PRN (21:29)
[2022-04-22] MEDS: BANATROL PLUS POWDER PACKET PO SCH ×3 (05:40→21:39)
[2022-04-22] MEDS: METOPROLOL TARTRATE 25 MG TABLET (FP) PO SCH ×3 (05:40→21:39)
[2022-04-22] MEDS: INSULIN SLIDING SCALE (NOVOLOG) 1 VIAL SQ SCH ×4 (06:22→21:59)
[2022-04-22] MEDS: AMINO ACIDS/PROTEIN HYDROLYS 30 ML LIQUID.PKT PO SCH ×3 (08:50→17:27)
[2022-04-22] MEDS: LEVALBUTEROL HCL 0.31 MG/3 ML VIAL.NEB IH SCH ×3 (08:55→21:26)
[2022-04-22] MEDS: INSULIN (LEVEMIR) 100 UNITS/ML UNITS SQ SCH ×2 (10:07→21:40)
[2022-04-22] MEDS: ZINC SULFATE 220 MG CAPSULE (FP) PO SCH (10:08)
[2022-04-22] MEDS: PARoxetine HCL 20 MG TABLET PO SCH (10:08)
[2022-04-22] MEDS: FAMOTIDINE 20 MG TABLET PO SCH (10:08)
[2022-04-22] MEDS: DIGOXIN 0.125 MG TABLET PO SCH (10:08)
[2022-04-22] MEDS: MULTIVITAMINS THER W-MINERALS COMBO TABLET (FP) PO SCH (10:08)
[2022-04-22] MEDS: APIXABAN 2.5 MG TABLET PO SCH ×2 (10:08→21:39)
[2022-04-22] MEDS: FINASTERIDE 5 MG TABLET (FP) PO SCH (10:08)
[2022-04-22] MEDS: METHIMAZOLE 10 MG TABLET PO SCH ×2 (10:09→21:39)
[2022-04-22] MEDS: NYSTATIN 100,000 UNIT/GM TOPICAL CREAM 15 GM TUBE TP SCH ×2 (10:12→22:15)
[2022-04-22 10:48] LABS: BASO % 0.4 % (0-2.0); EOS % 1.6 % (0-4.5); HEMATOCRIT 30.7 % (35.4-49); HEMOGLOBIN 9.8 GM/dL (11.7-16.9); LYMPH % 10.6 % (8-40); MCH 28.8 pg (25.7-33.7); MCHC 31.9 g/dl (32.0-35.9); MEAN CELL VOLUME 90.4 fl (80-96); MEAN PLT VOLUME 8.4 fl (7.5-11.1); MONO % 6.4 % (3.8-10.2); PLATELET COUNT 136 10^3/uL (134-434); RDW 16.5 % (11.9-15.9); WHITE BLOOD COUNT 5.2 K/mm3 (4.0-10.0)
[2022-04-22 11:39] LABS: CALCIUM 7.8 mg/dL (8.5-10.1)
[2022-04-22 11:41] LABS: BLOOD UREA NITROGEN 35.4 mg/dL (7-18)
[2022-04-22 11:43] LABS: CREATININE 1.5 mg/dL (0.55-1.3)
[2022-04-22] MEDS: ATORVASTATIN CA 40 MG TABLET (FP) PO SCH (21:39)
[2022-04-22] MEDS ORDERED: INSULIN (LEVEMIR) 100 UNITS/ML UNITS SQ ONE (22:11)
[2022-04-22] MEDS: ACETAMINOPHEN 325 MG TABLET (FP) PO PRN (22:14)
[2022-04-23] MEDS: METOPROLOL TARTRATE 25 MG TABLET (FP) PO SCH ×3 (06:28→21:22)
[2022-04-23] MEDS: BANATROL PLUS POWDER PACKET PO SCH ×3 (06:28→21:22)
[2022-04-23] MEDS: INSULIN SLIDING SCALE (NOVOLOG) 1 VIAL SQ SCH ×4 (06:28→21:28)
[2022-04-23] MEDS: LEVALBUTEROL HCL 0.31 MG/3 ML VIAL.NEB IH SCH ×3 (07:43→21:00)
[2022-04-23] MEDS: PARoxetine HCL 20 MG TABLET PO SCH (09:49)
[2022-04-23] MEDS: AMINO ACIDS/PROTEIN HYDROLYS 30 ML LIQUID.PKT PO SCH ×3 (09:49→17:03)
[2022-04-23] MEDS: FAMOTIDINE 20 MG TABLET PO SCH (09:49)
[2022-04-23] MEDS: INSULIN (LEVEMIR) 100 UNITS/ML UNITS SQ SCH ×2 (09:49→21:28)
[2022-04-23] MEDS: APIXABAN 2.5 MG TABLET PO SCH ×2 (09:49→21:22)
[2022-04-23] MEDS: METHIMAZOLE 10 MG TABLET PO SCH ×2 (09:49→21:22)
[2022-04-23] MEDS: ZINC SULFATE 220 MG CAPSULE (FP) PO SCH (09:49)
[2022-04-23] MEDS: NYSTATIN 100,000 UNIT/GM TOPICAL CREAM 15 GM TUBE TP SCH ×2 (09:49→21:28)
[2022-04-23] MEDS: FINASTERIDE 5 MG TABLET (FP) PO SCH (09:49)
[2022-04-23] MEDS: MULTIVITAMINS THER W-MINERALS COMBO TABLET (FP) PO SCH (09:49)
[2022-04-23 10:37] LABS: BASO % 0.4 % (0-2.0); EOS % 1.6 % (0-4.5); HEMATOCRIT 29.7 % (35.4-49); HEMOGLOBIN 9.6 GM/dL (11.7-16.9); LYMPH % 12.4 % (8-40); MCH 29.1 pg (25.7-33.7); MCHC 32.1 g/dl (32.0-35.9); MEAN CELL VOLUME 90.6 fl (80-96); MEAN PLT VOLUME 8.2 fl (7.5-11.1); MONO % 8.1 % (3.8-10.2); NEUT % 77.5 % (42.8-82.8); PLATELET COUNT 176 10^3/uL (134-434); RBC 3.28 M/mm3 (4.00-5.60); RDW 16.8 % (11.9-15.9); WHITE BLOOD COUNT 5.3 K/mm3 (4.0-10.0)
[2022-04-23 13:04] LABS: BLOOD UREA NITROGEN 36.9 mg/dL (7-18); CALCIUM 7.5 mg/dL (8.5-10.1); CREATININE 1.6 mg/dL (0.55-1.3)
[2022-04-23] MEDS: ATORVASTATIN CA 40 MG TABLET (FP) PO SCH (21:21)
[2022-04-23] MEDS: ACETAMINOPHEN 325 MG TABLET (FP) PO PRN (21:21)
[2022-04-23] MEDS: MELATONIN 5 MG TABLETS PO PRN (21:22)
[2022-04-24] MEDS: INSULIN SLIDING SCALE (NOVOLOG) 1 VIAL SQ SCH ×4 (05:59→23:01)
[2022-04-24] MEDS: METOPROLOL TARTRATE 25 MG TABLET (FP) PO SCH ×3 (05:59→22:51)
[2022-04-24] MEDS: BANATROL PLUS POWDER PACKET PO SCH ×3 (05:59→22:51)
[2022-04-24] MEDS: LEVALBUTEROL HCL 0.31 MG/3 ML VIAL.NEB IH SCH ×3 (07:50→20:05)
[2022-04-24] MEDS: AMINO ACIDS/PROTEIN HYDROLYS 30 ML LIQUID.PKT PO SCH ×3 (08:44→20:37)
[2022-04-24 09:14] LABS: HEMATOCRIT 29.9 % (35.4-49); HEMOGLOBIN 9.6 GM/dL (11.7-16.9); MCHC 32.1 g/dl (32.0-35.9); MEAN CELL VOLUME 90.2 fl (80-96); PLATELET COUNT 204 10^3/uL (134-434); RBC 3.31 M/mm3 (4.00-5.60); RDW 16.9 % (11.9-15.9); WHITE BLOOD COUNT 5.1 K/mm3 (4.0-10.0)
[2022-04-24] MEDS: APIXABAN 2.5 MG TABLET PO SCH ×2 (10:11→22:51)
[2022-04-24] MEDS: DIGOXIN 0.125 MG TABLET PO SCH (10:11)
[2022-04-24] MEDS: PARoxetine HCL 20 MG TABLET PO SCH (10:12)
[2022-04-24] MEDS: ZINC SULFATE 220 MG CAPSULE (FP) PO SCH (10:12)
[2022-04-24] MEDS: MULTIVITAMINS THER W-MINERALS COMBO TABLET (FP) PO SCH (10:13)
[2022-04-24] MEDS: FAMOTIDINE 20 MG TABLET PO SCH (10:13)
[2022-04-24] MEDS: FINASTERIDE 5 MG TABLET (FP) PO SCH (10:13)
[2022-04-24] MEDS: NYSTATIN 100,000 UNIT/GM TOPICAL CREAM 15 GM TUBE TP SCH ×2 (10:14→23:04)
[2022-04-24] MEDS: INSULIN (LEVEMIR) 100 UNITS/ML UNITS SQ SCH ×2 (10:14→22:59)
[2022-04-24] MEDS: METHIMAZOLE 10 MG TABLET PO SCH ×2 (10:17→22:54)
[2022-04-24 10:25] LABS: BLOOD UREA NITROGEN 32.5 mg/dL (7-18)
[2022-04-24 10:29] LABS: CREATININE 1.6 mg/dL (0.55-1.3)
[2022-04-24 11:05] LABS: ANISOCYTOSIS 0; HELMET CELLS 0; HOWELL-JOLLY BODIES 0; MACROCYTOSIS 0; OVALOCYTE 0; ROULEAU 0; SICKELED CELLS 0; TARGET CELLS 0; TEAR DROP CELLS 0; TOXIC GRANULATION 0
[2022-04-24] MEDS: ATORVASTATIN CA 40 MG TABLET (FP) PO SCH (22:51)
[2022-04-25 05:55] VITALS: RESP 18
[2022-04-25] MEDS: METOPROLOL TARTRATE 25 MG TABLET (FP) PO SCH ×3 (06:50→21:35)
[2022-04-25] MEDS: BANATROL PLUS POWDER PACKET PO SCH ×3 (06:50→21:36)
[2022-04-25] MEDS: INSULIN SLIDING SCALE (NOVOLOG) 1 VIAL SQ SCH ×4 (06:56→21:47)
[2022-04-25] MEDS: LEVALBUTEROL HCL 0.31 MG/3 ML VIAL.NEB IH SCH ×3 (08:39→21:10)
[2022-04-25] MEDS: AMINO ACIDS/PROTEIN HYDROLYS 30 ML LIQUID.PKT PO SCH ×3 (09:09→17:16)
[2022-04-25] MEDS: PARoxetine HCL 20 MG TABLET PO SCH (09:09)
[2022-04-25] MEDS: FAMOTIDINE 20 MG TABLET PO SCH (09:10)
[2022-04-25] MEDS: MULTIVITAMINS THER W-MINERALS COMBO TABLET (FP) PO SCH (09:10)
[2022-04-25] MEDS: ACETAMINOPHEN 325 MG TABLET (FP) PO PRN (09:10)
[2022-04-25] MEDS: FINASTERIDE 5 MG TABLET (FP) PO SCH (09:10)
[2022-04-25] MEDS: ZINC SULFATE 220 MG CAPSULE (FP) PO SCH (09:10)
[2022-04-25] MEDS: APIXABAN 2.5 MG TABLET PO SCH ×2 (09:10→21:35)
[2022-04-25] MEDS: INSULIN (LEVEMIR) 100 UNITS/ML UNITS SQ SCH ×2 (09:12→21:48)
[2022-04-25] MEDS: METHIMAZOLE 10 MG TABLET PO SCH ×2 (09:13→21:35)
[2022-04-25] MEDS: NYSTATIN 100,000 UNIT/GM TOPICAL CREAM 15 GM TUBE TP SCH ×2 (09:13→23:14)
[2022-04-25 09:44] LABS: BASO % 0.5 % (0-2.0); EOS % 2.6 % (0-4.5); HEMATOCRIT 28.1 % (35.4-49); LYMPH % 17.8 % (8-40); MCHC 31.9 g/dl (32.0-35.9); MEAN CELL VOLUME 90.9 fl (80-96); MEAN PLT VOLUME 7.8 fl (7.5-11.1); MONO % 10.4 % (3.8-10.2); NEUT % 68.7 % (42.8-82.8); PLATELET COUNT 182 10^3/uL (134-434); RDW 17.8 % (11.9-15.9); WHITE BLOOD COUNT 4.3 K/mm3 (4.0-10.0)
[2022-04-25 10:32] LABS: CALCIUM 7.6 mg/dL (8.5-10.1)
[2022-04-25 10:33] LABS: BLOOD UREA NITROGEN 28.3 mg/dL (7-18); MAGNESIUM 1.9 mg/dL (1.8-2.4)
[2022-04-25 10:37] LABS: BILIRUBIN,TOTAL 0.3 mg/dL (0.2-1); CREATININE 1.5 mg/dL (0.55-1.3)
[2022-04-25] MEDS: ATORVASTATIN CA 40 MG TABLET (FP) PO SCH (21:35)
[2022-04-26] MEDS: BANATROL PLUS POWDER PACKET PO SCH ×3 (06:18→22:22)
[2022-04-26] MEDS: METOPROLOL TARTRATE 25 MG TABLET (FP) PO SCH ×3 (06:19→22:22)
[2022-04-26] MEDS: INSULIN SLIDING SCALE (NOVOLOG) 1 VIAL SQ SCH ×4 (06:20→22:23)
[2022-04-26] MEDS: LEVALBUTEROL HCL 0.31 MG/3 ML VIAL.NEB IH SCH ×2 (07:40→14:27)
[2022-04-26 08:51] LABS: BASO % 0.5 % (0-2.0); EOS % 2.3 % (0-4.5); HEMATOCRIT 28.5 % (35.4-49); HEMOGLOBIN 9.2 GM/dL (11.7-16.9); LYMPH % 22.4 % (8-40); MCH 29.3 pg (25.7-33.7); MCHC 32.4 g/dl (32.0-35.9); MEAN CELL VOLUME 90.3 fl (80-96); MEAN PLT VOLUME 7.6 fl (7.5-11.1); MONO % 11.4 % (3.8-10.2); NEUT % 63.4 % (42.8-82.8); PLATELET COUNT 179 10^3/uL (134-434); RBC 3.16 M/mm3 (4.00-5.60); RDW 18.1 % (11.9-15.9); WHITE BLOOD COUNT 4.6 K/mm3 (4.0-10.0)
[2022-04-26] MEDS: AMINO ACIDS/PROTEIN HYDROLYS 30 ML LIQUID.PKT PO SCH ×3 (08:52→18:14)
[2022-04-26] MEDS: FINASTERIDE 5 MG TABLET (FP) PO SCH (08:59)
[2022-04-26] MEDS: METHIMAZOLE 10 MG TABLET PO SCH ×2 (08:59→22:22)
[2022-04-26] MEDS: DIGOXIN 0.125 MG TABLET PO SCH (08:59)
[2022-04-26] MEDS: ZINC SULFATE 220 MG CAPSULE (FP) PO SCH (08:59)
[2022-04-26] MEDS: APIXABAN 2.5 MG TABLET PO SCH ×2 (08:59→22:22)
[2022-04-26] MEDS: MULTIVITAMINS THER W-MINERALS COMBO TABLET (FP) PO SCH (08:59)
[2022-04-26] MEDS: PARoxetine HCL 20 MG TABLET PO SCH (08:59)
[2022-04-26] MEDS: FAMOTIDINE 20 MG TABLET PO SCH (08:59)
[2022-04-26] MEDS: NYSTATIN 100,000 UNIT/GM TOPICAL CREAM 15 GM TUBE TP SCH ×2 (09:03→22:23)
[2022-04-26] MEDS: INSULIN (LEVEMIR) 100 UNITS/ML UNITS SQ SCH ×2 (09:07→22:24)
[2022-04-26 09:14] LABS: ALBUMIN 2.1 g/dl (3.4-5.0); BLOOD UREA NITROGEN 33.2 mg/dL (7-18); CALCIUM 7.7 mg/dL (8.5-10.1)
[2022-04-26 09:15] LABS: MAGNESIUM 1.9 mg/dL (1.8-2.4)
[2022-04-26 09:17] LABS: PHOSPHOROUS 3.4 mg/dL (2.5-4.9)
[2022-04-26 09:18] LABS: CREATININE 1.5 mg/dL (0.55-1.3)
[2022-04-26 09:19] LABS: BILIRUBIN,TOTAL 0.4 mg/dL (0.2-1); TOT PROT 5.3 g/dl (6.4-8.2)
[2022-04-26] MEDS ORDERED: INSULIN (NOVOLOG) ASPART 100 UNITS/ML 10ML VIAL ONE ×2 (11:05→16:26)
[2022-04-26] MEDS: ATORVASTATIN CA 40 MG TABLET (FP) PO SCH (22:22)
[2022-04-27] MEDS: BANATROL PLUS POWDER PACKET PO SCH (06:48)
[2022-04-27] MEDS: METOPROLOL TARTRATE 25 MG TABLET (FP) PO SCH (06:48)
[2022-04-27] MEDS: INSULIN SLIDING SCALE (NOVOLOG) 1 VIAL SQ SCH (06:53)
[2022-04-27] MEDS: AMINO ACIDS/PROTEIN HYDROLYS 30 ML LIQUID.PKT PO SCH (09:00)
[2022-04-27] MEDS: APIXABAN 2.5 MG TABLET PO SCH (09:41)
[2022-04-27] MEDS: FAMOTIDINE 20 MG TABLET PO SCH (09:41)
[2022-04-27] MEDS: MULTIVITAMINS THER W-MINERALS COMBO TABLET (FP) PO SCH (09:42)
[2022-04-27] MEDS: NYSTATIN 100,000 UNIT/GM TOPICAL CREAM 15 GM TUBE TP SCH (09:42)
[2022-04-27] MEDS: ZINC SULFATE 220 MG CAPSULE (FP) PO SCH (09:42)
[2022-04-27] MEDS: PARoxetine HCL 20 MG TABLET PO SCH (09:42)
[2022-04-27] MEDS: INSULIN (LEVEMIR) 100 UNITS/ML UNITS SQ SCH (09:42)
[2022-04-27] MEDS: FINASTERIDE 5 MG TABLET (FP) PO SCH (09:42)
[2022-04-27] MEDS: METHIMAZOLE 10 MG TABLET PO SCH (09:43)
[2022-04-27 10:24] VITALS: BP 138/70; PULSE 66; TEMP 98.1
== END 2022-04-27 11:09 | DRG 870 ==
LOC: FER 10:40 → FM/S 03-29 00:09 → J4S 03-29 20:25 → JICU 03-29 22:32 → J4S 04-06 17:03 → J6S 04-17 11:57
PROVIDERS: ADMIT Internal Medicine
PROC: 0BH17EZ Insertion of Endotracheal Airway into Trachea, Via Natural or Artificial Opening (ICD-10-PCS; principal; 2022-03-30)
PROC: 5A1955Z Respiratory Ventilation, Greater than 96 Consecutive Hours (ICD-10-PCS; 2022-03-30)
PROC: 05HM33Z Insertion of Infusion Device into Right Internal Jugular Vein, Percutaneous Approach (ICD-10-PCS; 2022-03-30)
PROC: B543ZZA Ultrasonography of Right Jugular Veins, Guidance (ICD-10-PCS; 2022-03-30)
DX: A41.89 Other specified sepsis (principal); I50.33 Acute on chronic diastolic (congestive) heart failure; J14 Pneumonia due to Hemophilus influenzae; J96.21 Acute and chronic respiratory failure with hypoxia; J96.22 Acute and chronic respiratory failure with hypercapnia; R65.21 Severe sepsis with septic shock; I13.0 Hypertensive heart and chronic kidney disease with heart failure and stage 1 through stage 4 chronic kidney disease, or unspecified chronic kidney disease; N17.9 Acute kidney failure, unspecified; J98.11 Atelectasis; A04.72 Enterocolitis due to Clostridium difficile, not specified as recurrent; E87.0 Hyperosmolality and hypernatremia; I24.8 Other forms of acute ischemic heart disease; J44.1 Chronic obstructive pulmonary disease with (acute) exacerbation; J84.9 Interstitial pulmonary disease, unspecified; I48.92 Unspecified atrial flutter; E87.5 Hyperkalemia; E78.5 Hyperlipidemia, unspecified; E11.22 Type 2 diabetes mellitus with diabetic chronic kidney disease; N18.9 Chronic kidney disease, unspecified; E05.90 Thyrotoxicosis, unspecified without thyrotoxic crisis or storm; I48.91 Unspecified atrial fibrillation; K21.9 Gastro-esophageal reflux disease without esophagitis; N40.0 Benign prostatic hyperplasia without lower urinary tract symptoms; M06.9 Rheumatoid arthritis, unspecified; I34.0 Nonrheumatic mitral (valve) insufficiency; E11.42 Type 2 diabetes mellitus with diabetic polyneuropathy; R77.8 Other specified abnormalities of plasma proteins; M62.81 Muscle weakness (generalized); E66.9 Obesity, unspecified; Z68.31 Body mass index [BMI] 31.0-31.9, adult; D64.9 Anemia, unspecified; Z96.643 Presence of artificial hip joint, bilateral
CPT/HCPCS: 0241U-QW; 36415; 36600; 71045-TC-FY; 71250-TC; 74018-TC-FY; 74230-TC-FY; 76705-TC; 76775-TC; 76856-TC; 80048; 80053; 80162; 81003; 82550; 82607; 82746; 82803; 82962; 83605; 83735; 83880; 84100; 84439; 84443; 84445; 84481; 84484; 85025; 85027; 85610; 85730; 87040; 87070; 87077; 87086; 87205; 87324; 87449; 87899; 92611-GN; 93005; 93306-TC; 93970-TC; 94002; 94010; 94640; 94761; 97162-GP; 99285-25; C9803-CS; E0186; J1250; U0003; U0005

== ENCOUNTER 2023-04-14 09:45 | Inpatient (IN) | payer OTHER ==
[2023-04-14] MEDS ORDERED: FUROSEMIDE 40 MG/4 ML INJECTABLE VIAL IVPUSH ONE (10:24)
[2023-04-14] MEDS ORDERED: CEFTRIAXONE 1,000 MG in DEXTROSE 5%-WATER - 50 ML IVPB ONE (10:25)
[2023-04-14 11:04] LABS: VENOUS BASE EXCESS 0.3 mmol/L (-2-2); VENOUS O2 SATURATION 46.5 % (70-80); VENOUS PCO2 55.9 mmHg (38-52); VENOUS PH 7.297 (7.310-7.410)
[2023-04-14 11:12] LABS: BASO % 0.5 % (0-2.0); EOS % 1.8 % (0-4.5); HEMATOCRIT 15.5 % (35.4-49); LYMPH % 10.5 % (8-40); MCHC 29.7 g/dl (32.0-35.9); MEAN CELL VOLUME 80.9 fl (80-96); MEAN PLT VOLUME 8.3 fl (7.5-11.1); MONO % 5.3 % (3.8-10.2); NEUT % 81.9 % (42.8-82.8); PLATELET COUNT 153 10^3/uL (134-434); RBC 1.92 M/mm3 (4.00-5.60); RDW 17.2 % (11.9-15.9); WHITE BLOOD COUNT 6.8 K/mm3 (4.0-10.0)
[2023-04-14] MEDS ORDERED: ALBUTEROL SO4 2.5/IPRATROPIUM 0.5 INH SOL 3 ML VIAL.NEB. NEB ONE ×2 (11:17→11:21)
[2023-04-14 11:24] LABS: POTASSIUM 4.7 mmol/L (3.5-5.1)
[2023-04-14 11:25] LABS: HEMOGLOBIN 4.6 GM/dL (11.7-16.9)
[2023-04-14] MEDS ORDERED: CEFTRIAXONE 1 GM/50 ML BAG ONE (11:25)
[2023-04-14] MEDS ORDERED: FUROSEMIDE 40 MG/4 ML INJECTABLE VIAL ONE (11:25)
[2023-04-14 11:26] LABS: CALCIUM 7.8 mg/dL (8.5-10.1)
[2023-04-14 11:27] LABS: ALBUMIN 2.6 g/dl (3.4-5.0); BLOOD UREA NITROGEN 47.5 mg/dL (7-18)
[2023-04-14 11:30] LABS: CREATININE 2.3 mg/dL (0.55-1.3)
[2023-04-14 11:30] LABS: INR 1.75 (0.83-1.09); PROTHROMBIN TIME (PATIENT) 20.2 SEC (9.7-13.0)
[2023-04-14 11:31] LABS: BILIRUBIN,TOTAL 0.2 mg/dL (0.2-1); TOT PROT 6.5 g/dl (6.4-8.2)
[2023-04-14 11:33] LABS: ACTIVATED PTT 37.7 SECONDS (25.2-36.5)
[2023-04-14] MEDS ORDERED: PANTOPRAZOLE SODIUM 40 MG VIAL ONE (11:38)
[2023-04-14] MEDS ORDERED: ACETAMINOPHEN 1000 MG/100 ML BAG IVPB ONE (12:44)
[2023-04-14] MEDS ORDERED: LEVALBUTEROL HCL 0.31 MG/3 ML VIAL.NEB IH PRN (13:41)
[2023-04-14] MEDS: METOPROLOL TARTRATE 25 MG TABLET (FP) PO SCH ×2 (15:27→23:06)
[2023-04-14 15:54] LABS: EPI CELLS 1 /uL (0-25.1); HYALINE CASTS 0 /uL (0-3.1); URINE APPEARANCE TURBID; URINE BACTERIA 41 /uL (0-1359); URINE BILIRUBIN NEGATIVE (NEGATIVE); URINE COLOR YELLOW; URINE GLUCOSE (UA) NEGATIVE (NEGATIVE); URINE KETONE NEGATIVE (NEGATIVE); URINE LEUK ESTERASE 3+ (NEGATIVE); URINE NITRITE NEGATIVE (NEGATIVE); URINE PROTEIN 1+ (NEGATIVE); URINE UROBILINOGEN 0.2 mg/dL (0.2-1.0); URINE WBC 1589 /uL (0-25.8)
[2023-04-14 16:31] LABS: URINE RBC 1232.5 /uL (0-23.9)
[2023-04-14] MEDS: AMINO ACIDS/PROTEIN HYDROLYS 30 ML LIQUID.PKT PO SCH (18:06)
[2023-04-14 18:35] VITALS: BMI 26.6
[2023-04-14] MEDS ORDERED: TAMSULOSIN HCL 0.4 MG CAP PO SCH (22:00)
[2023-04-14] MEDS: PANTOPRAZOLE SODIUM 40 MG VIAL IVPUSH SCH (23:05)
[2023-04-15] MEDS: METHIMAZOLE 10 MG TABLET PO SCH ×2 (00:12→11:38)
[2023-04-15] MEDS ORDERED: ACETAMINOPHEN 325 MG TABLET (FP) PO PRN (01:36)
[2023-04-15 06:23] VITALS: RESP 20
[2023-04-15] MEDS: METOPROLOL TARTRATE 25 MG TABLET (FP) PO SCH ×2 (06:23→14:04)
[2023-04-15 07:40] LABS: BASO % 0.4 % (0-2.0); EOS % 2.9 % (0-4.5); HEMATOCRIT 16.3 % (35.4-49); LYMPH % 14.1 % (8-40); MCH 25.7 pg (25.7-33.7); MCHC 31.8 g/dl (32.0-35.9); MEAN CELL VOLUME 80.8 fl (80-96); MEAN PLT VOLUME 8.5 fl (7.5-11.1); MONO % 7.6 % (3.8-10.2); PLATELET COUNT 142 10^3/uL (134-434); RBC 2.02 M/mm3 (4.00-5.60); RDW 16.6 % (11.9-15.9)
[2023-04-15 07:43] LABS: HEMOGLOBIN 5.2 GM/dL (11.7-16.9)
[2023-04-15 08:01] LABS: CALCIUM 7.5 mg/dL (8.5-10.1)
[2023-04-15 08:02] LABS: ALBUMIN 2.5 g/dl (3.4-5.0); BLOOD UREA NITROGEN 43.6 mg/dL (7-18)
[2023-04-15 08:05] LABS: CREATININE 2.2 mg/dL (0.55-1.3)
[2023-04-15 08:06] LABS: BILIRUBIN,TOTAL 0.4 mg/dL (0.2-1)
[2023-04-15 08:07] LABS: TOT PROT 5.8 g/dl (6.4-8.2)
[2023-04-15 09:46] LABS: ERYTHROCYTE SEDIMENTATION RATE 67 mm/hr (0-20)
[2023-04-15] MEDS ORDERED: FINASTERIDE 5 MG TABLET (FP) PO SCH (10:00)
[2023-04-15] MEDS ORDERED: PARoxetine HCL 20 MG TABLET PO SCH (10:00)
[2023-04-15] MEDS ORDERED: IRON SUCROSE INJECTION 200 MG in SODIUM CHLORIDE 90 ML IVPB ONE (10:00)
[2023-04-15] MEDS: AMINO ACIDS/PROTEIN HYDROLYS 30 ML LIQUID.PKT PO SCH ×3 (11:37→18:14)
[2023-04-15] MEDS: PANTOPRAZOLE SODIUM 40 MG VIAL IVPUSH SCH (11:37)
[2023-04-15] MEDS ORDERED: FUROSEMIDE 40 MG/4 ML INJECTABLE VIAL IVPUSH ONE (15:00)
[2023-04-15] MEDS ORDERED: CEFTRIAXONE 1 GM in DEXTROSE 5%-WATER - 50 ML IVPB SCH (15:00)
[2023-04-15 16:24] LABS: BASO % 0.3 % (0-2.0); EOS % 1.3 % (0-4.5); LYMPH % 12.6 % (8-40); MCH 25.2 pg (25.7-33.7); MCHC 30.6 g/dl (32.0-35.9); MEAN CELL VOLUME 82.2 fl (80-96); MEAN PLT VOLUME 8.3 fl (7.5-11.1); MONO % 5.5 % (3.8-10.2); NEUT % 80.3 % (42.8-82.8); PLATELET COUNT 162 10^3/uL (134-434); RBC 2.56 M/mm3 (4.00-5.60); WHITE BLOOD COUNT 7.6 K/mm3 (4.0-10.0)
[2023-04-15 16:38] LABS: POTASSIUM 5.2 mmol/L (3.5-5.1)
[2023-04-15 16:40] LABS: CALCIUM 7.5 mg/dL (8.5-10.1)
[2023-04-15 16:41] LABS: BLOOD UREA NITROGEN 47.6 mg/dL (7-18)
[2023-04-15 16:44] LABS: CREATININE 2.2 mg/dL (0.55-1.3); HEMOGLOBIN 6.4 GM/dL (11.7-16.9)
[2023-04-15 18:27] VITALS: BP 130/74; PULSE 61; TEMP 97.8
[2023-04-16] MEDS ORDERED: DIGOXIN 0.125 MG TABLET PO SCH (10:00)
[2023-04-16] MEDS ORDERED: FUROSEMIDE 40 MG/4 ML INJECTABLE VIAL IVPUSH SCH (10:00)
[2023-04-16] MEDS ORDERED: IRON SUCROSE INJECTION 200 MG in SODIUM CHLORIDE 90 ML IVPB ONE (10:00)
[2023-04-17] MEDS ORDERED: IRON SUCROSE INJECTION 200 MG in SODIUM CHLORIDE 90 ML IVPB ONE (10:00)
== END 2023-04-15 21:04 | disposition short-term general hospital (02) | DRG 291 ==
LOC: JER 09:45 → JERBED 10:26 → J4S 17:37
PROVIDERS: ADMIT Internal Medicine; ATTEND Internal Medicine
PROC: 30233N1 Transfusion of Nonautologous Red Blood Cells into Peripheral Vein, Percutaneous Approach (ICD-10-PCS; principal; 2023-04-14)
DX: I13.0 Hypertensive heart and chronic kidney disease with heart failure and stage 1 through stage 4 chronic kidney disease, or unspecified chronic kidney disease (principal); I50.33 Acute on chronic diastolic (congestive) heart failure; J96.01 Acute respiratory failure with hypoxia; E87.20 Acidosis, unspecified; J84.9 Interstitial pulmonary disease, unspecified; G61.81 Chronic inflammatory demyelinating polyneuritis; E11.22 Type 2 diabetes mellitus with diabetic chronic kidney disease; N18.9 Chronic kidney disease, unspecified; E11.42 Type 2 diabetes mellitus with diabetic polyneuropathy; E78.5 Hyperlipidemia, unspecified; I48.91 Unspecified atrial fibrillation; D50.9 Iron deficiency anemia, unspecified; J44.9 Chronic obstructive pulmonary disease, unspecified; N40.0 Benign prostatic hyperplasia without lower urinary tract symptoms; M06.9 Rheumatoid arthritis, unspecified; E05.90 Thyrotoxicosis, unspecified without thyrotoxic crisis or storm; F42.9 Obsessive-compulsive disorder, unspecified; Z99.81 Dependence on supplemental oxygen
CPT/HCPCS: 0241U-QW; 36415; 36430; 71045-TC-FY; 80048; 80053; 80162; 81003; 82553; 82607; 82728; 82746; 82803; 83540; 83550; 83605; 83880; 84484; 85025; 85610; 85651; 85730; 86850; 86900; 86901; 86922; 87040; 87077; 87086; 93005; 93010; 93970-TC; 94660; 99291; J1756; P9038; P9058

== ENCOUNTER 2023-09-22 03:44 | Day surgery (SDC) | payer OTHER ==
[2023-09-21 08:43] VITALS: BMI 24.7
[2023-09-22] MEDS ORDERED: LIDOCAINE HCL/PF 1% SDV 5ML VIAL ONE (07:00)
[2023-09-22] MEDS ORDERED: BUPIVACAINE HCL/PF 0.75% 10 ML VIAL ONE (07:00)
[2023-09-22 11:14] VITALS: RESP 18
[2023-09-22] MEDS: BUPIVACAINE HCL/PF 0.75% 10 ML VIAL NR ONE ×2 (12:39)
[2023-09-22] MEDS: LIDOCAINE 1% P/F 10 MG/ML VIAL INF ONE ×2 (12:39)
[2023-09-22 13:18] VITALS: TEMP 97.8
[2023-09-22 13:32] VITALS: BP 104/50; PULSE 70
[2023-09-22] MEDS ORDERED: ACETAMINOPHEN 500 MG TABLET (FP) PO PRN (14:52)
== END 2023-09-22 14:06 | disposition home or self-care (01) ==
LOC: JASU-SURG 03:44
PROVIDERS: ATTEND Pain Medicine Pain Medicine
PROC: 3E0T33Z Introduction of Anti-inflammatory into Peripheral Nerves and Plexi, Percutaneous Approach (ICD-10-PCS; 2023-09-22)
PROC: BR16YZZ Fluoroscopy of Lumbar Facet Joint(s) using Other Contrast (ICD-10-PCS; 2023-09-22)
PROC: 3E0T3BZ Introduction of Anesthetic Agent into Peripheral Nerves and Plexi, Percutaneous Approach (ICD-10-PCS; principal; 2023-09-22 11:45)
DX: M47.896 Other spondylosis, lumbar region (principal)
CPT/HCPCS: 76000-TC-FY; 82962